=== PATIENT | female | born 1990 | race Caucasian/White ===

== ENCOUNTER 2018-07-05 10:23 | Emergency (ER) | payer SELFPAY ==
[~2018-07-05] VITALS: Ht 157.5 cm; Wt 90.7 kg
[~2018-07-05 10:23] MED LIST: SEIZURE MEDS
--- NOTE | 2018-07-05 11:13 | ED Cough/URI ---
General Chief Complaint: Cough/Cold/Flu Symptoms Stated Complaint: COUGH, STABBING PAINS IN CHEST, CONGESTED Nursing Triage Note: PT CO OF COLD COUGH AND FLU SX, PT HERE W CHILDREN X2 SAME CO Source: patient Exam Limitations: no limitations History of Present Illness Date Seen by Provider: Jul 05, 2018 Time Seen by Provider: 11:00 Initial Comments Patient is a 27-year-old female who presents to the emergency room complaints of cough and cold-like symptoms. She reports that she hasn't had nasal congestion and draining for 1 week. She reports that the nasal drainage is causing her nausea. She denies fevers, headaches, sore throat. She also checked her 2 children with similar complaints. Denies making appointment to see her primary care provider. Timing/Duration: week Severity/Quality: mild, productive cough (clear sputum) Prior Episodes/Possible Cause: no prior episodes Associated Symptoms: cough, nasal congestion, nasal drainage Allergies and Home Medications Allergies Coded Allergies: carbamazepine (Verified Allergy, Unknown, 06/17/18) divalproex sodium (Verified Allergy, Unknown, 06/17/18) ondansetron (Verified Allergy, Unknown, 06/17/18) prochlorperazine (Verified Allergy, Unknown, 06/17/18) topiramate (Verified Allergy, Unknown, 06/17/18) Home Medications No Active Prescriptions or Reported Meds Patient Home Medication List Home Medication List Reviewed: Yes Review of Systems Review of Systems Constitutional: see HPI; No chills, No fever EENTM: see HPI, nose congestion; No throat pain Respiratory: see HPI, cough Gastrointestinal: see HPI, nausea All Other Systems Reviewed Negative Unless Noted: Yes Past Jvfbeco-Puifxw-Vpixer Hx Past Med/Social Hx: Reviewed Nursing Past Med/Soc Hx Patient Social History Alcohol Use: Denies Use Recreational Drug Use: Yes (POT) Smoking Status: Current Everyday Smoker Type Used: Cigarettes 2nd Hand Smoke Exposure: Yes Recent Foreign Travel: No Contact w/Someone Who Travel: No Recent Infectious Disease Expo: No Recent Hopitalizations: No Past Medical History Surgeries: Yes Breast, 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 Respiratory: No Cardiac: No 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: Yes 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 oz. 90.215887qn; BMI Method:Stated General Appearance: WD/WN, no apparent distress HEENT: PERRL/EOMI, normal ENT inspection, TMs normal, pharynx normal Neck: non-tender, full range of motion, supple, normal inspection Respiratory: chest non-tender, lungs clear, normal breath sounds, no respiratory distress, no accessory muscle use Cardiovascular: regular rate, rhythm, no edema, no gallop, no JVD, no murmur Gastrointestinal: normal bowel sounds, non tender, soft, no organomegaly, no pulsatile mass Neurologic/Psychiatric: alert, normal mood/affect, oriented x 3 Skin: normal color, warm/dry Progress/Results/Core Measures Suspected Sepsis Recent Fever Within 48 Hours: No Infection Criteria Present: None New/Unexplained Altered Menta: No Sepsis Screen: No Definite Risk SIRS Temperature:97.4 Pulse: 100 Respiratory Rate: 20 Blood Pressure 113 /78 Mean: 90 Results/Orders My Orders Orders - JOEL BISHOP Ct Head/Cervical Spine Wo (07/05/18 11:29) Vital Signs/I&O 07/05/18 07/05/18 10:35 12:25 Temp 97.4 Pulse 100 88 Resp 20 20 B/P (MAP) 113/78 (90) 112/70 (90) Pulse Ox 100 100 Capillary Refill : Less Than 3 Seconds Blood Pressure Mean: 90 Progress Note : Time: 11:25 Progress Note The patient ambulated to the restroom at this time where she proceeded have a seizure. The nursing staff could hear her hitting the wall and trash and in the restroom. The door was locked and by the time we had unlock she was no longer seizing. We are unsure if she hit her head and neck. C-spine precautions were taken a c-collar was placed she was log rolled onto a spine board and transferred back into the bed. I will be ordering a CT head and neck to rule out injury. The patient is postictal at this time. Her reports that she is no longer on medications for her seizures but has a vagal nerve stimulator that controls her seizures but they left the magnetic activator at home. 1218: Patient is alert and oriented at this time. She has no longer postictal. I informed her of normal CT imaging. I removed her c-collar at this time. She has an extensive history of seizures and she has not on any medications to check levels of. She is instructed to follow up with her primary care provider within 1 week for recheck and carried her magnetic vagal nerve stimulator at all times to control her seizures. She agrees with complains of care, plans for discharge and return precautions were given. Diagnostic Imaging Diagonstic Imaging: CT Plain Films/CT/US/NM/MRI: head Comments NAME: BECK HEARD REC#: [id number] PT STATUS: REG ER : 1990 PHYSICIAN: JOEL BISHOP ADMIT DATE: 07/05/18/ER Signed Date of Exam:07/05/18 CT HEAD/CERVICAL SPINE WO PROCEDURE: CT head and CT cervical spine without contrast. TECHNIQUE: Multiple contiguous axial images were obtained through the brain and cervical spine without the use of intravenous contrast. Sagittal and coronal reformations through the cervical spine were then performed. INDICATION: Seizure fall COMPARISON: None. FINDINGS: CT head: Ventricles normal in size, shape and position. There is no midline shift or mass effect. There is no hemorrhage or evidence of acute ischemia. There is no cerebral edema. The bony calvarium, visualized paranasal sinuses and mastoids are normal. IMPRESSION: Negative CT head. CT cervical spine: Alignment is normal. There is no subluxation or fracture. No osseous lesion or degeneration is seen. IMPRESSION: No traumatic malalignment or fracture. Dictated by: Dictated on workstation # [id number] Dict: 07/05/18 1200 Trans: 07/05/18 1204 [facility] [id number] Interpreted by: DIEGO MORA Electronically signed by: DIEGO MORA 07/05/18 1204 Departure Impression Primary Impression: Upper respiratory infection Additional Impressions: Viral illness Seizure Disposition: 01 HOME, SELF-CARE Condition: Stable/Unchanged Departure-Patient Inst. Decision time for Depature: 12:10 Referrals: CHAUNCEY MCDOWELL MD (PCP) Primary Care Physician [facility]/JULIET (Family) Primary Care Physician Patient Instructions: Viral Upper Respiratory Infection, Adult (DC) Add. Discharge Instructions: Taking no medications as previously prescribed. Follow up with her primary care provider within 1 week for recheck. Be sure you are carrying your magnet activator at all times. You may use ibgf-rjh-qodasvw cough suppressants, decongestants, and humidifier to loosen secretions. All first thing Saturday morning to schedule an appointment with your primary care provider. Return back to the emergency room for any worsening symptoms or concerns as needed. All discharge instructions reviewed with patient and/or family. Voiced understanding. Scripts No Active Prescriptions or Reported Meds JOEL BISHOP Jul 05, 2018 11:13
--- NOTE | 2018-07-05 12:04 | Diagnostic Imaging Report ---
PROCEDURE: CT head and CT cervical spine without contrast. TECHNIQUE: Multiple contiguous axial images were obtained through the brain and cervical spine without the use of intravenous contrast. Sagittal and coronal reformations through the cervical spine were then performed. INDICATION: Seizure fall COMPARISON: None. FINDINGS: CT head: Ventricles normal in size, shape and position. There is no midline shift or mass effect. There is no hemorrhage or evidence of acute ischemia. There is no cerebral edema. The bony calvarium, visualized paranasal sinuses and mastoids are normal. IMPRESSION: Negative CT head. CT cervical spine: Alignment is normal. There is no subluxation or fracture. No osseous lesion or degeneration is seen. IMPRESSION: No traumatic malalignment or fracture. Dictated by: Dictated on workstation # [id number]
[2018-07-05 12:25] VITALS: BP 112/70
== END 2018-07-05 12:25 | disposition home or self-care (01) ==
LOC: EDUNIT# 10:23 → ER 10:24
DX: J06.9 Acute upper respiratory infection, unspecified (principal); B34.9 Viral infection, unspecified; G40.909 Epilepsy, unspecified, not intractable, without status epilepticus; F41.9 Anxiety disorder, unspecified; F12.10 Cannabis abuse, uncomplicated; F17.210 Nicotine dependence, cigarettes, uncomplicated; Z90.710 Acquired absence of both cervix and uterus; Z88.8 Allergy status to other drugs, medicaments and biological substances; Z85.3 Personal history of malignant neoplasm of breast
CPT/HCPCS: 70450; 72125

== ENCOUNTER 2018-08-28 21:49 | Emergency (ER) | payer MEDICAID, OTHER ==
[~2018-08-28] VITALS: Ht 157.5 cm; Wt 92.1 kg
--- OUTSIDE RECORDS SUMMARY | 2018-08-28 21:55 | XMS REPORT ---
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 Active 711466442 ALLERGIES No Information ENCOUNTERS Encounter Location Date Diagnosis [place] [id number] [place] [phone] Aug, [facility] [id number] [place] [phone] Jul, [place] [id number] [place] [phone] Jul, 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 malignant 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 ; 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 ; Vaginal dryness , menopausal N95.1 ; Hx of hysterectomy Z90.710 ; Acquired absence of 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 and History of breast cancer in female Z85.3 [facility] [id number] [place] [phone] Jun, Vasomotor symptoms due to menopause N95.1 [facility] [id number] [place] [phone] May, Vasomotor symptoms due to menopause N95.1 ; Acquired absence of 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 ; 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 and History of breast cancer in female Z85.3 IMMUNIZATIONS No Known Immunizations SOCIAL HISTORY Never Assessed REASON FOR VISIT Medication question PLAN OF CARE VITAL SIGNS MEDICATIONS Unknown Medications RESULTS No Results PROCEDURES No Known procedures INSTRUCTIONS MEDICATIONS ADMINISTERED No Known Medications MEDICAL (GENERAL) HISTORY Type Description Date Medical History [facility] Medical History Pre-cancerous Uterous Medical History Breast cancer -early 's Medical History epilepsy Medical History Anxiety Medical History Bi-polar disorder Medical History doble masectomy Surgical History Hysterctomy 2017 Surgical History Double -mastectomy 2011 Surgical History Child 15-17 Surgical History c-sectionsx 2 Hospitalization History [facility], Psychatric house in/out through the years Age [age] Hospitalization History Surgeries Hospitalization History [facility] -head damage stayed one week
--- OUTSIDE RECORDS SUMMARY | 2018-08-28 21:56 | XMS REPORT ---
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 782187973 Problem Acquired absence of 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 Active 784704100 Problem History of breast cancer in female Z85.3 Active 744018296 Problem Vasomotor symptoms due to menopause N95.1 Active 617364155 ALLERGIES No Information ENCOUNTERS Encounter Location Date Diagnosis [facility] [id number] [place] [phone] Jul, [facility] [id number] [place] [phone] Jun, Vasomotor symptoms due to menopause N95.1 [facility] [address] [place] [phone] May, Vasomotor symptoms due to menopause N95.1 ; Acquired absence of 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 ; 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 and History of breast cancer in female Z85.3 IMMUNIZATIONS No Known Immunizations SOCIAL HISTORY Never Assessed REASON FOR VISIT Refill request PLAN OF CARE VITAL SIGNS MEDICATIONS Medication Instructions Dosage Frequency Start Date End Date Duration Status Escitalopram Oxalate 20 mg Orally Once a day 1 tablet 24h Jun, 30 day(s) Active RESULTS No Results PROCEDURES No Known procedures INSTRUCTIONS MEDICATIONS ADMINISTERED No Known Medications MEDICAL (GENERAL) HISTORY Type Description Date Medical History [facility] Medical History Pre-cancerous Uterous Medical History Breast cancer -early 20's Medical History epilepsy Medical History Anxiety Medical History Bi-polar disorder Surgical History Hysterctomy 2017 Surgical History Double -mastectomy 2011 Surgical History Child 15-17 Hospitalization History [facility], Psychatric house in/out through the years Age 16-25 Hospitalization History Surgeries Hospitalization History [facility] -head damage stayed one week
--- OUTSIDE RECORDS SUMMARY | 2018-08-28 21:56 | XMS REPORT ---
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 520981873 Problem Acquired absence of 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 Active 053802027 Problem History of breast cancer in female Z85.3 Active 553538560 Problem Vasomotor symptoms due to menopause N95.1 Active 944329942 ALLERGIES Substance Reaction Event Type Date Status Depakote anaphylaxis Drug Allergy May, Active ENCOUNTERS Encounter Location Date Diagnosis [facility] [id number] [place] [phone] Jul, [facility] [id number] [place] [phone] Jun, [facility] [id number] [place] [phone] May, Vasomotor symptoms due to menopause N95.1 ; Acquired absence of 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 ; 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 PT notes she has been experincing a lot of itching, she states that she has experinced a lot of itching when she was with her two sons but now it is a constant. PT reports she has been experincing a lot of hot flashes and mood swings.Jordan ODELL PLAN OF CARE Activity Details Follow Up prn Reason: VITAL SIGNS Height 62 in 2018-06-25 Weight 200.4 lbs 2018-06-25 Temperature 98.4 degrees Fahrenheit 2018-06-25 Heart Rate 107 bpm 2018-06-25 Respiratory Rate 20 2018-06-25 Oximetry 98 % 2018-06-25 BMI 36.65 kg/m2 2018-06-25 Blood pressure systolic 118 mmHg 2018-06-25 Blood pressure diastolic 72 mmHg 2018-06-25 MEDICATIONS Medication Instructions Dosage Frequency Start Date End Date Duration Status Escitalopram Oxalate 10 mg Orally Once a day 1 tablet 24h May, 30 day(s) Active RESULTS No Results PROCEDURES No Known procedures INSTRUCTIONS MEDICATIONS ADMINISTERED No Known Medications MEDICAL (GENERAL) HISTORY Type Description Date Medical History [facility] Medical History Pre-cancerous Uterous Medical History Breast cancer -early 20s Medical History epilepsy Medical History Anxiety Medical History Bi-polar disorder Surgical History Hysterctomy 2018 Surgical History Double -mastectomy 2011 Surgical History Child 15-17 Hospitalization History [facility] through [facility] years Age 16-25 Hospitalization History Surgeries Hospitalization History [facility] -head damage stayed one week
[2018-08-28] MEDS: LORazepam INJ 2 MG/ML (ATIVAN) VIAL ONE (23:26)
[2018-08-28] MEDS: ONDANSETRON 4 MG/2 ML (SDV) Z0FRAN ONE (23:26)
[2018-08-28] MEDS: KETOROLAC 30 MG/ML VIAL ONE (23:41)
[2018-08-28] MEDS: PROMETHAZINE INJ 25 MG/ML (PHENERGAN) AMP ONE (23:43)
[2018-08-29] MEDS: RX-HYDROCODONE/APAP 5/325 MG #4 TAB PK PO PRN (00:10)
[2018-08-29] MEDS: RX-PHENERGAN 25 MG SUPP PPK#3 PR STA (00:10)
[2018-08-29] MEDS ORDERED: RX-ONDANSETRON 4 MG ODT (ZOFRAN) PPK #4 ONE (00:18)
[2018-08-29] MEDS ORDERED: RX-HYDROCODONE/APAP 5/325 MG #4 TAB PK PO ONE (00:18)
[2018-08-29] MEDS ORDERED: RX-PHENERGAN 25 MG SUPP PPK#3 ONE ×2 (00:28→00:34)
[2018-08-29] MEDS: TETANUS,DIPTH,PERTUSS P/F (BOOSTRIX) 0.5 ML VIAL IM ONE (00:39)
[2018-08-29 00:45] VITALS: BP 133/68
--- NOTE | 2018-08-29 03:10 | ED Integumentary General ---
General Chief Complaint: Bite-Animal/Human/Insect Stated Complaint: SPIDER BITE ON R TOE Nursing Triage Note: PT AMB TO ROOM #10 W/O DIFFICULTY. A&OX4. C/O SPIDER BITE TO 2ND TOE OF RT FOOT. PT REPORTS @ APPROX 2000 SHE WAS AT A FRIENDS HOUSE WHEN SHE FELT A SHARP STING TO HER TOE. REPORTS HER REFLEX WAS TO SMACK/BRUSH SPIDER OFF W/O LOOKING AT IT. PT REPORTS SHE DID NOT SEE SPIDER AND CAN NOT CLARIFY THAT IT WAS A SPIDER. PT REPORTS SINCE INCIDENT SHE HAS VOMITED X6 TIMES AND HAS MUSCLE TIGHTENING. REPORTS IT FEELS LIKE "PINS AND NEEDLES" IN HER TOE. DURING TRIAGE PT BEGAN TO VOMIT AND WAS GIVEN AN EMESIS BASEN. Source: patient Exam Limitations: no limitations History of Present Illness Date Seen by Provider: Aug 28, 2018 Time Seen by Provider: 23:25 Initial Comments Patient presents to ER by private conveyance with chief complaint that about 1 hour ago she was sitting on her easy chair at home and she felt a sting in her right foot second toe medial side. She looked down and saw a spider brushed it away and did not recover the body. She said started having excruciating pain started up about an hour later as well as some body aches nausea or vomiting. She cannot describe the spider. Shes never had a bike like this before. She does have a history of seizures controlled with medicines. Shes having no fevers but she is having some sweats and chills. Shes vomited a few times in the ER. Allergies and Home Medications Allergies Coded Allergies: carbamazepine (Verified Allergy, Unknown, 06/17/18) divalproex sodium (Verified Allergy, Unknown, 06/17/18) ondansetron (Verified Allergy, Unknown, 06/17/18) prochlorperazine (Verified Allergy, Unknown, 06/17/18) topiramate (Verified Allergy, Unknown, 06/17/18) Home Medications No Active Prescriptions or Reported Meds Patient Home Medication List Home Medication List Reviewed: Yes Review of Systems Review of Systems Constitutional: No chills, No diaphoresis, No fever; malaise EENTM: No blurred vision, No double vision Respiratory: No cough, No short of breath Cardiovascular: No chest pain, No edema Gastrointestinal: No abdominal pain, No constipation, No diarrhea; nausea, vomiting Genitourinary: No discharge, No dysuria Musculoskeletal: No back pain, No joint pain Skin: see HPI Past Qwelqol-Anrvhx-Oswrcq Hx Patient Social History Alcohol Use: Denies Use Recreational Drug Use: Yes Drug of Choice: THC Type Used: Cigarettes 2nd Hand Smoke Exposure: Yes Recent Foreign Travel: No Contact w/Someone Who Travel: No Recent Infectious Disease Expo: No Recent Hopitalizations: No Physical Abuse: No Sexual Abuse: No Mistreated: No Past Medical History Surgeries: Yes Breast, 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 Respiratory: No Cardiac: No 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: Yes Seizure Disorder 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 Genitourinary: No Gastrointestinal: No Musculoskeletal: Yes Chronic Back Pain Endocrine: No Cancer: Yes Breast Psychosocial: Yes Anxiety Physical Exam Vital Signs Vital Signs - First Documented 08/28/18 22:39 Temp 98.3 Pulse 89 Resp 16 B/P (MAP) 143/99 (114) Pulse Ox 99 O2 Delivery Room Air Capillary Refill : Less Than 3 Seconds General Appearance: WD/WN, no apparent distress HEENT: PERRL/EOMI, pharynx normal Neck: non-tender, normal inspection Cardiovascular: normal peripheral pulses, regular rate, rhythm, no edema Respiratory: chest non-tender, lungs clear, normal breath sounds, no respiratory distress, no accessory muscle use Gastrointestinal: normal bowel sounds, non tender, soft Neurologic/Psychiatric: alert, oriented x 3, other (very anxious) Skin: rash (mild erythematous swelling on the second toe of the right foot medial side.) Progress/Results/Core Measures Results/Orders My Orders Orders - DONNA CARTER Ondansetron Injection (Zofran Injectio (08/28/18 23:09) Lorazepam Injection (Ativan Injection) (08/28/18 23:10) Promethazine Injection (Phenergan Injec (08/28/18 23:33) Ketorolac Injection (Toradol Injection) (08/28/18 23:33) Rx-Hydrocodone/Apap 5-325 Mg (Rx-Vicodin (08/29/18 00:18) Rx-Ondansetron Po (Rx-Zofran Po) (08/29/18 00:18) Dipht,Pertuss(Acell),Tet Adult (Boostrix (08/29/18 00:18) Rx-Promethazine Hcl (Rx-Phenergan Supp) (08/29/18 00:28) Rx-Promethazine Hcl (Rx-Phenergan Supp) (08/29/18 00:34) Medications Given in ED Current Medications Medications Dose Ordered Sig/Shlomo Route Start Time Stop Time Status Last Admin Dose Admin Diphtheria/ Tetanus/Acell Pertussis 0.5 ml STK-MED ONCE IM 08/29/18 00:18 08/29/18 00:30 DC 08/29/18 00:39 0.5 ML Ketorolac Tromethamine 30 mg STK-MED ONCE .ROUTE 08/28/18 23:33 08/29/18 00:30 DC 08/28/18 23:41 30 MG Lorazepam 2 mg STK-MED ONCE .ROUTE 08/28/18 23:10 08/29/18 00:30 DC 08/28/18 23:26 2 MG Promethazine HCl 25 mg STK-MED ONCE .ROUTE 08/28/18 23:33 08/29/18 00:30 DC 08/28/18 23:43 25 MG Vital Signs/I&O 08/28/18 08/29/18 22:39 00:45 Temp 98.3 98.3 Pulse 89 84 Resp 16 16 B/P (MAP) 143/99 (114) 133/68 (89) Pulse Ox 99 100 O2 Delivery Room Air Room Air Blood Pressure Mean: 89 Progress Progress Note #1: Time: 23:35 Progress Note We have given the patient some Ativan 1 mg because she is having quite a bit of anxiety as well as Toradol and Phenergan. She has an allergy to Zofran. The toe itself is slightly inflamed having a little scant edema. Concern is that it might be a but since she started having chills and body aches and sweats nausea vomiting within 1-2 hours after the bite. Pharmacy advises us that we do not have spider antivenom. We will call toxicology at poison control. James : Recommends that antivenom is only available to the CDC and is not readily available. He says the mainstay of treatment is opiates and benzos. He would watch her until least 4 hours after the original bite as thats when the worst the pain peaks. Usually can last 6-8 hours. He recommended tetanus shot and either observe for pain control if needed or if we can get her pain better or resolved we could send her home. Progress Note #2: Time: 00:30 Progress Note Patient's much more palpable. Her nausea is gone. We will going to give her some take-home packs of nausea pain medicines and scripts. We have discussed with her the expectations from toxicology and she is in agreement with the plan and will follow up with her primary care doctor as needed. Departure Impression Primary Impression: Spider bite wound Qualified Codes: T63.301A - Toxic effect of unspecified spider venom, accidental (unintentional), initial encounter Disposition: HOME, SELF-CARE Condition: Improved Departure-Patient Inst. Decision time for Depature: 03:20 Referrals: CHAUNCEY MCDOWELL MD (PCP) Primary Care Physician [facility] (Family) Primary Care Physician Patient Instructions: Spider Bites Add. Discharge Instructions: Use the Phenergan every 6 hours as needed. Use the hydrocodone one tablet every 6 hours as needed for pain. Keep the toe elevated above the level of your heart for swelling. You can use heat as needed. You can also use ibuprofen 800 mg every 8 hours. All discharge instructions reviewed with patient and/or family. Voiced understanding. Scripts No Active Prescriptions or Reported Meds Copy Copies To 1: WENCESLAO CRUZ TITUS J Aug 29, 2018 03:10
== END 2018-08-29 00:45 | disposition home or self-care (01) ==
LOC: EDUNIT# 21:49 → ER 21:51
DX: T63.301A Toxic effect of unspecified spider venom, accidental (unintentional), initial encounter (principal); G40.909 Epilepsy, unspecified, not intractable, without status epilepticus; F41.9 Anxiety disorder, unspecified; F12.10 Cannabis abuse, uncomplicated; Z77.22 Contact with and (suspected) exposure to environmental tobacco smoke (acute) (chronic); Z85.3 Personal history of malignant neoplasm of breast; Z23 Encounter for immunization; Z90.710 Acquired absence of both cervix and uterus; Z88.8 Allergy status to other drugs, medicaments and biological substances
CPT/HCPCS: 90471; 90715; 96374; 96375; 99284

== ENCOUNTER 2018-09-28 10:13 | Emergency (ER) | payer MEDICAID ==
[~2018-09-28] VITALS: Ht 160 cm; Wt 94.8 kg
--- OUTSIDE RECORDS SUMMARY | 2018-09-28 10:41 | XMS REPORT ---
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 Active 687977341 Problem Acquired absence of 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 Active 258043317 Problem History of breast cancer in female Z85.3 Active 804607432 Problem Vasomotor symptoms due to menopause N95.1 Active 362263449 ALLERGIES Substance Reaction Event Type Date Status Depakote anaphylaxis Drug Allergy Aug, Active ENCOUNTERS Encounter Location Date Diagnosis [place] [id number] [address] Aug, Vasomotor symptoms due to menopause N95.1 [facility] [address] [place] [id number] [place] [address] Aug, [facility] [address] [place] [id number] [place] [address] Aug, Seasonal allergies J30.2 ; Spider bite wound, accidental or unintentional, initial encounter T63.301A and Vasomotor symptoms due to menopause N95.1 [facility] [address] [address] Jul, [facility] [address] [place] [id number] [place] [address] Jul, 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 malignant 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 ; 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 ; Vaginal dryness , menopausal N95.1 ; Hx of hysterectomy Z90.710 ; Acquired absence of 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 and History of breast cancer in female Z85.3 [facility] [address] [facility] [id number] [place] [address] Jun, Vasomotor symptoms due to menopause N95.1 [facility] [address] [facility] [id number] [address] May, Vasomotor symptoms due to menopause N95.1 ; Acquired absence of 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 ; 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 and History of breast cancer in female Z85.3 IMMUNIZATIONS Vaccine Route Administration Date Status DEPO MEDROL 40 MG/ML IM Intramuscular Sep 02, 2018 Administered SOCIAL HISTORY Never Assessed REASON FOR VISIT ER f/u , after bitten by black spider -- mi holguin PLAN OF CARE Activity Details Follow Up 4 Weeks with Bhupinder adams new med start Reason: VITAL SIGNS Height 62 in 2018-09-02 Weight 211.0 lbs 2018-09-02 Temperature 98.0 degrees Fahrenheit 2018-09-02 Heart Rate 88 bpm 2018-09-02 Respiratory Rate 20 2018-09-02 BMI 38.59 kg/m2 2018-09-02 Blood pressure systolic 122 mmHg 2018-09-02 Blood pressure diastolic 72 mmHg 2018-09-02 MEDICATIONS Medication Instructions Dosage Frequency Start Date End Date Duration Status Escitalopram Oxalate 20 mg Orally Once a day 1 tablet 24h Jun, 30 day(s) Active Cetirizine HCl 10 mg Orally Once a day 1 tablet 24h Aug, Aug, 30 day(s) Active Ranitidine HCl 150 MG Orally Once a day 1 tablet at bedtime 24h Aug, 30 day(s) Active RESULTS No Results PROCEDURES Procedure Date Ordered Result Body Site DEPO MEDROL 40 MG/ML Sep 02, 2018 THER/PROPH/DIAG INJ, SC/IM Sep 02, 2018 INSTRUCTIONS MEDICATIONS ADMINISTERED No Known Medications MEDICAL (GENERAL) HISTORY Type Description Date Medical History [facility] Medical History Pre-cancerous Uterous Medical History Breast cancer -early 20's Medical History epilepsy s/p Vagal N stimulator, Follows with Dr Arellano in [facility] Medical History Anxiety Medical History Bi-polar disorder Medical History doble masectomy Surgical History Hysterctomy 2018 Surgical History Double -mastectomy 2011 Surgical History Child 15-17 Surgical History c-sectionsx 2 Hospitalization History [facility], [facility] in/out through the years Age 16-25 [facility]
--- OUTSIDE RECORDS SUMMARY | 2018-09-28 10:41 | XMS REPORT ---
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 Active 246421085 Problem Acquired absence of 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 Active 960152952 Problem History of breast cancer in female Z85.3 Active 250034778 Problem Vasomotor symptoms due to menopause N95.1 Active 685472566 ALLERGIES Substance Reaction Event Type Date Status Depakote anaphylaxis Drug Allergy Jul, Active ENCOUNTERS Encounter Location Date Diagnosis [place] [id number] [address] Aug, Vasomotor symptoms due to menopause N95.1 [facility] [place] [address] [place] [id number] [place] [address] Aug, [facility] [place] [address] [place] [id number] [place] [address] Aug, Seasonal allergies J30.2 ; Spider bite wound, accidental or unintentional, initial encounter T63.301A and Vasomotor symptoms due to menopause N95.1 [facility] [place] [address] [address] Jul, [facility] [place] [address] [place] [id number] [place] [address] Jul, 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 malignant 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 ; 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 ; Vaginal dryness , menopausal N95.1 ; Hx of hysterectomy Z90.710 ; Acquired absence of 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 and History of breast cancer in female Z85.3 [facility] [place] [address] [facility] [id number] [place] [address] Jun, Vasomotor symptoms due to menopause N95.1 [facility] [place] [address] [facility] [id number], [place] [address] May, Vasomotor symptoms due to menopause N95.1 ; Acquired absence of 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 ; 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 and History of breast cancer in female Z85.3 IMMUNIZATIONS No Known Immunizations SOCIAL HISTORY Never Assessed REASON FOR VISIT Establish Care / hysterectomy march 21 not taking any hormones , states is having vaginal dryness, hot flashes and mood changes -- mi holguin PLAN OF CARE Activity Details Follow Up 3 Months with Bhupinder to review records Reason: VITAL SIGNS Height 62 in 2018-08-06 Weight 205.0 lbs 2018-08-06 Temperature 97.4 degrees Fahrenheit 2018-08-06 Heart Rate 90 bpm 2018-08-06 Respiratory Rate 22 2018-08-06 BMI 37.49 kg/m2 2018-08-06 Blood pressure systolic 124 mmHg 2018-08-06 Blood pressure diastolic 70 mmHg 2018-08-06 MEDICATIONS Medication Instructions Dosage Frequency Start Date End Date Duration Status Escitalopram Oxalate 20 mg Orally Once a day 1 tablet 24h Jun, 30 day(s) Active Escitalopram Oxalate 10 mg Orally Once a day 1 tablet 24h May, 30 day(s) Not-Taking RESULTS No Results PROCEDURES No Known procedures INSTRUCTIONS MEDICATIONS ADMINISTERED No Known Medications MEDICAL (GENERAL) HISTORY Type Description Date Medical History [facility] Medical History Pre-cancerous Uterous Medical History Breast cancer -early 20s Medical History epilepsy s/p Vagal N stimulator, Follows with Dr Arellano in [facility] Medical History Anxiety Medical History Bi-polar disorder Medical History doble masectomy Surgical History Hysterctomy 2018 Surgical History Double -mastectomy 2011 Surgical History Child 15-17 Surgical History c-sectionsx 2 [facility] Age 16-25 Hospitalization History Surgeries Hospitalization History [facility] -head damage stayed one week
--- OUTSIDE RECORDS SUMMARY | 2018-09-28 10:41 | XMS REPORT ---
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 Active 940295923 Problem Acquired absence of 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 Active 117430270 Problem History of breast cancer in female Z85.3 Active 000404867 Problem Vasomotor symptoms due to menopause N95.1 Active 274941882 ALLERGIES No Information ENCOUNTERS Encounter Location Date Diagnosis [facility] [address] [place] [id number] [place] [address] Aug, [facility] [address] [place] [id number] [place] [address] Aug, Vasomotor symptoms due to menopause N95.1 [facility] [address] [place] [id number] [place] [address] Aug, [facility] [address] [place] [id number] [place] [address] Aug, Seasonal allergies J30.2 ; Spider bite wound, accidental or unintentional, initial encounter T63.301A and Vasomotor symptoms due to menopause N95.1 [facility] [address] [address] Jul, [place] [address] [place] [id number] [place] [address] Jul, 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 malignant 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 ; 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 [id number] [address] Jun, Vasomotor symptoms due to menopause N95.1 [facility] [address] [facility] [id number] [address] May, 2018 Vasomotor symptoms due to menopause N95.1 ; Acquired absence of 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 ; 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 and History of breast cancer in female Z85.3 IMMUNIZATIONS No Known Immunizations SOCIAL HISTORY Never Assessed REASON FOR VISIT Requests return call PLAN OF CARE VITAL SIGNS MEDICATIONS Medication Instructions Dosage Frequency Start Date End Date Duration Status Escitalopram Oxalate 20 MG Orally Once a day 2 tablets 24h Jun, 30 day(s) Active RESULTS No [...] 15-17 Surgical History c-sectionsx 2 Hospitalization History [facility], [facility] in/out through the years Age 16-25 Hospitalization History Surgeries Hospitalization History [facility] -head damage stayed one week
--- OUTSIDE RECORDS SUMMARY | 2018-09-28 10:41 | XMS REPORT ---
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 Active 198642657 Problem Acquired absence of 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 Active 260297373 Problem History of breast cancer in female Z85.3 Active 414415506 Problem Vasomotor symptoms due to menopause N95.1 Active 573689826 ALLERGIES No Information ENCOUNTERS Encounter Location Date Diagnosis [facility] [address] [place] [address] Aug, [facility] [address] [place] [id number] [place] [address] Aug, [facility] [address] [place] [address] Aug, Seasonal allergies J30.2 ; Spider bite wound, accidental or unintentional, initial encounter T63.301A and Vasomotor symptoms due to menopause N95.1 [facility] [address] [place] [address] Jul, [facility] [address] [place] [id number] [place] [address] Jul, 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 malignant 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 ; 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 ; Vaginal dryness , menopausal N95.1 ; Hx of hysterectomy Z90.710 ; Acquired absence of 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 and History of breast cancer in female Z85.3 [facility] [address] [facility] [id number] [place] [address] Jun, Vasomotor symptoms due to menopause N95.1 [facility] [address] [facility] [id number] [place] [address] May, Vasomotor symptoms due to menopause N95.1 ; Acquired absence of 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 ; 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
[2018-09-28] MEDS ORDERED: IOHEXOL 350 MG/ML 100 ML (OMNIPAQUE 350) VIAL IV ONE (10:45)
[2018-09-28] MEDS ORDERED: PROMETHAZINE INJ 25 MG/ML (PHENERGAN) AMP IVP ONE (10:45)
[2018-09-28] MEDS ORDERED: NS IV 1000 ML 1,000 ML IV SCH (10:45)
[2018-09-28] MEDS ORDERED: NS 250 ML (IVPB) BAG IV ONE (10:45)
[2018-09-28] MEDS ORDERED: fentaNYL INJECTION 100 MCG/2 ML AMP IVP ONE (10:45)
[2018-09-28] MEDS ORDERED: diphenhydrAMINE 50 MG/ML INJ (BENADRYL) IVP ONE (10:45)
[2018-09-28] MEDS ORDERED: RECEIVED CONTRAST (Hold Metformin) IV SCH (10:45)
[2018-09-28 10:47] LABS: BASOPHILS % (AUTO) 1 % (0-10); EOSINOPHILS # (AUTO) 0.2 10^3/uL (0.0-0.3); EOSINOPHILS % (AUTO) 2 % (0-10); HEMATOCRIT 37 % (35-52); HEMOGLOBIN 12.4 G/DL (11.5-16.0); LYMPHOCYTES # (AUTO) 2.2 X 10^3 (1.0-4.0); LYMPHOCYTES % (AUTO) 29 % (12-44); MEAN CORPUSCULAR HEMOGLOBIN 29 PG (25-34); MEAN CORPUSCULAR HGB CONC 33 G/DL (32-36); MEAN CORPUSCULAR VOLUME 88 FL (80-99); MEAN PLATELET VOLUME 10.9 FL (7.4-10.4); MONOCYTES # (AUTO) 0.5 X 10^3 (0.0-1.0); MONOCYTES % (AUTO) 6 % (0-12); NEUTROPHILS # (AUTO) 4.9 X 10^3 (1.8-7.8); NEUTROPHILS % (AUTO) 63 % (42-75); PLATELET COUNT 247 10^3/uL (130-400); RED BLOOD COUNT 4.24 10^6/uL (4.35-5.85); RED CELL DISTRIBUTION WIDTH 13.6 % (10.0-14.5); WHITE BLOOD COUNT 7.8 10^3/uL (4.3-11.0)
--- NOTE | 2018-09-28 10:50 | ED Abdominal Pain ---
General Stated Complaint: ABD PAIN STARTED AT 4 A.M. Source of Information: Patient Exam Limitations: No Limitations History of Present Illness Date Seen by Provider: Sep 28, 2018 Time Seen by Provider: 10:46 Initial Comments This 27-year-old female presents with a complaint of abdominal pain worse in the right upper quadrant that began last night. Patient's pain is sharp in nature, severe in intensity, and associated with nausea. Patient is unclear concerning her surgical history but believes that in addition C-sections she's had a hysterectomy and a cholecystectomy. Patient denies associated fever or chill. The sharp abdominal pain is diffuse in nature greatest in right upper quadrant and without significant radiation. The patient denies fever or chills, dysuria or flank pain, or associated cough, shortness of breath, chest pain, headache, or nuchal rigidity. Allergies and Home Medications Allergies Coded Allergies: carbamazepine (Verified Allergy, Unknown, 06/17/18) divalproex sodium (Verified Allergy, Unknown, 06/17/18) ondansetron (Verified Allergy, Unknown, 06/17/18) prochlorperazine (Verified Allergy, Unknown, 06/17/18) topiramate (Verified Allergy, Unknown, 06/17/18) Home Medications No Active Prescriptions or Reported Meds Patient Home Medication List Home Medication List Reviewed: Yes Review of Systems Review of Systems Constitutional: No chills, No fever; malaise EENTM: No Blurred Vision, No Ear Pain Respiratory: Denies Cough Cardiovascular: Denies Chest Pain Gastrointestinal: See HPI, Abdominal Pain (diffuse greatest in the right upper quadrant.); Denies Diarrhea; Nausea Genitourinary: Denies Burning, Denies Frequency Musculoskeletal: No back pain Skin: No rash Psychiatric/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: No Symptoms Reported Endocrine: No Symptoms Reported Hematologic/Lymphatic: No Symptoms Reported Past Moxokte-Tpsvme-Oxhkks Hx Past Med/Social Hx: Reviewed Nursing Past Med/Soc Hx Patient Social History Drug of Choice: THC Type Used: Cigarettes 2nd Hand Smoke Exposure: Yes Recent Foreign Travel: No Contact w/Someone Who Travel: No Recent Hopitalizations: No Past Medical History Surgeries: Yes Breast, Gallbladder, 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 Respiratory: No Cardiac: No 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: Yes Seizure 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 oz. 92.387637kp; BMI Method:Stated General Appearance: WD/WN, mild distress HEENT: normal ENT inspection Neck: normal inspection Respiratory: lungs clear Cardiovascular: regular rate, rhythm Gastrointestinal: normal bowel sounds, tenderness (diffuse greatest in the right upper quadrant.) Extremities: normal range of motion, non-tender, normal inspection Back: normal inspection Neurologic/Psychiatric: no motor/sensory deficits, alert, normal mood/affect, oriented x 3 Skin: normal color, warm/dry Progress/Results/Core Measures Results/Orders Lab Results Laboratory Tests Test 09/28/18 10:40 09/28/18 11:51 Range/Units White Blood Count 7.8 4.3-11.0 10^3/uL Red Blood Count 4.24 L 4.35-5.85 10^6/uL Hemoglobin 12.4 11.5-16.0 G/DL Hematocrit 37 35-52 % Mean Corpuscular Volume 88 80-99 FL Mean Corpuscular Hemoglobin 29 25-34 PG Mean Corpuscular Hemoglobin Concent 33 32-36 G/DL Red Cell Distribution Width 13.6 10.0-14.5 % Platelet Count 247 130-400 10^3/uL Mean Platelet Volume 10.9 H 7.4-10.4 FL Neutrophils (%) (Auto) 63 42-75 % Lymphocytes (%) (Auto) 29 12-44 % Monocytes (%) (Auto) 6 0-12 % Eosinophils (%) (Auto) 2 0-10 % Basophils (%) (Auto) 1 0-10 % Neutrophils # (Auto) 4.9 1.8-7.8 X 10^3 Lymphocytes # (Auto) 2.2 1.0-4.0 X 10^3 Monocytes # (Auto) 0.5 0.0-1.0 X 10^3 Eosinophils # (Auto) 0.2 0.0-0.3 10^3/uL Basophils # (Auto) 0.0 0.0-0.1 10^3/uL Sodium Level 141 135-145 MMOL/L Potassium Level 4.2 3.6-5.0 MMOL/L Chloride Level 109 H 98-107 MMOL/L Carbon Dioxide Level 19 L 21-32 MMOL/L Anion Gap 13 5-14 MMOL/L Blood Urea Nitrogen 15 7-18 MG/DL Creatinine 0.79 0.60-1.30 MG/DL Estimat Glomerular Filtration Rate > 60 BUN/Creatinine Ratio 19 Glucose Level 107 H 70-105 MG/DL Calcium Level 9.2 8.5-10.1 MG/DL Corrected Calcium 9.1 8.5-10.1 MG/DL Total Bilirubin 0.2 0.1-1.0 MG/DL Aspartate Amino Transf (AST/SGOT) 18 5-34 U/L Alanine Aminotransferase (ALT/SGPT) 27 0-55 U/L Alkaline Phosphatase 108 40-136 U/L Total Protein 7.1 6.4-8.2 GM/DL Albumin 4.1 3.2-4.5 GM/DL Lipase 25 8-78 U/L Urine Color YELLOW Urine Clarity SLIGHTLY CLOUDY Urine pH 5 5-9 Urine Specific [place] 1.020 1.016-1.022 Urine Protein NEGATIVE NEGATIVE Urine Glucose (UA) NEGATIVE NEGATIVE Urine Ketones NEGATIVE NEGATIVE Urine Nitrite NEGATIVE NEGATIVE Urine Bilirubin NEGATIVE NEGATIVE Urine Urobilinogen NORMAL NORMAL MG/DL Urine Leukocyte Esterase NEGATIVE NEGATIVE Urine RBC (Auto) NEGATIVE NEGATIVE Urine RBC NONE /HPF Urine WBC NONE /HPF Urine Squamous Epithelial Cells 5-10 /HPF Urine Crystals NONE /LPF Urine Bacteria NEGATIVE /HPF Urine Casts NONE /LPF Urine Mucus NEGATIVE /LPF Urine Culture Indicated NO Urine Test NEGATIVE NEGATIVE My Orders Orders - GERARDO LARA MD Cbc With Automated Diff (09/28/18 10:31) Comprehensive Metabolic Panel (09/28/18 10:31) Lipase (09/28/18 10:31) Ua Culture If Indicated (09/28/18 10:31) Ct Abdomen/Pelvis W (09/28/18 10:31) Hcg,Qualitative Urine (09/28/18 10:31) Ns Iv 1000 Ml (Sodium Chloride 0.9%) (09/28/18 10:45) Fentanyl Injection (Sublimaze Injection (09/28/18 10:45) Iohexol Injection (Omnipaque 350 Mg/Ml 1 (09/28/18 10:45) Contrast Received (Contrast Received) (09/28/18 10:45) Ns (Ivpb) (Sodium Chloride 0.9%) (09/28/18 10:45) Promethazine Injection (Phenergan Injec (09/28/18 10:45) Diphenhydramine Injection (Benadryl Inje (09/28/18 10:45) Medications Given in ED Current Medications Medications Dose Ordered Sig/Shlomo Route Start Time Stop Time Status Last Admin Dose Admin Diphenhydramine HCl 25 mg ONCE ONCE IVP 09/28/18 10:45 09/28/18 10:46 DC 09/28/18 10:50 25 MG Fentanyl Citrate 50 mcg ONCE ONCE IVP 09/28/18 10:45 09/28/18 10:46 DC 09/28/18 10:50 50 MCG Iohexol 100 ml ONCE ONCE IV 09/28/18 10:45 09/28/18 10:56 DC 09/28/18 11:29 100 ML Promethazine HCl 25 mg ONCE ONCE IVP 09/28/18 10:45 09/28/18 10:46 DC 09/28/18 10:50 25 MG Sodium Chloride 250 ml ONCE ONCE IV 09/28/18 10:45 09/28/18 10:56 DC 09/28/18 11:29 80 ML Vital Signs/I&O 09/28/18 10:18 Temp 97.0 Pulse 89 Resp 20 B/P (MAP) 169/85 (113) Pulse Ox 100 O2 Delivery Room Air Progress Progress Note : Time: 12:35 Progress Note The patient's CT of the abdomen was consistent with a possible stone in the the patient's gallbladder. I informed the patient of the findings. I gave her pain and nausea medicine. I recommend that she follow-up closely with her physician tomorrow for further evaluation and care. Departure Impression Primary Impression: Acalculous cholecystitis Disposition: 01 HOME, SELF-CARE Condition: Improved Departure-Patient Inst. Decision time for Depature: 12:38 Referrals: CHAUNCEY MCDOWELL MD (PCP) Primary Care Physician [facility] (Family) Primary Care Physician Patient Instructions: Acute Abdomen (Belly Pain), Adult (DC) Add. Discharge Instructions: Close follow-up with your doctor tomorrow for possible gallbladder disease. Hydrocodone and Zofran for pain and nausea. Stay on clear liquids today. Return if any problems or questions. Scripts No Active Prescriptions or Reported Meds GERARDO LARA MD Sep 28, 2018 10:50
[2018-09-28 11:06] LABS: ALANINE AMINOTRANSFERASE 27 U/L (0-55); ALBUMIN 4.1 GM/DL (3.2-4.5); ALKALINE PHOSPHATASE 108 U/L (40-136); BILIRUBIN,TOTAL 0.2 MG/DL (0.1-1.0); BUN/CREATININE RATIO 19; CALCIUM 9.2 MG/DL (8.5-10.1); CARBON DIOXIDE 19 MMOL/L (21-32); CHLORIDE 109 MMOL/L (98-107); CREATININE SERUM 0.79 MG/DL (0.60-1.30); GFR ESTIMATED > 60; GLUCOSE 107 MG/DL (70-105); LIPASE 25 U/L (8-78); POTASSIUM 4.2 MMOL/L (3.6-5.0); SODIUM 141 MMOL/L (135-145); TOTAL PROTEIN 7.1 GM/DL (6.4-8.2)
[2018-09-28 11:56] LABS: BILIRUBIN,URINE NEGATIVE (NEGATIVE); CLARITY,URINE SLIGHTLY CLOUDY; COLOR,URINE YELLOW; GLUCOSE, URINE (UA) NEGATIVE (NEGATIVE); KETONES,URINE NEGATIVE (NEGATIVE); LEUKOCYTE ESTERASE ,URINE NEGATIVE (NEGATIVE); NITRITE,URINE NEGATIVE (NEGATIVE); PH,URINE 5 (5-9); PROTEIN,URINE NEGATIVE (NEGATIVE); UROBILINOGEN,URINE NORMAL (NORMAL)
[2018-09-28 12:03] LABS: BACTERIA,URINE NEGATIVE /HPF
--- NOTE | 2018-09-28 12:05 | Diagnostic Imaging Report ---
PROCEDURE: CT abdomen and pelvis with contrast. TECHNIQUE: Multiple contiguous axial images were obtained through the abdomen and pelvis after administration of intravenous contrast. INDICATION: Nausea and vomiting, history of breast and ovarian cancer. COMPARISON: I have no previous. FINDINGS: The uterus is absent. There is no adnexal lesion. The urinary bladder had an unremarkable appearance. There is no abdominopelvic ascites and no evidence for omental infiltration. The appendix is visualized and is normal. Liver and spleen are nonacute. There is no adrenal mass. The pancreas is normal. There is a cyst off the lower pole of the right kidney. Unobstructed urinary tracts appeared otherwise normal. There is no bowel obstruction. There is no mesenteric or retroperitoneal lymphadenopathy. Lung bases and the osseous structures are nonacute. The gallbladder is mildly distended measuring about 9.8 cm in long axis length with transverse diameter of 4.2 cm. There is either a fold in the gallbladder near the takeoff of the cystic duct or a noncalcified stone measuring a diameter of 1.7 cm. There is no intra or extrahepatic bile duct dilatation. The pancreas, its duct, and the peripancreatic fat are normal. IMPRESSION: 1. No evidence of metastatic disease. 2. Prominence of the gallbladder with questionable findings for stone near the cystic neck versus tortuous folding of the gallbladder contour. If there are clinical features compatible with gallbladder disease, consider ultrasound as further evaluation. 3. Simple benign right renal cyst, otherwise negative. Dictated by: Dictated on workstation # [id number]
[2018-09-28] MEDS ORDERED: HYDROmorphone 2 MG/ML VIAL (DILAUDID) IV ONE (13:00)
[2018-09-28 13:10] VITALS: BP 144/80
== END 2018-09-28 13:10 | disposition home or self-care (01) ==
LOC: EDUNIT# 10:13 → ER 10:14
DX: K81.0 Acute cholecystitis (principal); G40.909 Epilepsy, unspecified, not intractable, without status epilepticus; F41.9 Anxiety disorder, unspecified; Z85.3 Personal history of malignant neoplasm of breast; Z88.8 Allergy status to other drugs, medicaments and biological substances; Z98.890 Other specified postprocedural states; Z90.710 Acquired absence of both cervix and uterus; Z90.49 Acquired absence of other specified parts of digestive tract; Z77.22 Contact with and (suspected) exposure to environmental tobacco smoke (acute) (chronic)
CPT/HCPCS: 36415; 74177; 80053; 81000; 83690; 84703; 85025

== ENCOUNTER 2018-10-10 12:43 | Emergency (ER) | payer MEDICAID ==
[~2018-10-10] VITALS: Ht 160 cm; Wt 92.5 kg
--- OUTSIDE RECORDS SUMMARY | 2018-10-10 12:48 | XMS REPORT ---
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 507696241 Problem Acquired absence of 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 Active 425986087 Problem History of breast cancer in female Z85.3 Active 206190127 Problem Vasomotor symptoms due to menopause N95.1 Active 023460714 ALLERGIES No Information ENCOUNTERS Encounter Location Date Diagnosis [facility] [id number] [place] [phone] Sep, [facility] [address] [phone] Sep, [facility] [id number] [place] [phone] Aug, Vasomotor symptoms due to menopause N95.1 [facility] [id number] [place] [phone] Aug, [facility] [id number] [place] [phone] Aug, Seasonal allergies J30.2 ; Spider bite wound, accidental or unintentional, initial encounter T63.301A and Vasomotor symptoms due to menopause N95.1 [facility] [id number] [place] [phone] Jul, [facility] [address] [id number] [phone] Jul, 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 malignant 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 ; 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 ; Vaginal dryness , menopausal N95.1 ; Hx of hysterectomy Z90.710 ; Acquired absence of 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 and History of breast cancer in female Z85.3 [facility] [address] [facility] [id number] [address] Jun, Vasomotor symptoms due to menopause N95.1 [address] [facility] [id number], [place] [address] May, 2018 Vasomotor symptoms due to menopause N95.1 ; Acquired absence of 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 ; 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 and History of breast cancer in female Z85.3 IMMUNIZATIONS No Known Immunizations SOCIAL HISTORY Never Assessed REASON FOR VISIT ER f/u PLAN OF CARE VITAL SIGNS MEDICATIONS Unknown Medications RESULTS No Results PROCEDURES No Known procedures INSTRUCTIONS MEDICATIONS ADMINISTERED No Known Medications MEDICAL (GENERAL) HISTORY Type Description Date Medical History [facility] Medical History Pre-cancerous Uterous Medical History Breast cancer -early 20's Medical History epilepsy s/p Vagal N stimulator, Follows with Dr Arellano in [facility] Medical History Anxiety Medical History Bi-polar disorder Medical History doble masectomy Surgical History Hysterctomy 2018 Surgical History Double -mastectomy 2011 Surgical History Child 15-17 Surgical History c-sectionsx 2 Hospitalization History [facility], [facility] in/out through the years Age [age] Hospitalization History Surgeries Hospitalization History [facility] -head damage stayed one week
[2018-10-10] MEDS ORDERED: KETOROLAC 30 MG/ML VIAL IVP ONE (13:15)
[2018-10-10] MEDS ORDERED: PROMETHAZINE INJ 25 MG/ML (PHENERGAN) AMP IVP ONE (13:15)
[2018-10-10] MEDS ORDERED: NS IV 1000 ML 1,000 ML IV SCH (13:15)
[2018-10-10 13:18] LABS: BILIRUBIN,URINE NEGATIVE (NEGATIVE); CLARITY,URINE CLEAR; COLOR,URINE YELLOW; GLUCOSE, URINE (UA) NEGATIVE (NEGATIVE); KETONES,URINE NEGATIVE (NEGATIVE); LEUKOCYTE ESTERASE ,URINE 1+ (NEGATIVE); NITRITE,URINE NEGATIVE (NEGATIVE); PH,URINE 6 (5-9); PROTEIN,URINE 1+ (NEGATIVE); UROBILINOGEN,URINE NORMAL (NORMAL)
[2018-10-10 13:19] LABS: BASOPHILS # (AUTO) 0.1 10^3/uL (0.0-0.1); BASOPHILS % (AUTO) 1 % (0-10); EOSINOPHILS # (AUTO) 0.2 10^3/uL (0.0-0.3); EOSINOPHILS % (AUTO) 2 % (0-10); HEMATOCRIT 37 % (35-52); HEMOGLOBIN 12.5 G/DL (11.5-16.0); LYMPHOCYTES # (AUTO) 2.8 X 10^3 (1.0-4.0); LYMPHOCYTES % (AUTO) 34 % (12-44); MEAN CORPUSCULAR HEMOGLOBIN 29 PG (25-34); MEAN CORPUSCULAR HGB CONC 34 G/DL (32-36); MEAN CORPUSCULAR VOLUME 86 FL (80-99); MONOCYTES # (AUTO) 0.5 X 10^3 (0.0-1.0); MONOCYTES % (AUTO) 7 % (0-12); NEUTROPHILS # (AUTO) 4.6 X 10^3 (1.8-7.8); NEUTROPHILS % (AUTO) 57 % (42-75); PLATELET COUNT 272 10^3/uL (130-400); RED BLOOD COUNT 4.33 10^6/uL (4.35-5.85); RED CELL DISTRIBUTION WIDTH 13.6 % (10.0-14.5); WHITE BLOOD COUNT 8.2 10^3/uL (4.3-11.0)
--- NOTE | 2018-10-10 13:19 | ED Abdominal Pain ---
General Chief Complaint: Abdominal/GI Problems Stated Complaint: ABD PAIN Nursing Triage Note: Pt ambulated to triage room. Pt reports having gall bladder disease. Pt reports abdominal pain that began last night. Pt reports pain in the entire abdomen radiating into the back. Pt reports liquid diarrhea, non-stop for three days that has resulted in multiple accidents. Pt reports vomiting this morning. Sepsis Screen: No Definite Risk Source of Information: Patient Exam Limitations: No Limitations History of Present Illness Date Seen by Provider: Oct 10, 2018 Time Seen by Provider: 13:16 Initial Comments Patient is a 27-year-old female who presents to the emergency room with complaints of right upper quadrant abdominal pain and nausea that started last night. She reports that she was seen in the emergency room on 09/28/18 and had the diagnosis of gallstones. She also reports that she's had diarrhea for the past 3 days. Denies any fevers. Timing/Duration: 1-2 Days Severity/Quality: Sharp Location: RUQ Radiation: Back Associated Symptoms: Nausea/Vomiting Allergies and Home Medications Allergies Coded Allergies: carbamazepine (Verified Allergy, Unknown, 06/17/18) divalproex sodium (Verified Allergy, Unknown, 06/17/18) ondansetron (Verified Allergy, Unknown, 06/17/18) prochlorperazine (Verified Allergy, Unknown, 06/17/18) topiramate (Verified Allergy, Unknown, 06/17/18) Home Medications Hydrocodone Bit/Acetaminophen 1 Tab Tab, 1-2 EACH PO Q6H PRN for PAIN-MODERATE Prescribed by: JOEL BISHOP on 10/10/18 1515 Promethazine HCl 25 Mg Tablet, 25 MG PO Q6H PRN for NAUSEA/VOMITING Prescribed by: JOEL BISHOP on 10/10/18 1515 Patient Home Medication List Home Medication List Reviewed: Yes Review of Systems Review of Systems Constitutional: no symptoms reported, see HPI Gastrointestinal: See HPI, Abdominal Pain, Diarrhea, Nausea, Vomiting All Other Systems Reviewed Negative Unless Noted: Yes Past Ptainva-Iqjqob-Ugfbvx Hx Past Med/Social Hx: Reviewed Nursing Past Med/Soc Hx Patient Social History Drug of Choice: THC Type Used: Cigarettes 2nd Hand Smoke Exposure: Yes Recent Foreign Travel: No Contact w/Someone Who Travel: No Recent Infectious Disease Expo: No Recent Hopitalizations: No Immunizations Up To Date Tetanus Booster (TDap): Unknown PED Vaccines UTD: Yes Past Medical History Surgeries: Yes Breast, Gallbladder, 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 Respiratory: No Cardiac: No 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: Yes Seizure 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 oz. 92.565766df; BMI Method:Stated General Appearance: WD/WN, no apparent distress Respiratory: chest non-tender, lungs clear, normal breath sounds, no respiratory distress, no accessory muscle use Cardiovascular: normal peripheral pulses, regular rate, rhythm, no edema, no gallop, no JVD, no murmur Gastrointestinal: normal bowel sounds, soft, no organomegaly, no pulsatile mass , tenderness (right upper quadrant tenderness) Extremities: normal capillary refill Neurologic/Psychiatric: alert, normal mood/affect, oriented x 3 Skin: normal color, warm/dry Progress/Results/Core Measures Results/Orders Lab Results Laboratory Tests Test 10/10/18 13:10 Range/Units White Blood Count 8.2 4.3-11.0 10^3/uL Red Blood Count 4.33 L 4.35-5.85 10^6/uL Hemoglobin 12.5 11.5-16.0 G/DL Hematocrit 37 35-52 % Mean Corpuscular Volume 86 80-99 FL Mean Corpuscular Hemoglobin 29 25-34 PG Mean Corpuscular Hemoglobin Concent 34 32-36 G/DL Red Cell Distribution Width 13.6 10.0-14.5 % Platelet Count 272 130-400 10^3/uL Mean Platelet Volume 11.0 H 7.4-10.4 FL Neutrophils (%) (Auto) 57 42-75 % Lymphocytes (%) (Auto) 34 12-44 % Monocytes (%) (Auto) 7 0-12 % Eosinophils (%) (Auto) 2 0-10 % Basophils (%) (Auto) 1 0-10 % Neutrophils # (Auto) 4.6 1.8-7.8 X 10^3 Lymphocytes # (Auto) 2.8 1.0-4.0 X 10^3 Monocytes # (Auto) 0.5 0.0-1.0 X 10^3 Eosinophils # (Auto) 0.2 0.0-0.3 10^3/uL Basophils # (Auto) 0.1 0.0-0.1 10^3/uL Urine Color YELLOW Urine Clarity CLEAR Urine pH 6 5-9 Urine Specific [place] 1.025 H 1.016-1.022 Urine Protein 1+ H NEGATIVE Urine Glucose (UA) NEGATIVE NEGATIVE Urine Ketones NEGATIVE NEGATIVE Urine Nitrite NEGATIVE NEGATIVE Urine Bilirubin NEGATIVE NEGATIVE Urine Urobilinogen NORMAL NORMAL MG/DL Urine Leukocyte Esterase 1+ H NEGATIVE Urine RBC (Auto) NEGATIVE NEGATIVE Urine RBC NONE /HPF Urine WBC 2-5 /HPF Urine Squamous Epithelial Cells RARE /HPF Urine Crystals NONE /LPF Urine Bacteria NEGATIVE /HPF Urine Casts NONE /LPF Urine Mucus SMALL H /LPF Urine Culture Indicated NO Sodium Level 141 135-145 MMOL/L Potassium Level 4.3 3.6-5.0 MMOL/L Chloride Level 108 H 98-107 MMOL/L Carbon Dioxide Level 22 21-32 MMOL/L Anion Gap 11 5-14 MMOL/L Blood Urea Nitrogen 11 7-18 MG/DL Creatinine 0.77 0.60-1.30 MG/DL Estimat Glomerular Filtration Rate > 60 BUN/Creatinine Ratio 14 Glucose Level 94 70-105 MG/DL Calcium Level 9.2 8.5-10.1 MG/DL Corrected Calcium 9.0 8.5-10.1 MG/DL Total Bilirubin 0.3 0.1-1.0 MG/DL Aspartate Amino Transf (AST/SGOT) 27 5-34 U/L Alanine Aminotransferase (ALT/SGPT) 39 0-55 U/L Alkaline Phosphatase 104 40-136 U/L Total Protein 7.5 6.4-8.2 GM/DL Albumin 4.3 3.2-4.5 GM/DL Lipase 16 8-78 U/L My Orders Orders - EDNAJOEL Ketorolac Injection (Toradol Injection) (10/10/18 13:15) Promethazine Injection (Phenergan Injec (10/10/18 13:15) Ns Iv 1000 Ml (Sodium Chloride 0.9%) (10/10/18 13:15) Us Gallbladder 82810 (10/10/18 13:05) Fentanyl Injection (Sublimaze Injection (10/10/18 15:30) Medications Given in ED Vital Signs/I&O 10/10/18 10/10/18 12:46 15:40 Temp 98.3 98.6 Pulse 100 75 Resp 22 18 B/P (MAP) 152/88 (109) 130/70 (90) Pulse Ox 100 99 O2 Delivery Room Air Blood Pressure Mean: 109 Progress Progress Note : Time: 14:[address] Calvin was consult at this time. He will be over to see the patient shortly.1515: Dr. Calvin is here to evaluate the patient. He recommends giving her pain medicine throughout the weekend and having her follow-up in his office this following Saturday for consult to have her gallbladder removed later in the week. Patient agrees with plan of care, plans for discharge, return precautions given. Diagnostic Imaging Diagonstic Imaging: Xray, Ultrasound Plain Films/CT/US/NM/MRI: other (gallbladder) Comments [facility] [place] NAME: FÉLIXBECK A [facility] REC#: [id number] PT STATUS: REG ER : 1990 PHYSICIAN: JEOL BISHOP ADMIT DATE: 10/10/18/ER Draft Date of Exam:10/10/18 US GALLBLADDER [id number] INDICATION: Abdominal pain. EXAMINATION: Gallbladder sonography performed in routine fashion. FINDINGS: The liver shows mild diffuse increased echogenicity compatible with fatty change. There is no focal liver lesion. There is a large stone in the gallbladder, measuring around 2 cm in diameter. There is no significant gallbladder wall thickening. Common duct measured 3 mm. Pancreas is not well seen due to overlying gas. The right kidney measured 10.4 cm in length and shows no hydronephrosis. There is a cyst in the inferior pole measuring 1.4 x 1.2 cm. There is no ascites. The portal vein is patent. IMPRESSION: There is a large gallstone in the gallbladder, without significant gallbladder wall thickening or biliary dilatation. There is fatty infiltration of the liver without focal lesion. There is a small cyst in the right kidney. Dictated on workstation # [id number] Dict: 10/10/18 1410 Trans: 10/10/18 1419 [facility] [id number] Interpreted by: WALESKA WHITE MD Electronically signed by: Reviewed: Reviewed by Me Departure Impression Primary Impression: Cholelithiasis Disposition: 01 HOME, SELF-CARE Condition: Stable/Unchanged Departure-Patient Inst. Decision time for Depature: 15:12 Referrals: CHAUNCEY MCDOWELL MD (PCP) Primary Care Physician [facility]JUL[facility] (Family) Primary Care Physician KEVIN CALVIN DO Patient Instructions: Gallstones (DC) Add. Discharge Instructions: Take medication as directed. Follow-up with Dr. Calvin's office on Saturday for an appointment. I have discussed her case with him and he is planning on taking out your gallbladder later next week. Clear liquid diet until you follow up with Dr. Calvin on Saturday, no dairy, no fatty liquids. Return back to the emergency room for any worsening symptoms or concerns as needed. Follow-up with her PCP as needed. All discharge instructions reviewed with patient and/or family. Voiced understanding. Scripts Promethazine HCl (Promethazine Tablet) 25 Mg Tablet 25 MG PO Q6H PRN for NAUSEA/VOMITING, #14 TAB Prov: JOEL BISHOP 10/10/18 Hydrocodone Bit/Acetaminophen (Hydrocodone/Acetaminophen 5/325mg Tablet) 1 Tab Tab 1-2 EACH PO Q6H PRN for PAIN-MODERATE MDD 10, #20 TAB Prov: JOEL BISHOP 10/10/18 Copy Copies To 1: KEVIN CALVIN TRAVIS Oct 10, 2018 13:19
[2018-10-10 13:28] LABS: BACTERIA,URINE NEGATIVE /HPF; SQUAMOUS EPITHELIAL CELL,UR RARE /HPF
[2018-10-10 13:40] LABS: ALANINE AMINOTRANSFERASE 39 U/L (0-55); ALBUMIN 4.3 GM/DL (3.2-4.5); ALKALINE PHOSPHATASE 104 U/L (40-136); BILIRUBIN,TOTAL 0.3 MG/DL (0.1-1.0); BUN/CREATININE RATIO 14; CALCIUM 9.2 MG/DL (8.5-10.1); CARBON DIOXIDE 22 MMOL/L (21-32); CHLORIDE 108 MMOL/L (98-107); CREATININE SERUM 0.77 MG/DL (0.60-1.30); GFR ESTIMATED > 60; GLUCOSE 94 MG/DL (70-105); LIPASE 16 U/L (8-78); POTASSIUM 4.3 MMOL/L (3.6-5.0); SODIUM 141 MMOL/L (135-145); TOTAL PROTEIN 7.5 GM/DL (6.4-8.2)
--- NOTE | 2018-10-10 14:20 | Diagnostic Imaging Report ---
INDICATION: Abdominal pain. EXAMINATION: Gallbladder sonography performed in routine fashion. FINDINGS: The liver shows mild diffuse increased echogenicity compatible with fatty change. There is no focal liver lesion. There is a large stone in the gallbladder, measuring around 2 cm in diameter. There is no significant gallbladder wall thickening. Common duct measured 3 mm. Pancreas is not well seen due to overlying gas. The right kidney measured 10.4 cm in length and shows no hydronephrosis. There is a cyst in the inferior pole measuring 1.4 x 1.2 cm. There is no ascites. The portal vein is patent. IMPRESSION: There is a large gallstone in the gallbladder, without significant gallbladder wall thickening or biliary dilatation. There is fatty infiltration of the liver without focal lesion. There is a small cyst in the right kidney. Dictated by: Dictated on workstation # [id number]
[2018-10-10] MEDS ORDERED: PROM25TA14 PO (15:15)
[2018-10-10] MEDS ORDERED: ACHD5005 PO (15:15)
[2018-10-10] MEDS ORDERED: fentaNYL INJECTION 100 MCG/2 ML AMP IVP ONE (15:30)
[2018-10-10 15:40] VITALS: BP 130/70
--- NOTE | 2018-10-10 17:48 | Consultation ---
History of Present Illness History of Present Illness Patient Consulted On(meghan/time) 10/10/18 17:43 Date Seen by Provider: Oct 10, 2018 Time Seen by Provider: 16:00 History of Present Illness consult requested by Paul Bishop for cholelithiasis. patient seen and evaluated in ed patient is a 27 year old female who has had several weeks of worsening ruq abdominal pain. She has had overall issues for several months. patient states pain moves around to back. sometimes food makes worse. Liquid diet did improve symptoms. She has had some episodes of nausea Pain varies in intensity moderate to severe sharp pain. She had an ultrasound today demonstrating a large gallbladder stone, no gallbladder wall thickening, no pericholecystic fluid no evidence of cholecystitis. She does not have a white count and no elevation of liver enzymes. Allergies and Home Medications Allergies Coded Allergies: carbamazepine (Verified Allergy, Unknown, 06/17/18) divalproex sodium (Verified Allergy, Unknown, 06/17/18) ondansetron (Verified Allergy, Unknown, 06/17/18) prochlorperazine (Verified Allergy, Unknown, 06/17/18) topiramate (Verified Allergy, Unknown, 06/17/18) Home Medications Hydrocodone Bit/Acetaminophen 1 Tab Tab, 1-2 EACH PO Q6H PRN for PAIN-MODERATE Prescribed by: PAUL BISHOP on 10/10/18 1515 Promethazine HCl 25 Mg Tablet, 25 MG PO Q6H PRN for NAUSEA/VOMITING Prescribed by: PAUL BISHOP on 10/10/18 1515 Patient Home Medication List Home Medication List Reviewed: Yes Past Gplgaoh-Yfgepl-Isgncj Hx Patient Social History Alcohol Use: Denies Use Recreational Drug Use: No Drug of Choice: THC Type Used: Cigarettes 2nd Hand Smoke Exposure: Yes Recent Foreign Travel: No Contact w/Someone Who Travel: No Recent Infectious Disease Expo: No Recent Hopitalizations: No Immunizations Up To Date Tetanus Booster (TDap): Unknown PED Vaccines UTD: Yes Surgeries History of Surgeries: Yes Surgeries: Breast, 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 Respiratory History of Respiratory Disorde: No Cardiovascular History of Cardiac Disorders: No 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 History of 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 Disord: Yes 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 Disorders: Seizure Disorder 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 Genitourinary History of Genitourinary Disor: No Gastrointestinal History of Gastrointestinal Di: No Musculoskeletal History of Musculoskeletal Dis: Yes Musculoskeletal Disorders: Chronic Back Pain Endocrine History of Endocrine Disorders: No Cancer History of Cancer: Yes Cancer: Breast Psychosocial History of Psychiatric Problem: Yes Behavioral Health Disorders: Anxiety Family Medical History Significant Family History: No Pertinent Family Hx Review of Systems-General Constitutional: no symptoms reported EENTM: no symptoms reported Respiratory: no symptoms reported Cardiovascular: no symptoms reported Gastrointestinal: see HPI, diarrhea Genitourinary: no symptoms reported Musculoskeletal: no symptoms reported Skin: no symptoms reported Psychiatric/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: No Symptoms Reported Physical Exam-General Problems Physical Exam Vital Signs Vital Signs - First Documented 10/10/18 12:46 Temp 98.3 Pulse 100 Resp 22 B/P (MAP) 152/88 (109) Pulse Ox 100 O2 Delivery Room Air Capillary Refill : Less Than 3 Seconds General Appearance: no apparent distress HEENT: PERRL/EOMI Neck: supple Respiratory: chest non-tender, no respiratory distress, no accessory muscle use Cardiovascular: regular rate, rhythm Gastrointestinal: soft, tenderness (ruq abdominal pain) Back: normal inspection Extremities: non-tender 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, no motor/sensory deficits, alert, normal mood/affect, oriented x 3 Skin: normal color, warm/dry Lymphatic: no adenopathy Data Review Labs Laboratory Tests 10/10/18 13:10: White Blood Count 8.2, Red Blood Count 4.33L, Hemoglobin 12.5, Hematocrit 37, Mean Corpuscular Volume 86, Mean Corpuscular Hemoglobin 29, Mean Corpuscular Hemoglobin Concent 34, Red Cell Distribution Width 13.6, Platelet Count 272, Mean Platelet Volume 11.0H, Neutrophils (%) (Auto) 57, Lymphocytes (%) (Auto) 34 , Monocytes (%) (Auto) 7, Eosinophils (%) (Auto) 2, Basophils (%) (Auto) 1, Neutrophils # (Auto) 4.6, Lymphocytes # (Auto) 2.8, Monocytes # (Auto) 0.5, Eosinophils # (Auto) 0.2, Basophils # (Auto) 0.1, Urine Color YELLOW, Urine Clarity CLEAR, Urine pH 6, Urine Specific [place] 1.025H, Urine Protein 1+H, Urine Glucose (UA) NEGATIVE, Urine Ketones NEGATIVE, Urine Nitrite NEGATIVE, Urine Bilirubin NEGATIVE, Urine Urobilinogen NORMAL, Urine Leukocyte Esterase 1+ H, Urine RBC (Auto) NEGATIVE, Urine RBC NONE, Urine WBC 2-5, Urine Squamous Epithelial Cells RARE, Urine Crystals NONE, Urine Bacteria NEGATIVE, Urine Casts NONE, Urine Mucus SMALLH, Urine Culture Indicated NO, Sodium Level 141, Potassium Level 4.3, Chloride Level 108H, Carbon Dioxide Level 22, Anion Gap 11 , Blood Urea Nitrogen 11, Creatinine 0.77, Estimat Glomerular Filtration Rate > 60, BUN/Creatinine Ratio 14, Glucose Level 94, Calcium Level 9.2, Corrected Calcium 9.0, Total Bilirubin 0.3, Aspartate Amino Transf (AST/SGOT) 27, Alanine Aminotransferase (ALT/SGPT) 39, Alkaline Phosphatase 104, Total Protein 7.5, Albumin 4.3, Lipase 16 Assessment/Plan Assessment/Plan Assessment/Plan ruq abdominal pain cholelithiasis patient with large stone in gallbladder. no evidence of cholecystitis. discussed with patient to do on elective basis. to stay on liquid diet avoid dairy and fats. to see in office on Saturday to schedule Pain control KEVIN CALVIN DO Oct 10, 2018 17:48
[2018-10-14] MEDS ORDERED: ACHD5005 PO (09:04)
[2018-10-14] MEDS ORDERED: DOCU-143 PO (09:04)
== END 2018-10-10 15:40 | disposition home or self-care (01) ==
LOC: EDUNIT# 12:43 → ER 12:44
DX: K80.20 Calculus of gallbladder without cholecystitis without obstruction (principal); F41.9 Anxiety disorder, unspecified; G40.909 Epilepsy, unspecified, not intractable, without status epilepticus; Z85.3 Personal history of malignant neoplasm of breast; Z88.8 Allergy status to other drugs, medicaments and biological substances; Z77.22 Contact with and (suspected) exposure to environmental tobacco smoke (acute) (chronic); Z90.710 Acquired absence of both cervix and uterus
CPT/HCPCS: 36415; 76705; 80053; 81000; 83690; 85025

== ENCOUNTER → 2018-10-13 | Outpatient (CLI) | payer MEDICAID ==
[~2018-10-13] MED LIST changes: +ACHD5005 PO; +DOCU-143 PO; +ESCI10TA PO; +GABA600T2 PO; +PROM25TA14 PO
== END | disposition home or self-care (01) ==
LOC: PREOP 15:46
PROVIDERS: ATTEND Surgery
DX: Z01.818 Encounter for other preprocedural examination (principal)

== ENCOUNTER 2018-10-14 06:35 | Day surgery (SDC) | payer MEDICAID ==
[~2018-10-14] VITALS: Ht 160 cm; Wt 93.4 kg
[~2018-10-14 06:35] MED LIST changes: -DOCU-143 PO; -ESCI10TA PO; -GABA600T2 PO
[2018-10-14 06:45] VITALS: BP_SYST 116
[2018-10-14] MEDS ORDERED: LACTATED RINGERS 1,000 ML IV PRN (07:11)
[2018-10-14] MEDS ORDERED: DEXAMETHASONE 10 MG/ML (DECADRON) 1 ML VIAL ONE (07:14)
[2018-10-14] MEDS ORDERED: ROCURONIUM 10 MG/ML 5 ML SYRINGE IV ONE (07:14)
[2018-10-14] MEDS ORDERED: proPOfol 200 MG/20 ML (DIPRIVAN) VIAL IV ONE (07:14)
[2018-10-14] MEDS ORDERED: ONDANSETRON 4 MG/2 ML (SDV) Z0FRAN ONE ×2 (07:14→10:45)
[2018-10-14] MEDS ORDERED: SEVOFLURANE (ULTANE) 15 ML INHAL SOLN ONE ×4 (07:14→08:56)
[2018-10-14] MEDS ORDERED: LIDOCAINE PF 2% 5 ML (XYLOCAINE) VIAL ONE (07:14)
[2018-10-14] MEDS ORDERED: MIDAZOLAM 2 MG/2 ML (VERSED) VIAL IV ONE (07:15)
[2018-10-14] MEDS ORDERED: BUPIVACAINE 0.5% 30 ML (SENSORCAINE) VIAL ONE (07:15)
[2018-10-14] MEDS ORDERED: LIDOCAINE 1% INJ 20 ML 20 ML VIAL ONE (07:15)
[2018-10-14] MEDS ORDERED: fentaNYL INJECTION 100 MCG/2 ML AMP ONE (07:15)
[2018-10-14] MEDS ORDERED: MIDAZOLAM 2 MG/2 ML (VERSED) VIAL ONE (07:15)
[2018-10-14] MEDS ORDERED: ceFAZolin 2 GM IV Premixed 50 ML IV ONE (07:30)
[2018-10-14] MEDS ORDERED: CATHETER FLUSH 10 ML SYR IV PRN (07:45)
--- NOTE | 2018-10-14 07:48 | Progress Note-Pre Operative ---
Pre-Operative Progress Note H&P Reviewed The H&P was reviewed, patient examined and no changes noted. Date Seen by Provider: Oct 14, 2018 Time Seen by Provider: 07:35 Date H&P Reviewed: Oct 14, 2018 Time H&P Reviewed: 07:35 Pre-Operative Diagnosis: symptomatic cholelithiasis, ruq abdominal pain KEVIN CALVIN DO Oct 14, 2018 07:47
[2018-10-14] MEDS ORDERED: GLYCOPYRROLATE 0.2 MG/ML (ROBINUL) 2 ML VIAL ONE ×2 (08:58→09:05)
[2018-10-14] MEDS ORDERED: NEOSTIGMINE 1 MG/ML 5 ML SYRINGE ONE (08:58)
--- NOTE | 2018-10-14 09:03 | Progress Note-Post Operative ---
Post-Operative Progess Note Surgeon (s)/Merchandising Stock Associate (s) Surgeon KEVIN CALVIN DO Merchandising Stock Associate: Dr. Rivas Pre-Operative Diagnosis symptomatic cholelithiasis, ruq abdominal pain Post-Operative Diagnosis same Procedure & Operative Findings Date of Procedure 10/14/18 Procedure Performed/Findings lap cm c ioc Anesthesia Type gen Estimated Blood Loss Estimated blood loss (mL): min Specimens/Packing Specimens Removed gallbladder KEVIN CALVIN DO Oct 14, 2018 09:03
[2018-10-14] MEDS ORDERED: ACHD5005 PO (09:04)
[2018-10-14] MEDS ORDERED: DOCU-143 PO (09:04)
--- NOTE | 2018-10-14 09:05 | Discharge Inst-Simple/Standard ---
Discharge Inst-Standard Discharge Medications New, Converted or Re-Newed RX: RX on Chart Patient Instructions/Follow Up Plan of Care/Instructions/FU: 2 weeks Nahun Activity as Tolerated: No Discharge Diet: Regular Diet Other Inst to Patient Follow up Appt: Make appointment for 2 weeks. Instructions: No lifting greater than 10 pounds. No strenuous activity. May shower in 24 hours, no tub bath or soaking. Use incentive spirometer at home as directed. No Smoking Skin/Wound Care: You have special glue over incisions it will fall off on its own. Symptoms to Report: Appetite Changes, Extremity Discoloration, Numbness/Tingling, Swelling Increased , Bleeding Excessive, Eyesight Changes, Pain Increased, Urine Color Change, Constipation(Persistent), Fever over 101 degree F, Pain/Pressure in chest, Urinating Difficulty, Cough Up/Vomit Blood, Heart Beat Irreg/Pounding, Pain/ Pressure in jaw, Vaginal Bleeding Increase, Cramps in feet or legs, Lightheadedness, Pain/Pressure in shoulder, Diarrhea(Persistent), Memory Changes Suddenly, Questions/Concerns, Weight gain consecutive days, Dizziness/ Fainting, Nausea/Vomiting, Shortness of Breath, Weight gain over 2 pounds. If eyes or skin turn yellow notify physician. If questions or concerns contact your physician Or seek help at emergency department. KEVIN CALVIN DO Oct 14, 2018 09:05
[2018-10-14] MEDS ORDERED: ESCI10TA PO (09:17)
[2018-10-14] MEDS ORDERED: GABA600T2 PO (09:17)
[2018-10-14] MEDS ORDERED: morphine INJ 10 MG/ML 1ML (SYR OR VIAL) ONE (09:17)
--- NOTE | 2018-10-14 09:26 | Diagnostic Imaging Report ---
INDICATION: Cholelithiasis, undergoing cholecystectomy. FINDINGS: Multiple intraoperative cholangiogram images are submitted. There is cannulation of the extra hepatic biliary tree. Images demonstrate contrast opacification of the biliary system. Biliary tree is not significantly dilated. However, the most distal aspect common bile duct limited in visualization. There was no persistent filling defect to indicate a retained stone. Flow was present into the duodenum. Fluoroscopy time: 7 seconds IMPRESSION: Negative laparoscopic cholangiogram. Dictated by: Dictated on workstation # [id number]
[2018-10-14] MEDS ORDERED: morphine INJ 10 MG/ML 1ML (SYR OR VIAL) IVP ONE (09:30)
[2018-10-14] MEDS ORDERED: HYDROmorphone 2 MG/ML VIAL (DILAUDID) IV ONE (09:30)
[2018-10-14 10:05] VITALS: BP 130/61
[2018-10-14 10:35] VITALS: BP 145/65
[2018-10-14] MEDS ORDERED: HYDROcodone/APAP 5 MG/325 MG (LORTAB) TAB ONE (10:45)
[2018-10-14] MEDS ORDERED: PROMETHAZINE INJ 25 MG/ML (PHENERGAN) AMP ONE (10:50)
[2018-10-14] MEDS ORDERED: HYDROcodone/APAP 5 MG/325 MG (LORTAB) TAB PO ONE (11:00)
[2018-10-14] MEDS ORDERED: PROMETHAZINE INJ 25 MG/ML (PHENERGAN) AMP IVP ONE (11:00)
[2018-10-14 11:05] VITALS: BP 145/74
[2018-10-14 12:26] VITALS: BP 145/65
--- NOTE | 2018-10-14 14:31 | Anesthesia-General Post-Op ---
General Patient Condition Mental Status/LOC: Same as Preop Cardiovascular: Satisfactory Nausea/Vomiting: Absent Respiratory: Satisfactory Pain: Controlled Complications: Absent Post Op Complications Complications None Follow Up Care/Instructions Patient Instructions None needed. Anesthesia/Patient Condition Patient Condition Patient is doing well, no complaints, stable vital signs, no apparent adverse anesthesia problems. No complications reported per nursing. OTIS FELIX CRNA Oct 14, 2018 14:31
--- NOTE | 2018-10-14 21:09 | OPERATIVE REPORT ---
DATE OF SERVICE: 10/14/2018 PREOPERATIVE DIAGNOSES: Symptomatic cholelithiasis, right upper quadrant abdominal pain. POSTOPERATIVE DIAGNOSES: Symptomatic cholelithiasis, right upper quadrant abdominal pain. PROCEDURE: Laparoscopic cholecystectomy with intraoperative cholangiogram. SURGEON: Kevin Garnica DO TEACHER OF THE EMOTIONALLY DISTURBED: Dr. Rivas, assisted in retraction, dissection and closure. ANESTHESIA: General. ESTIMATED BLOOD LOSS: Minimal. COMPLICATIONS: None. INDICATIONS: The patient is a 27-year-old female with right upper quadrant abdominal pain, found to have large stone within the gallbladder. She understands risks and benefits of procedure and wished to proceed with procedure. Consent was signed and on the chart. DESCRIPTION OF PROCEDURE: The patient was taken to the operating suite. She was prepped and draped in sterile fashion. Surgical pause was performed. Local anesthetic was infiltrated above the umbilicus. An 11 blade scalpel was used to make a small 12 mm incision. Cautery was used to dissect down to the fascia, which was then scored, grasped and elevated. The abdomen was then entered. An 0 Vicryl was placed in a lgtuzm-[id number]-[id number] fashion for closure for the fascia. A balloon trocar was inserted in the abdomen and pneumoperitoneum was achieved. Under direct visualization of the laparoscope, a 5 mm trocar was placed in the subxiphoid region and two 5 mm trocars were placed in the right upper quadrant. Gallbladder was grasped, elevated and lots of adhesions to the gallbladder, which were taken down both bluntly and with cautery. The cystic duct and cystic artery were then dissected out. Clips were placed on the proximal and distal portion of the cystic artery and distal portion of the cystic duct. The duct was then partially transected. Arrow catheter was inserted and cholangiogram was performed. There were no filling defects. Contrast made its way into the duodenum without difficulty. The catheter was then removed. Clips were placed on the proximal portion of the cystic duct and this was then transected along with the artery. The hook cautery was used to dissect the gallbladder from the gallbladder fossa achieving hemostasis. Once removed, it was placed in an Endobag and removed through the 12 mm trocar site. Copious amounts of irrigation were used to irrigate and suction. Hemostasis had been achieved. The abdomen was then desufflated, the trocars were removed. A 0 Vicryl was placed in the beginning of the case was then tied, closing the 12 mm fascial defect. The skin was then closed using 4-0 Monocryl in a subcuticular fashion. The abdomen was then washed and dried and Skin Affix was placed over the incisions. The patient tolerated procedure well without any complications. She was taken to recovery room in stable condition. Job ID: [id number] DocumentID: [id number] Dictated Date: 10/14/2018 10:05:01 Milk Route Deliverer Date: 10/14/2018 13:43:04 Dictated By: KEVIN GARNICA DO
== END 2018-10-14 12:50 | disposition home or self-care (01) ==
LOC: SDC 06:35
PROVIDERS: ATTEND Surgery
DX: K80.10 Calculus of gallbladder with chronic cholecystitis without obstruction (principal); R56.9 Unspecified convulsions; F17.210 Nicotine dependence, cigarettes, uncomplicated; Z79.899 Other long term (current) drug therapy
CPT/HCPCS: 87081; 88304; 94664

== ENCOUNTER 2018-10-19 11:36 | Emergency (ER) | payer MEDICAID ==
[~2018-10-19] VITALS: Ht 160 cm; Wt 94.8 kg
[~2018-10-19 11:36] MED LIST changes: +DOCU-143 PO; +ESCI10TA PO; +GABA600T2 PO
[2018-10-19] MEDS ORDERED: NS IV 1000 ML 1,000 ML IV STA (11:44)
[2018-10-19 12:18] LABS: BASOPHILS % (AUTO) 0 % (0-10); EOSINOPHILS # (AUTO) 0.2 10^3/uL (0.0-0.3); EOSINOPHILS % (AUTO) 3 % (0-10); HEMATOCRIT 37 % (35-52); HEMOGLOBIN 12.7 G/DL (11.5-16.0); LYMPHOCYTES # (AUTO) 2.3 X 10^3 (1.0-4.0); LYMPHOCYTES % (AUTO) 28 % (12-44); MEAN CORPUSCULAR HEMOGLOBIN 29 PG (25-34); MEAN CORPUSCULAR HGB CONC 34 G/DL (32-36); MEAN CORPUSCULAR VOLUME 86 FL (80-99); MEAN PLATELET VOLUME 11.4 FL (7.4-10.4); MONOCYTES # (AUTO) 0.5 X 10^3 (0.0-1.0); MONOCYTES % (AUTO) 6 % (0-12); NEUTROPHILS % (AUTO) 62 % (42-75); PLATELET COUNT 283 10^3/uL (130-400); RED BLOOD COUNT 4.33 10^6/uL (4.35-5.85); RED CELL DISTRIBUTION WIDTH 13.8 % (10.0-14.5)
[2018-10-19] MEDS ORDERED: PROMETHAZINE INJ 25 MG/ML (PHENERGAN) AMP IVP ONE (12:30)
[2018-10-19 12:38] LABS: ALANINE AMINOTRANSFERASE 238 U/L (0-55); ALBUMIN 4.4 GM/DL (3.2-4.5); ALKALINE PHOSPHATASE 156 U/L (40-136); BILIRUBIN,TOTAL 0.3 MG/DL (0.1-1.0); BUN/CREATININE RATIO 14; CALCIUM 9.5 MG/DL (8.5-10.1); CARBON DIOXIDE 18 MMOL/L (21-32); CHLORIDE 107 MMOL/L (98-107); CREATININE SERUM 0.81 MG/DL (0.60-1.30); GFR ESTIMATED > 60; GLUCOSE 102 MG/DL (70-105); LIPASE 16 U/L (8-78); POTASSIUM 4.2 MMOL/L (3.6-5.0); SODIUM 138 MMOL/L (135-145); TOTAL PROTEIN 7.6 GM/DL (6.4-8.2)
[2018-10-19] MEDS ORDERED: PROM25TA14 PO (12:56)
--- NOTE | 2018-10-19 12:56 | ED Abdominal Pain ---
General Chief Complaint: Abdominal/GI Problems Stated Complaint: POST GALLBLADDER REMOVAL/SWELLING/VOMITING Nursing Triage Note: PT STATES SHE HAD HER GALLBLADDER REMOVED 5 DAYS AGO, PT STARTED VOMITING 2 DAYS AGO. STATES SHE FEELS HER ABDOMEN IS MORE RIDGID THAN WAS PRIOR TO AFTER SURGERY. Sepsis Screen: No Definite Risk Source of Information: Patient Exam Limitations: No Limitations History of Present Illness Date Seen by Provider: Oct 19, 2018 Time Seen by Provider: 12:05 Initial Comments Patient is a 27-year-old female who presents to the emergency room with complaints of increasing nausea and vomiting that started 2 days ago and abdominal tenderness. She is 5 days postop from a cholecystectomy. Denies any urinary symptoms or fever. Timing/Duration: 2-3 Days Severity/Quality: Cramping Radiation: No Radiation Associated Symptoms: Nausea/Vomiting Allergies and Home Medications Allergies Coded Allergies: carbamazepine (Verified Allergy, Unknown, 10/19/18) divalproex sodium (Verified Allergy, Unknown, 10/19/18) ondansetron (Verified Allergy, Unknown, 10/19/18) oxcarbazepine (Verified Allergy, Unknown, 10/19/18) prochlorperazine (Verified Allergy, Unknown, 10/19/18) topiramate (Verified Allergy, Unknown, 10/19/18) Home Medications Docusate Sodium 100 Mg Capsule, 100 MG PO DAILY Prescribed by: KEVIN CALVIN on 10/14/18 0904 Escitalopram Oxalate 10 Mg Tablet, 10 MG PO DAILY, (Reported) Gabapentin 600 Mg Tablet, 600 MG PO BID, (Reported) Hydrocodone Bit/Acetaminophen 1 Tab Tab, 1-2 TAB PO Q6H PRN for PAIN-MODERATE Prescribed by: KEVIN CALVIN on 10/14/18 0904 Promethazine HCl 25 Mg Tablet, 25 MG PO Q6H PRN for NAUSEA/VOMITING Prescribed by: JOEL BISHOP on 10/10/18 1515 Promethazine HCl 25 Mg Tablet, 25 MG PO Q6H PRN for NAUSEA/VOMITING Prescribed by: JOEL BISHOP on 10/19/18 1256 Patient Home Medication List Home Medication List Reviewed: Yes Review of Systems Review of Systems Constitutional: no symptoms reported, see HPI Gastrointestinal: See HPI, Abdominal Pain, Nausea, Vomiting All Other Systems Reviewed Negative Unless Noted: Yes Past Qgrkcdc-Nzisye-Otekuw Hx Past Med/Social Hx: Reviewed Nursing Past Med/Soc Hx Patient Social History Alcohol Use: Rarely Uses Recreational Drug Use: Yes Drug of Choice: MARIJUANA Type Used: Cigarettes 2nd Hand Smoke Exposure: Yes Recent Foreign Travel: No Contact w/Someone Who Travel: No Recent Infectious Disease Expo: No Recent Hopitalizations: Yes (February) Physical Abuse: No Sexual Abuse: No Immunizations Up To Date Tetanus Booster (TDap): Unknown PED Vaccines UTD: Yes Seasonal Allergies Seasonal Allergies: No Past Medical History Surgeries: Yes Breast, 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, Tonsillectomy Respiratory: No Cardiac: Yes Hypertension 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: Yes (EPILEPSY) Seizure Disorder [employer] History: 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 Genitourinary: No Gastrointestinal: No Musculoskeletal: Yes Chronic Back Pain Endocrine: No HEENT: No Cancer: Yes Breast Psychosocial: Yes Anxiety Integumentary: No Blood Disorders: No Family Medical History Reviewed Nursing Family Hx No Pertinent Family Hx Physical Exam Vital Signs Vital Signs - First Documented 10/19/18 12:11 Temp 97.0 Pulse 85 Resp 16 B/P (MAP) 136/83 (100) Pulse Ox 98 Capillary Refill : Less Than 3 Seconds Height/Weight/BMI Height: 5'3.00" Weight: 209lbs. 0.0oz. 94.150582sf; 36.5 BMI Method:Stated General Appearance: WD/WN, no apparent distress Respiratory: chest non-tender, lungs clear, normal breath sounds, no respiratory distress, no accessory muscle use Cardiovascular: normal peripheral pulses, regular rate, rhythm, no edema, no gallop, no JVD, no murmur Gastrointestinal: normal bowel sounds, non tender, soft, no organomegaly, no pulsatile mass, other (incisions are intact, no redness, induration, drainage noted.) Extremities: normal range of motion, non-tender, normal inspection, no pedal edema, no calf tenderness, normal capillary refill, pelvis stable Neurologic/Psychiatric: alert, normal mood/affect, oriented x 3 Skin: normal color, warm/dry Progress/Results/Core Measures Results/Orders Lab Results Laboratory Tests Test 10/19/18 12:11 Range/Units White Blood Count 8.0 4.3-11.0 10^3/uL Red Blood Count 4.33 L 4.35-5.85 10^6/uL Hemoglobin 12.7 11.5-16.0 G/DL Hematocrit 37 35-52 % Mean Corpuscular Volume 86 80-99 FL Mean Corpuscular Hemoglobin 29 25-34 PG Mean Corpuscular Hemoglobin Concent 34 32-36 G/DL Red Cell Distribution Width 13.8 10.0-14.5 % Platelet Count 283 130-400 10^3/uL Mean Platelet Volume 11.4 H 7.4-10.4 FL Neutrophils (%) (Auto) 62 42-75 % Lymphocytes (%) (Auto) 28 12-44 % Monocytes (%) (Auto) 6 0-12 % Eosinophils (%) (Auto) 3 0-10 % Basophils (%) (Auto) 0 0-10 % Neutrophils # (Auto) 5.0 1.8-7.8 X 10^3 Lymphocytes # (Auto) 2.3 1.0-4.0 X 10^3 Monocytes # (Auto) 0.5 0.0-1.0 X 10^3 Eosinophils # (Auto) 0.2 0.0-0.3 10^3/uL Basophils # (Auto) 0.0 0.0-0.1 10^3/uL Sodium Level 138 135-145 MMOL/L Potassium Level 4.2 3.6-5.0 MMOL/L Chloride Level 107 98-107 MMOL/L Carbon Dioxide Level 18 L 21-32 MMOL/L Anion Gap 13 5-14 MMOL/L Blood Urea Nitrogen 11 7-18 MG/DL Creatinine 0.81 0.60-1.30 MG/DL Estimat Glomerular Filtration Rate > 60 BUN/Creatinine Ratio 14 Glucose Level 102 70-105 MG/DL Calcium Level 9.5 8.5-10.1 MG/DL Corrected Calcium 9.2 8.5-10.1 MG/DL Total Bilirubin 0.3 0.1-1.0 MG/DL Aspartate Amino Transf (AST/SGOT) 69 H 5-34 U/L Alanine Aminotransferase (ALT/SGPT) 238 H 0-55 U/L Alkaline Phosphatase 156 H 40-136 U/L C-Reactive Protein High Sensitivity 1.68 H 0.00-0.50 MG/DL Total Protein 7.6 6.4-8.2 GM/DL Albumin 4.4 3.2-4.5 GM/DL Lipase 16 8-78 U/L My Orders Orders - BERNOTJOEL Promethazine Injection (Phenergan Injec (10/19/18 12:30) Ketorolac Injection (Toradol Injection) (10/19/18 13:00) Medications Given in ED Vital Signs/I&O 10/19/18 10/19/18 12:11 13:17 Temp 97.0 97.0 Pulse 85 77 Resp 16 12 B/P (MAP) 136/83 (100) 143/97 (112) Pulse Ox 98 98 Blood Pressure Mean: 100 Progress Progress Note : Time: 12:53 Progress Note I have seen and evaluated the patient. Her nausea is improved at this time. I' ve discussed the case with Dr. Vizcarra in regards to her elevated liver enzymes and being postop from cholecystectomy. He reports that this is a normal finding after a cholecystectomy. The patient agrees with plans of care, plans for discharge, return precautions were given. Departure Impression Primary Impression: postop cholecystectomy pain Additional Impression: Nausea and vomiting Disposition: 01 HOME, SELF-CARE Condition: Stable/Unchanged Departure-Patient Inst. Decision time for Depature: 12:55 Referrals: CHAUNCEY MCDOWELL MD (PCP) Primary Care Physician [facility]/JULIET (Family) Primary Care Physician ANGIE VIZCARRA BRETT D DO Patient Instructions: Nausea and Vomiting of (DC), PAIN POST- PROCEDURE Add. Discharge Instructions: Take medication as directed. Clear liquid diet for 24 hours and advance as tolerated. Follow-up with Dr. Vizcarra and Dr. Calvin as scheduled. Follow-up with your primary care provider as needed. Return back to the emergency room for any worsening symptoms or concerns as needed. All discharge instructions reviewed with patient and/or family. Voiced understanding. Scripts Promethazine HCl (Promethazine Tablet) 25 Mg Tablet 25 MG PO Q6H PRN for NAUSEA/VOMITING, #20 TAB Prov: JOEL BISHOP 10/19/18 JOEL BISHOP Oct 19, 2018 12:56
[2018-10-19] MEDS ORDERED: KETOROLAC 30 MG/ML VIAL IVP ONE (13:00)
[2018-10-19 13:17] VITALS: BP 143/97
== END 2018-10-19 13:17 | disposition home or self-care (01) ==
LOC: EDUNIT# 11:36 → ER 11:38
DX: I10 Essential (primary) hypertension (principal); G89.18 Other acute postprocedural pain; R10.9 Unspecified abdominal pain; R11.2 Nausea with vomiting, unspecified; G40.909 Epilepsy, unspecified, not intractable, without status epilepticus; F41.9 Anxiety disorder, unspecified; F12.10 Cannabis abuse, uncomplicated; Z77.22 Contact with and (suspected) exposure to environmental tobacco smoke (acute) (chronic); Z90.89 Acquired absence of other organs; Z85.3 Personal history of malignant neoplasm of breast; Z90.710 Acquired absence of both cervix and uterus; Z88.8 Allergy status to other drugs, medicaments and biological substances; Z90.49 Acquired absence of other specified parts of digestive tract
CPT/HCPCS: 36415; 80053; 83690; 85025; 86141

== ENCOUNTER 2018-12-20 14:06 | Emergency (ER) | payer MEDICAID ==
[~2018-12-20] VITALS: Ht 157.5 cm; Wt 99.8 kg
[~2018-12-20 14:06] MED LIST changes: -GABA600T2 PO; +GBPN600T PO
--- NOTE | 2018-12-20 15:55 | Diagnostic Imaging Report ---
INDICATION: Chest pain and cough. PA and lateral views were obtained. FINDINGS: The heart size, mediastinal configuration, and pulmonary vascularity are within normal limits. There is no pleural effusion, pneumothorax, or pneumonia. The osseous structures are unremarkable. IMPRESSION: No acute cardiopulmonary abnormality. Dictated by: Dictated on workstation # [id number]
--- NOTE | 2018-12-20 16:41 | ED Cough/URI ---
General Chief Complaint: Cough/Cold/Flu Symptoms Stated Complaint: CHEST PAIN WITH COUGHING, SOB, DIZZY Nursing Triage Note: pt presents to ed with complaints of cough/congestion, chest tightness, and soa since . Sepsis Screen: No Definite Risk Source: patient Exam Limitations: no limitations History of Present Illness Date Seen by Provider: Dec 20, 2018 Time Seen by Provider: 16:41 Allergies and Home Medications Allergies Coded Allergies: carbamazepine (Verified Allergy, Unknown, 10/19/18) divalproex sodium (Verified Allergy, Unknown, 10/19/18) ondansetron (Verified Allergy, Unknown, 10/19/18) oxcarbazepine (Verified Allergy, Unknown, 10/19/18) prochlorperazine (Verified Allergy, Unknown, 10/19/18) topiramate (Verified Allergy, Unknown, 10/19/18) Home Medications Albuterol Sulfate 6.7 Gm Hfa.aer.ad, 2 PUFF INH Q6H PRN for SHORTNESS OF BREATH Prescribed by: KILLIAN JOHNSON on 12/20/181706 Docusate Sodium 100 Mg Capsule, 100 MG PO DAILY Prescribed by: KEVIN CALVIN on 10/14/18 0904 Escitalopram Oxalate 10 Mg Tablet, 10 MG PO DAILY, (Reported) Gabapentin 600 Mg Tablet, 600 MG PO BID, (Reported) Hydrocodone Bit/Acetaminophen 1 Tab Tab, 1-2 TAB PO Q6H PRN for PAIN-MODERATE Prescribed by: KEVIN CALVIN on 10/14/18 0904 Oseltamivir Phosphate 75 Mg Capsule, 75 MG PO BID Prescribed by: KILLIAN JOHNSON on 12/20/181706 Prednisone 20 Mg Tab, 40 MG PO DAILY Prescribed by: KILLIAN JOHNSON on 12/20/18 170 Promethazine HCl 25 Mg Tablet, 25 MG PO Q6H PRN for NAUSEA/VOMITING Prescribed by: JOEL BISHOP on 10/10/18 1515 Promethazine HCl 25 Mg Tablet, 25 MG PO Q6H PRN for NAUSEA/VOMITING Prescribed by: JOEL BISHOP on 10/19/18 1256 Past Kizfzft-Ubxfcv-Kitytq Hx Patient Social History Alcohol Use: Rarely Uses Recreational Drug Use: Yes Drug of Choice: MARIJUANA Smoking Status: Former Smoker Type Used: Cigarettes, Electronic/Vapor Former Smoker, Quit: Nov 29, 2018 2nd Hand Smoke Exposure: Yes Recent Foreign Travel: No Contact w/Someone Who Travel: No Recent Infectious Disease Expo: No Recent Hopitalizations: Yes (February) Physical Abuse: No Sexual Abuse: No Mistreated: No Fear: No Immunizations Up To Date Tetanus Booster (TDap): Unknown PED Vaccines UTD: Yes Seasonal Allergies Seasonal Allergies: No Past Medical History Surgeries: Yes (vagal nerve stimulator) Breast, Section, 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, Oophorectomy, Tonsillectomy Respiratory: No Cardiac: Yes Hypertension 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 0.0oz. 99.598189mb; 36.5 BMI Method:Stated Progress/Results/Core Measures Suspected Sepsis Recent Fever Within 48 Hours: No Infection Criteria Present: None New/Unexplained Altered Menta: No Sepsis Screen: No Definite Risk SIRS Temperature:97.3 Pulse: 81 Respiratory Rate: 16 Laboratory Tests 12/20/18 17:16: White Blood Count 6.5 Blood Pressure 126 /97 Mean: 107 Laboratory Tests 12/20/18 17:16: Creatinine 0.78, Platelet Count 251, Total Bilirubin 0.3 Results/Orders Lab Results Laboratory Tests Test 12/20/18 15:40 12/20/18 17:16 Range/Units Urine Color YELLOW Urine Clarity CLEAR Urine pH 8 5-9 Urine Specific [place] 1.015 L 1.016-1.022 Urine Protein NEGATIVE NEGATIVE Urine Glucose (UA) NEGATIVE NEGATIVE Urine Ketones NEGATIVE NEGATIVE Urine Nitrite NEGATIVE NEGATIVE Urine Bilirubin NEGATIVE NEGATIVE Urine Urobilinogen NORMAL NORMAL MG/DL Urine Leukocyte Esterase NEGATIVE NEGATIVE Urine RBC (Auto) NEGATIVE NEGATIVE Urine RBC NONE /HPF Urine WBC NONE /HPF Urine Squamous Epithelial Cells 0-2 /HPF Urine Crystals NONE /LPF Urine Bacteria NEGATIVE /HPF Urine Casts NONE /LPF Urine Mucus NEGATIVE /LPF Urine Culture Indicated NO White Blood Count 6.5 4.3-11.0 10^3/uL Red Blood Count 4.43 4.35-5.85 10^6/uL Hemoglobin 13.1 11.5-16.0 G/DL Hematocrit 38 35-52 % Mean Corpuscular Volume 86 80-99 FL Mean Corpuscular Hemoglobin 30 25-34 PG Mean Corpuscular Hemoglobin Concent 34 32-36 G/DL Red Cell Distribution Width 12.6 10.0-14.5 % Platelet Count 251 130-400 10^3/uL Mean Platelet Volume 10.7 H 7.4-10.4 FL Neutrophils (%) (Auto) 62 42-75 % Lymphocytes (%) (Auto) 27 12-44 % Monocytes (%) (Auto) 9 0-12 % Eosinophils (%) (Auto) 2 0-10 % Basophils (%) (Auto) 1 0-10 % Neutrophils # (Auto) 4.0 1.8-7.8 X 10^3 Lymphocytes # (Auto) 1.8 1.0-4.0 X 10^3 Monocytes # (Auto) 0.6 0.0-1.0 X 10^3 Eosinophils # (Auto) 0.1 0.0-0.3 10^3/uL Basophils # (Auto) 0.0 0.0-0.1 10^3/uL Sodium Level 140 135-145 MMOL/L Potassium Level 3.8 3.6-5.0 MMOL/L Chloride Level 106 98-107 MMOL/L Carbon Dioxide Level 22 21-32 MMOL/L Anion Gap 12 5-14 MMOL/L Blood Urea Nitrogen 8 7-18 MG/DL Creatinine 0.78 0.60-1.30 MG/DL Estimat Glomerular Filtration Rate > 60 BUN/Creatinine Ratio 10 Glucose Level 86 70-105 MG/DL Calcium Level 10.1 8.5-10.1 MG/DL Corrected Calcium 8.5-10.1 MG/DL Total Bilirubin 0.3 0.1-1.0 MG/DL Aspartate Amino Transf (AST/SGOT) 31 5-34 U/L Alanine Aminotransferase (ALT/SGPT) 49 0-55 U/L Alkaline Phosphatase 95 40-136 U/L C-Reactive Protein High Sensitivity 0.94 H 0.00-0.50 MG/DL Total Protein 7.7 6.4-8.2 GM/DL Albumin 4.6 H 3.2-4.5 GM/DL Micro Results Microbiology 12/20/18 Influenza Types A,B Antigen (YUMI) - Final, Complete My Orders Orders - KILLIAN JOHNSON Influenza A And B Antigens (12/20/18 15:25) Chest Pa/Lat (2 View) (12/20/18 15:25) Cbc With Automated Diff (12/20/18 17:09) Comprehensive Metabolic Panel (12/20/18 17:09) Hs C Reactive Protein (12/20/18 17:09) Ua Culture If Indicated (12/20/18 17:09) Ct Abd/Pelv W (Appendicitis) (12/20/18 17:09) Ns Iv 1000 Ml (Sodium Chloride 0.9%) (12/20/18 17:09) Ketorolac Injection (Toradol Injection) (12/20/18 17:09) Iohexol Injection (Omnipaque 350 Mg/Ml 1 (12/20/18 17:45) Contrast Received (Contrast Received) (12/20/18 17:45) Ns (Ivpb) (Sodium Chloride 0.9% Ivpb Bag (12/20/18 17:45) Vital Signs/I&O 12/20/18 12/20/18 15:03 15:03 Temp 97.3 Pulse 81 Resp 16 B/P (MAP) 126/97 (107) Pulse Ox 98 O2 Delivery Room Air Capillary Refill : Less Than 3 Seconds Blood Pressure Mean: 107 Departure Communication (Admissions) 1700 patient presented to the nurses station reporting RLQ pain. Impression Primary Impression: Costochondral pain Additional Impression: Colitis Disposition: 01 HOME, SELF-CARE Condition: Improved Departure-Patient Inst. Decision time for Depature: 16:59 Referrals: CHAUNCEY MCDOWELL MD (PCP/Family) Primary Care Physician Patient Instructions: Costochondritis (DC), Flu, Adult (DC) Add. Discharge Instructions: All discharge instructions reviewed with patient and/or family. Voiced understanding. Medications as directed. Tylenol xfmx-tna-xuumwoo as directed for pain as needed. Ibuprofen 800 mg by mouth every 8 hours as needed for pain if needed. Drink plenty of fluids. Rest. Follow-up with your family practitioner for recheck as an outpatient. Return in the emergency department for worsened symptoms or any other concerns. Scripts Metronidazole (Metronidazole) 500 Mg Tablet 500 MG PO BID, #14 TAB 0 Refills Prov: KILLIAN OJHNSON 12/20/18 Ciprofloxacin (Ciprofloxacin) 500 Mg/5 Ml Trini.mc.rec 500 MG PO BID, #14 TAB 0 Refills Prov: KILLIAN JOHNSON 12/20/18 Oseltamivir Phosphate (Oseltamivir Phosphate) 75 Mg Capsule 75 MG PO BID, #10 CAP 0 Refills Prov: KILLIAN JOHNSON 12/20/18 Albuterol Sulfate (Proventil Hfa) 6.7 Gm Hfa.aer.ad 2 PUFF INH Q6H PRN for SHORTNESS OF BREATH, #1 EACH 0 Refills Prov: KILLIAN JOHNSON 12/20/18 Prednisone (Prednisone) 20 Mg Tab 40 MG PO DAILY, #10 TAB 0 Refills Prov: KILLIAN JOHNSON 12/20/18 KILLIAN JOHNSON Dec 20, 2018 16:41
[2018-12-20] MEDS ORDERED: PRD20T PO (17:07)
[2018-12-20] MEDS ORDERED: RT-ALBUINH INH (17:07)
[2018-12-20] MEDS ORDERED: OSEL75CA15 PO (17:07)
[2018-12-20] MEDS ORDERED: KETOROLAC 30 MG/ML VIAL IVP STA (17:09)
[2018-12-20] MEDS ORDERED: NS IV 1000 ML 1,000 ML IV SCH (17:09)
[2018-12-20 17:16] LABS: BILIRUBIN,URINE NEGATIVE (NEGATIVE); CLARITY,URINE CLEAR; COLOR,URINE YELLOW; GLUCOSE, URINE (UA) NEGATIVE (NEGATIVE); KETONES,URINE NEGATIVE (NEGATIVE); LEUKOCYTE ESTERASE ,URINE NEGATIVE (NEGATIVE); NITRITE,URINE NEGATIVE (NEGATIVE); PH,URINE 8 (5-9); PROTEIN,URINE NEGATIVE (NEGATIVE); UROBILINOGEN,URINE NORMAL (NORMAL)
[2018-12-20 17:22] LABS: BACTERIA,URINE NEGATIVE /HPF; SQUAMOUS EPITHELIAL CELL,UR 0-2 /HPF
[2018-12-20 17:25] LABS: BASOPHILS % (AUTO) 1 % (0-10); EOSINOPHILS # (AUTO) 0.1 10^3/uL (0.0-0.3); EOSINOPHILS % (AUTO) 2 % (0-10); HEMATOCRIT 38 % (35-52); HEMOGLOBIN 13.1 G/DL (11.5-16.0); LYMPHOCYTES # (AUTO) 1.8 X 10^3 (1.0-4.0); LYMPHOCYTES % (AUTO) 27 % (12-44); MEAN CORPUSCULAR HEMOGLOBIN 30 PG (25-34); MEAN CORPUSCULAR HGB CONC 34 G/DL (32-36); MEAN CORPUSCULAR VOLUME 86 FL (80-99); MEAN PLATELET VOLUME 10.7 FL (7.4-10.4); MONOCYTES # (AUTO) 0.6 X 10^3 (0.0-1.0); MONOCYTES % (AUTO) 9 % (0-12); NEUTROPHILS % (AUTO) 62 % (42-75); PLATELET COUNT 251 10^3/uL (130-400); RED CELL DISTRIBUTION WIDTH 12.6 % (10.0-14.5); WHITE BLOOD COUNT 6.5 10^3/uL (4.3-11.0)
[2018-12-20 17:45] LABS: ALANINE AMINOTRANSFERASE 49 U/L (0-55); ALBUMIN 4.6 GM/DL (3.2-4.5); ALKALINE PHOSPHATASE 95 U/L (40-136); BILIRUBIN,TOTAL 0.3 MG/DL (0.1-1.0); BUN/CREATININE RATIO 10; CALCIUM 10.1 MG/DL (8.5-10.1); CARBON DIOXIDE 22 MMOL/L (21-32); CHLORIDE 106 MMOL/L (98-107); CREATININE SERUM 0.78 MG/DL (0.60-1.30); GFR ESTIMATED > 60; GLUCOSE 86 MG/DL (70-105); POTASSIUM 3.8 MMOL/L (3.6-5.0); SODIUM 140 MMOL/L (135-145); TOTAL PROTEIN 7.7 GM/DL (6.4-8.2)
[2018-12-20] MEDS ORDERED: IOHEXOL 350 MG/ML 100 ML (OMNIPAQUE 350) VIAL IV ONE (17:45)
[2018-12-20] MEDS ORDERED: RECEIVED CONTRAST (Hold Metformin) IV SCH (17:45)
[2018-12-20] MEDS ORDERED: NS 100 ML (IVPB) BAG IV ONE (17:45)
--- NOTE | 2018-12-20 18:16 | Diagnostic Imaging Report ---
PROCEDURE: CT abdomen and pelvis with contrast, rule out appendicitis. TECHNIQUE: Multiple contiguous axial images were obtained through the abdomen and pelvis after the administration of intravenous contrast. INDICATION: Cough and congestion. Chest tightness. Shortness of air. COMPARISON: 09/28/2018 FINDINGS: Included portions of the lung bases are clear. CT abdomen: Normal appendix is identified. There is mild diffuse thickened appearance to the wall of the colon. Please note, colon is minimally distended. There is no significant stranding of the pericolonic fat. There is no pneumatosis, pneumoperitoneum, nor portal venous gas. Small bowel loops are nondistended. Benign right renal cyst is noted. Otherwise, the kidneys, adrenal glands, spleen, and pancreas have a normal CT appearance. Liver is slightly hypodense in appearance on this postcontrast exam suggestive of background of hepatic steatosis. There is no loculated fluid collection, free fluid, nor free air within the abdomen. A few scattered prominent, yet subcentimeter mesenteric and retroperitoneal lymph nodes are noted. Appearance is largely stable compared to 09/28/2018. Bony structures show no acute abnormalities. CT pelvis: Urinary bladder is grossly unremarkable. There is no loculated fluid collection, free fluid, nor free air within the pelvis. No abnormal lymph nodes are identified. Bony structures show no acute abnormalities. IMPRESSION: 1. Normal appendix. 2. Mild diffusely thickened appearance to the wall of the colon. Findings may be artifactual and related to incomplete distention, although some component of underlying nonspecific infectious or inflammatory colitis is also considered. 3. Probable hepatic steatosis. Dictated by: Dictated on workstation # [id number]
[2018-12-20] MEDS ORDERED: ORPHENADRINE 60 MG/2 ML (NORFLEX) AMP IV STA (18:48)
[2018-12-20] MEDS ORDERED: METR-145 PO (18:51)
[2018-12-20] MEDS ORDERED: CIPR500S3 PO (18:51)
[2018-12-20] MEDS ORDERED: CIPR500T4 PO (18:55)
[2018-12-20] MEDS ORDERED: PROMETHAZINE INJ 25 MG/ML (PHENERGAN) AMP IVP ONE (19:00)
[2018-12-20 19:05] VITALS: BP 132/82
== END 2018-12-20 19:05 | disposition home or self-care (01) ==
LOC: EDUNIT# 14:06 → ER 14:08
DX: R07.1 Chest pain on breathing (principal); K52.9 Noninfective gastroenteritis and colitis, unspecified; F12.10 Cannabis abuse, uncomplicated; I10 Essential (primary) hypertension; G40.909 Epilepsy, unspecified, not intractable, without status epilepticus; F41.9 Anxiety disorder, unspecified; Z85.3 Personal history of malignant neoplasm of breast; Z87.891 Personal history of nicotine dependence; Z88.8 Allergy status to other drugs, medicaments and biological substances; Z79.51 Long term (current) use of inhaled steroids; Z79.52 Long term (current) use of systemic steroids; Z90.710 Acquired absence of both cervix and uterus; Z98.890 Other specified postprocedural states; Z90.89 Acquired absence of other organs
CPT/HCPCS: 36415; 71046; 74177; 80053; 81000; 85025; 86141; 87804

== ENCOUNTER 2019-01-20 19:15 | Emergency (ER) | payer MEDICAID ==
[~2019-01-20] VITALS: Ht 157.5 cm; Wt 97.5 kg
[~2019-01-20 19:15] MED LIST changes: +CIPR500S3 PO; +CIPR500T4 PO; +METR-145 PO; +OSEL75CA15 PO; +PRD20T PO; +RT-ALBUINH INH
--- NOTE | 2019-01-20 19:21 | NUR ---
assessment completed upon pt arrival at 1915. unable to change time d/t registration inputting wrong time on arrival.
[2019-01-20] MEDS ORDERED: CETI10TA20 PO (19:27)
[2019-01-20] MEDS ORDERED: VORT5TAB PO (19:27)
[2019-01-20] MEDS ORDERED: LEVETIRACETAM INJECTION 500 MG in NS (IVPB) 100 ML IV ONE (19:30)
[2019-01-20] MEDS ORDERED: PROMETHAZINE INJ 25 MG/ML (PHENERGAN) AMP IVP ONE (19:30)
[2019-01-20] MEDS ORDERED: fentaNYL INJECTION 100 MCG/2 ML AMP IVP ONE ×2 (19:30→20:30)
[2019-01-20 19:34] LABS: BASOPHILS % (AUTO) 0 % (0-10); EOSINOPHILS # (AUTO) 0.2 10^3/uL (0.0-0.3); EOSINOPHILS % (AUTO) 2 % (0-10); HEMATOCRIT 37 % (35-52); HEMOGLOBIN 12.4 G/DL (11.5-16.0); LYMPHOCYTES % (AUTO) 37 % (12-44); MEAN CORPUSCULAR HEMOGLOBIN 29 PG (25-34); MEAN CORPUSCULAR HGB CONC 34 G/DL (32-36); MEAN CORPUSCULAR VOLUME 85 FL (80-99); MEAN PLATELET VOLUME 11.4 FL (7.4-10.4); MONOCYTES # (AUTO) 0.5 X 10^3 (0.0-1.0); MONOCYTES % (AUTO) 6 % (0-12); NEUTROPHILS # (AUTO) 4.5 X 10^3 (1.8-7.8); NEUTROPHILS % (AUTO) 55 % (42-75); PLATELET COUNT 228 10^3/uL (130-400); RED CELL DISTRIBUTION WIDTH 12.2 % (10.0-14.5); WHITE BLOOD COUNT 8.1 10^3/uL (4.3-11.0)
[2019-01-20 19:50] LABS: ALANINE AMINOTRANSFERASE 36 U/L (0-55); ALBUMIN 4.5 GM/DL (3.2-4.5); ALKALINE PHOSPHATASE 85 U/L (40-136); BILIRUBIN,TOTAL 0.2 MG/DL (0.1-1.0); BUN/CREATININE RATIO 17; CALCIUM 9.2 MG/DL (8.5-10.1); CARBON DIOXIDE 21 MMOL/L (21-32); CHLORIDE 104 MMOL/L (98-107); CREATININE SERUM 0.81 MG/DL (0.60-1.30); GFR ESTIMATED > 60; GLUCOSE 86 MG/DL (70-105); MAGNESIUM 2.1 MG/DL (1.8-2.4); POTASSIUM 3.4 MMOL/L (3.6-5.0); SODIUM 139 MMOL/L (135-145); TOTAL PROTEIN 7.3 GM/DL (6.4-8.2)
[2019-01-20 20:10] LABS: TSH (THYROID ANALYZER) 0.84 UIU/ML (0.35-4.94)
--- NOTE | 2019-01-20 20:15 | NUR ---
pt up ambulating to restroom Addendum: 01/20/19 at 0 by AYALA informed of need to remain in bed until c-collar cleared by erp.
--- NOTE | 2019-01-20 20:37 | Diagnostic Imaging Report ---
PROCEDURE: CT thoracic spine without contrast. TECHNIQUE: Multiple axial computerized tomography images were obtained from the base of the thoracic spine to the vertex without intravenous contrast. Auto Exposure Controls were utilized during the CT exam to meet ALARA standards for radiation dose reduction. INDICATION: Mid back pain. Sagittal reformatted images. FINDINGS: There is good alignment of the thoracic spine. There are no compression fractures. There are Schmorl's nodes along the superior endplate of T11 and T8. These are sclerotic and chronic in nature. These were present on previous CT scan of the abdomen on 12/20/2018. Facets show good alignment throughout. Mild degenerative disc disease noted with minimal hypertrophic lipping of the endplates. There is no spinal stenosis. The paraspinal soft tissues appear normal. IMPRESSION: Mild degenerative changes with no acute abnormality. Schmorl's nodes along the superior endplate of T8 and T11 appear chronic. Dictated by: Dictated on workstation # [id number]
[2019-01-20 20:38] LABS: BILIRUBIN,URINE NEGATIVE (NEGATIVE); CLARITY,URINE CLEAR; COLOR,URINE YELLOW; GLUCOSE, URINE (UA) NEGATIVE (NEGATIVE); KETONES,URINE NEGATIVE (NEGATIVE); LEUKOCYTE ESTERASE ,URINE NEGATIVE (NEGATIVE); NITRITE,URINE NEGATIVE (NEGATIVE); PH,URINE 6 (5-9); PROTEIN,URINE NEGATIVE (NEGATIVE); UROBILINOGEN,URINE NORMAL (NORMAL)
--- NOTE | 2019-01-20 20:43 | Diagnostic Imaging Report ---
PROCEDURE: CT head, face, and cervical spine without contrast. TECHNIQUE: Multiple contiguous axial images were obtained through the head, neck, and facial bones without the use of intravenous contrast. Sagittal and coronal reformations through the cervical spine and facial bones were also performed. Auto Exposure Controls were utilized during the CT exam to meet ALARA standards for radiation dose reduction. INDICATION: Seizure. Head and neck pain. CT HEAD WITHOUT: The ventricles and cortical gyral pattern are normal. There is no intracranial hemorrhage. No mass effect. No extra-axial fluid collection. Basal cisterns are clear. Mastoid air cells are clear. There is a small amount of fluid in the left maxillary sinus. There are no bony lesions. No calvarial fractures. IMPRESSION: No acute abnormalities. CT FACIAL BONES: There is mild mucosal thickening of the left maxillary sinus with a small amount of fluid. The paranasal sinuses are otherwise well-aerated and clear. No evidence of orbital fractures. The temporomandibular joints are in good alignment. The mandible is intact. No evidence of nasal bone fracture. Inferior nasal spine is intact. IMPRESSION: Small amount of fluid in the left maxillary sinus, otherwise negative facial bones. CERVICAL SPINE: Sagittal and coronal reformatted images. Good alignment. Body heights and disc spaces are well-maintained. Facets show good alignment. There are no fractures. The atlantoaxial joint appears normal. The surrounding soft tissues are normal. IMPRESSION: Negative CT cervical spine. Dictated by: Dictated on workstation # [id number]
[2019-01-20 20:58] LABS: BACTERIA,URINE TRACE /HPF; RBC,URINE RARE /HPF
--- NOTE | 2019-01-20 21:08 | ED 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 Problem ---
General Chief Complaint: 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 Problems Stated Complaint: SEIZURE Nursing Triage Note: SEIZURE Nursing Sepsis Screen: No Definite Risk Source: patient Exam Limitations: no limitations History of Present Illness Date Seen by Provider: Jan 20, 2019 Time Seen by Provider: 19:23 Initial Comments This 28-year-old young lady presents to the emergency room via EMS after having a seizure at work. She was seated in her chair when she began to seize and fell over striking her head on the floor. She complains of head and neck pain as well as pain in the upper back. C-collar was placed. Patient was postictal for EMS and now has improving mental status. She reports recently being weaned off Neurontin by her neurologist, Dr. Arellano. She has an appointment with him on where she anticipates being started on a new medication for seizures. It has been somewhere around 3-5 months since her last seizure. Patient denies being ill in any way recently. Allergies and Home Medications Allergies Coded Allergies: carbamazepine (Verified Allergy, Unknown, 10/19/18) divalproex sodium (Verified Allergy, Unknown, 10/19/18) ondansetron (Verified Allergy, Unknown, 10/19/18) oxcarbazepine (Verified Allergy, Unknown, 10/19/18) prochlorperazine (Verified Allergy, Unknown, 10/19/18) topiramate (Verified Allergy, Unknown, 10/19/18) Home Medications Albuterol Sulfate 6.7 Gm Hfa.aer.ad, 2 PUFF INH Q6H PRN for SHORTNESS OF BREATH Prescribed by: KILLIAN JOHNSON on 12/20/18 1707 Gabapentin 600 Mg Tablet, 600 MG PO BID, (Reported) Vortioxetine Hydrobromide 5 Mg Tablet, Unknown Dose PO DAILY, (Reported) Patient Home Medication List Home Medication List Reviewed: Yes Review of Systems Review of Systems Constitutional: no symptoms reported Eyes: No Symptoms Reported Ears, Nose, Mouth, Throat: no symptoms reported Respiratory: no symptoms reported Cardiovascular: no symptoms reported Gastrointestinal: no symptoms reported Genitourinary: no symptoms reported : No Musculoskeletal: see HPI Skin: no symptoms reported Psychiatric/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: See HPI Endocrine: No Symptoms Reported Hematologic/Lymphatic: No Symptoms Reported Past Hfkydru-Lgtzds-Ozsgph Hx Patient Social History Alcohol Use: Rarely Uses Recreational Drug Use: Yes Drug of Choice: CANNIBUS Type Used: Cigarettes, Electronic/Vapor Former Smoker, Quit: Nov 29, 2018 2nd Hand Smoke Exposure: Yes Recent Foreign Travel: No Contact w/Someone Who Travel: No Recent Infectious Disease Expo: No Recent Hopitalizations: No Immunizations Up To Date Tetanus Booster (TDap): Unknown PED Vaccines UTD: Yes Seasonal Allergies Seasonal Allergies: No Past Medical History Surgeries: Yes (vagal nerve stimulator) Breast (Double mastectomy), Section, 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, Oophorectomy, Tonsillectomy Respiratory: No Cardiac: Yes Hypertension 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: Yes Seizure Disorder : No 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 0.0oz. 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, no motor/sensory deficits, alert, normal mood/affect, oriented x 3, other (Postictal with sluggish mentation but alert and oriented) Crainal Nerves: normal hearing, normal speech, PERRL Motor/Sensory: no motor deficit, no sensory deficit Skin: normal color, warm/dry Progress/Results/Core Measures Results/Orders Lab Results Laboratory Tests Test 01/20/19 19:20 01/20/19 20:30 Range/Units White Blood Count 8.1 4.3-11.0 10^3/uL Red Blood Count 4.30 L 4.35-5.85 10^6/uL Hemoglobin 12.4 11.5-16.0 G/DL Hematocrit 37 35-52 % Mean Corpuscular Volume 85 80-99 FL Mean Corpuscular Hemoglobin 29 25-34 PG Mean Corpuscular Hemoglobin Concent 34 32-36 G/DL Red Cell Distribution Width 12.2 10.0-14.5 % Platelet Count 228 130-400 10^3/uL Mean Platelet Volume 11.4 H 7.4-10.4 FL Neutrophils (%) (Auto) 55 42-75 % Lymphocytes (%) (Auto) 37 12-44 % Monocytes (%) (Auto) 6 0-12 % Eosinophils (%) (Auto) 2 0-10 % Basophils (%) (Auto) 0 0-10 % Neutrophils # (Auto) 4.5 1.8-7.8 X 10^3 Lymphocytes # (Auto) 3.0 1.0-4.0 X 10^3 Monocytes # (Auto) 0.5 0.0-1.0 X 10^3 Eosinophils # (Auto) 0.2 0.0-0.3 10^3/uL Basophils # (Auto) 0.0 0.0-0.1 10^3/uL Sodium Level 139 135-145 MMOL/L Potassium Level 3.4 L 3.6-5.0 MMOL/L Chloride Level 104 98-107 MMOL/L Carbon Dioxide Level 21 21-32 MMOL/L Anion Gap 14 5-14 MMOL/L Blood Urea Nitrogen 14 7-18 MG/DL Creatinine 0.81 0.60-1.30 MG/DL Estimat Glomerular Filtration Rate > 60 BUN/Creatinine Ratio 17 Glucose Level 86 70-105 MG/DL Calcium Level 9.2 8.5-10.1 MG/DL Corrected Calcium 8.8 8.5-10.1 MG/DL Magnesium Level 2.1 1.8-2.4 MG/DL Total Bilirubin 0.2 0.1-1.0 MG/DL Aspartate Amino Transf (AST/SGOT) 25 5-34 U/L Alanine Aminotransferase (ALT/SGPT) 36 0-55 U/L Alkaline Phosphatase 85 40-136 U/L Total Protein 7.3 6.4-8.2 GM/DL Albumin 4.5 3.2-4.5 GM/DL TSH [place] Testing 0.84 0.35-4.94 UIU/ML Urine Color YELLOW Urine Clarity CLEAR Urine pH 6 5-9 Urine Specific Bryant 1.005 L 1.016-1.022 Urine Protein NEGATIVE NEGATIVE Urine Glucose (UA) NEGATIVE NEGATIVE Urine Ketones NEGATIVE NEGATIVE Urine Nitrite NEGATIVE NEGATIVE Urine Bilirubin NEGATIVE NEGATIVE Urine Urobilinogen NORMAL NORMAL MG/DL Urine Leukocyte Esterase NEGATIVE NEGATIVE Urine RBC (Auto) NEGATIVE NEGATIVE Urine RBC RARE /HPF Urine WBC 2-5 /HPF Urine Crystals NONE /LPF Urine Bacteria TRACE /HPF Urine Casts NONE /LPF Urine Mucus SMALL H /LPF Urine Culture Indicated NO My Orders Orders - ARNOL GORDON MD Cbc With Automated Diff (01/20/19 19:26) Comprehensive Metabolic Panel (01/20/19 19:) Magnesium (01/20/19:) Thyroid Analyzer (01/20/19:) Ua Culture If Indicated (01/20/19:) Ct Head/Face/Cervical Wo (01/20/19 19:26) Ct Thoracic Spine Wo (01/20/19 19:26) Promethazine Injection (Phenergan Injec (01/20/19 19:30) Fentanyl Injection (Sublimaze Injection (01/20/19 19:30) Levetiracetam Injection (Keppra Injectio (01/20/19 19:30) Fentanyl Injection (Sublimaze Injection (01/20/19 20:30) Ketorolac Injection (Toradol Injection) (01/20/19 21:15) Medications Given in ED Current Medications Medications Dose Ordered Sig/Shlomo Route Start Time Stop Time Status Last Admin Dose Admin Ketorolac Tromethamine 15 mg ONCE ONCE IVP 01/20/19 21:15 01/20/19 21:16 DC 01/20/19 21:22 15 MG Vital Signs/I&O 01/20/19 01/20/19 19:21 21:25 Temp 97.1 97.3 Pulse 68 62 Resp 14 14 B/P (MAP) 122/93 (103) 136/86 (103) Pulse Ox 100 100 O2 Delivery Room Air Room Air 01/21/19 00:00 Intake Total 105 ml Balance 105 ml Blood Pressure Mean: 103 Progress Progress Note : Progress Note Patient was seen and examined. Fentanyl was given for pain. C-collar was in place. CT imaging was obtained and showed no acute injuries. Labs were unremarkable. Keppra was given to prevent further seizure as patient needed to be in a c-collar and complete imaging to rule out trauma. I offered a prescription for further epileptic therapy while patient awaits her appointment with Dr. Arellano. Patient declined stating she was supposed to be off medications at her appointment. Toradol was given for treatment of her pain. Diagnostic Imaging Diagonstic Imaging: CT Plain Films/CT/US/NM/MRI: other Comments CT thoracic spine viewed by me and report reviewed. See report below: NAME: BECK HEARD I MED REC#: [id number] PT STATUS: REG ER : 1990 PHYSICIAN: ARNOL GORDON MD ADMIT DATE: 01/20/19/ER Draft Date of Exam:01/20/19 CT THORACIC SPINE WO PROCEDURE: CT thoracic spine without contrast. TECHNIQUE: Multiple axial computerized tomography images were obtained from the base of the thoracic spine to the vertex without intravenous contrast. Auto Exposure Controls were utilized during the CT exam to meet ALARA standards for radiation dose reduction. INDICATION: Mid back pain. Sagittal reformatted images. FINDINGS: There is good alignment of the thoracic spine. There are no compression fractures. There are Schmorl's nodes along the superior endplate of T11 and T8. These are sclerotic and chronic in nature. These were present on previous CT scan of the abdomen on 12/20/2018. Facets show good alignment throughout. Mild degenerative disc disease noted with minimal hypertrophic lipping of the endplates. There is no spinal stenosis. The paraspinal soft tissues appear normal. IMPRESSION: Mild degenerative changes with no acute abnormality. Schmorl's nodes along the superior endplate of T8 and T11 appear chronic. Dictated on workstation # [id number] Dict: 01/20/192029 Trans: 01/20/192035 [facility] [phone] Interpreted by: ANGIE ALAS MD Diagonstic Imaging: CT Plain Films/CT/US/NM/MRI: facial bones, c-spine, head Comments CT head, facial bones, and cervical spine viewed by me and report reviewed. See report below: NAME: BECK HEARD I MED REC#: [id number] PT STATUS: REG ER : 1990 PHYSICIAN: ARNOL GORDON MD ADMIT DATE: 01/20/19/ER Draft Date of Exam:01/20/19 CT HEAD/FACE/CERVICAL WO PROCEDURE: CT head, face, and cervical spine without contrast. TECHNIQUE: Multiple contiguous axial images were obtained through the head, neck, and facial bones without the use of intravenous contrast. Sagittal and coronal reformations through the cervical spine and facial bones were also performed. Auto Exposure Controls were utilized during the CT exam to meet ALARA standards for radiation dose reduction. INDICATION: Seizure. Head and neck pain. CT HEAD WITHOUT: The ventricles and cortical gyral pattern are normal. There is no intracranial hemorrhage. No mass effect. No extra-axial fluid collection. Basal cisterns are clear. Mastoid air cells are clear. There is a small amount of fluid in the left maxillary sinus. There are no bony lesions. No calvarial fractures. IMPRESSION: No acute abnormalities. CT FACIAL BONES: There is mild mucosal thickening of the left maxillary sinus with a small amount of fluid. The paranasal sinuses are otherwise well-aerated and clear. No evidence of orbital fractures. The temporomandibular joints are in good alignment. The mandible is intact. No evidence of nasal bone fracture. Inferior nasal spine is intact. IMPRESSION: Small amount of fluid in the left maxillary sinus, otherwise negative facial bones. CERVICAL SPINE: Sagittal and coronal reformatted images. Good alignment. Body heights and disc spaces are well-maintained. Facets show good alignment. There are no fractures. The atlantoaxial joint appears normal. The surrounding soft tissues are normal. IMPRESSION: Negative CT cervical spine. Dictated on workstation # [id number] Dict: 01/20/192032 Trans: 01/20/192041 [facility] [id number] Interpreted by: ANGIE ALAS MD Departure Impression Primary Impression: Seizure Additional Impressions: Headache Qualified Codes: R51 - Headache Acute neck pain Upper back pain Disposition: 01 HOME, SELF-CARE Condition: Improved Admissions Decision to Admit Reason: Admit from ER (General) Departure-Patient Inst. Decision time for Depature: 21:17 Referrals: CHAUNCEY MCDOWELL MD (PCP/Family) Primary Care Physician Patient Instructions: Seizures, Adult (DC) Add. Discharge Instructions: Follow-up with your neurologist as soon as possible. Call his office tomorrow to give them an update on your most recent seizure. Drink plenty of clear liquids. You may take ibuprofen up to 600 mg every 6 hours as needed and/or Tylenol ( acetaminophen) up to 1000 mg every 6 hours as needed for pain. You may apply ice or gentle heat in 20 minute intervals to affected areas. This may help reduce muscle strain and pain. Return to care if you have worsening symptoms. Please be advised in the [facility] you are not permitted to drive within 6 months of a seizure. All discharge instructions reviewed with patient and/or family. Voiced understanding. Copy Copies To 1: CHAUNCEY MCDOWELL MD, JOSHUA T MD Jan 20, 2019 21:08
--- NOTE | 2019-01-20 21:09 | NUR ---
c-collar removed by dr vincent at 2108.
[2019-01-20] MEDS ORDERED: KETOROLAC 30 MG/ML VIAL IVP ONE (21:15)
[2019-01-20 21:25] VITALS: BP 136/86
== END 2019-01-20 21:25 | disposition home or self-care (01) ==
LOC: EDUNIT# 19:21 → ER 19:23
DX: G40.909 Epilepsy, unspecified, not intractable, without status epilepticus (principal); R51 Headache; M54.2 Cervicalgia; M54.6 Pain in thoracic spine; I10 Essential (primary) hypertension; F41.9 Anxiety disorder, unspecified; F12.10 Cannabis abuse, uncomplicated; F17.210 Nicotine dependence, cigarettes, uncomplicated; F17.290 Nicotine dependence, other tobacco product, uncomplicated; Z88.8 Allergy status to other drugs, medicaments and biological substances; Z85.3 Personal history of malignant neoplasm of breast; Z90.89 Acquired absence of other organs; Z90.710 Acquired absence of both cervix and uterus; W22.8XXA Striking against or struck by other objects, initial encounter
CPT/HCPCS: 36415; 70450; 70486; 72125; 72128; 80053; 81000; 83735; 84443; 85025; 96365; 96375; 96376

== ENCOUNTER 2019-02-06 22:12 | Emergency (ER) | payer MEDICAID ==
[~2019-02-06] VITALS: Ht 157.5 cm; Wt 99.8 kg
[~2019-02-06 22:12] MED LIST changes: +CETI10TA20 PO; +VORT5TAB PO
--- NOTE | 2019-02-06 22:43 | ED EENT ---
History of Present Illness General Chief Complaint: Dental Problems/Pain Stated Complaint: TOOTH BROKE TODAY/FACIAL PAIN Source: patient Exam Limitations: no limitations History of Present Illness Date Seen by Provider: Feb 06, 2019 Time Seen by Provider: 22:40 Initial Comments 20-year-old female who presents to the emergency room with complaints of pain after breaking off a tooth while eating dinner this evening. She denies taking any nbsh-pcr-vpvurid medications for pain. Timing/Duration: this evening Location: dental Prearrival Treatment: no prearrival treatment Associated Symptoms: tooth pain Allergies and Home Medications Allergies Coded Allergies: carbamazepine (Verified Allergy, Unknown, 10/19/18) divalproex sodium (Verified Allergy, Unknown, 10/19/18) ondansetron (Verified Allergy, Unknown, 10/19/18) oxcarbazepine (Verified Allergy, Unknown, 10/19/18) prochlorperazine (Verified Allergy, Unknown, 10/19/18) topiramate (Verified Allergy, Unknown, 10/19/18) Home Medications Albuterol Sulfate 6.7 Gm Hfa.aer.ad, 2 PUFF INH Q6H PRN for SHORTNESS OF BREATH Prescribed by: KILLIAN JOHNSON on 12/20/18 1707 Gabapentin 600 Mg Tablet, 600 MG PO BID, (Reported) Vortioxetine Hydrobromide 5 Mg Tablet, Unknown Dose PO DAILY, (Reported) Patient Home Medication List Home Medication List Reviewed: Yes Review of Systems Review of Systems Constitutional: see HPI; No chills, No fever Mouth: see HPI, other (broken tooth) All Other Systems Reviewed Negative Unless Noted: Yes Past Yytpzsw-Jawgla-Tupjbk Hx Past Med/Social Hx: Reviewed Nursing Past Med/Soc Hx Patient Social History Alcohol Use: Occasionally Uses Drug of Choice: CANNIBUS Smoking Status: Current Everyday Smoker Type Used: Cigarettes, Electronic/Vapor Former Smoker, Quit: Nov 29, 2018 2nd Hand Smoke Exposure: Yes Recent Foreign Travel: No Contact w/Someone Who Travel: No Recent Hopitalizations: No Immunizations Up To Date Tetanus Booster (TDap): Unknown PED Vaccines UTD: Yes Seasonal Allergies Seasonal Allergies: No Past Medical History Surgeries: Yes (vagal nerve stimulator) Breast, Section, 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, Oophorectomy, Tonsillectomy Respiratory: No Cardiac: Yes Hypertension 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: Yes Seizure Disorder 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 0.0oz. 97.594919qk; 36.5 BMI Method:Stated General Appearance: WD/WN, no apparent distress, mild distress, moderate distress, severe distress, cachetic Mouth/Throat: other (fractured tooth see images.) Cardiovascular: normal peripheral pulses, regular rate, rhythm, no edema, no gallop, no JVD, no murmur Respiratory: chest non-tender, lungs clear, normal breath sounds, no respiratory distress, no accessory muscle use Neurologic/Psychiatric: alert, normal mood/affect, oriented x 3 Skin: normal color, warm/dry Departure Impression Primary Impression: Fractured tooth Disposition: 01 HOME, SELF-CARE Condition: Stable/Unchanged Departure-Patient Inst. Decision time for Depature: 22:41 Referrals: CHAUNCEY MCDOWELL MD (PCP/Family) Primary Care Physician Patient Instructions: Fractured Tooth (DC) Add. Discharge Instructions: Call [facility] to schedule an appointment for your dental visit first thing tomorrow morning. Use dental wax to the sharp areas of the tooth. You may use ibuprofen and Tylenol as directed by the bottle for pain relief. Return back to the emergency room for worsening symptoms or concerns as needed. All discharge instructions reviewed with patient and/or family. Voiced understanding. Images Mouth/Nose 1 - Fracture Tooth JOEL BISHOP Feb 06, 2019 22:43
[2019-02-06 22:47] VITALS: BP 140/90
== END 2019-02-06 22:48 | disposition home or self-care (01) ==
LOC: EDUNIT# 22:12 → ER 22:13
DX: S02.5XXA Fracture of tooth (traumatic), initial encounter for closed fracture (principal); I10 Essential (primary) hypertension; G40.909 Epilepsy, unspecified, not intractable, without status epilepticus; F41.9 Anxiety disorder, unspecified; F12.10 Cannabis abuse, uncomplicated; Z87.891 Personal history of nicotine dependence; Z85.3 Personal history of malignant neoplasm of breast; Z88.8 Allergy status to other drugs, medicaments and biological substances; Z90.710 Acquired absence of both cervix and uterus; Z98.890 Other specified postprocedural states; Z90.89 Acquired absence of other organs; X58.XXXA Exposure to other specified factors, initial encounter
CPT/HCPCS: 99282

== ENCOUNTER 2019-02-14 21:01 | Emergency (ER) | payer MEDICAID ==
[~2019-02-14] VITALS: Ht 162.6 cm; Wt 81.6 kg
--- OUTSIDE RECORDS SUMMARY | 2019-02-14 21:06 | XMS REPORT | Continuity of Care Document ---
Author Organization Unknown Address Unknown Allergies There is no data. Medications There is no data. Problems There is no data. Procedures There is no data. Results There is no data. Encounters ACCT No. Visit Date/Time Discharge Status Pt. Type Provider Facility Loc./Unit Complaint [id number] 02/09/2019 15:30:00 02/09/2019 23:59:59 CLS Outpatient CHAUNCEY MCDOWELL [facility]
[2019-02-14] MEDS ORDERED: NS IV 1000 ML 1,000 ML IV SCH (21:17)
[2019-02-14] MEDS ORDERED: PROMETHAZINE INJ 25 MG/ML (PHENERGAN) AMP IVP STA (21:24)
--- NOTE | 2019-02-14 21:24 | ED 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 Problem ---
General Chief Complaint: 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 Problems Stated Complaint: SEIZURE Source: patient Exam Limitations: no limitations History of Present Illness Date Seen by Provider: Feb 14, 2019 Time Seen by Provider: 21:03 Initial Comments Here by EMS did report of 3 euwq-ch-jjwa seizures that lasted about 30 seconds to a minute a piece. Apparently she was at work at [employer] and had this seizure witnessed by coworkers. Apparently fell to the floor. May have hit her head on the computer but does not have any significant injury noted. She denies the EMS and is anxious. She states she just wants to go home. Denies nausea or vomiting. She is holding her abdomen in the right lower area. States that it wasn't hurting before hurts a little now but she is not worried about it and repeats that she would just like to go home. Apparently restarted carbamazepine a week ago although as prescribed on 22 January. She states that she is taking it as directed. She does have it listed as an allergy but that was from childhood and states that she is not sure it was an allergy and they wanted to retry her on it. Timing/Duration: 1/2 hour, episodic Severity: moderate Associated Symptoms: No fever/chills, No nausea/vomiting; seizures; No slurred speech; other (dizziness) Allergies and Home Medications Allergies Coded Allergies: carbamazepine (Verified Allergy, Unknown, 10/19/18) divalproex sodium (Verified Allergy, Unknown, 10/19/18) ondansetron (Verified Allergy, Unknown, 10/19/18) oxcarbazepine (Verified Allergy, Unknown, 10/19/18) prochlorperazine (Verified Allergy, Unknown, 10/19/18) topiramate (Verified Allergy, Unknown, 10/19/18) Home Medications Albuterol Sulfate 6.7 Gm Hfa.aer.ad, 2 PUFF INH Q6H PRN for SHORTNESS OF BREATH Prescribed by: KILLIAN JOHNSON on 12/20/18 1707 Gabapentin 600 Mg Tablet, 600 MG PO BID, (Reported) Vortioxetine Hydrobromide 5 Mg Tablet, Unknown Dose PO DAILY, (Reported) Patient Home Medication List Home Medication List Reviewed: Yes Review of Systems Review of Systems Constitutional: see HPI; No chills, No fever Eyes: No Symptoms Reported Ears, Nose, Mouth, Throat: no symptoms reported Respiratory: No cough, No short of breath Cardiovascular: No chest pain, No palpitations Gastrointestinal: abdominal pain (RLQ); No diarrhea, No nausea, No vomiting Genitourinary: no symptoms reported Musculoskeletal: no symptoms reported Skin: no symptoms reported All Other Systems Reviewed Negative Unless Noted: Yes Past Yfjilos-Mkgoii-Uavmxr Hx Past Med/Social Hx: Reviewed Nursing Past Med/Soc Hx Patient Social History Alcohol Use: Denies Use Recreational Drug Use: No Drug of Choice: CANNIBUS Smoking Status: Current Everyday Smoker Type Used: Cigarettes, Electronic/Vapor Former Smoker, Quit: Nov 29, 2018 2nd Hand Smoke Exposure: Yes Recent Foreign Travel: No Contact w/Someone Who Travel: No Recent Hopitalizations: No Immunizations Up To Date Tetanus Booster (TDap): Unknown PED Vaccines UTD: Yes Seasonal Allergies Seasonal Allergies: No Past Medical History Surgeries: Yes (vagal nerve stimulator) Breast, Section, 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, Oophorectomy, Tonsillectomy Respiratory: No Cardiac: Yes Hypertension 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: Yes Seizure Disorder 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 0oz. 99.510485kf; 36.5 BMI Method:Stated General Appearance: WD/WN, mild distress (anxious) HEENT: PERRL/EOMI, TMs normal, pharynx normal Neck: non-tender, full range of motion, supple, normal inspection Respiratory: lungs clear, normal breath sounds Cardiovascular: no murmur, tachycardia Gastrointestinal: non tender, soft Back: normal inspection, no CVA tenderness, no vertebral tenderness Extremities: non-tender, normal inspection Neurologic/Psychiatric: alert, oriented x 3 Crainal Nerves: normal hearing, normal speech, PERRL Motor/Sensory: no motor deficit, no sensory deficit Skin: normal color, warm/dry Progress/Results/Core Measures Results/Orders Lab Results Laboratory Tests Test 02/14/19 21:25 02/14/19 21:28 Range/Units White Blood Count 9.6 4.3-11.0 10^3/uL Red Blood Count 4.36 4.35-5.85 10^6/uL Hemoglobin 12.4 11.5-16.0 G/DL Hematocrit 37 35-52 % Mean Corpuscular Volume 86 80-99 FL Mean Corpuscular Hemoglobin 28 25-34 PG Mean Corpuscular Hemoglobin Concent 33 32-36 G/DL Red Cell Distribution Width 12.7 10.0-14.5 % Platelet Count 267 130-400 10^3/uL Mean Platelet Volume 11.1 H 7.4-10.4 FL Neutrophils (%) (Auto) 64 42-75 % Lymphocytes (%) (Auto) 27 12-44 % Monocytes (%) (Auto) 7 0-12 % Eosinophils (%) (Auto) 2 0-10 % Basophils (%) (Auto) 1 0-10 % Neutrophils # (Auto) 6.2 1.8-7.8 X 10^3 Lymphocytes # (Auto) 2.6 1.0-4.0 X 10^3 Monocytes # (Auto) 0.6 0.0-1.0 X 10^3 Eosinophils # (Auto) 0.2 0.0-0.3 10^3/uL Basophils # (Auto) 0.1 0.0-0.1 10^3/uL Sodium Level 138 135-145 MMOL/L Potassium Level 3.8 3.6-5.0 MMOL/L Chloride Level 106 98-107 MMOL/L Carbon Dioxide Level 18 L 21-32 MMOL/L Anion Gap 14 5-14 MMOL/L Blood Urea Nitrogen 10 7-18 MG/DL Creatinine 0.76 0.60-1.30 MG/DL Estimat Glomerular Filtration Rate > 60 BUN/Creatinine Ratio 13 Glucose Level 97 70-105 MG/DL Calcium Level 9.8 8.5-10.1 MG/DL Corrected Calcium 9.4 8.5-10.1 MG/DL Magnesium Level 2.3 1.8-2.4 MG/DL Total Bilirubin 0.3 0.1-1.0 MG/DL Aspartate Amino Transf (AST/SGOT) 69 H 5-34 U/L Alanine Aminotransferase (ALT/SGPT) 63 H 0-55 U/L Alkaline Phosphatase 94 40-136 U/L Total Protein 7.6 6.4-8.2 GM/DL Albumin 4.5 3.2-4.5 GM/DL Urine Color YELLOW Urine Clarity CLEAR Urine pH 7 5-9 Urine Specific Comfrey 1.005 L 1.016-1.022 Urine Protein NEGATIVE NEGATIVE Urine Glucose (UA) NEGATIVE NEGATIVE Urine Ketones NEGATIVE NEGATIVE Urine Nitrite NEGATIVE NEGATIVE Urine Bilirubin NEGATIVE NEGATIVE Urine Urobilinogen NORMAL NORMAL MG/DL Urine Leukocyte Esterase NEGATIVE NEGATIVE Urine RBC (Auto) NEGATIVE NEGATIVE Urine RBC NONE /HPF Urine WBC NONE /HPF Urine Squamous Epithelial Cells 5-10 /HPF Urine Crystals NONE /LPF Urine Bacteria TRACE /HPF Urine Casts NONE /LPF Urine Mucus NEGATIVE /LPF Urine Culture Indicated NO Urine Opiates Screen NEGATIVE NEGATIVE Urine Oxycodone Screen NEGATIVE NEGATIVE Urine Methadone Screen NEGATIVE NEGATIVE Urine Propoxyphene Screen NEGATIVE NEGATIVE Urine Barbiturates Screen NEGATIVE NEGATIVE Ur Tricyclic Antidepressants Screen NEGATIVE NEGATIVE Urine Phencyclidine Screen NEGATIVE NEGATIVE Urine Amphetamines Screen NEGATIVE NEGATIVE Urine Methamphetamines Screen NEGATIVE NEGATIVE Urine Benzodiazepines Screen NEGATIVE NEGATIVE Urine Cocaine Screen NEGATIVE NEGATIVE Urine Cannabinoids Screen NEGATIVE NEGATIVE My Orders Orders - SOMMER ORONA MD Cbc With Automated Diff (02/14/19 21:17) Comprehensive Metabolic Panel (02/14/19 21:17) Magnesium (02/14/19 21:17) Ed Iv/Invasive Line Start (02/14/19 21:17) Ns Iv 1000 Ml (Sodium Chloride 0.9%) (02/14/19 21:17) Lorazepam Injection (Ativan Injection) (02/14/19 21:30) Drug Screen Stat (Urine) (02/14/19 21:24) Ua Culture If Indicated (02/14/19 21:24) Promethazine Injection (Phenergan Injec (02/14/19 21:24) Medications Given in ED Current Medications Medications Dose Ordered Sig/Shlomo Route Start Time Stop Time Status Last Admin Dose Admin Lorazepam 0.5 mg ONCE ONCE IVP 02/14/19 21:30 02/14/19 21:31 DC 02/14/19 21:40 0.5 MG Vital Signs/I&O 02/14/19 21:50 Temp 98.8 Pulse 84 Resp 14 B/P (MAP) 139/86 (103) Pulse Ox 100 O2 Delivery Room Air Progress Progress Note : Progress Note Seen and evaluated. Patient initially just wanted to go home after arrival by EMS but now states that she will be okay with exam. IV, labs, normal saline 1 L bolus and Ativan 0.5 mg IV ordered. Also ordered Phenergan IV. She states that she has had that in the past and she tolerates it okay. She is asking for that do to nausea. 2207: Patient is feeling better overall. at bedside with kids. She would like to go home and states that she just wants to go to bed. She has a mild headache but states she typically gets those. We did discuss potentially CT scan and she would like to forego that at this point for which I agreed given that she has no other abnormalities including no tobias, bumps, bruises or lacerations on the head indicate serious injury. Discharged home with return precautions. Patient and family verbalize understanding instructions and agreement with plan. Departure Impression Primary Impression: Seizure Disposition: 01 HOME, SELF-CARE Condition: Improved Departure-Patient Inst. Decision time for Depature: 22:08 Referrals: CHAUNCEY MCDOWELL MD (PCP/Family) Primary Care Physician Patient Instructions: Seizures, Adult (DC) Add. Discharge Instructions: All discharge instructions reviewed with patient and/or family. Voiced understanding. Continue home medications as previously prescribed. You may take ibuprofen 800 mg every 8 hours as needed for pain. You may also take Tylenol/acetaminophen 1000 mg every 8 hours as needed for pain. Drink plenty of fluids. Return for worse pain, fever, vomiting, weakness, breathing problems, persistent seizures or other concerns as needed. Follow-up with your Dr. in a few days for recheck and to discuss your medication dosing. Copy Copies To 1: CHAUNCEY MCDOWELL MD, TIMOTHY D MD Feb 14, 2019 21:24
[2019-02-14 21:30] LABS: BASOPHILS # (AUTO) 0.1 10^3/uL (0.0-0.1); BASOPHILS % (AUTO) 1 % (0-10); EOSINOPHILS # (AUTO) 0.2 10^3/uL (0.0-0.3); EOSINOPHILS % (AUTO) 2 % (0-10); HEMATOCRIT 37 % (35-52); HEMOGLOBIN 12.4 G/DL (11.5-16.0); LYMPHOCYTES # (AUTO) 2.6 X 10^3 (1.0-4.0); LYMPHOCYTES % (AUTO) 27 % (12-44); MEAN CORPUSCULAR HEMOGLOBIN 28 PG (25-34); MEAN CORPUSCULAR HGB CONC 33 G/DL (32-36); MEAN CORPUSCULAR VOLUME 86 FL (80-99); MEAN PLATELET VOLUME 11.1 FL (7.4-10.4); MONOCYTES # (AUTO) 0.6 X 10^3 (0.0-1.0); MONOCYTES % (AUTO) 7 % (0-12); NEUTROPHILS # (AUTO) 6.2 X 10^3 (1.8-7.8); NEUTROPHILS % (AUTO) 64 % (42-75); PLATELET COUNT 267 10^3/uL (130-400); RED CELL DISTRIBUTION WIDTH 12.7 % (10.0-14.5); WHITE BLOOD COUNT 9.6 10^3/uL (4.3-11.0)
[2019-02-14] MEDS ORDERED: LORazepam INJ 2 MG/ML (ATIVAN) VIAL IVP ONE (21:30)
[2019-02-14 21:33] LABS: BILIRUBIN,URINE NEGATIVE (NEGATIVE); COLOR,URINE YELLOW; GLUCOSE, URINE (UA) NEGATIVE (NEGATIVE); KETONES,URINE NEGATIVE (NEGATIVE); LEUKOCYTE ESTERASE ,URINE NEGATIVE (NEGATIVE); NITRITE,URINE NEGATIVE (NEGATIVE); PH,URINE 7 (5-9); PROTEIN,URINE NEGATIVE (NEGATIVE); UROBILINOGEN,URINE NORMAL (NORMAL)
[2019-02-14 21:40] LABS: CLARITY,URINE CLEAR
[2019-02-14 21:41] LABS: BACTERIA,URINE TRACE /HPF
[2019-02-14 21:44] LABS: AMPHETAMINE SCREEN, URINE NEGATIVE (NEGATIVE); BARBITURATE SCREEN URINE NEGATIVE (NEGATIVE); BENZODIAZEPINES SCREEN URINE NEGATIVE (NEGATIVE); CANNABINOID SCREEN, URINE NEGATIVE (NEGATIVE); COCAINE SCREEN URINE NEGATIVE (NEGATIVE); METHADONE STAT NEGATIVE (NEGATIVE); METHAMPHETAMINE SCREEN URINE S NEGATIVE (NEGATIVE); OPIATE SCREEN URINE NEGATIVE (NEGATIVE); OXYCODONE STAT NEGATIVE (NEGATIVE); PROPOXYPHENE STAT NEGATIVE (NEGATIVE); TRICYCLIC ANTIDEPRESSANTS SCRE NEGATIVE (NEGATIVE)
[2019-02-14 21:49] LABS: ALANINE AMINOTRANSFERASE 63 U/L (0-55); ALBUMIN 4.5 GM/DL (3.2-4.5); ALKALINE PHOSPHATASE 94 U/L (40-136); BILIRUBIN,TOTAL 0.3 MG/DL (0.1-1.0); BUN/CREATININE RATIO 13; CALCIUM 9.8 MG/DL (8.5-10.1); CARBON DIOXIDE 18 MMOL/L (21-32); CHLORIDE 106 MMOL/L (98-107); CREATININE SERUM 0.76 MG/DL (0.60-1.30); GFR ESTIMATED > 60; GLUCOSE 97 MG/DL (70-105); MAGNESIUM 2.3 MG/DL (1.8-2.4); POTASSIUM 3.8 MMOL/L (3.6-5.0); SODIUM 138 MMOL/L (135-145); TOTAL PROTEIN 7.6 GM/DL (6.4-8.2)
--- NOTE | 2019-02-14 21:50 | NUR ---
Upon initial assessment the patient is reluctant to recieve medical care and states she just wishes to go home and sleep. Patient advises she can have her come pick her up. She continues to complain of right lower abdominal pain and is experiencing difficulty in remembering hx of events. With further discussion the patient is aggreable to medical evaluation. She then becomes tearful and acknowledges increased stressors in her life. She states she has been struggling with balancing her hormones since her hysterectomy last february and is not recieving hormone therapy secondary to previous dx of cervical and ovarian cancer. She continues to explain that her husbands grandmother that she has been caring for the past 2 years last week. She states I took care of her for two years and then she just . She expresses concerns about loosing her job as she just recently returned to work. She acknowledges that she feels safe to go home with her .
--- NOTE | 2019-02-14 22:00 | NUR ---
Patients anxiety has continued to improve throughout visit.
[2019-02-14 22:18] VITALS: BP 140/62
== END 2019-02-14 22:19 | disposition home or self-care (01) ==
LOC: EDUNIT# 21:01 → ER 21:02
DX: G40.909 Epilepsy, unspecified, not intractable, without status epilepticus (principal); I10 Essential (primary) hypertension; F12.10 Cannabis abuse, uncomplicated; Z87.891 Personal history of nicotine dependence; Z88.8 Allergy status to other drugs, medicaments and biological substances; Z85.3 Personal history of malignant neoplasm of breast; Z98.890 Other specified postprocedural states; Z90.710 Acquired absence of both cervix and uterus; Z96.9 Presence of functional implant, unspecified
CPT/HCPCS: 36415; 80053; 80306; 81000; 83735; 85025; 96374; 96375

== ENCOUNTER 2019-02-25 08:00 | Emergency (ER) | payer MEDICAID ==
[~2019-02-25] VITALS: Ht 157.5 cm; Wt 99.8 kg
--- NOTE | 2019-02-25 09:07 | ED Fall/Injury ---
General Chief Complaint: Lower Extremity Stated Complaint: L FOOT INJ Nursing Triage Note: TO ANY C/O L FOOT PAIN INJURED WALKING DOWN DECK STAIRS. Source: patient Exam Limitations: no limitations History of Present Illness Date Seen by Provider: February 25, 2019 Time Seen by Provider: 08:53 Initial Comments Patient presents to the ER by private conveyance with chief complaint she had a fall yesterday down this set of stairs. She did not lose consciousness is not having any nausea or headache or neck pain. She did hyperextend and hyperflexed her left great toe and now there is a lot of swelling. She is kept it wrapped with an Noe bandage and put ice on it and did drink some wine last night for the pain. Today however the pain is very strong and she has not taken anything further for it. She has a history of hysterectomy. No previous fracture or surgery or injury to her foot. She has some pain and needles in her great toe. Allergies and Home Medications Allergies Coded Allergies: carbamazepine (Verified Allergy, Unknown, 10/19/18) divalproex sodium (Verified Allergy, Unknown, 10/19/18) ondansetron (Verified Allergy, Unknown, 10/19/18) oxcarbazepine (Verified Allergy, Unknown, 10/19/18) prochlorperazine (Verified Allergy, Unknown, 10/19/18) topiramate (Verified Allergy, Unknown, 10/19/18) Home Medications Albuterol Sulfate 6.7 Gm Hfa.aer.ad, 2 PUFF INH Q6H PRN for SHORTNESS OF BREATH Prescribed by: KILLIAN JOHNSON on 12/20/18 1707 Gabapentin 600 Mg Tablet, 600 MG PO BID, (Reported) Vortioxetine Hydrobromide 5 Mg Tablet, Unknown Dose PO DAILY, (Reported) Patient Home Medication List Home Medication List Reviewed: Yes Review of Systems Review of Systems Constitutional: No chills, No fever Eyes: Denies Blindness, Denies Blurred Vision Ears, Nose, Mouth, Throat: denies ear pain, denies nose pain Respiratory: No cough, No short of breath Cardiovascular: No palpitations, No syncope Gastrointestinal: No abdominal pain, No nausea Past Ptbkvxx-Uhcpey-Tybvdv Hx Patient Social History Alcohol Use: Occasionally Uses Recreational Drug Use: Yes Drug of Choice: CANNIBUS Type Used: Cigarettes, Electronic/Vapor Former Smoker, Quit: Nov 29, 2018 2nd Hand Smoke Exposure: Yes Recent Foreign Travel: No Contact w/Someone Who Travel: No Recent Infectious Disease Expo: No Recent Hopitalizations: No Immunizations Up To Date Tetanus Booster (TDap): Unknown PED Vaccines UTD: Yes Seasonal Allergies Seasonal Allergies: No Past Medical History Surgeries: Yes (vagal nerve stimulator) Breast, Section, 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, Oophorectomy, Tonsillectomy Respiratory: No Cardiac: Yes Hypertension 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: Yes Seizure Disorder [employer]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 0oz. 99.022469pc; 36.5 BMI Method:Stated General Appearance: WD/WN, mild distress HEENT: PERRL/EOMI, pharynx normal Neck: non-tender, full range of motion, normal inspection Cardiovascular: normal peripheral pulses, regular rate, rhythm Respiratory: no respiratory distress, no accessory muscle use Peripheral Pulses: 2+ Dorsalis Pedis (R), 2+ Left Dors-Pedis (L) Extremities: normal capillary refill, other (no tendon injury is all the toes are able to move albeit limited on the left foot. There is swelling in the midshaft first and second metatarsals with tenderness to palpation.) Neurologic/Psychiatric: no motor/sensory deficits, alert, oriented x 3 Skin: ecchymosis Nas Coma Score Best Eye Response: (4) Open Spontaneously Best Verbal Response: (5) Oriented Best Motor Response: (6) Obeys Commands Nas Total: 15 Progress/Results/Core Measures Results/Orders My Orders Orders - DONNA CARTER Ketorolac Injection (Toradol Injection) (02/25/19 09:15) Foot, Left, 3 Views (02/25/19 09:04) Medications Given in ED Current Medications Medications Dose Ordered Sig/Shlomo Route Start Time Stop Time Status Last Admin Dose Admin Ketorolac Tromethamine 60 mg ONCE ONCE IM 02/25/19 09:15 02/25/19 09:16 DC 02/25/19 09:20 60 MG Vital Signs/I&O 02/25/19 08:15 Temp 98.5 Pulse 113 Resp 18 B/P (MAP) 120/60 (80) Pulse Ox 97 O2 Delivery Room Air Blood Pressure Mean: 80 Progress Progress Note : Time: 09:07 Progress Note Toradol, ice pack and x-ray of the foot. Diagnostic Imaging Diagonstic Imaging: Xray Plain Films/CT/US/NM/MRI: other (left foot) Comments NAME: BECK HEARD I MED REC#: [id number] PHYSICIAN: DONNA CARTER MD CC: KUMAR KENNEY MD; DONNA CARTER Page 1 of 1 RADIOLOGY REPORT [facility], [place], [place] CC: KUMAR KENNEY MD; DONNA CARTER Page 1 of 1 RADIOLOGY REPORT NAME: BECK HEARD I [facility] REC#: [id number] PT STATUS: REG ER : 1990 PHYSICIAN: DONNA CARTER MD ADMIT DATE: 02/25/19/ER Signed Date of Exam: 02/25/19 FOOT, LEFT, 3 VIEWS INDICATION: Fall with foot pain along distal metatarsals Three views were obtained. FINDINGS: The alignment is normal. There is no fracture or dislocation. Soft tissues are unremarkable. IMPRESSION: No acute fracture or dislocation Dictated by: Dictated on workstation # [id number] Dict: 02/25/1922 Trans: 02/25/19 1033 Interpreted by: KUMAR KENNEY MD Electronically signed by: KUMAR KENNEY MD 02/25/19 1033 Reviewed: Reviewed by Me Departure Impression Primary Impression: Contusion of foot Qualified Codes: S90.32XA - Contusion of left foot, initial encounter Disposition: HOME, SELF-CARE Condition: Stable Departure-Patient Inst. Decision time for Depature: 11:29 Referrals: CHAUNCEY MCDOWELL MD (PCP/Family) Primary Care Physician Patient Instructions: Contusion (DC) Add. Discharge Instructions: Keep the foot wrapped with an Noe bandage and elevated above the level of your heart when possible. Wear good supporting shoes. For the first 2-3 days apply ice every 4 hours for 20 minutes. He continues Tylenol 1000 mg and ibuprofen 800 mg every 8 hours as necessary. All discharge instructions reviewed with patient and/or family. Voiced understanding. Work/School Note: Work Release Form Date Seen in the Emergency Department: February 25, 2019 Return to Work: February 26, 2019 Restrictions: No Restrictions DONNA CARTER February 25, 2019 09:07
[2019-02-25] MEDS ORDERED: KETOROLAC 60 MG/2 ML VIAL IM ONE (09:15)
--- NOTE | 2019-02-25 09:27 | Diagnostic Imaging Report ---
INDICATION: Fall with foot pain along distal metatarsals Three views were obtained. FINDINGS: The alignment is normal. There is no fracture or dislocation. Soft tissues are unremarkable. IMPRESSION: No acute fracture or dislocation Dictated by: Dictated on workstation # [id number]
--- OUTSIDE RECORDS SUMMARY | 2019-02-25 10:04 | XMS REPORT | Continuity of Care Document ---
Author Organization Unknown Address Unknown Allergies There is no data. Medications There is no data. Problems There is no data. Procedures There is no data. Results There is no data. Encounters ACCT No. Visit Date/Time Discharge Status Pt. Type Provider Facility Loc./Unit Complaint [id number] 02/18/2019 08:20:00 02/18/2019 23:59:59 CLS Outpatient CHAUNCEY MCDOWELL [facility], [place]
[2019-02-25 11:45] VITALS: BP 129/63
== END 2019-02-25 11:45 | disposition home or self-care (01) ==
LOC: EDUNIT# 08:00 → ER 08:01
DX: S90.32XA Contusion of left foot, initial encounter (principal); I10 Essential (primary) hypertension; F41.9 Anxiety disorder, unspecified; G40.909 Epilepsy, unspecified, not intractable, without status epilepticus; R40.2142 Coma scale, eyes open, spontaneous, at arrival to emergency department; R40.2252 Coma scale, best verbal response, oriented, at arrival to emergency department; R40.2362 Coma scale, best motor response, obeys commands, at arrival to emergency department; Z85.3 Personal history of malignant neoplasm of breast; Z90.89 Acquired absence of other organs; Z98.890 Other specified postprocedural states; Z88.8 Allergy status to other drugs, medicaments and biological substances; Z90.710 Acquired absence of both cervix and uterus; Z87.891 Personal history of nicotine dependence; W10.8XXA Fall (on) (from) other stairs and steps, initial encounter
CPT/HCPCS: 73630

== ENCOUNTER 2019-04-11 11:24 | Emergency (ER) | payer MEDICAID ==
[~2019-04-11] VITALS: Ht 157.5 cm; Wt 99.8 kg
--- OUTSIDE RECORDS SUMMARY | 2019-04-11 11:29 | XMS REPORT | Continuity of Care Document ---
Author Organization Unknown Address Unknown Allergies Active Description Code Type Severity Reaction Onset Reported/Identified Relationship to Patient Clinical Status Yes COMPAZINE SEVERE OTHER Yes DEPAKOTE SEVERE RESPIRATORY DISTRESS Yes KEPPRA SEVERE OTHER Yes PHENOBARBITAL UNKNOWN OTHER Yes TEGRETOL SEVERE ANAPHYLACTIC SHOCK Yes ZOFRAN SEVERE OTHER Yes carbamazepine [id number] Drug Allergy Unknown N/A 10/19/2018 Yes divalproex sodium [id number] Drug Allergy Unknown N/A 10/19/2018 Yes ondansetron [id number] Drug Allergy Unknown N/A 10/19/2018 Yes oxcarbazepine [id number] Drug Allergy Unknown N/A 10/19/2018 Yes prochlorperazine [id number] Drug Allergy Unknown N/A 10/19/2018 Yes topiramate [id number] Drug Allergy Unknown N/A 10/19/2018 Medications Medication Packaging Start Date Stop Date Route Dosage Sig PROMETHAZINE VIAL IM ONLY!! INJ 50 MG/CC (PHENERGAN VIAL (CAUTION!!) MG 01/16/2019 01/16/2019 ONCE&1515 IBUPROFEN TAB 600 MG (MOTRIN) MG 01/16/2019 01/16/2019 ONCE&1552 Problems Date Dx Coded Attending Type Code Diagnosis Diagnosed By 06/17/2018 JOEL BISHOP Ot F12.10 CANNABIS ABUSE, UNCOMPLICATED 06/17/2018 JOEL BISHOP Ot F17.210 NICOTINE DEPENDENCE, CIGARETTES, UNCOMPL 06/17/2018 JOEL BISHOP Ot S63.502A UNSPECIFIED SPRAIN OF LEFT WRIST, INITIA 06/17/2018 JOEL BISHOP Ot S69.92XA UNSP INJURY OF LEFT WRIST, HAND AND FING 06/17/2018 JOEL BISHOP Ot X50.0XXA OVEREXERTION FROM STRENUOUS MOVEMENT OR 06/17/2018 JOEL BISHOP Ot Y93.72 ACTIVITY, WRESTLING 06/17/2018 EDNA JOEL Ot Z88.8 ALLERGY STATUS TO OTH DRUG/MEDS/BIOL SUB 07/05/2018 GENET BISHOPIS Ot B34.9 VIRAL INFECTION, UNSPECIFIED 07/05/2018 EDNA, JOEL Ot F12.10 CANNABIS ABUSE, UNCOMPLICATED 07/05/2018 EDNA JOEL Ot F17.210 NICOTINE DEPENDENCE, CIGARETTES, UNCOMPL 07/05/2018 GENET BISHOPIS Ot F41.9 ANXIETY DISORDER, UNSPECIFIED 07/05/2018 EDNA JOEL Ot G40.909 EPILEPSY, UNSP, NOT INTRACTABLE, WITHOUT 07/05/2018 GENET BISHOPIS Ot J06.9 ACUTE UPPER RESPIRATORY INFECTION, UNSPE 07/05/2018 EDNA JOEL Ot R05 COUGH 07/05/2018 BERNBRINA JOEL Ot Z85.3 PERSONAL HISTORY OF MALIGNANT NEOPLASM O 07/05/2018 EDNA JOEL Ot Z88.8 ALLERGY STATUS TO OTH DRUG/MEDS/BIOL SUB 07/05/2018 EDNA JOEL Ot Z90.710 ACQUIRED ABSENCE OF BOTH CERVIX AND UTER 07/08/2018 GENET BISHOPIS Ot B34.9 VIRAL INFECTION, UNSPECIFIED 07/08/2018 GENET BISHOPIS Ot F12.10 CANNABIS ABUSE, UNCOMPLICATED 07/08/2018 GENET BISHOPIS Ot F17.210 NICOTINE DEPENDENCE, CIGARETTES, UNCOMPL 07/08/2018 GENET BISHOPIS Ot F41.9 ANXIETY DISORDER, UNSPECIFIED 07/08/2018 EDNA JOEL Ot G40.909 EPILEPSY, UNSP, NOT INTRACTABLE, WITHOUT 07/08/2018 GENET BISHOPIS Ot J06.9 ACUTE UPPER RESPIRATORY INFECTION, UNSPE 07/08/2018 EDNA JOEL Ot R05 COUGH 07/08/2018 BERNBRINA, JOEL Ot Z85.3 PERSONAL HISTORY OF MALIGNANT NEOPLASM O 07/08/2018 EDNA JOEL Ot Z88.8 ALLERGY STATUS TO OTH DRUG/MEDS/BIOL SUB 07/08/2018 EDNA JOEL Ot Z90.710 ACQUIRED ABSENCE OF BOTH CERVIX AND UTER 08/02/2018 Chung Girard 564.1 IRRITABLE BOWEL SYNDROME 08/02/2018 Chung Girard 911.0 ABRASION OR FRICTION BURN OF TRUNK, WITHOUT MENTION OF INFECTION 08/02/2018 Chung Girard K58.9 IRRITABLE BOWEL SYNDROME WITHOUT DIARRHEA 08/02/2018 Chung Girard S30.814A ABRASION OF VAGINA AND VULVA, INITIAL ENCOUNTER 08/29/2018 DONNA CARTER MD Ot F12.10 CANNABIS ABUSE, UNCOMPLICATED 08/29/2018 DONNA CARTER MD Ot F41.9 ANXIETY DISORDER, UNSPECIFIED 08/29/2018 DONNA CARTER MD Ot G40.909 EPILEPSY, UNSP, NOT INTRACTABLE, WITHOUT 08/29/2018 DONNA CARTER MD Ot T63.301A TOXIC EFFECT OF UNSP SPIDER VENOM, ACCID 08/29/2018 DONNA CARTER MD Ot Z23 ENCOUNTER FOR IMMUNIZATION 08/29/2018 DONNA CARTER MD Ot Z77.22 CNTCT W AND EXPSR TO ENVIRON TOBACCO SMO 08/29/2018 DONNA CARTER MD Ot Z85.3 PERSONAL HISTORY OF MALIGNANT NEOPLASM O 08/29/2018 DONNA CARTER MD Ot Z88.8 ALLERGY STATUS TO OTH DRUG/MEDS/BIOL SUB 08/29/2018 ODNNA CARTER MD Ot Z90.710 ACQUIRED ABSENCE OF BOTH CERVIX AND UTER 09/01/2018 DONNA CARTER MD Ot F12.10 CANNABIS ABUSE, UNCOMPLICATED 09/01/2018 DONNA CARTER MD Ot F41.9 ANXIETY DISORDER, UNSPECIFIED 09/01/2018 DONNA CARTER MD Ot G40.909 EPILEPSY, UNSP, NOT INTRACTABLE, WITHOUT 09/01/2018 DONNA CARTER MD Ot T63.301A TOXIC EFFECT OF UNSP SPIDER VENOM, ACCID 09/01/2018 DONNA CARTER MD Ot Z23 ENCOUNTER FOR IMMUNIZATION 09/01/2018 DONNA CARTER MD Ot Z77.22 CNTCT W AND EXPSR TO ENVIRON TOBACCO SMO 09/01/2018 DONNA CARTER MD Ot Z85.3 PERSONAL HISTORY OF MALIGNANT NEOPLASM O 09/01/2018 DONNA CARTER MD Ot Z88.8 ALLERGY STATUS TO OTH DRUG/MEDS/BIOL SUB 09/01/2018 DONNA CARTER MD Ot Z90.710 ACQUIRED ABSENCE OF BOTH CERVIX AND UTER 09/04/2018 DONNA CARTER MD Ot F12.10 CANNABIS ABUSE, UNCOMPLICATED 09/04/2018 DONNA CARTER MD Ot F41.9 ANXIETY DISORDER, UNSPECIFIED 09/04/2018 DONNA CARTER MD Ot G40.909 EPILEPSY, UNSP, NOT INTRACTABLE, WITHOUT 09/04/2018 DONNA CARTER MD Ot T63.301A TOXIC EFFECT OF UNSP SPIDER VENOM, ACCID 09/04/2018 DONNA CARTER MD Ot Z23 ENCOUNTER FOR IMMUNIZATION 09/04/2018 DONNA CARTER MD Ot Z77.22 CNTCT W AND EXPSR TO ENVIRON TOBACCO SMO 09/04/2018 DONNA CARTER MD Ot Z85.3 PERSONAL HISTORY OF MALIGNANT NEOPLASM O 09/04/2018 DONNA CARTER MD Ot Z88.8 ALLERGY STATUS TO OTH DRUG/MEDS/BIOL SUB 09/04/2018 DONNA CARTER MD Ot Z90.710 ACQUIRED ABSENCE OF BOTH CERVIX AND UTER 09/28/2018 GERARDO LARA MD Ot F41.9 ANXIETY DISORDER, UNSPECIFIED 09/28/2018 GERARDO LARA MD Ot G40.909 EPILEPSY, UNSP, NOT INTRACTABLE, WITHOUT 09/28/2018 GERARDO ALRA MD Ot K81.0 ACUTE CHOLECYSTITIS 09/28/2018 GERARDO LARA MD Ot R10.11 RIGHT UPPER QUADRANT PAIN 09/28/2018 GERARDO LARA MD Ot Z77.22 CNTCT W AND EXPSR TO ENVIRON TOBACCO SMO 09/28/2018 GERARDO LARA MD Ot Z85.3 PERSONAL HISTORY OF MALIGNANT NEOPLASM O 09/28/2018 GERARDO LARA MD Ot Z88.8 ALLERGY STATUS TO OTH DRUG/MEDS/BIOL SUB 09/28/2018 GERARDO LARA MD Ot Z90.49 ACQUIRED ABSENCE OF OTHER SPECIFIED PART 09/28/2018 GERARDO LARA MD Ot Z90.710 ACQUIRED ABSENCE OF BOTH CERVIX AND UTER 09/28/2018 GERARDO LARA MD Ot Z98.890 OTHER SPECIFIED POSTPROCEDURAL STATES 09/30/2018 GERARDO LARA MD Ot F41.9 ANXIETY DISORDER, UNSPECIFIED 09/30/2018 GERARDO LARA MD Ot G40.909 EPILEPSY, UNSP, NOT INTRACTABLE, WITHOUT 09/30/2018 GERARDO LARA MD Ot K81.0 ACUTE CHOLECYSTITIS 09/30/2018 MARCO COYNE, GERARDO German Ot R10.11 RIGHT UPPER QUADRANT PAIN 09/30/2018 MARCO COYNE, GERARDO Porter Ot Z77.22 CNTCT W AND EXPSR TO ENVIRON TOBACCO SMO 09/30/2018 MARCO COYNE, GERARDO Porter Ot Z85.3 PERSONAL HISTORY OF MALIGNANT NEOPLASM O 09/30/2018 MARCO COYNE, GERARDO German Ot Z88.8 ALLERGY STATUS TO OTH DRUG/MEDS/BIOL SUB 09/30/2018 MARCO COYNE, GERARDO German Ot Z90.49 ACQUIRED ABSENCE OF OTHER SPECIFIED PART 09/30/2018 GERARDO LARA MD Ot Z90.710 ACQUIRED ABSENCE OF BOTH CERVIX AND UTER 09/30/2018 GERARDO LARA MD Ot Z98.890 OTHER SPECIFIED POSTPROCEDURAL STATES 10/08/2018 GERARDO LARA MD Ot F41.9 ANXIETY DISORDER, UNSPECIFIED 10/08/2018 GERARDO LARA MD Ot G40.909 EPILEPSY, UNSP, NOT INTRACTABLE, WITHOUT 10/08/2018 GERARDO LARA MD Ot K81.0 ACUTE CHOLECYSTITIS 10/08/2018 GERARDO LARA MD Ot R10.11 RIGHT UPPER QUADRANT PAIN 10/08/2018 GERARDO LARA MD Ot Z77.22 CNTCT W AND EXPSR TO ENVIRON TOBACCO SMO 10/08/2018 MARCO COYNE, GERARDO Porter Ot Z85.3 PERSONAL HISTORY OF MALIGNANT NEOPLASM O 10/08/2018 MARCO COYNE, GERARDO German Ot Z88.8 ALLERGY STATUS TO OTH DRUG/MEDS/BIOL SUB 10/08/2018 GERARDO LARA MD Ot Z90.49 ACQUIRED ABSENCE OF OTHER SPECIFIED PART 10/08/2018 GERARDO LARA MD Ot Z90.710 ACQUIRED ABSENCE OF BOTH CERVIX AND UTER 10/08/2018 GERARDO LARA MD Ot Z98.890 OTHER SPECIFIED POSTPROCEDURAL STATES 10/10/2018 JOEL BISHOP Ot F41.9 ANXIETY DISORDER, UNSPECIFIED 10/10/2018 JOEL BISHOP Ot G40.909 EPILEPSY, UNSP, NOT INTRACTABLE, WITHOUT 10/10/2018 JOEL BISHOP Ot K80.20 CALCULUS OF GALLBLADDER W/O CHOLECYSTITI 10/10/2018 JOEL BISHOP Ot R10.11 RIGHT UPPER QUADRANT PAIN 10/10/2018 JOEL BISHOP Ot Z77.22 CNTCT W AND EXPSR TO ENVIRON TOBACCO SMO 10/10/2018 JOLE BISHOP Ot Z85.3 PERSONAL HISTORY OF MALIGNANT NEOPLASM O 10/10/2018 JOEL BISHOP Ot Z88.8 ALLERGY STATUS TO OTH DRUG/MEDS/BIOL SUB 10/10/2018 GENET BISHOPIS Ot Z90.710 ACQUIRED ABSENCE OF BOTH CERVIX AND UTER 10/14/2018 KEVIN CALVIN DO Ot F17.210 NICOTINE DEPENDENCE, CIGARETTES, UNCOMPL 10/14/2018 KEVIN CALVIN DO Ot K80.10 CALCULUS OF GALLBLADDER W CHRONIC CHOLEC 10/14/2018 KEVIN CALVIN DO Ot R56.9 UNSPECIFIED CONVULSIONS 10/14/2018 KEVIN CALVIN DO Ot Z79.899 OTHER INTERMEDIATE (CURRENT) DRUG THERAPY 10/16/2018 KEVIN CALVIN DO Ot Z01.818 ENCOUNTER FOR OTHER PREPROCEDURAL EXAMIN 10/19/2018 JOEL BISHOP Ot F12.10 CANNABIS ABUSE, UNCOMPLICATED 10/19/2018 JOEL BISHOP Ot F41.9 ANXIETY DISORDER, UNSPECIFIED 10/19/2018 JOEL BISHOP Ot G40.909 EPILEPSY, UNSP, NOT INTRACTABLE, WITHOUT 10/19/2018 JOEL BISHOP Ot G89.18 OTHER ACUTE POSTPROCEDURAL PAIN 10/19/2018 JOEL BISHOP Ot I10 ESSENTIAL (PRIMARY) HYPERTENSION 10/19/2018 JOEL BISHOP Ot R10.9 UNSPECIFIED ABDOMINAL PAIN 10/19/2018 JOEL BISHOP Ot R11.2 NAUSEA WITH VOMITING, UNSPECIFIED 10/19/2018 GENET BISHOPIS Ot Z77.22 CNTCT W AND EXPSR TO ENVIRON TOBACCO SMO 10/19/2018 GENET BISHOPIS Ot Z85.3 PERSONAL HISTORY OF MALIGNANT NEOPLASM O 10/19/2018 JOEL BISHOP Ot Z88.8 ALLERGY STATUS TO OTH DRUG/MEDS/BIOL SUB 10/19/2018 GENET BISHOPIS Ot Z90.49 ACQUIRED ABSENCE OF OTHER SPECIFIED PART 10/19/2018 JOEL BISHOP Ot Z90.710 ACQUIRED ABSENCE OF BOTH CERVIX AND UTER 10/19/2018 GENET BISHOPIS Ot Z90.89 ACQUIRED ABSENCE OF OTHER ORGANS 10/22/2018 KEVIN CALVIN DO Ot F17.210 NICOTINE DEPENDENCE, CIGARETTES, UNCOMPL 10/22/2018 KEVIN CALVIN DO Ot K80.10 CALCULUS OF GALLBLADDER W CHRONIC CHOLEC 10/22/2018 KEVIN CALVIN DO Ot R56.9 UNSPECIFIED CONVULSIONS 10/22/2018 KEVIN CALVIN DO Ot Z79.899 OTHER CANOPY INSPECTOR (CURRENT) DRUG THERAPY 10/23/2018 JOEL BISHOP Ot F12.10 CANNABIS ABUSE, UNCOMPLICATED 10/23/2018 GENET BISHOPIS Ot F41.9 ANXIETY DISORDER, UNSPECIFIED 10/23/2018 BERNGENET GONSALVESIS Ot G40.909 EPILEPSY, UNSP, NOT INTRACTABLE, WITHOUT 10/23/2018 GENET BISHOPIS Ot G89.18 OTHER ACUTE POSTPROCEDURAL PAIN 10/23/2018 GENET BISHOPIS Ot I10 ESSENTIAL (PRIMARY) HYPERTENSION 10/23/2018 GENET BISHOPIS Ot R10.9 UNSPECIFIED ABDOMINAL PAIN 10/23/2018 GENET BISHOPIS Ot R11.2 NAUSEA WITH VOMITING, UNSPECIFIED 10/23/2018 GENET BISHOPIS Ot Z77.22 CNTCT W AND EXPSR TO ENVIRON TOBACCO SMO 10/23/2018 GENET BISHOPIS Ot Z85.3 PERSONAL HISTORY OF MALIGNANT NEOPLASM O 10/23/2018 JOEL BISHOP Ot Z88.8 ALLERGY STATUS TO OTH DRUG/MEDS/BIOL SUB 10/23/2018 JOEL BISHOP Ot Z90.49 ACQUIRED ABSENCE OF OTHER SPECIFIED PART 10/23/2018 JOEL BISHOP Ot Z90.710 ACQUIRED ABSENCE OF BOTH CERVIX AND UTER 10/23/2018 GENET BISHOPIS Ot Z90.89 ACQUIRED ABSENCE OF OTHER ORGANS 10/26/2018 JOEL BISHOP Ot F12.10 CANNABIS ABUSE, UNCOMPLICATED 10/26/2018 GENET BISHOPIS Ot F41.9 ANXIETY DISORDER, UNSPECIFIED 10/26/2018 BERNGENET GONSALVESIS Ot G40.909 EPILEPSY, UNSP, NOT INTRACTABLE, WITHOUT 10/26/2018 GENET BISHOPIS Ot G89.18 OTHER ACUTE POSTPROCEDURAL PAIN 10/26/2018 BERNBRINA JOEL Ot I10 ESSENTIAL (PRIMARY) HYPERTENSION 10/26/2018 EDNA JOEL Ot R10.9 UNSPECIFIED ABDOMINAL PAIN 10/26/2018 JOEL BISHOP Ot R11.2 NAUSEA WITH VOMITING, UNSPECIFIED 10/26/2018 GENET BISHOPIS Ot Z77.22 CNTCT W AND EXPSR TO ENVIRON TOBACCO SMO 10/26/2018 JOEL BISHOP Ot Z85.3 PERSONAL HISTORY OF MALIGNANT NEOPLASM O 10/26/2018 JOEL BISHOP Ot Z88.8 ALLERGY STATUS TO OTH DRUG/MEDS/BIOL SUB 10/26/2018 JOEL BISHOP Ot Z90.49 ACQUIRED ABSENCE OF OTHER SPECIFIED PART 10/26/2018 BERNGENET GONSALVESIS Ot Z90.710 ACQUIRED ABSENCE OF BOTH CERVIX AND UTER 10/26/2018 BERNGENET GONSALVESIS Ot Z90.89 ACQUIRED ABSENCE OF OTHER ORGANS 11/12/2018 KEVIN CALVIN DO Ot Z01.818 ENCOUNTER FOR OTHER PREPROCEDURAL EXAMIN 12/20/2018 KILLIAN MAGALLON Ot F12.10 CANNABIS ABUSE, UNCOMPLICATED 12/20/2018 KILLIAN MAGALLON Ot F41.9 ANXIETY DISORDER, UNSPECIFIED 12/20/2018 KILLIAN MAGALLON Ot G40.909 EPILEPSY, UNSP, NOT INTRACTABLE, WITHOUT 12/20/2018 KILLIAN MAGALLON Ot I10 ESSENTIAL (PRIMARY) HYPERTENSION 12/20/2018 KILLIAN MAGALLON Ot K52.9 NONINFECTIVE GASTROENTERITIS AND COLITIS 12/20/2018 KILLIAN MAGALLON Ot R07.1 CHEST PAIN ON BREATHING 12/20/2018 KILLIAN MAGALLON Ot R07.89 OTHER CHEST PAIN 12/20/2018 KILLIAN MAGALLON Ot Z79.51 INTERMEDIATE (CURRENT) USE OF INHALED STERO 12/20/2018 KILLIAN MAGALLON Ot Z79.52 CANOPY INSPECTOR (CURRENT) USE OF SYSTEMIC STER 12/20/2018 KILLIAN MAGALLON Ot Z85.3 PERSONAL HISTORY OF MALIGNANT NEOPLASM O 12/20/2018 KILLIAN MAGALLON Ot Z87.891 PERSONAL HISTORY OF NICOTINE DEPENDENCE 12/20/2018 KILLIAN MAGALLON Ot Z88.8 ALLERGY STATUS TO OTH DRUG/MEDS/BIOL SUB 12/20/2018 KILLIAN MAGALLON Ot Z90.710 ACQUIRED ABSENCE OF BOTH CERVIX AND UTER 12/20/2018 KILLIAN MAGALLON Ot Z90.89 ACQUIRED ABSENCE OF OTHER ORGANS 12/20/2018 KILLIAN MAGALLON Ot Z98.890 OTHER SPECIFIED POSTPROCEDURAL STATES 12/23/2018 KILLIAN MAGALLON Ot F12.10 CANNABIS ABUSE, UNCOMPLICATED 12/23/2018 KILLIAN MAGALLON Ot F41.9 ANXIETY DISORDER, UNSPECIFIED 12/23/2018 KILLIAN MAGALLON Ot G40.909 EPILEPSY, UNSP, NOT INTRACTABLE, WITHOUT 12/23/2018 KILLIAN MAGALLON Ot I10 ESSENTIAL (PRIMARY) HYPERTENSION 12/23/2018 KILLIAN MAGALLON Ot K52.9 NONINFECTIVE GASTROENTERITIS AND COLITIS 12/23/2018 KILLIAN MAGALLON Ot R07.1 CHEST PAIN ON BREATHING 12/23/2018 KILLIAN MAGALLON Ot R07.89 OTHER CHEST PAIN 12/23/2018 KILLIAN MAGALLON Ot Z79.51 CANOPY INSPECTOR (CURRENT) USE OF INHALED STERO 12/23/2018 KILLIAN MAGALLON Ot Z79.52 CANOPY INSPECTOR (CURRENT) USE OF SYSTEMIC STER 12/23/2018 KILLIAN MAGALLON Ot Z85.3 PERSONAL HISTORY OF MALIGNANT NEOPLASM O 12/23/2018 KILLIAN MAGALLON Ot Z87.891 PERSONAL HISTORY OF NICOTINE DEPENDENCE 12/23/2018 KILLIAN MAGALLON Ot Z88.8 ALLERGY STATUS TO OT DRUG/MEDS/BIOL SUB 12/23/2018 KILLIAN MAGALLON Ot Z90.710 ACQUIRED ABSENCE OF BOTH CERVIX AND UTER 12/23/2018 KILLIAN MAGALLON Ot Z90.89 ACQUIRED ABSENCE OF OTHER ORGANS 12/23/2018 KILLIAN MAGALLON Ot Z98.890 OTHER SPECIFIED POSTPROCEDURAL STATES 01/16/2019 Kerry Alicea 780.4 DIZZINESS AND GIDDINESS 01/16/2019 Kerry Alciea R42 DIZZINESS AND GIDDINESS 01/20/2019 HEIDI COYNE, ARNOL Linn Ot F12.10 CANNABIS ABUSE, UNCOMPLICATED 01/20/2019 HEIDI COYNE, ARNOL Linn Ot F17.210 NICOTINE DEPENDENCE, CIGARETTES, UNCOMPL 01/20/2019 HEIDI COYNE, ARNOL Linn Ot F17.290 NICOTINE DEPENDENCE, OTHER TOBACCO PRODU 01/20/2019 ARNOL GORDON MD Ot F41.9 ANXIETY DISORDER, UNSPECIFIED 01/20/2019 ARNOL GORDON MD Ot G40.909 EPILEPSY, UNSP, NOT INTRACTABLE, WITHOUT 01/20/2019 ARNOL GORDON MD Ot I10 ESSENTIAL (PRIMARY) HYPERTENSION 01/20/2019 ARNOL GORDON MD Ot M54.2 CERVICALGIA 01/20/2019 ARNOL GORDON MD Ot M54.6 PAIN IN THORACIC SPINE 01/20/2019 ARNOL GORDON MD Ot R51 HEADACHE 01/20/2019 ARNOL GORDON MD Ot R56.9 UNSPECIFIED CONVULSIONS 01/20/2019 ARNOL GORDON MD Ot W22.8XXA STRIKING AGAINST OR STRUCK BY OTHER OBJE 01/20/2019 ARNOL GORDON MD Ot Z85.3 PERSONAL HISTORY OF MALIGNANT NEOPLASM O 01/20/2019 ARNOL GORDON MD Ot Z88.8 ALLERGY STATUS TO OT DRUG/MEDS/BIOL SUB 01/20/2019 ARNOL GORDON MD Ot Z90.710 ACQUIRED ABSENCE OF BOTH CERVIX AND UTER 01/20/2019 ARNOL GORDON MD Ot Z90.89 ACQUIRED ABSENCE OF OTHER ORGANS 01/23/2019 ARNOL GORDON MD Ot F12.10 CANNABIS ABUSE, UNCOMPLICATED 01/23/2019 ARNOL GORDON MD Ot F17.210 NICOTINE DEPENDENCE, CIGARETTES, UNCOMPL 01/23/2019 ARNOL GORDON MD Ot F17.290 NICOTINE DEPENDENCE, OTHER TOBACCO PRODU 01/23/2019 ARNOL GORDON MD Ot F41.9 ANXIETY DISORDER, UNSPECIFIED 01/23/2019 ARNOL GORDON MD Ot G40.909 EPILEPSY, UNSP, NOT INTRACTABLE, WITHOUT 01/23/2019 ARNOL GORDON MD Ot I10 ESSENTIAL (PRIMARY) HYPERTENSION 01/23/2019 ARNOL GORDON MD Ot M54.2 CERVICALGIA 01/23/2019 ARNOL GORDON MD Ot M54.6 PAIN IN THORACIC SPINE 01/23/2019 ARNOL GORDON MD Ot R51 HEADACHE 01/23/2019 ARNOL GORDON MD Ot R56.9 UNSPECIFIED CONVULSIONS 01/23/2019 ARNOL GORDON MD Ot W22.8XXA STRIKING AGAINST OR STRUCK BY OTHER OBJE 01/23/2019 ARNOL GORDON MD Ot Z85.3 PERSONAL HISTORY OF MALIGNANT NEOPLASM O 01/23/2019 ARNOL GORDON MD, Ot Z88.8 ALLERGY STATUS TO OT DRUG/MEDS/BIOL SUB 01/23/2019 ARNOL GORDON MD Ot Z90.710 ACQUIRED ABSENCE OF BOTH CERVIX AND UTER 01/23/2019 ARNOL GORDON MD Ot Z90.89 ACQUIRED ABSENCE OF OTHER ORGANS 01/26/2019 ARNOL GORDON MD Ot F12.10 CANNABIS ABUSE, UNCOMPLICATED 01/26/2019 ARNOL GORDON MD Ot F17.210 NICOTINE DEPENDENCE, CIGARETTES, UNCOMPL 01/26/2019 ARNOL GORDON MD Ot F17.290 NICOTINE DEPENDENCE, OTHER TOBACCO PRODU 01/26/2019 ARNOL GORDON MD Ot F41.9 ANXIETY DISORDER, UNSPECIFIED 01/26/2019 ARNOL GORDON MD Ot G40.909 EPILEPSY, UNSP, NOT INTRACTABLE, WITHOUT 01/26/2019 ARNOL GORDON MD Ot I10 ESSENTIAL (PRIMARY) HYPERTENSION 01/26/2019 ARNOL GORDON MD Ot M54.2 CERVICALGIA 01/26/2019 ARNOL GORDON MD Ot M54.6 PAIN IN THORACIC SPINE 01/26/2019 ARNOL GORDON MD Ot R51 HEADACHE 01/26/2019 ARNOL GORDON MD Ot R56.9 UNSPECIFIED CONVULSIONS 01/26/2019 ARNOL GORDON MD Ot W22.8XXA STRIKING AGAINST OR STRUCK BY OTHER OBJE 01/26/2019 ARNOL GORDON MD Ot Z85.3 PERSONAL HISTORY OF MALIGNANT NEOPLASM O 01/26/2019 HEIDI COYNE, ARNOL Linn Ot Z88.8 ALLERGY STATUS TO OTH DRUG/MEDS/BIOL SUB 01/26/2019 HEIDI COYNE, ARNOL Linn Ot Z90.710 ACQUIRED ABSENCE OF BOTH CERVIX AND UTER 01/26/2019 HEIDI COYNE, ARNOL Linn Ot Z90.89 ACQUIRED ABSENCE OF OTHER ORGANS 02/06/2019 GENET BISHOPIS Ot F12.10 CANNABIS ABUSE, UNCOMPLICATED 02/06/2019 GENET BISHOPIS Ot F41.9 ANXIETY DISORDER, UNSPECIFIED 02/06/2019 WOOOT JOEL Ot G40.909 EPILEPSY, UNSP, NOT INTRACTABLE, WITHOUT 02/06/2019 BERNOT, JOEL Ot I10 ESSENTIAL (PRIMARY) HYPERTENSION 02/06/2019 BERNOT JOEL Ot S02.5XXA FRACTURE OF TOOTH (TRAUMATIC), INIT FOR 02/06/2019 BERNOT JOEL Ot X58.XXXA EXPOSURE TO OTHER SPECIFIED FACTORS, INI 02/06/2019 GENET BISHOPIS Ot Z85.3 PERSONAL HISTORY OF MALIGNANT NEOPLASM O 02/06/2019 GENET BISHOPIS Ot Z87.891 PERSONAL HISTORY OF NICOTINE DEPENDENCE 02/06/2019 GENET BISHOPIS Ot Z88.8 ALLERGY STATUS TO OTH DRUG/MEDS/BIOL SUB 02/06/2019 GENET BISHOPIS Ot Z90.710 ACQUIRED ABSENCE OF BOTH CERVIX AND UTER 02/06/2019 EDNA JOEL Ot Z90.89 ACQUIRED ABSENCE OF OTHER ORGANS 02/06/2019 GENET BISHOPIS Ot Z98.890 OTHER SPECIFIED POSTPROCEDURAL STATES 02/10/2019 JOEL BISHOP Ot F12.10 CANNABIS ABUSE, UNCOMPLICATED 02/10/2019 GENET BISHOPIS Ot F41.9 ANXIETY DISORDER, UNSPECIFIED 02/10/2019 WOOOT JOEL Ot G40.909 EPILEPSY, UNSP, NOT INTRACTABLE, WITHOUT 02/10/2019 WOOOT JOEL Ot I10 ESSENTIAL (PRIMARY) HYPERTENSION 02/10/2019 WOOOT JOEL Ot S02.5XXA FRACTURE OF TOOTH (TRAUMATIC), INIT FOR 02/10/2019 EDNA JOEL Ot X58.XXXA EXPOSURE TO OTHER SPECIFIED FACTORS, INI 02/10/2019 EDNA JOEL Ot Z85.3 PERSONAL HISTORY OF MALIGNANT NEOPLASM O 02/10/2019 GENET BISHOPIS Ot Z87.891 PERSONAL HISTORY OF NICOTINE DEPENDENCE 02/10/2019 BERNGENET GONSALVESIS Ot Z88.8 ALLERGY STATUS TO OTH DRUG/MEDS/BIOL SUB 02/10/2019 JOEL BISHOP Ot Z90.710 ACQUIRED ABSENCE OF BOTH CERVIX AND UTER 02/10/2019 BERNGENET GONSALVESIS Ot Z90.89 ACQUIRED ABSENCE OF OTHER ORGANS 02/10/2019 GENET BISHOPIS Ot Z98.890 OTHER SPECIFIED POSTPROCEDURAL STATES 02/14/2019 SOMMER ORONA MD Ot F12.10 CANNABIS ABUSE, UNCOMPLICATED 02/14/2019 SOMMER ORONA MD Ot G40.909 EPILEPSY, UNSP, NOT INTRACTABLE, WITHOUT 02/14/2019 SOMMER ORONA MD Ot I10 ESSENTIAL (PRIMARY) HYPERTENSION 02/14/2019 SOMMER ORONA MD Ot R56.9 UNSPECIFIED CONVULSIONS 02/14/2019 SOMMER ORONA MD Ot Z85.3 PERSONAL HISTORY OF MALIGNANT NEOPLASM O 02/14/2019 SOMMER ORONA MD Ot Z87.891 PERSONAL HISTORY OF NICOTINE DEPENDENCE 02/14/2019 SOMMER ORONA MD Ot Z88.8 ALLERGY STATUS TO OTH DRUG/MEDS/BIOL SUB 02/14/2019 SOMMER ORONA MD Ot Z90.710 ACQUIRED ABSENCE OF BOTH CERVIX AND UTER 02/14/2019 SOMMER ORONA MD Ot Z96.9 PRESENCE OF FUNCTIONAL IMPLANT, UNSPECIF 02/14/2019 SOMMER ORONA MD Ot Z98.890 OTHER SPECIFIED POSTPROCEDURAL STATES 02/27/2019 DONNA CARTER MD Ot F41.9 ANXIETY DISORDER, UNSPECIFIED 02/27/2019 DONNA CARTER MD Ot G40.909 EPILEPSY, UNSP, NOT INTRACTABLE, WITHOUT 02/27/2019 DONNA CARTER MD Ot I10 ESSENTIAL (PRIMARY) HYPERTENSION 02/27/2019 DONNA CARTER MD Ot M79.672 PAIN IN LEFT FOOT 02/27/2019 DONNA CARTER MD Ot R40.2142 COMA SCALE, EYES OPEN, SPONTANEOUS, EMR 02/27/2019 DONNA CARTER MD Ot R40.2252 COMA SCALE, BEST VERBAL RESPONSE, ORIENT 02/27/2019 DONNA CARTER MD Ot R40.2362 COMA SCALE, BEST MOTOR RESPONSE, OBEYS C 02/27/2019 DONNA CARTER MD, Ot S90.32XA CONTUSION OF LEFT FOOT, INITIAL ENCOUNTE 02/27/2019 DONNA CARTER MD Ot W10.8XXA FALL (ON) (FROM) OTHER STAIRS AND STEPS, 02/27/2019 DONNA CARTER MD, Ot Z85.3 PERSONAL HISTORY OF MALIGNANT NEOPLASM O 02/27/2019 DONNA CARTER MD, Ot Z87.891 PERSONAL HISTORY OF NICOTINE DEPENDENCE 02/27/2019 DONNA CARTER MD, Ot Z88.8 ALLERGY STATUS TO [facility] DRUG/MEDS/BIOL SUB 02/27/2019 DONNA CARTER MD, Ot Z90.710 ACQUIRED ABSENCE OF BOTH CERVIX AND UTER 02/27/2019 DONNA CARTER MD, Ot Z90.89 ACQUIRED ABSENCE OF OTHER ORGANS 02/27/2019 DONNA CARTER MD, Ot Z98.890 OTHER SPECIFIED POSTPROCEDURAL STATES Procedures There is no data. Results Test Result Range Urinalysis - 08/02/18 15:20 Icotest N/A Negative Urine Volume Urine Volume Sufficient (10mL) Urine-Appearance Clear Clear Urine-Bilirubin Negative Negative Urine-Blood Negative Negative Urine-Color Yellow Colorless-Lt. Yellow Urine-Glucose Negative Negative Urine-Ketones Negative Negative Urine-Leukocytes Negative Negative Urine-Nitrite Negative Negative Urine-pH 7.0 5-8.5 Urine-Protein Negative Negative Urine-Specific [place] 1.015 1.000-1.030 Urine-WBC Nothing Seen on Microscopic Urobilinogen 0.2 E.U./dL 0.2-1.0 Comprehensive Metabolic Panel - 08/02/18 15:52 Albumin 4.8 g/dL 3.6-5.1 ALP 101 U/L 35-130 ALT 36 U/L 6-45 Anion Gap 16 6-14 AST 26 U/L 2-40 BUN 7 mg/dL 5-25 Calcium 10.0 mg/dL 8.3-10.4 Chloride 104 mmol/L 95-114 CO2 23 mEq/L 22-33 Creat 0.86 mg/dL 0.50-1.50 eGFR 79 mL/min/1.73m2 >59 Globulin 3.5 g/dL 2.3-3.5 Glucose 112 mg/dL 70-110 Osmo 286 280-295 Potassium 4.0 mmol/L 3.5-5.3 Sodium 139 mmol/L 134-148 TBil 0.4 mg/dL 0.2-1.2 TP 8.3 g/dL 6.0-8.3 Complete blood count (CBC) with automated white blood cell (WBC) differential - 09/28/18 10:40 Blood leukocytes automated count (number/volume) 7.8 10*3/uL 4.3-11.0 Blood erythrocytes automated count (number/volume) 4.24 10*6/uL 4.35-5.85 Venous blood hemoglobin measurement (mass/volume) 12.4 g/dL 11.5-16.0 Blood hematocrit (volume fraction) 37 % 35-52 Automated erythrocyte mean corpuscular volume 88 [foz_us] 80-99 Automated erythrocyte mean corpuscular hemoglobin (mass per erythrocyte) 29 pg 25-34 Automated erythrocyte mean corpuscular hemoglobin concentration measurement (mass/volume) 33 g/dL 32-36 Automated erythrocyte distribution width ratio 13.6 % 10.0- 14.5 Automated blood platelet count (count/volume) 247 10*3/uL 130-400 Automated blood platelet mean volume measurement 10.9 [foz_us] 7.4-10.4 Automated blood neutrophils/100 leukocytes 63 % 42-75 Automated blood lymphocytes/100 leukocytes 29 % 12-44 Blood monocytes/100 leukocytes 6 % 0-12 Automated blood eosinophils/100 leukocytes 2 % 0-10 Automated blood basophils/100 leukocytes 1 % 0-10 Blood neutrophils automated count (number/volume) 4.9 10*3 1.8-7.8 Blood lymphocytes automated count (number/volume) 2.2 10*3 1.0-4.0 Blood monocytes automated count (number/volume) 0.5 10*3 0.0- 1.0 Automated eosinophil count 0.2 10*3/uL 0.0-0.3 Automated blood basophil count (count/volume) 0.0 10*3/uL 0.0-0.1 Comprehensive metabolic panel - 09/28/18 10:40 Serum or plasma sodium measurement (moles/volume) 141 mmol/L 135-145 Serum or plasma potassium measurement (moles/volume) 4.2 mmol/L 3.6-5.0 Serum or plasma chloride measurement (moles/volume) 109 mmol/L 98-107 Carbon dioxide 19 mmol/L 21-32 Serum or plasma anion gap determination (moles/volume) 13 mmol/L 5-14 Serum or plasma urea nitrogen measurement (mass/volume) 15 mg/dL 7-18 Serum or plasma creatinine measurement (mass/volume) 0.79 mg/dL 0.60-1.30 Serum or plasma urea nitrogen/creatinine mass ratio 19 NRG Serum or plasma creatinine measurement with calculation of estimated glomerular filtration rate > NRG Serum or plasma glucose measurement (mass/volume) 107 mg/dL 70-105 Serum or plasma calcium measurement (mass/volume) 9.2 mg/dL 8.5-10.1 Serum or plasma total bilirubin measurement (mass/volume) 0.2 mg/dL 0.1-1.0 Serum or plasma alkaline phosphatase measurement (enzymatic activity/volume) 108 U/L 40-136 Serum or plasma aspartate aminotransferase measurement (enzymatic activity/volume) 18 U/L 5-34 Serum or plasma alanine aminotransferase measurement (enzymatic activity/volume) 27 U/L 0-55 Serum or plasma protein measurement (mass/volume) 7.1 g/dL 6.4-8.2 Serum or plasma albumin measurement (mass/volume) 4.1 g/dL 3.2-4.5 CALCIUM CORRECTED 9.1 mg/dL 8.5-10.1 Lipase - 09/28/18 10:40 Lipase 25 U/L 8-78 Urine beta human chorionic gonadotropin (hCG) measurement - 09/28/18 11:51 Urine beta human chorionic gonadotropin (hCG) measurement NEGATIVE NEGATIVE Complete urinalysis with reflex to culture - 09/28/18 11:51 Urine color determination YELLOW NRG Urine clarity determination SLIGHTLY CLOUDY NRG Urine pH measurement by test strip 5 5-9 Specific gravity of urine by test strip 1.020 1.016-1.022 Urine protein assay by test strip, semi-quantitative NEGATIVE NEGATIVE Urine glucose detection by automated test strip NEGATIVE NEGATIVE Erythrocytes detection in urine sediment by light microscopy NEGATIVE NEGATIVE Urine ketones detection by automated test strip NEGATIVE NEGATIVE Urine nitrite detection by test strip NEGATIVE NEGATIVE Urine total bilirubin detection by test strip NEGATIVE NEGATIVE Urine urobilinogen measurement by automated test strip (mass/volume) NORMAL NORMAL Urine leukocyte esterase detection by dipstick NEGATIVE NEGATIVE Automated urine sediment erythrocyte count by microscopy (number/high power field) NONE NRG Automated urine sediment leukocyte count by microscopy (number/high power field) NONE NRG Bacteria detection in urine sediment by light microscopy NEGATIVE NRG Squamous epithelial cells detection in urine sediment by light microscopy 5-10 NRG Crystals detection in urine sediment by light microscopy NONE NRG Casts detection in urine sediment by light microscopy NONE NRG Mucus detection in urine sediment by light microscopy NEGATIVE NRG Complete urinalysis with reflex to culture NO NRG Complete blood count (CBC) with automated white blood cell (WBC) differential - 10/10/18 13:10 Blood leukocytes automated count (number/volume) 8.2 10*3/uL 4.3-11.0 Blood erythrocytes automated count (number/volume) 4.33 10*6/uL 4.35-5.85 Venous blood hemoglobin measurement (mass/volume) 12.5 g/dL 11.5-16.0 Blood hematocrit (volume fraction) 37 % 35-52 Automated erythrocyte mean corpuscular volume 86 [foz_us] 80-99 Automated erythrocyte mean corpuscular hemoglobin (mass per erythrocyte) 29 pg 25-34 Automated erythrocyte mean corpuscular hemoglobin concentration measurement (mass/volume) 34 g/dL 32-36 Automated erythrocyte distribution width ratio 13.6 % 10.0- 14.5 Automated blood platelet count (count/volume) 272 10*3/uL 130-400 Automated blood platelet mean volume measurement 11.0 [foz_us] 7.4-10.4 Automated blood neutrophils/100 leukocytes 57 % 42-75 Automated blood lymphocytes/100 leukocytes 34 % 12-44 Blood monocytes/100 leukocytes 7 % 0-12 Automated blood eosinophils/100 leukocytes 2 % 0-10 Automated blood basophils/100 leukocytes 1 % 0-10 Blood neutrophils automated count (number/volume) 4.6 10*3 1.8-7.8 Blood lymphocytes automated count (number/volume) 2.8 10*3 1.0-4.0 Blood monocytes automated count (number/volume) 0.5 10*3 0.0- 1.0 Automated eosinophil count 0.2 10*3/uL 0.0-0.3 Automated blood basophil count (count/volume) 0.1 10*3/uL 0.0-0.1 Complete urinalysis with reflex to culture - 10/10/18 13:10 Urine color determination YELLOW NRG Urine clarity determination CLEAR NRG Urine pH measurement by test strip 6 5-9 Specific gravity of urine by test strip 1.025 1.016-1.022 Urine protein assay by test strip, semi-quantitative 1+ NEGATIVE Urine glucose detection by automated test strip NEGATIVE NEGATIVE Erythrocytes detection in urine sediment by light microscopy NEGATIVE NEGATIVE Urine ketones detection by automated test strip NEGATIVE NEGATIVE Urine nitrite detection by test strip NEGATIVE NEGATIVE Urine total bilirubin detection by test strip NEGATIVE NEGATIVE Urine urobilinogen measurement by automated test strip (mass/volume) NORMAL NORMAL Urine leukocyte esterase detection by dipstick 1+ NEGATIVE Automated urine sediment erythrocyte count by microscopy (number/high power field) NONE NRG Automated urine sediment leukocyte count by microscopy (number/high power field) [HPF] NRG Bacteria detection in urine sediment by light microscopy NEGATIVE NRG Squamous epithelial cells detection in urine sediment by light microscopy RARE NRG Crystals detection in urine sediment by light microscopy NONE NRG Casts detection in urine sediment by light microscopy NONE NRG Mucus detection in urine sediment by light microscopy SMALL NRG Complete urinalysis with reflex to culture NO NRG Comprehensive metabolic panel - 10/10/18 13:10 Serum or plasma sodium measurement (moles/volume) 141 mmol/L 135-145 Serum or plasma potassium measurement (moles/volume) 4.3 mmol/L 3.6-5.0 Serum or plasma chloride measurement (moles/volume) 108 mmol/L 98-107 Carbon dioxide 22 mmol/L 21-32 Serum or plasma anion gap determination (moles/volume) 11 mmol/L 5-14 Serum or plasma urea nitrogen measurement (mass/volume) 11 mg/dL 7-18 Serum or plasma creatinine measurement (mass/volume) 0.77 mg/dL 0.60-1.30 Serum or plasma urea nitrogen/creatinine mass ratio 14 NRG Serum or plasma creatinine measurement with calculation of estimated glomerular filtration rate > NRG Serum or plasma glucose measurement (mass/volume) 94 mg/dL 70-105 Serum or plasma calcium measurement (mass/volume) 9.2 mg/dL 8.5-10.1 Serum or plasma total bilirubin measurement (mass/volume) 0.3 mg/dL 0.1-1.0 Serum or plasma alkaline phosphatase measurement (enzymatic activity/volume) 104 U/L 40-136 Serum or plasma aspartate aminotransferase measurement (enzymatic activity/volume) 27 U/L 5-34 Serum or plasma alanine aminotransferase measurement (enzymatic activity/volume) 39 U/L 0-55 Serum or plasma protein measurement (mass/volume) 7.5 g/dL 6.4-8.2 Serum or plasma albumin measurement (mass/volume) 4.3 g/dL 3.2-4.5 CALCIUM CORRECTED 9.0 mg/dL 8.5-10.1 Lipase - 10/10/18 13:10 Lipase 16 U/L 8-78 Methicillin resistant Staphylococcus aureus (MRSA) screening culture - 10/14/18 06:50 Methicillin resistant Staphylococcus aureus (MRSA) screening culture NEG NRG Complete blood count (CBC) with automated white blood cell (WBC) differential - 10/19/18 12:11 Blood leukocytes automated count (number/volume) 8.0 10*3/uL 4.3-11.0 Blood erythrocytes automated count (number/volume) 4.33 10*6/uL 4.35-5.85 Venous blood hemoglobin measurement (mass/volume) 12.7 g/dL 11.5-16.0 Blood hematocrit (volume fraction) 37 % 35-52 Automated erythrocyte mean corpuscular volume 86 [foz_us] 80-99 Automated erythrocyte mean corpuscular hemoglobin (mass per erythrocyte) 29 pg 25-34 Automated erythrocyte mean corpuscular hemoglobin concentration measurement (mass/volume) 34 g/dL 32-36 Automated erythrocyte distribution width ratio 13.8 % 10.0- 14.5 Automated blood platelet count (count/volume) 283 10*3/uL 130-400 Automated blood platelet mean volume measurement 11.4 [foz_us] 7.4-10.4 Automated blood neutrophils/100 leukocytes 62 % 42-75 Automated blood lymphocytes/100 leukocytes 28 % 12-44 Blood monocytes/100 leukocytes 6 % 0-12 Automated blood eosinophils/100 leukocytes 3 % 0-10 Automated blood basophils/100 leukocytes 0 % 0-10 Blood neutrophils automated count (number/volume) 5.0 10*3 1.8-7.8 Blood lymphocytes automated count (number/volume) 2.3 10*3 1.0-4.0 Blood monocytes automated count (number/volume) 0.5 10*3 0.0- 1.0 Automated eosinophil count 0.2 10*3/uL 0.0-0.3 Automated blood basophil count (count/volume) 0.0 10*3/uL 0.0-0.1 Comprehensive metabolic panel - 10/19/18 12:11 Serum or plasma sodium measurement (moles/volume) 138 mmol/L 135-145 Serum or plasma potassium measurement (moles/volume) 4.2 mmol/L 3.6-5.0 Serum or plasma chloride measurement (moles/volume) 107 mmol/L 98-107 Carbon dioxide 18 mmol/L 21-32 Serum or plasma anion gap determination (moles/volume) 13 mmol/L 5-14 Serum or plasma urea nitrogen measurement (mass/volume) 11 mg/dL 7-18 Serum or plasma creatinine measurement (mass/volume) 0.81 mg/dL 0.60-1.30 Serum or plasma urea nitrogen/creatinine mass ratio 14 NRG Serum or plasma creatinine measurement with calculation of estimated glomerular filtration rate > NRG Serum or plasma glucose measurement (mass/volume) 102 mg/dL 70-105 Serum or plasma calcium measurement (mass/volume) 9.5 mg/dL 8.5-10.1 Serum or plasma total bilirubin measurement (mass/volume) 0.3 mg/dL 0.1-1.0 Serum or plasma alkaline phosphatase measurement (enzymatic activity/volume) 156 U/L 40-136 Serum or plasma aspartate aminotransferase measurement (enzymatic activity/volume) 69 U/L 5-34 Serum or plasma alanine aminotransferase measurement (enzymatic activity/volume) 238 U/L 0-55 Serum or plasma protein measurement (mass/volume) 7.6 g/dL 6.4-8.2 Serum or plasma albumin measurement (mass/volume) 4.4 g/dL 3.2-4.5 CALCIUM CORRECTED 9.2 mg/dL 8.5-10.1 Lipase - 10/19/18 12:11 Lipase 16 U/L 8-78 Serum or plasma C reactive protein measurement (mass/volume) - 10/19/18 12:11 Serum or plasma C reactive protein measurement (mass/volume) 1.68 mg/dL 0.00-0.50 Complete urinalysis with reflex to culture - 12/20/18 15:40 Urine color determination YELLOW NRG Urine clarity determination CLEAR NRG Urine pH measurement by test strip 8 5-9 Specific gravity of urine by test strip 1.015 1.016-1.022 Urine protein assay by test strip, semi-quantitative NEGATIVE NEGATIVE Urine glucose detection by automated test strip NEGATIVE NEGATIVE Erythrocytes detection in urine sediment by light microscopy NEGATIVE NEGATIVE Urine ketones detection by automated test strip NEGATIVE NEGATIVE Urine nitrite detection by test strip NEGATIVE NEGATIVE Urine total bilirubin detection by test strip NEGATIVE NEGATIVE Urine urobilinogen measurement by automated test strip (mass/volume) NORMAL NORMAL Urine leukocyte esterase detection by dipstick NEGATIVE NEGATIVE Automated urine sediment erythrocyte count by microscopy (number/high power field) NONE NRG Automated urine sediment leukocyte count by microscopy (number/high power field) NONE NRG Bacteria detection in urine sediment by light microscopy NEGATIVE NRG Squamous epithelial cells detection in urine sediment by light microscopy 0-2 NRG Crystals detection in urine sediment by light microscopy NONE NRG Casts detection in urine sediment by light microscopy NONE NRG Mucus detection in urine sediment by light microscopy NEGATIVE NRG Complete urinalysis with reflex to culture NO NRG Influenza virus A and B antigen detection - 12/20/18 15:41 FLU RESULT NEGATIVE FOR INFLUENZA A AND B ANTIGENS BY IA NRG Complete blood count (CBC) with automated white blood cell (WBC) differential - 12/20/18 17:16 Blood leukocytes automated count (number/volume) 6.5 10*3/uL 4.3-11.0 Blood erythrocytes automated count (number/volume) 4.43 10*6/uL 4.35-5.85 Venous blood hemoglobin measurement (mass/volume) 13.1 g/dL 11.5-16.0 Blood hematocrit (volume fraction) 38 % 35-52 Automated erythrocyte mean corpuscular volume 86 [foz_us] 80-99 Automated erythrocyte mean corpuscular hemoglobin (mass per erythrocyte) 30 pg 25-34 Automated erythrocyte mean corpuscular hemoglobin concentration measurement (mass/volume) 34 g/dL 32-36 Automated erythrocyte distribution width ratio 12.6 % 10.0- 14.5 Automated blood platelet count (count/volume) 251 10*3/uL 130-400 Automated blood platelet mean volume measurement 10.7 [foz_us] 7.4-10.4 Automated blood neutrophils/100 leukocytes 62 % 42-75 Automated blood lymphocytes/100 leukocytes 27 % 12-44 Blood monocytes/100 leukocytes 9 % 0-12 Automated blood eosinophils/100 leukocytes 2 % 0-10 Automated blood basophils/100 leukocytes 1 % 0-10 Blood neutrophils automated count (number/volume) 4.0 10*3 1.8-7.8 Blood lymphocytes automated count (number/volume) 1.8 10*3 1.0-4.0 Blood monocytes automated count (number/volume) 0.6 10*3 0.0- 1.0 Automated eosinophil count 0.1 10*3/uL 0.0-0.3 Automated blood basophil count (count/volume) 0.0 10*3/uL 0.0-0.1 Comprehensive metabolic panel - 12/20/18 17:16 Serum or plasma sodium measurement (moles/volume) 140 mmol/L 135-145 Serum or plasma potassium measurement (moles/volume) 3.8 mmol/L 3.6-5.0 Serum or plasma chloride measurement (moles/volume) 106 mmol/L 98-107 Carbon dioxide 22 mmol/L 21-32 Serum or plasma anion gap determination (moles/volume) 12 mmol/L 5-14 Serum or plasma urea nitrogen measurement (mass/volume) 8 mg/dL 7-18 Serum or plasma creatinine measurement (mass/volume) 0.78 mg/dL 0.60-1.30 Serum or plasma urea nitrogen/creatinine mass ratio 10 NRG Serum or plasma creatinine measurement with calculation of estimated glomerular filtration rate > NRG Serum or plasma glucose measurement (mass/volume) 86 mg/dL 70-105 Serum or plasma calcium measurement (mass/volume) 10.1 mg/dL 8.5-10.1 Serum or plasma total bilirubin measurement (mass/volume) 0.3 mg/dL 0.1-1.0 Serum or plasma alkaline phosphatase measurement (enzymatic activity/volume) 95 U/L 40-136 Serum or plasma aspartate aminotransferase measurement (enzymatic activity/volume) 31 U/L 5-34 Serum or plasma alanine aminotransferase measurement (enzymatic activity/volume) 49 U/L 0-55 Serum or plasma protein measurement (mass/volume) 7.7 g/dL 6.4-8.2 Serum or plasma albumin measurement (mass/volume) 4.6 g/dL 3.2-4.5 Serum or plasma C reactive protein measurement (mass/volume) - 12/20/18 17:16 Serum or plasma C reactive protein measurement (mass/volume) 0.94 mg/dL 0.00-0.50 Complete blood count (CBC) with automated white blood cell (WBC) differential - 01/20/19 19:20 Blood leukocytes automated count (number/volume) 8.1 10*3/uL 4.3-11.0 Blood erythrocytes automated count (number/volume) 4.30 10*6/uL 4.35-5.85 Venous blood hemoglobin measurement (mass/volume) 12.4 g/dL 11.5-16.0 Blood hematocrit (volume fraction) 37 % 35-52 Automated erythrocyte mean corpuscular volume 85 [foz_us] 80-99 Automated erythrocyte mean corpuscular hemoglobin (mass per erythrocyte) 29 pg 25-34 Automated erythrocyte mean corpuscular hemoglobin concentration measurement (mass/volume) 34 g/dL 32-36 Automated erythrocyte distribution width ratio 12.2 % 10.0- 14.5 Automated blood platelet count (count/volume) 228 10*3/uL 130-400 Automated blood platelet mean volume measurement 11.4 [foz_us] 7.4-10.4 Automated blood neutrophils/100 leukocytes 55 % 42-75 Automated blood lymphocytes/100 leukocytes 37 % 12-44 Blood monocytes/100 leukocytes 6 % 0-12 Automated blood eosinophils/100 leukocytes 2 % 0-10 Automated blood basophils/100 leukocytes 0 % 0-10 Blood neutrophils automated count (number/volume) 4.5 10*3 1.8-7.8 Blood lymphocytes automated count (number/volume) 3.0 10*3 1.0-4.0 Blood monocytes automated count (number/volume) 0.5 10*3 0.0- 1.0 Automated eosinophil count 0.2 10*3/uL 0.0-0.3 Automated blood basophil count (count/volume) 0.0 10*3/uL 0.0-0.1 Comprehensive metabolic panel - 01/20/19 19:20 Serum or plasma sodium measurement (moles/volume) 139 mmol/L 135-145 Serum or plasma potassium measurement (moles/volume) 3.4 mmol/L 3.6-5.0 Serum or plasma chloride measurement (moles/volume) 104 mmol/L 98-107 Carbon dioxide 21 mmol/L 21-32 Serum or plasma anion gap determination (moles/volume) 14 mmol/L 5-14 Serum or plasma urea nitrogen measurement (mass/volume) 14 mg/dL 7-18 Serum or plasma creatinine measurement (mass/volume) 0.81 mg/dL 0.60-1.30 Serum or plasma urea nitrogen/creatinine mass ratio 17 NRG Serum or plasma creatinine measurement with calculation of estimated glomerular filtration rate > NRG Serum or plasma glucose measurement (mass/volume) 86 mg/dL 70-105 Serum or plasma calcium measurement (mass/volume) 9.2 mg/dL 8.5-10.1 Serum or plasma total bilirubin measurement (mass/volume) 0.2 mg/dL 0.1-1.0 Serum or plasma alkaline phosphatase measurement (enzymatic activity/volume) 85 U/L 40-136 Serum or plasma aspartate aminotransferase measurement (enzymatic activity/volume) 25 U/L 5-34 Serum or plasma alanine aminotransferase measurement (enzymatic activity/volume) 36 U/L 0-55 Serum or plasma protein measurement (mass/volume) 7.3 g/dL 6.4-8.2 Serum or plasma albumin measurement (mass/volume) 4.5 g/dL 3.2-4.5 CALCIUM CORRECTED 8.8 mg/dL 8.5-10.1 Magnesium - 01/20/19 19:20 Magnesium 2.1 mg/dL 1.8-2.4 Serum or plasma thyrotropin measurement by detection limit <=0.05 miu/l (units/volume) - 01/20/19 19:20 Serum or plasma thyrotropin measurement by detection limit <=0.05 miu/l (units/volume) 0.84 u[iU]/mL 0.35-4.94 Complete urinalysis with reflex to culture - 01/20/19 20:30 Urine color determination YELLOW NRG Urine clarity determination CLEAR NRG Urine pH measurement by test strip 6 5-9 Specific gravity of urine by test strip 1.005 1.016-1.022 Urine protein assay by test strip, semi-quantitative NEGATIVE NEGATIVE Urine glucose detection by automated test strip NEGATIVE NEGATIVE Erythrocytes detection in urine sediment by light microscopy NEGATIVE NEGATIVE Urine ketones detection by automated test strip NEGATIVE NEGATIVE Urine nitrite detection by test strip NEGATIVE NEGATIVE Urine total bilirubin detection by test strip NEGATIVE NEGATIVE Urine urobilinogen measurement by automated test strip (mass/volume) NORMAL NORMAL Urine leukocyte esterase detection by dipstick NEGATIVE NEGATIVE Automated urine sediment erythrocyte count by microscopy (number/high power field) RARE NRG Automated urine sediment leukocyte count by microscopy (number/high power field) [HPF] NRG Bacteria detection in urine sediment by light microscopy TRACE NRG Crystals detection in urine sediment by light microscopy NONE NRG Casts detection in urine sediment by light microscopy NONE NRG Mucus detection in urine sediment by light microscopy SMALL NRG Complete urinalysis with reflex to culture NO NRG Complete blood count (CBC) with automated white blood cell (WBC) differential - 02/14/19 21:25 Blood leukocytes automated count (number/volume) 9.6 10*3/uL 4.3-11.0 Blood erythrocytes automated count (number/volume) 4.36 10*6/uL 4.35-5.85 Venous blood hemoglobin measurement (mass/volume) 12.4 g/dL 11.5-16.0 Blood hematocrit (volume fraction) 37 % 35-52 Automated erythrocyte mean corpuscular volume 86 [foz_us] 80-99 Automated erythrocyte mean corpuscular hemoglobin (mass per erythrocyte) 28 pg 25-34 Automated erythrocyte mean corpuscular hemoglobin concentration measurement (mass/volume) 33 g/dL 32-36 Automated erythrocyte distribution width ratio 12.7 % 10.0- 14.5 Automated blood platelet count (count/volume) 267 10*3/uL 130-400 Automated blood platelet mean volume measurement 11.1 [foz_us] 7.4-10.4 Automated blood neutrophils/100 leukocytes 64 % 42-75 Automated blood lymphocytes/100 leukocytes 27 % 12-44 Blood monocytes/100 leukocytes 7 % 0-12 Automated blood eosinophils/100 leukocytes 2 % 0-10 Automated blood basophils/100 leukocytes 1 % 0-10 Blood neutrophils automated count (number/volume) 6.2 10*3 1.8-7.8 Blood lymphocytes automated count (number/volume) 2.6 10*3 1.0-4.0 Blood monocytes automated count (number/volume) 0.6 10*3 0.0- 1.0 Automated eosinophil count 0.2 10*3/uL 0.0-0.3 Automated blood basophil count (count/volume) 0.1 10*3/uL 0.0-0.1 Comprehensive metabolic panel - 02/14/19 21:25 Serum or plasma sodium measurement (moles/volume) 138 mmol/L 135-145 Serum or plasma potassium measurement (moles/volume) 3.8 mmol/L 3.6-5.0 Serum or plasma chloride measurement (moles/volume) 106 mmol/L 98-107 Carbon dioxide 18 mmol/L 21-32 Serum or plasma anion gap determination (moles/volume) 14 mmol/L 5-14 Serum or plasma urea nitrogen measurement (mass/volume) 10 mg/dL 7-18 Serum or plasma creatinine measurement (mass/volume) 0.76 mg/dL 0.60-1.30 Serum or plasma urea nitrogen/creatinine mass ratio 13 NRG Serum or plasma creatinine measurement with calculation of estimated glomerular filtration rate > NRG Serum or plasma glucose measurement (mass/volume) 97 mg/dL 70-105 Serum or plasma calcium measurement (mass/volume) 9.8 mg/dL 8.5-10.1 Serum or plasma total bilirubin measurement (mass/volume) 0.3 mg/dL 0.1-1.0 Serum or plasma alkaline phosphatase measurement (enzymatic activity/volume) 94 U/L 40-136 Serum or plasma aspartate aminotransferase measurement (enzymatic activity/volume) 69 U/L 5-34 Serum or plasma alanine aminotransferase measurement (enzymatic activity/volume) 63 U/L 0-55 Serum or plasma protein measurement (mass/volume) 7.6 g/dL 6.4-8.2 Serum or plasma albumin measurement (mass/volume) 4.5 g/dL 3.2-4.5 CALCIUM CORRECTED 9.4 mg/dL 8.5-10.1 Magnesium - 02/14/19 21:25 Magnesium 2.3 mg/dL 1.8-2.4 Complete urinalysis with reflex to culture - 02/14/19 21:28 Urine color determination YELLOW NRG Urine clarity determination CLEAR NRG Urine pH measurement by test strip 7 5-9 Specific gravity of urine by test strip 1.005 1.016-1.022 Urine protein assay by test strip, semi-quantitative NEGATIVE NEGATIVE Urine glucose detection by automated test strip NEGATIVE NEGATIVE Erythrocytes detection in urine sediment by light microscopy NEGATIVE NEGATIVE Urine ketones detection by automated test strip NEGATIVE NEGATIVE Urine nitrite detection by test strip NEGATIVE NEGATIVE Urine total bilirubin detection by test strip NEGATIVE NEGATIVE Urine urobilinogen measurement by automated test strip (mass/volume) NORMAL NORMAL Urine leukocyte esterase detection by dipstick NEGATIVE NEGATIVE Automated urine sediment erythrocyte count by microscopy (number/high power field) NONE NRG Automated urine sediment leukocyte count by microscopy (number/high power field) NONE NRG Bacteria detection in urine sediment by light microscopy TRACE NRG Squamous epithelial cells detection in urine sediment by light microscopy 5-10 NRG Crystals detection in urine sediment by light microscopy NONE NRG Casts detection in urine sediment by light microscopy NONE NRG Mucus detection in urine sediment by light microscopy NEGATIVE NRG Complete urinalysis with reflex to culture NO NRG Urine drug screening test - 02/14/19 21:28 Urine phencyclidine detection by screening method NEGATIVE NEGATIVE Urine benzodiazepines detection by screening method NEGATIVE NEGATIVE Urine cocaine detection NEGATIVE NEGATIVE Urine amphetamines detection by screening method NEGATIVE NEGATIVE Urine methamphetamine detection by screening method NEGATIVE NEGATIVE Urine cannabinoids detection by screening method NEGATIVE NEGATIVE Urine opiates detection by screening method NEGATIVE NEGATIVE Urine barbiturates detection NEGATIVE NEGATIVE Screening urine tricyclic antidepressants detection NEGATIVE NEGATIVE Urine methadone detection by screening method NEGATIVE NEGATIVE Urine oxycodone detection NEGATIVE NEGATIVE Urine propoxyphene detection NEGATIVE NEGATIVE Encounters ACCT No. Visit Date/Time Discharge Status Pt. Type Provider Facility Loc./Unit Complaint [id number] 01/16/2019 14:10:00 01/16/2019 16:02:00 [id number] 15:01:00 08/02/2018 17:30:00 DIS Outpatient [facility] ER [id number] 01/16/2019 15:56:11 Document Registration [id number] 03/24/2019 16:00:00 03/24/2019 23:59:59 CLS Outpatient [facility] [id number] 02/25/2019 08:01:00 02/25/2019 11:45:00 DIS Outpatient DONNA CARTER [facility] ER L FOOT INJ [id number] 02/14/2019 21:02:00 02/14/2019 22:19:00 DIS Emergency SOMMER ORONA MD [facility] ER SEIZURE [id number] 02/06/2019 22:13:00 02/06/2019 22:48:00 DIS Emergency JOEL BISHOP [facility] ER TOOTH BROKE TODAY/FACIAL PAIN [id number] 01/20/2019 19:23:00 01/20/2019 21:25:00 DIS Emergency ARNOL GORDON MD [facility] ER SEIZURE [id number] 12/20/2018 14:08:00 12/20/2018 19:05:00 DIS Emergency KILLIAN MAGALLON [facility] ER CHEST PAIN WITH COUGHING, SOB, DIZZY [id number] 10/19/2018 11:38:00 10/19/2018 13:17:00 DIS Emergency JOEL BISHOP [facility] ER POST GALLBLADDER REMOVAL/SWELLING/VOMITING [id number] 10/14/2018 06:35:00 10/14/2018 12:50:00 DIS Outpatient CALVIN KEVIN RUIAS [facility] SDC GALLSTONES [id number] 10/13/2018 15:48:00 10/13/2018 23:59:59 CLS Outpatient CALVIN KEVIN URIAS [facility] PREOP G[place]ONES [id number] 10/10/2018 12:44:00 10/10/2018 15:40:00 DIS Emergency JOEL BISHOP [facility] ER ABD PAIN [id number] 09/28/2018 10:14:00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
[2019-04-11] MEDS ORDERED: LIDOCAINE/EPI 2% 1:100,00 (XYLOCAINE) 20 ML VIAL INJ ONE (11:30)
[2019-04-11] MEDS ORDERED: GABA-488 (11:36)
[2019-04-11] MEDS ORDERED: NALT1TAB (11:36)
[2019-04-11] MEDS ORDERED: CETI10TA17 (11:36)
[2019-04-11] MEDS ORDERED: VORT10TA (11:36)
--- NOTE | 2019-04-11 11:37 | ED EENT ---
History of Present Illness General Chief Complaint: Laceration Stated Complaint: SEIZURE,LIP LAC Source: patient Exam Limitations: no limitations History of Present Illness Date Seen by Provider: Apr 11, 2019 Time Seen by Provider: 11:32 Initial Comments To ER by private vehicle with reports of an upper lip laceration on the right side. This occurred 15 minutes ago after she had a seizure and bit her lip. She has a known seizure disorder takes medication for this. Timing/Duration: abrupt Severity: mild Location: mouth Associated Symptoms: denies symptoms Allergies and Home Medications Allergies Coded Allergies: carbamazepine (Verified Allergy, Unknown, 10/19/18) divalproex sodium (Verified Allergy, Unknown, 10/19/18) ondansetron (Verified Allergy, Unknown, 10/19/18) oxcarbazepine (Verified Allergy, Unknown, 10/19/18) prochlorperazine (Verified Allergy, Unknown, 10/19/18) topiramate (Verified Allergy, Unknown, 10/19/18) Home Medications Amoxicillin 500 Mg Capsule, 500 MG PO TID Prescribed by: LORI RODRIGUEZ on 04/11/19 1138 Patient Home Medication List Home Medication List Reviewed: Yes Review of Systems Review of Systems Constitutional: see HPI Eyes: No Symptoms Reported Ears: No Symptoms Reported Nose: no symptoms reported Mouth: see HPI Throat: no symptoms reported Respiratory: no symptoms reported Cardiovascular: no symptoms reported Gastrointestinal: no symptoms reported Past Xdlkzhq-Kysqav-Mfllne Hx Patient Social History Drug of Choice: CANNIBUS Type Used: Cigarettes, Electronic/Vapor Former Smoker, Quit: Nov 29, 2018 2nd Hand Smoke Exposure: Yes Recent Foreign Travel: No Contact w/Someone Who Travel: No Recent Hopitalizations: No Immunizations Up To Date Tetanus Booster (TDap): Unknown PED Vaccines UTD: Yes Seasonal Allergies Seasonal Allergies: No Past Medical History Surgeries: Yes (vagal nerve stimulator) Breast, Section, 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, Oophorectomy, Tonsillectomy Respiratory: No Cardiac: Yes Hypertension 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 0oz. 99.190649vf; 36.5 BMI Method:Stated General Appearance: WD/WN, no apparent distress Eyes: bilateral eye normal inspection, bilateral eye PERRL Ears: bilateral ear auricle normal, bilateral ear canal normal Nose: other (dried blood in the left nostril, no septal hematoma. No active bleeding.) Mouth/Throat: pharynx normal; No dental tenderness; other (there is a 1.5 cm gaping laceration that extends from the vermilion border but does not cross the vermilion border to the buccal surface of the top lip on the right side. Tooth #8 has some blood around the gingiva and is tender to palpation with a very small fracture which would be Limon class I to the very tip of the tooth.) Neck: non-tender, full range of motion Respiratory: no respiratory distress, no accessory muscle use Neurologic/Psychiatric: alert, normal mood/affect, oriented x 3 Skin: normal color, warm/dry Procedures/Interventions Wound Location: Face Wound Length (cm): 1 Wound's Depth, Shape: irregular Wound Explored: clean Irrigated w/ Saline (ccs): 30 Anesthesia: Lidocaine w/ Epi Volume Anesthetic (ccs): 3 Suture: Vicryl Number of Sutures: 6 Layer Closure?: 2 Number Deep Layer Sutures: 2 Progress Area was anesthetized with combination of an infraorbital nerve block using 2% lidocaine with epinephrine totaling 3 mL and then 1 mL of local anesthesia. Wound was then scrubbed and irrigated with chlorhexidine/saline solution. 2 buried sutures were placed size 5-0 Vicryl. Other the outer edges of the skin were brought together with 4 simple interrupted sutures size 5-0 Vicryl as well. She complained of some nausea at the end of this, Phenergan was ordered, CT of the head was ordered. Progress/Results/Core Measures Results/Orders My Orders Orders - LORI RODRIGUEZ APRN Lidocaine/Epi 2% 1:100,000 (Xylocaine/Ep (04/11/19 11:30) Promethazine Injection (Phenergan Injec (04/11/19 12:00) Ct Head Wo (04/11/19 11:52) Medications Given in ED Current Medications Medications Dose Ordered Sig/Shlomo Route Start Time Stop Time Status Last Admin Dose Admin Lidocaine/ Epinephrine 2 ml ONCE ONCE INJ 04/11/19 11:30 04/11/19 11:31 DC 04/11/19 11:48 2 ML Promethazine HCl 25 mg ONCE ONCE IM 04/11/19 12:00 04/11/19 12:01 DC 04/11/19 11:58 25 MG Vital Signs/I&O 04/11/19 11:32 Temp 98.2 Pulse 101 Resp 18 B/P (MAP) 106/73 (84) Pulse Ox 98 O2 Delivery Room Air Departure Impression Primary Impression: Lip laceration Qualified Codes: S01.511A - Laceration without foreign body of lip, initial encounter Additional Impressions: Seizure disorder Subluxation of tooth Disposition: HOME, SELF-CARE Condition: Stable Departure-Patient Inst. Decision time for Depature: 11:37 Referrals: CHAUNCEY MCDOWELL MD (PCP/Family) Primary Care Physician Patient Instructions: Laceration Repair With Stitches (DC) Add. Discharge Instructions: 1. The stitches will dissolve on their own. Take antibiotics as directed return to ER for any concerns. Tylenol and Motrin for pain. Follow-up with your dentist. Call Saturday to make an appointment to be seen. Soft foods such as pudding or soup and Jell-O mashed potatoes for one week. All discharge instructions reviewed with patient and/or family. Voiced understanding. Scripts Amoxicillin (Amoxicillin) 500 Mg Capsule 500 MG PO TID, #15 CAP 0 Refills Prov: LORI RODRIGUEZ APRN 04/11/19 LORI RODRIGUEZ APRN Apr 11, 2019 11:37
[2019-04-11] MEDS ORDERED: AMOX500C2 PO (11:38)
[2019-04-11] MEDS ORDERED: PROMETHAZINE INJ 25 MG/ML (PHENERGAN) AMP IM ONE (12:00)
--- NOTE | 2019-04-11 12:29 | Diagnostic Imaging Report ---
PROCEDURE: CT head without contrast. TECHNIQUE: Multiple contiguous axial images were obtained through the brain without the use of intravenous contrast. Auto Exposure Controls were utilized during the CT exam to meet ALARA standards for radiation dose reduction. INDICATION: Seizure. Head pain The ventricles are normal in size, shape and position. There is no acute parenchymal hemorrhage, edema or mass. There is no extra-axial mass or hemorrhage. IMPRESSION: Normal CT of the head. Dictated by: Dictated on workstation # [id number]
[2019-04-11] MEDS ORDERED: ACETAMINOPHEN 500 MG TAB (TYLENOL) PO ONE (12:45)
[2019-04-11] MEDS ORDERED: IBUPROFEN 800 MG (MOTRIN) TAB PO ONE (12:45)
[2019-04-11 12:46] VITALS: BP 114/91
== END 2019-04-11 12:46 | disposition home or self-care (01) ==
LOC: ER 11:24 → EDUNIT# 11:24 → ER 12:46
DX: S01.511A Laceration without foreign body of lip, initial encounter (principal); S03.2XXA Dislocation of tooth, initial encounter; G40.909 Epilepsy, unspecified, not intractable, without status epilepticus; I10 Essential (primary) hypertension; F41.9 Anxiety disorder, unspecified; Z85.3 Personal history of malignant neoplasm of breast; Z77.22 Contact with and (suspected) exposure to environmental tobacco smoke (acute) (chronic); Z88.8 Allergy status to other drugs, medicaments and biological substances; Z90.710 Acquired absence of both cervix and uterus; Z90.89 Acquired absence of other organs; V89.2XXA Person injured in unspecified motor-vehicle accident, traffic, initial encounter
CPT/HCPCS: 12011; 70450; 96372

== ENCOUNTER 2019-05-25 20:36 | Emergency (ER) | payer MEDICAID ==
[~2019-05-25] VITALS: Ht 157.5 cm; Wt 99.8 kg
[~2019-05-25 20:36] MED LIST changes: +AMOX500C2 PO; +CETI10TA17; +GABA-488; +NALT1TAB; +VORT10TA
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
[2019-05-25] MEDS ORDERED: NS IV 1000 ML 1,000 ML IV SCH (20:51)
[2019-05-25] MEDS ORDERED: PROMETHAZINE INJ 25 MG/ML (PHENERGAN) AMP IVP ONE (21:00)
[2019-05-25 21:04] LABS: BASOPHILS # (AUTO) 0.1 10^3/uL (0.0-0.1); BASOPHILS % (AUTO) 1 % (0-10); EOSINOPHILS # (AUTO) 0.1 10^3/uL (0.0-0.3); EOSINOPHILS % (AUTO) 1 % (0-10); HEMATOCRIT 41 % (35-52); HEMOGLOBIN 13.4 G/DL (11.5-16.0); LYMPHOCYTES # (AUTO) 2.8 X 10^3 (1.0-4.0); LYMPHOCYTES % (AUTO) 32 % (12-44); MEAN CORPUSCULAR HEMOGLOBIN 29 PG (25-34); MEAN CORPUSCULAR HGB CONC 33 G/DL (32-36); MEAN CORPUSCULAR VOLUME 87 FL (80-99); MEAN PLATELET VOLUME 11.2 FL (7.4-10.4); MONOCYTES # (AUTO) 0.6 X 10^3 (0.0-1.0); MONOCYTES % (AUTO) 7 % (0-12); NEUTROPHILS # (AUTO) 5.3 X 10^3 (1.8-7.8); NEUTROPHILS % (AUTO) 59 % (42-75); PLATELET COUNT 249 10^3/uL (130-400); RED CELL DISTRIBUTION WIDTH 13.4 % (10.0-14.5); WHITE BLOOD COUNT 8.8 10^3/uL (4.3-11.0)
[2019-05-25 21:21] LABS: ALANINE AMINOTRANSFERASE 50 U/L (0-55); ALBUMIN 4.5 GM/DL (3.2-4.5); ALKALINE PHOSPHATASE 93 U/L (40-136); BILIRUBIN,TOTAL 0.3 MG/DL (0.1-1.0); BUN/CREATININE RATIO 12; CALCIUM 9.6 MG/DL (8.5-10.1); CARBON DIOXIDE 19 MMOL/L (21-32); CHLORIDE 107 MMOL/L (98-107); CREATININE SERUM 0.86 MG/DL (0.60-1.30); GFR ESTIMATED > 60; GLUCOSE 84 MG/DL (70-105); POTASSIUM 3.7 MMOL/L (3.6-5.0); SODIUM 141 MMOL/L (135-145); TOTAL PROTEIN 7.6 GM/DL (6.4-8.2)
--- NOTE | 2019-05-25 21:28 | Diagnostic Imaging Report ---
PROCEDURE: CT head and CT cervical spine without contrast. TECHNIQUE: Multiple contiguous axial images were obtained through the brain and cervical spine without the use of intravenous contrast. Sagittal and coronal reformations through the cervical spine were then performed. Auto Exposure Controls were utilized during the CT exam to meet ALARA standards for radiation dose reduction. INDICATION: Frontal head pain, neck pain, seizure. COMPARISON: 04/11/2019 CT HEAD: There is no intracranial hemorrhage, hydrocephalus, edema, mass, mass effect or evidence for elevated pressures. Orbits, sinuses and calvarium appeared nonacute. No abnormal extra-axial collection. CT CERVICAL SPINE: Reconstruction views revealed normal body heights aligned anatomically. No paravertebral hematoma. No cervical fracture. No substantial canal stenosis. IMPRESSION: CT HEAD: Negative. CT CERVICAL SPINE: Negative. Dictated by: Dictated on workstation # [id number]
--- NOTE | 2019-05-25 21:39 | ED 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 Problem ---
General Chief Complaint: 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 Problems Stated Complaint: SEIZURE Nursing Triage Note: PT HAD A 4 MINUTE SEIZURE PRIOR TO ARRIVAL. PT WAS POSTICTAL WHEN EMS ARRIVED. PT HAS HAD 4 SEIZURES IN 2 WEEKS. PT HAD A WITNESSED LOC AND HIT HEAD. PT IS CURRENTLY IN C COLLAR. PT HAS VNS. PT APPEARS TEARFUL AND REPORTS LOTS OF RECENT STRESS. Nursing Sepsis Screen: No Definite Risk History of Present Illness Date Seen by Provider: May 25, 2019 Time Seen by Provider: 20:44 Initial Comments 28-year-old female presents after seizure at work. She has a history of seizures and over the last 2 weeks has had approximately 4. The seizure was witnessed by her coworkers, she did not have any urinary or bowel incontinence. She is currently on gabapentin for seizures. Her coworkers report approximately 4 minutes of LOC. She is complaining of headache and neck pain. She was brought via EMS and has a c-collar in place. At the time of the seizure she fell forward hitting her head. No obvious bruises or contusions noted. Timing/Duration: 1/2 hour Associated Symptoms: No confusion; fatigue, loss of consciousness, muscle spasms, nausea/vomiting; No paresthesia, No ringing in ears; seizures; No slurred speech, No vision changes Allergies and Home Medications Allergies Coded Allergies: carbamazepine (Verified Allergy, Unknown, 10/19/18) divalproex sodium (Verified Allergy, Unknown, 10/19/18) ondansetron (Verified Allergy, Unknown, 10/19/18) oxcarbazepine (Verified Allergy, Unknown, 10/19/18) prochlorperazine (Verified Allergy, Unknown, 10/19/18) topiramate (Verified Allergy, Unknown, 10/19/18) Home Medications Amoxicillin 500 Mg Capsule, 500 MG PO TID Prescribed by: LORI RODRIGUEZ on 04/11/19 1138 Cyclobenzaprine HCl 10 Mg Tablet, 10 MG PO Q8H PRN for SPASMS Prescribed by: SIRI MORROW on 05/25/192204 Sulfamethoxazole/Trimethoprim 1 Each Tablet, 1 EACH PO BID Prescribed by: SIRI MORROW on 05/25/192203 Patient Home Medication List Home Medication List Reviewed: Yes Review of Systems Review of Systems Constitutional: no symptoms reported, see HPI Eyes: No Symptoms Reported, See HPI Ears, Nose, Mouth, Throat: no symptoms reported, see HPI Respiratory: no symptoms reported, see HPI Cardiovascular: no symptoms reported, see HPI Gastrointestinal: see HPI, nausea; No vomiting : No Psychiatric/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: See HPI, Tonic Clonic Seizures All Other Systems Reviewed Negative Unless Noted: Yes Past Ycortjp-Bxjhji-Roasly Hx Past Med/Social Hx: Reviewed Nursing Past Med/Soc Hx Patient Social History Alcohol Use: Denies Use Recreational Drug Use: Yes Drug of Choice: CANNIBUS Type Used: Cigarettes, Electronic/Vapor Former Smoker, Quit: Nov 29, 2018 2nd Hand Smoke Exposure: Yes Recent Foreign Travel: No Contact w/Someone Who Travel: No Recent Infectious Disease Expo: No Recent Hopitalizations: No Physical Abuse: No Sexual Abuse: No Mistreated: No Fear: No Immunizations Up To Date Tetanus Booster (TDap): Unknown PED Vaccines UTD: Yes Seasonal Allergies Seasonal Allergies: No Past Medical History Surgeries: Yes (vagal nerve stimulator) Breast, Section, 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, Oophorectomy, Tonsillectomy Respiratory: No Cardiac: Yes Hypertension 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: Yes Seizure Disorder 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 0oz. 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, no motor/sensory deficits, alert, normal mood/affect, oriented x 3 Crainal Nerves: normal hearing, normal speech, PERRL Coordination/Gait: normal finger to nose Motor/Sensory: no motor deficit, no sensory deficit, no pronator drift Skin: normal color, warm/dry Progress/Results/Core Measures Results/Orders Lab Results Laboratory Tests Test 05/25/19 20:55 05/25/19 21:42 Range/Units White Blood Count 8.8 4.3-11.0 10^3/uL Red Blood Count 4.71 4.35-5.85 10^6/uL Hemoglobin 13.4 11.5-16.0 G/DL Hematocrit 41 35-52 % Mean Corpuscular Volume 87 80-99 FL Mean Corpuscular Hemoglobin 29 25-34 PG Mean Corpuscular Hemoglobin Concent 33 32-36 G/DL Red Cell Distribution Width 13.4 10.0-14.5 % Platelet Count 249 130-400 10^3/uL Mean Platelet Volume 11.2 H 7.4-10.4 FL Neutrophils (%) (Auto) 59 42-75 % Lymphocytes (%) (Auto) 32 12-44 % Monocytes (%) (Auto) 7 0-12 % Eosinophils (%) (Auto) 1 0-10 % Basophils (%) (Auto) 1 0-10 % Neutrophils # (Auto) 5.3 1.8-7.8 X 10^3 Lymphocytes # (Auto) 2.8 1.0-4.0 X 10^3 Monocytes # (Auto) 0.6 0.0-1.0 X 10^3 Eosinophils # (Auto) 0.1 0.0-0.3 10^3/uL Basophils # (Auto) 0.1 0.0-0.1 10^3/uL Sodium Level 141 135-145 MMOL/L Potassium Level 3.7 3.6-5.0 MMOL/L Chloride Level 107 98-107 MMOL/L Carbon Dioxide Level 19 L 21-32 MMOL/L Anion Gap 15 H 5-14 MMOL/L Blood Urea Nitrogen 10 7-18 MG/DL Creatinine 0.86 0.60-1.30 MG/DL Estimat Glomerular Filtration Rate > 60 BUN/Creatinine Ratio 12 Glucose Level 84 70-105 MG/DL Calcium Level 9.6 8.5-10.1 MG/DL Corrected Calcium 9.2 8.5-10.1 MG/DL Total Bilirubin 0.3 0.1-1.0 MG/DL Aspartate Amino Transf (AST/SGOT) 31 5-34 U/L Alanine Aminotransferase (ALT/SGPT) 50 0-55 U/L Alkaline Phosphatase 93 40-136 U/L Total Protein 7.6 6.4-8.2 GM/DL Albumin 4.5 3.2-4.5 GM/DL Thyroid Stimulating Hormone (TSH) 1.25 0.35-4.94 UIU/ML Urine Color YELLOW Urine Clarity SL CLOUDY Urine pH 6.5 5-9 Urine Specific [place] 1.010 L 1.016-1.022 Urine Protein NEGATIVE NEGATIVE Urine Glucose (UA) NEGATIVE NEGATIVE Urine Ketones NEGATIVE NEGATIVE Urine Nitrite NEGATIVE NEGATIVE Urine Bilirubin NEGATIVE NEGATIVE Urine Urobilinogen NORMAL NORMAL MG/DL Urine Leukocyte Esterase 3+ H NEGATIVE Urine RBC (Auto) 2+ H NEGATIVE Urine RBC RARE /HPF Urine WBC 50-100 H /HPF Urine Squamous Epithelial Cells 2-5 /HPF Urine Crystals NONE /LPF Urine Bacteria MODERATE H /HPF Urine Casts NONE /LPF Urine Mucus NEGATIVE /LPF Urine Culture Indicated YES My Orders Orders - SIRI MORROW Ct Head/Cervical Spine Wo (05/25/19 20:50) Cbc With Automated Diff (05/25/19 20:50) Comprehensive Metabolic Panel (05/25/19 20:50) Thyroid Stimulating Hormone (05/25/19 20:50) Ua Culture If Indicated (05/25/19 20:50) Promethazine Injection (Phenergan Injec (05/25/19 21:00) Ed Iv/Invasive Line Start (05/25/19 20:51) Ns Iv 1000 Ml (Sodium Chloride 0.9%) (05/25/19 20:51) Urine Culture (05/25/19 21:42) Cyclobenzaprine Tablet (Flexeril Tablet) (05/25/19 21:56) Sulfamethoxazole/Trimet Ds Tab (Bactrim (05/25/19 21:58) Medications Given in ED Current Medications Medications Dose Ordered Sig/Shlomo Route Start Time Stop Time Status Last Admin Dose Admin Promethazine HCl 25 mg ONCE ONCE IVP 05/25/19 21:00 05/25/19 21:01 DC 05/25/19 21:26 25 MG Vital Signs/I&O 05/25/19 05/25/19 20:44 22:15 Temp 96.9 96.9 Pulse 93 93 Resp 18 18 B/P (MAP) 130/82 (98) 137/81 (99) Pulse Ox 99 O2 Delivery Room Air Blood Pressure Mean: 98 Progress Progress Note : Time: 20:44 Progress Note Patient seen and evaluated, will obtain labs, CT head and neck, Phenergan 25 mg IV for nausea, and continue to monitor. She is requesting to return to work after this visit, discouraged that as her body needs rest. 2130 C-collar removed. Patient had full range of motion cervical spine with no paresthesias or radicular symptoms. Patient having mild neck pain, will give cyclobenzaprine 10 mg by mouth. 2200 patient denies any further complaints, no seizure activity or changes in mental status throughout the stay. Discharge instructions and return precautions reviewed with her. Encouraged follow-up with Dr. Mcdowell. Discussed that she also has UTI and we need to treat that. Diagnostic Imaging Diagonstic Imaging: CT Plain Films/CT/US/NM/MRI: c-spine, head Comments NAME: [facility]K [facility]ARD I [facility] REC#: [id number] PT STATUS: REG ER : 1990 PHYSICIAN: SIRI MORROW ADMIT DATE: 05/25/19/ER Draft Date of Exam:05/25/19 CT HEAD/CERVICAL SPINE WO PROCEDURE: CT head and CT cervical spine without contrast. TECHNIQUE: Multiple contiguous axial images were obtained through the brain and cervical spine without the use of intravenous contrast. Sagittal and coronal reformations through the cervical spine were then performed. Auto Exposure Controls were utilized during the CT exam to meet ALARA standards for radiation dose reduction. INDICATION: Frontal head pain, neck pain, seizure. COMPARISON: 04/11/2019 CT HEAD: There is no intracranial hemorrhage, hydrocephalus, edema, mass, mass effect or evidence for elevated pressures. Orbits, sinuses and calvarium appeared nonacute. No abnormal extra-axial collection. CT CERVICAL SPINE: Reconstruction views revealed normal body heights aligned anatomically. No paravertebral hematoma. No cervical fracture. No substantial canal stenosis. IMPRESSION: CT HEAD: Negative. CT CERVICAL SPINE: Negative. Dictated on workstation # [id number] Dict: 05/25/192121 Trans: 05/25/192127 [facility] [id number] Interpreted by: CONSTANTINO MOELLER Electronically signed by: Reviewed: Reviewed by Me Departure Impression Primary Impression: Seizure Additional Impressions: Fall Qualified Codes: W19.XXXA - Unspecified fall, initial encounter Minor closed head injury UTI (urinary tract infection) Qualified Codes: N30.00 - Acute cystitis without hematuria Disposition: HOME, SELF-CARE Condition: Improved Departure-Patient Inst. Decision time for Depature: 22:00 Referrals: CHAUNCEY MCDOWELL MD (PCP/Family) Primary Care Physician Patient Instructions: Closed Head Injury (DC), Seizures, Adult (DC), Urinary Tract Infection, Adult (DC) Add. Discharge Instructions: Increase water intake, 16 oz every 2 hours while awake. Empty bladder every 2 hours while awake. Follow up with your primary care provider. Limit screen time, take a break for 15 min every 2 hours. Continue your home medications. Take antibiotic as prescribed. Alternate between Tylenol 650 mg and ibuprofen 600 mg for headache, fever or pain Return to emergency department for temperature greater than 101, or mental status, seizure activity, or new injuries. All discharge instructions reviewed with patient and/or family. Voiced understanding. Scripts Cyclobenzaprine HCl (Cyclobenzaprine HCl) 10 Mg Tablet 10 MG PO Q8H PRN for SPASMS, #15 TAB 0 Refills Prov: SIRI MORROW 05/25/19 Sulfamethoxazole/Trimethoprim (Sulfamethoxazole-Tmp Ds Tablet) 1 Each Tablet 1 EACH PO BID, #14 TAB 0 Refills Prov: SIRI MORROW 05/25/19 Work/School Note: Work Release Form Date Seen in the Emergency Department: May 25, 2019 Return to Work: May 26, 2019 Other Restrictions Listed Below: Break for 15 min every 2 hours. Copy Copies To 1: CHAUNCEY MCDOWELL MD, AMY ARNP May 25, 2019 21:39
--- NOTE | 2019-05-25 21:39 | NUR ---
CSPINE CLEARED AT 2130
[2019-05-25 21:48] LABS: BILIRUBIN,URINE NEGATIVE (NEGATIVE); COLOR,URINE YELLOW; GLUCOSE, URINE (UA) NEGATIVE (NEGATIVE); KETONES,URINE NEGATIVE (NEGATIVE); LEUKOCYTE ESTERASE ,URINE 3+ (NEGATIVE); NITRITE,URINE NEGATIVE (NEGATIVE); PH,URINE 6.5 (5-9); PROTEIN,URINE NEGATIVE (NEGATIVE); UROBILINOGEN,URINE NORMAL (NORMAL)
[2019-05-25 21:53] LABS: CLARITY,URINE SL CLOUDY
[2019-05-25 21:54] LABS: BACTERIA,URINE MODERATE /HPF; RBC,URINE RARE /HPF; WBC,URINE 50-100 /HPF
[2019-05-25] MEDS ORDERED: CYCLOBENZAPRINE 10 MG (FLEXERIL) TAB PO STA (21:56)
[2019-05-25] MEDS ORDERED: TRIM/SULFAMETH 160/800 (SEPTRA DS) TAB PO STA (21:58)
[2019-05-25] MEDS ORDERED: SULF-222 PO (22:04)
[2019-05-25] MEDS ORDERED: CYCL10TA9 PO (22:05)
[2019-05-25 22:15] VITALS: BP 137/81
== END 2019-05-25 22:16 | disposition home or self-care (01) ==
LOC: EDUNIT# 20:36 → ER 20:37
DX: S09.90XA Unspecified injury of head, initial encounter (principal); N39.0 Urinary tract infection, site not specified; G40.909 Epilepsy, unspecified, not intractable, without status epilepticus; I10 Essential (primary) hypertension; F12.10 Cannabis abuse, uncomplicated; F41.9 Anxiety disorder, unspecified; Z85.3 Personal history of malignant neoplasm of breast; Z87.891 Personal history of nicotine dependence; Z90.89 Acquired absence of other organs; Z90.710 Acquired absence of both cervix and uterus; Z88.8 Allergy status to other drugs, medicaments and biological substances; W19.XXXA Unspecified fall, initial encounter; W22.8XXA Striking against or struck by other objects, initial encounter; Y92.59 Other trade areas as the place of occurrence of the external cause
CPT/HCPCS: 36415; 70450; 72125; 80053; 81000; 84443; 85025; 87077; 87088; 87186; 96361; 96374

== ENCOUNTER 2019-06-15 17:30 | Emergency (ER) | payer MEDICAID ==
[~2019-06-15] VITALS: Ht 157.5 cm; Wt 99.8 kg
[~2019-06-15 17:30] MED LIST changes: +CYCL10TA9 PO; +SULF-222 PO
--- NOTE | 2019-06-15 18:32 | NUR ---
AMB TO ROOM NO CHANGE FROM TRAIGE. STEP LITE BOOT ON R LEG.
--- NOTE | 2019-06-15 19:00 | NUR ---
Report recieved from ANKIT Jamil to assume care of pt @ this time.
[2019-06-15] MEDS ORDERED: LACTATED RINGERS 1,000 ML IV ONE (19:31)
[2019-06-15] MEDS ORDERED: FAMOTIDINE 20MG/2ML IV (PEPCID) IV STA (19:31)
--- NOTE | 2019-06-15 19:34 | ED Abdominal Pain ---
General Chief Complaint: Dizziness/Syncope Stated Complaint: DIZZY Nursing Triage Note: PT AMB TO TRIAGE WITH COMPLAINT OF DIZZINESS, HTN, VOMITING, BLURRED VISION, AND DIARRHEA. PT STATES SHE HAS BEEN TOLD HTN IS FROM ANXIETY. PT VERBALIZED THAT SHE HAS BEEN UNDER A LOT OF STRESS FROM WORK AND FAMILY ISSUES THAT HAS INCREASED HER ANXIETY. Sepsis Screen: No Definite Risk Source of Information: Patient Exam Limitations: No Limitations (DONNA CARTER) History of Present Illness Date Seen by Provider: Jun 15, 2019 Time Seen by Provider: 19:18 Initial Comments Patient presents to ER by private conveyance with chief complaint of general malaise since Saturday, 4 days ago, nausea vomiting and loose stools. She has IBS with constipation and diarrhea. No blood in the stool or vomitus. She's not felt well felt foggy and had a hard time focusing at work today. She denies any fevers or chills. No recent trauma. She's had her gallbladder out no other abdominal surgeries. She has a history of epilepsy on gabapentin she takes 600 mg twice a day she's been taking routinely. No increased history of seizures. (DONNA CARTER) Allergies and Home Medications Allergies Coded Allergies: carbamazepine (Verified Allergy, Unknown, 10/19/18) divalproex sodium (Verified Allergy, Unknown, 10/19/18) ondansetron (Verified Allergy, Unknown, 10/19/18) oxcarbazepine (Verified Allergy, Unknown, 10/19/18) prochlorperazine (Verified Allergy, Unknown, 10/19/18) topiramate (Verified Allergy, Unknown, 10/19/18) Home Medications Amoxicillin 500 Mg Capsule, 500 MG PO TID Prescribed by: LORI RODRIGUEZ on 04/11/19 1138 Cyclobenzaprine HCl 10 Mg Tablet, 10 MG PO Q8H PRN for SPASMS Prescribed by: SIRI MORROW on 05/25/192204 Sulfamethoxazole/Trimethoprim 1 Each Tablet, 1 EACH PO BID Prescribed by: SIRI MORROW on 05/25/192203 Patient Home Medication List Home Medication List Reviewed: Yes (LORI RODRIGUEZ [employer] NETWORK 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) Review of Systems Review of Systems Constitutional: No chills, No diaphoresis, No fever; malaise EENTM: No Blurred Vision, No Double Vision Respiratory: Denies Cough, Denies Shortness of Air Cardiovascular: Denies Chest Pain, Denies Lightheadedness Gastrointestinal: Abdominal Pain (epigastric); Denies Constipated; Diarrhea, Nausea; Denies Poor Fluid Intake; Vomiting Genitourinary: Denies Burning, Denies Discharge Musculoskeletal: No back pain, No gout, No joint pain (DONNA CARTER) Past Bmcmtzc-Lfibes-Sypaqv Hx Patient Social History Alcohol Use: Occasionally Uses Recreational Drug Use: No Drug of Choice: CANNIBUS Smoking Status: Current Everyday Smoker Type Used: Cigarettes, Electronic/Vapor Former Smoker, Quit: Nov 29, 2018 2nd Hand Smoke Exposure: Yes Recent Foreign Travel: No Contact w/Someone Who Travel: No Recent Infectious Disease Expo: No Recent Hopitalizations: No (DONNA CATRER) Immunizations Up To Date Tetanus Booster (TDap): Unknown PED Vaccines UTD: Yes (DONNA CARTER) Seasonal Allergies Seasonal Allergies: No (DONNA CARTER) Past Medical History Surgeries: Yes (vagal nerve stimulator) Breast, Section, 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, Oophorectomy, Tonsillectomy Respiratory: No Cardiac: Yes Hypertension 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: Yes Seizure Disorder 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 0oz. 99.901249dt; 36.5 BMI Method:Stated General Appearance: WD/WN, no apparent distress HEENT: PERRL/EOMI, normal ENT inspection Neck: full range of motion, supple Respiratory: lungs clear, normal breath sounds, no respiratory distress, no accessory muscle use Cardiovascular: normal peripheral pulses, regular rate, rhythm, no edema Peripheral Pulses: 2+ Radial Pulses (R), 2+ Radial Pulses (L) Gastrointestinal: normal bowel sounds, non tender, soft, no organomegaly (DONNA CARTER) Progress/Results/Core Measures Results/Orders Lab Results Laboratory Tests Test 06/15/19 19:29 06/15/19 20:25 Range/Units Urine Color DARK YELLOW Urine Clarity SL CLOUDY Urine pH 6 5-9 Urine Specific [place] 1.025 H 1.016-1.022 Urine Protein 1+ H NEGATIVE Urine Glucose (UA) NEGATIVE NEGATIVE Urine Ketones 1+ H NEGATIVE Urine Nitrite NEGATIVE NEGATIVE Urine Bilirubin NEGATIVE NEGATIVE Urine Urobilinogen NORMAL NORMAL MG/DL Urine Leukocyte Esterase NEGATIVE NEGATIVE Urine RBC (Auto) NEGATIVE NEGATIVE Urine RBC NONE /HPF Urine WBC RARE /HPF Urine Squamous Epithelial Cells 10-25 H /HPF Urine Crystals PRESENT H /LPF Urine Calcium Oxalate Crystals FEW H /LPF Urine Bacteria FEW H /HPF Urine Casts NONE /LPF Urine Mucus MODERATE H /LPF Urine Culture Indicated NO Urine Opiates Screen NEGATIVE NEGATIVE Urine Oxycodone Screen NEGATIVE NEGATIVE Urine Methadone Screen NEGATIVE NEGATIVE Urine Propoxyphene Screen NEGATIVE NEGATIVE Urine Barbiturates Screen NEGATIVE NEGATIVE Ur Tricyclic Antidepressants Screen NEGATIVE NEGATIVE Urine Phencyclidine Screen NEGATIVE NEGATIVE Urine Amphetamines Screen NEGATIVE NEGATIVE Urine Methamphetamines Screen NEGATIVE NEGATIVE Urine Benzodiazepines Screen NEGATIVE NEGATIVE Urine Cocaine Screen NEGATIVE NEGATIVE Urine Cannabinoids Screen NEGATIVE NEGATIVE White Blood Count 7.1 4.3-11.0 10^3/uL Red Blood Count 4.39 4.35-5.85 10^6/uL Hemoglobin 12.7 11.5-16.0 G/DL Hematocrit 38 35-52 % Mean Corpuscular Volume 86 80-99 FL Mean Corpuscular Hemoglobin 29 25-34 PG Mean Corpuscular Hemoglobin Concent 34 32-36 G/DL Red Cell Distribution Width 12.9 10.0-14.5 % Platelet Count 232 130-400 10^3/uL Mean Platelet Volume 11.8 H 7.4-10.4 FL Neutrophils (%) (Auto) 56 42-75 % Lymphocytes (%) (Auto) 37 12-44 % Monocytes (%) (Auto) 6 0-12 % Eosinophils (%) (Auto) 0 0-10 % Basophils (%) (Auto) 0 0-10 % Neutrophils # (Auto) 4.0 1.8-7.8 X 10^3 Lymphocytes # (Auto) 2.7 1.0-4.0 X 10^3 Monocytes # (Auto) 0.4 0.0-1.0 X 10^3 Eosinophils # (Auto) 0.0 0.0-0.3 10^3/uL Basophils # (Auto) 0.0 0.0-0.1 10^3/uL Sodium Level 141 135-145 MMOL/L Potassium Level 3.9 3.6-5.0 MMOL/L Chloride Level 108 H 98-107 MMOL/L Carbon Dioxide Level 18 L 21-32 MMOL/L Anion Gap 15 H 5-14 MMOL/L Blood Urea Nitrogen 11 7-18 MG/DL Creatinine 0.83 0.60-1.30 MG/DL Estimat Glomerular Filtration Rate > 60 BUN/Creatinine Ratio 13 Glucose Level 84 70-105 MG/DL Calcium Level 9.5 8.5-10.1 MG/DL Corrected Calcium 9.2 8.5-10.1 MG/DL Total Bilirubin 0.4 0.1-1.0 MG/DL Aspartate Amino Transf (AST/SGOT) 35 H 5-34 U/L Alanine Aminotransferase (ALT/SGPT) 59 H 0-55 U/L Alkaline Phosphatase 98 40-136 U/L C-Reactive Protein High Sensitivity 0.33 0.00-0.50 MG/DL Total Protein 7.6 6.4-8.2 GM/DL Albumin 4.4 3.2-4.5 GM/DL Lipase 16 8-78 U/L (LORI RODRIGUEZ APRN) My Orders Orders - LORI RODRIGUEZ APRN Lorazepam Injection (Ativan Injection) (06/15/19 22:15) (LORI RODRIGUEZ APRN) Medications Given in ED Current Medications Medications Dose Ordered Sig/Shlomo Route Start Time Stop Time Status Last Admin Dose Admin Al Hydrox/Mg Hydrox/Simethicone 30 ml ONCE ONCE PO 06/15/19 19:45 06/15/19 19:46 DC 06/15/19 20:43 30 ML Ketorolac Tromethamine 30 mg ONCE ONCE IVP 06/15/19 19:45 06/15/19 19:46 DC 06/15/19 20:38 30 MG Lactated Ringer's 1,000 ml @ 0 mls/hr Q0M ONCE IV 06/15/19 19:31 06/15/19 19:33 DC 06/15/19 20:40 0 MLS/HR Lidocaine HCl 15 ml ONCE ONCE PO 06/15/19 19:45 06/15/19 19:46 DC 06/15/19 20:43 15 ML Lorazepam 1 mg ONCE PRN IVP 06/15/19 22:15 06/15/19 22:23 DC 06/15/19 22:12 1 MG Promethazine HCl 25 mg ONCE ONCE IVP 06/15/19 19:45 06/15/19 19:46 DC 06/15/19 20:39 25 MG (LORI RODRIGUEZ APRN) Vital Signs/I&O 06/15/19 06/15/19 17:35 22:20 Temp 99.2 98.9 Pulse 91 79 Resp 16 16 B/P (MAP) 169/129 (142) 145/81 (102) Pulse Ox 99 98 O2 Delivery Room Air Room Air (LORI RODRIGUEZ APRN) Blood Pressure Mean: 142 Progress Progress Note : Time: 00:44 Progress Note General malaise epigastric pain Nausea vomiting and diarrhea most likely gastritis and it is most likely viral. We'll do some labs and urinalysis. Fluids, Zofran. GI cocktail. (DONNA CARTER) Departure Communication (Admissions) Discussed the possible etiology of vertigo and nausea with the patient could be a viral syndrome, she's upset with this diagnosis, she states she is still nauseous after the Phenergan. I'll order milligram of Ativan. She's been singing out loud to music playing on her phone heard by most of the emergency room during the majority of her stay which does not suggest any distress. (LORI RODRIGUEZ APRN) Impression Primary Impression: Dizziness Additional Impression: Epigastric pain Disposition: 01 HOME, SELF-CARE Condition: Stable Departure-Patient Inst. Decision time for Depature: 21:58 (LORI RODRIGUEZ APRN) Referrals: CHAUNCEY MCDOWELL MD (PCP/Family) Primary Care Physician Patient Instructions: Vertigo (a Type of Dizziness) (DC) Add. Discharge Instructions: 1. Follow-up with your doctor later next week 2. All discharge instructions reviewed with patient and/or family. Voiced understanding. Copy Copies To 1: CHAUNCEY MCDOWELL MD, TITUS J Jun 15, 2019 19:34 LORI RODRIGUEZ APRN Jun 15, 2019 21:59
[2019-06-15 19:44] LABS: BILIRUBIN,URINE NEGATIVE (NEGATIVE); GLUCOSE, URINE (UA) NEGATIVE (NEGATIVE); KETONES,URINE 1+ (NEGATIVE); LEUKOCYTE ESTERASE ,URINE NEGATIVE (NEGATIVE); NITRITE,URINE NEGATIVE (NEGATIVE); PH,URINE 6 (5-9); PROTEIN,URINE 1+ (NEGATIVE); UROBILINOGEN,URINE NORMAL (NORMAL)
[2019-06-15] MEDS ORDERED: LIDOCAINE 2% VISCOUS 15 ML UDC PO ONE (19:45)
[2019-06-15] MEDS ORDERED: PROMETHAZINE INJ 25 MG/ML (PHENERGAN) AMP IVP ONE (19:45)
[2019-06-15] MEDS ORDERED: ANTACID SUSP 30 ML UDC (MYLANTA) PO ONE (19:45)
[2019-06-15] MEDS ORDERED: KETOROLAC 30 MG/ML VIAL IVP ONE (19:45)
[2019-06-15 19:56] LABS: BACTERIA,URINE FEW /HPF; CALCIUM OXALATE CRYSTALS,UR FEW /LPF; CLARITY,URINE SL CLOUDY; COLOR,URINE DARK YELLOW; WBC,URINE RARE /HPF
[2019-06-15 19:57] LABS: AMPHETAMINE SCREEN, URINE NEGATIVE (NEGATIVE); BARBITURATE SCREEN URINE NEGATIVE (NEGATIVE); BENZODIAZEPINES SCREEN URINE NEGATIVE (NEGATIVE); CANNABINOID SCREEN, URINE NEGATIVE (NEGATIVE); COCAINE SCREEN URINE NEGATIVE (NEGATIVE); METHADONE STAT NEGATIVE (NEGATIVE); METHAMPHETAMINE SCREEN URINE S NEGATIVE (NEGATIVE); OPIATE SCREEN URINE NEGATIVE (NEGATIVE); OXYCODONE STAT NEGATIVE (NEGATIVE); PROPOXYPHENE STAT NEGATIVE (NEGATIVE); TRICYCLIC ANTIDEPRESSANTS SCRE NEGATIVE (NEGATIVE)
[2019-06-15 20:33] LABS: BASOPHILS % (AUTO) 0 % (0-10); EOSINOPHILS % (AUTO) 0 % (0-10); HEMATOCRIT 38 % (35-52); HEMOGLOBIN 12.7 G/DL (11.5-16.0); LYMPHOCYTES # (AUTO) 2.7 X 10^3 (1.0-4.0); LYMPHOCYTES % (AUTO) 37 % (12-44); MEAN CORPUSCULAR HEMOGLOBIN 29 PG (25-34); MEAN CORPUSCULAR HGB CONC 34 G/DL (32-36); MEAN CORPUSCULAR VOLUME 86 FL (80-99); MEAN PLATELET VOLUME 11.8 FL (7.4-10.4); MONOCYTES # (AUTO) 0.4 X 10^3 (0.0-1.0); MONOCYTES % (AUTO) 6 % (0-12); NEUTROPHILS % (AUTO) 56 % (42-75); PLATELET COUNT 232 10^3/uL (130-400); RED CELL DISTRIBUTION WIDTH 12.9 % (10.0-14.5); WHITE BLOOD COUNT 7.1 10^3/uL (4.3-11.0)
--- NOTE | 2019-06-15 20:43 | NUR ---
Pt note to have experienced emesis after attempting to swallow GI coctail (mylanta & vicious lidocaine).
[2019-06-15 20:58] LABS: ALANINE AMINOTRANSFERASE 59 U/L (0-55); ALBUMIN 4.4 GM/DL (3.2-4.5); ALKALINE PHOSPHATASE 98 U/L (40-136); BILIRUBIN,TOTAL 0.4 MG/DL (0.1-1.0); BUN/CREATININE RATIO 13; CALCIUM 9.5 MG/DL (8.5-10.1); CARBON DIOXIDE 18 MMOL/L (21-32); CHLORIDE 108 MMOL/L (98-107); CREATININE SERUM 0.83 MG/DL (0.60-1.30); GFR ESTIMATED > 60; GLUCOSE 84 MG/DL (70-105); LIPASE 16 U/L (8-78); POTASSIUM 3.9 MMOL/L (3.6-5.0); SODIUM 141 MMOL/L (135-145); TOTAL PROTEIN 7.6 GM/DL (6.4-8.2)
[2019-06-15] MEDS ORDERED: LORazepam INJ 2 MG/ML (ATIVAN) VIAL IVP PRN (22:15)
[2019-06-15 22:20] VITALS: BP 145/81
== END 2019-06-15 22:20 | disposition home or self-care (01) ==
LOC: EDUNIT# 17:30 → ER 17:31
DX: R42 Dizziness and giddiness (principal); R10.13 Epigastric pain; K58.9 Irritable bowel syndrome, unspecified; G40.909 Epilepsy, unspecified, not intractable, without status epilepticus; I10 Essential (primary) hypertension; F41.9 Anxiety disorder, unspecified; F17.210 Nicotine dependence, cigarettes, uncomplicated; Z85.3 Personal history of malignant neoplasm of breast; Z90.710 Acquired absence of both cervix and uterus; Z90.89 Acquired absence of other organs; Z88.8 Allergy status to other drugs, medicaments and biological substances; Z88.5 Allergy status to narcotic agent
CPT/HCPCS: 36415; 80053; 80306; 81000; 83690; 84703; 85025; 86141

== ENCOUNTER 2019-07-23 14:04 | Emergency (ER) | payer MEDICAID ==
[~2019-07-23] VITALS: Ht 160 cm; Wt 94.5 kg
--- NOTE | 2019-07-23 14:17 | ED 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 Problem ---
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 She has a known seizure disorder and has been a couple of times a month. She complains of some she takes Tegretol for it. She feels back to normal now with the exception of some neck and back pain. Timing/Duration: 1 hour Severity: moderate Allergies and Home Medications Allergies Coded Allergies: carbamazepine (Verified Allergy, Unknown, 10/19/18) divalproex sodium (Verified Allergy, Unknown, 10/19/18) ondansetron (Verified Allergy, Unknown, 10/19/18) oxcarbazepine (Verified Allergy, Unknown, 10/19/18) prochlorperazine (Verified Allergy, Unknown, 10/19/18) topiramate (Verified Allergy, Unknown, 10/19/18) Home Medications Amoxicillin 500 Mg Capsule, 500 MG PO TID Prescribed by: LORI RODRIGUEZ on 04/11/19 1138 Cyclobenzaprine HCl 10 Mg Tablet, 10 MG PO Q8H PRN for SPASMS Prescribed by: SIRI MORROW on 05/25/192204 Sulfamethoxazole/Trimethoprim 1 Each Tablet, 1 EACH PO BID Prescribed by: SIRI MORROW on 05/25/192203 Patient Home Medication List Home Medication List Reviewed: Yes Review of Systems Review of Systems Constitutional: see HPI Eyes: No Symptoms Reported Ears, Nose, Mouth, Throat: no symptoms reported Respiratory: no symptoms reported Cardiovascular: no symptoms reported Genitourinary: no symptoms reported Musculoskeletal: see HPI, back pain Skin: no symptoms reported Past Dytlcgg-Yliuja-Wtfmvn Hx Patient Social History Drug of Choice: CANNIBUS Type Used: Cigarettes, Electronic/Vapor Former Smoker, Quit: Nov 29, 2018 2nd Hand Smoke Exposure: Yes Recent Hopitalizations: No Immunizations Up To Date Tetanus Booster (TDap): Unknown PED Vaccines UTD: Yes Seasonal Allergies Seasonal Allergies: No Past Medical History Surgeries: Yes (vagal nerve stimulator) Breast, Section, 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, Oophorectomy, Tonsillectomy Respiratory: No Cardiac: Yes Hypertension 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: Yes 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 0oz. 99.453195wm; 36.5 BMI Method:Stated General Appearance: WD/WN, no apparent distress HEENT: PERRL/EOMI, normal ENT inspection, TMs normal Neck: non-tender, full range of motion Respiratory: normal breath sounds, no respiratory distress, no accessory muscle use Cardiovascular: regular rate, rhythm, no murmur Gastrointestinal: normal bowel sounds, non tender, soft Back: normal inspection, vertebral tenderness Extremities: normal range of motion, non-tender Neurologic/Psychiatric: alert, normal mood/affect, oriented x 3 Crainal Nerves: normal hearing, normal speech, PERRL Skin: normal color, warm/dry Alert and oriented GCS 15 talkative Progress/Results/Core Measures Results/Orders Lab Results Laboratory Tests Test 07/23/19 14:17 Range/Units White Blood Count 7.9 4.3-11.0 10^3/uL Red Blood Count 4.31 L 4.35-5.85 10^6/uL Hemoglobin 12.3 11.5-16.0 G/DL Hematocrit 38 35-52 % Mean Corpuscular Volume 87 80-99 FL Mean Corpuscular Hemoglobin 29 25-34 PG Mean Corpuscular Hemoglobin Concent 33 32-36 G/DL Red Cell Distribution Width 13.0 10.0-14.5 % Platelet Count 231 130-400 10^3/uL Mean Platelet Volume 10.6 H 7.4-10.4 FL Neutrophils (%) (Auto) 63 42-75 % Lymphocytes (%) (Auto) 29 12-44 % Monocytes (%) (Auto) 6 0-12 % Eosinophils (%) (Auto) 1 0-10 % Basophils (%) (Auto) 0 0-10 % Neutrophils # (Auto) 5.0 1.8-7.8 X 10^3 Lymphocytes # (Auto) 2.3 1.0-4.0 X 10^3 Monocytes # (Auto) 0.5 0.0-1.0 X 10^3 Eosinophils # (Auto) 0.1 0.0-0.3 10^3/uL Basophils # (Auto) 0.0 0.0-0.1 10^3/uL Sodium Level 145 135-145 MMOL/L Potassium Level 4.4 3.6-5.0 MMOL/L Chloride Level 111 H 98-107 MMOL/L Carbon Dioxide Level 27 21-32 MMOL/L Anion Gap 7 5-14 MMOL/L Blood Urea Nitrogen 10 7-18 MG/DL Creatinine 0.84 0.60-1.30 MG/DL Estimat Glomerular Filtration Rate > 60 BUN/Creatinine Ratio 12 Glucose Level 83 70-105 MG/DL Calcium Level 9.5 8.5-10.1 MG/DL My Orders Orders - LORI RODRIGUEZ APRN Cbc With Automated Diff (07/23/19 14:10) Basic Metabolic Panel (07/23/19 14:10) Ct Head/Cervical Spine Wo (07/23/19 14:10) Ct Thoracic Spine Wo (07/23/19 14:10) Vital Signs/I&O 07/23/19 14:06 Temp 36.2 Pulse 72 Resp 16 B/P (MAP) 114/85 (95) Pulse Ox 99 O2 Delivery Room Air Departure Impression Primary Impression: Seizure disorder Additional Impression: Strain of thoracic back region Disposition: 01 HOME, SELF-CARE Condition: Stable Departure-Patient Inst. Decision time for Depature: 14:52 Referrals: CHAUNCEY MCDOWELL MD (PCP/Family) Primary Care Physician Patient Instructions: Upper Back Pain (DC) Add. Discharge Instructions: 1. Follow-up with your doctor next week LORI RODRIGUEZ APRN Jul 23, 2019 14:17
[2019-07-23 14:27] LABS: BASOPHILS % (AUTO) 0 % (0-10); EOSINOPHILS # (AUTO) 0.1 10^3/uL (0.0-0.3); EOSINOPHILS % (AUTO) 1 % (0-10); HEMATOCRIT 38 % (35-52); HEMOGLOBIN 12.3 G/DL (11.5-16.0); LYMPHOCYTES # (AUTO) 2.3 X 10^3 (1.0-4.0); LYMPHOCYTES % (AUTO) 29 % (12-44); MEAN CORPUSCULAR HEMOGLOBIN 29 PG (25-34); MEAN CORPUSCULAR HGB CONC 33 G/DL (32-36); MEAN CORPUSCULAR VOLUME 87 FL (80-99); MEAN PLATELET VOLUME 10.6 FL (7.4-10.4); MONOCYTES # (AUTO) 0.5 X 10^3 (0.0-1.0); MONOCYTES % (AUTO) 6 % (0-12); NEUTROPHILS % (AUTO) 63 % (42-75); PLATELET COUNT 231 10^3/uL (130-400); WHITE BLOOD COUNT 7.9 10^3/uL (4.3-11.0)
[2019-07-23 14:48] LABS: BUN/CREATININE RATIO 12; CALCIUM 9.5 MG/DL (8.5-10.1); CARBON DIOXIDE 27 MMOL/L (21-32); CHLORIDE 111 MMOL/L (98-107); CREATININE SERUM 0.84 MG/DL (0.60-1.30); GFR ESTIMATED > 60; GLUCOSE 83 MG/DL (70-105); POTASSIUM 4.4 MMOL/L (3.6-5.0); SODIUM 145 MMOL/L (135-145)
--- NOTE | 2019-07-23 14:49 | Diagnostic Imaging Report ---
PROCEDURE: CT head and CT cervical spine without contrast. TECHNIQUE: Multiple contiguous axial images were obtained through the brain and cervical spine without the use of intravenous contrast. Sagittal and coronal reformations through the cervical spine were then performed. Auto Exposure Controls were utilized during the CT exam to meet ALARA standards for radiation dose reduction. INDICATION: Seizure and posterior head and neck pain. COMPARISON: Correlation is made with prior CT from 05/25/2019. FINDINGS: CT head: The ventricles and sulci are within normal limits. No sulcal effacement or midline shift is identified. No acute intra-axial or extra-axial hemorrhage is detected. Cisterns are patent. Visualized paranasal sinuses are clear. IMPRESSION: No acute intracranial process is detected. CT cervical spine: Alignment of the cervical spine is normal. The prevertebral tissues are normal. No fracture or subluxation is seen. The odontoid is intact. IMPRESSION: No acute bony abnormality is detected. Dictated by: Dictated on workstation # [id number]
--- NOTE | 2019-07-23 14:49 | Diagnostic Imaging Report ---
PROCEDURE: CT thoracic spine without contrast. TECHNIQUE: Multiple axial computerized tomography images were obtained from the base of the thoracic spine to the vertex without intravenous contrast. Auto Exposure Controls were utilized during the CT exam to meet ALARA standards for radiation dose reduction. INDICATION: Seizure and upper back pain. FINDINGS: There is very slight right convexity thoracic scoliotic curvature. There appears to be normal kyphotic curvature. Vertebral body heights are maintained. No acute compression fracture is seen. Posterior elements appear unremarkable. Paraspinous tissues are unremarkable. There is some lower thoracic degenerative disc disease with slightly prominent Schmorl's nodes involving superior endplates at T8 and T11. IMPRESSION: No acute bony abnormality is detected. Dictated by: Dictated on workstation # [id number]
[2019-07-23 15:07] VITALS: BP 114/85
== END 2019-07-23 15:07 | disposition home or self-care (01) ==
LOC: EDUNIT# 14:04 → ER 14:05
DX: S29.012A Strain of muscle and tendon of back wall of thorax, initial encounter (principal); G40.909 Epilepsy, unspecified, not intractable, without status epilepticus; I10 Essential (primary) hypertension; F41.9 Anxiety disorder, unspecified; Z85.3 Personal history of malignant neoplasm of breast; Z87.891 Personal history of nicotine dependence; Z77.22 Contact with and (suspected) exposure to environmental tobacco smoke (acute) (chronic); Z90.710 Acquired absence of both cervix and uterus; Z90.89 Acquired absence of other organs; Z88.8 Allergy status to other drugs, medicaments and biological substances; Z87.39 Personal history of other diseases of the musculoskeletal system and connective tissue
CPT/HCPCS: 36415; 70450; 72125; 72128; 80048; 85025

== ENCOUNTER 2019-07-27 19:10 | Emergency (ER) | payer MEDICAID ==
[2019-07-28] MEDS ORDERED: CARB200T6 (14:32)
[2019-07-28] MEDS ORDERED: PROM25TA14 (14:32)
[2019-07-28] MEDS ORDERED: BUDE10.2 (14:32)
== END 2019-07-27 19:15 | disposition left against medical advice (07) ==
LOC: EDUNIT# 19:10 → ER 19:11
DX: R29.818 Other symptoms and signs involving the nervous system (principal)

== ENCOUNTER 2019-07-28 14:08 | Emergency (ER) | payer MEDICAID ==
[~2019-07-28] VITALS: Ht 94.2 cm; Wt 160.0 kg
[2019-07-28] MEDS ORDERED: PROM25TA14 (14:32)
[2019-07-28] MEDS ORDERED: CARB200T6 (14:32)
[2019-07-28] MEDS ORDERED: BUDE10.2 (14:32)
[2019-07-28] MEDS ORDERED: IBUPROFEN 800 MG (MOTRIN) TAB PO STA (14:39)
--- NOTE | 2019-07-28 14:58 | ED Upper Extremity ---
General Chief Complaint: Upper Extremity Stated Complaint: L SHOULDER PAIN Nursing Triage Note: pt presents to ed with complaints of l shoulder pain after having her left shoulder pulled on. Nursing Sepsis Screen: No Definite Risk Source: patient Exam Limitations: no limitations History of Present Illness Date Seen by Provider: Jul 28, 2019 Time Seen by Provider: 14:28 Initial Comments Here with left shoulder pain after seizure yesterday. Apparently the EMS personnel were trying to put a blood pressure cuff on her and she was unable to verbalize that she can't have blood pressures on her arms due to double mastectomy due to the seizures and she pulled away and they attended apparently pulled back. She states that she felt a pop at the time and has had pain to that area since. Denies other injury or concerns. Pain/Injury Location: left shoulder Method of Injury: other (got pulled) Modifying Factors: Improves With Immobilization; Worse With Jarring, Worse With Movement Allergies and Home Medications Allergies Coded Allergies: carbamazepine (Verified Allergy, Unknown, 10/19/18) divalproex sodium (Verified Allergy, Unknown, 10/19/18) ondansetron (Verified Allergy, Unknown, 10/19/18) oxcarbazepine (Verified Allergy, Unknown, 10/19/18) prochlorperazine (Verified Allergy, Unknown, 10/19/18) topiramate (Verified Allergy, Unknown, 10/19/18) Home Medications Amoxicillin 500 Mg Capsule, 500 MG PO TID Prescribed by: LORI RODRIGUEZ on 04/11/19 1138 Cyclobenzaprine HCl 10 Mg Tablet, 10 MG PO Q8H PRN for SPASMS Prescribed by: SIRI MORROW on 05/25/19 220 Sulfamethoxazole/Trimethoprim 1 Each Tablet, 1 EACH PO BID Prescribed by: SIRI MORROW on 05/25/19 220 Patient Home Medication List Home Medication List Reviewed: Yes Review of Systems Constitutional: see HPI; No chills, No fever Respiratory: no symptoms reported Cardiovascular: no symptoms reported Musculoskeletal: see HPI, joint pain, muscle pain Past Bwzbtge-Tivewj-Asxath Hx Past Med/Social Hx: Reviewed Nursing Past Med/Soc Hx Patient Social History Alcohol Use: Denies Use Recreational Drug Use: Yes Drug of Choice: CANNIBUS Type Used: Cigarettes, Electronic/Vapor Former Smoker, Quit: Nov 29, 2018 2nd Hand Smoke Exposure: Yes Recent Foreign Travel: No Contact w/Someone Who Travel: No Recent Infectious Disease Expo: No Recent Hopitalizations: No Physical Abuse: No Sexual Abuse: No Mistreated: No Fear: No Immunizations Up To Date Tetanus Booster (TDap): Unknown PED Vaccines UTD: Yes Seasonal Allergies Seasonal Allergies: No Past Medical History Surgeries: Yes (vagal nerve stimulator, mastectomy) Breast, Section, 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, Oophorectomy, Tonsillectomy Respiratory: No Cardiac: Yes Hypertension 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 0oz. 99.573634eo; 180.00 BMI Method:Stated General Appearance: WD/WN, no apparent distress Cardiovascular: regular rate, rhythm, no murmur Respiratory: lungs clear, normal breath sounds Shoulder: limited ROM, soft tissue tenderness (pain to the superior and anterior aspect of the shoulder. Shoulder appears to be within the joint. Decreased range of motion secondary to pain.) Progress/Results/Core Measures Results/Orders My Orders Orders - SOMMER ORONA MD Shoulder, Left, 3 Views (07/28/19 14:39) Ibuprofen Tablet (Motrin Tablet) (07/28/19 14:39) Vital Signs/I&O 07/28/19 14:19 Temp 37.0 Pulse 90 Resp 16 B/P (MAP) 154/92 (112) Pulse Ox 98 Blood Pressure Mean: 112 Progress Progress Note : Progress Note Seen and evaluated. Ibuprofen 800 mg by mouth. X-ray left shoulder. Monitor patient. 1527: No acute fracture. Sling placed. Discharged home with return precautions. Patient verbalize understanding instructions and agreement with plan. Diagnostic Imaging Diagonstic Imaging: Xray Plain Films/CT/US/NM/MRI: other Comments [facility], [place] NAME: BECK HEARD REC#: [id number] PT STATUS: REG ER : 1990 PHYSICIAN: SOMMER ORONA MD ADMIT DATE: 07/28/19/ER Draft Date of Exam:07/28/19 SHOULDER, LEFT, 3 VIEWS PATIENT HISTORY: Left shoulder pain after injury. TECHNIQUE: Three views of the left shoulder. COMPARISON: None. FINDINGS: No acute fracture or dislocation is seen in the left shoulder. Alignment appears normal. Joint spaces are preserved. There is a left-sided neurostimulator. IMPRESSION: No acute osseous abnormality seen in the left shoulder. Dictated on workstation # [id number] Dict: 07/28/19 1529 Trans: 07/28/19 1534 [id number] Interpreted by: JOVANA PETTY MD Electronically signed by: Departure Impression Primary Impression: Left shoulder strain Qualified Codes: S46.912A - Strain of unspecified muscle, fascia and tendon at shoulder and upper arm level, left arm, initial encounter Disposition: 01 HOME, SELF-CARE Condition: Stable Departure-Patient Inst. Decision time for Depature: 15:47 Referrals: CHAUNCEY MCDOWELL MD (PCP/Family) Primary Care Physician Patient Instructions: How to Use a Shoulder Sling, Shoulder Sprain (DC) Add. Discharge Instructions: All discharge instructions reviewed with patient and/or family. Voiced understanding. You may take ibuprofen 600 mg every 8 hours as needed for pain. You may take Tylenol/acetaminophen 1000 mg every 8 hours as needed for pain. Use sling over the next several days as needed for comfort. Follow-up with your DrАнна in a few days for recheck and further evaluation. Return for worse pain, weakness, numbness of the hand or arm or other concerns as needed. You may use ice packs to the area of concern 20 minutes per hour as needed to reduce swelling and pain. You may use [id number] Icy Hot with lidocaine patches, Aspercreme with lidocaine patches, Salonpas with lidocaine patches or similar items to area of concern per package directions. Copy Copies To 1: WENCESLAO CRUZ TIMOTHY D MD Jul 28, 2019 14:58
--- NOTE | 2019-07-28 15:37 | Diagnostic Imaging Report ---
PATIENT HISTORY: Left shoulder pain after injury. TECHNIQUE: Three views of the left shoulder. COMPARISON: None. FINDINGS: No acute fracture or dislocation is seen in the left shoulder. Alignment appears normal. Joint spaces are preserved. There is a left-sided neurostimulator. IMPRESSION: No acute osseous abnormality seen in the left shoulder. Dictated by: Dictated on workstation # [id number]
[2019-07-28 15:50] VITALS: BP 132/69
== END 2019-07-28 15:50 | disposition home or self-care (01) ==
LOC: ER 14:08 → EDUNIT# 14:08 → ER 15:50
DX: S46.912A Strain of unspecified muscle, fascia and tendon at shoulder and upper arm level, left arm, initial encounter (principal); I10 Essential (primary) hypertension; G40.909 Epilepsy, unspecified, not intractable, without status epilepticus; F41.9 Anxiety disorder, unspecified; Z85.3 Personal history of malignant neoplasm of breast; Z90.710 Acquired absence of both cervix and uterus; Z90.89 Acquired absence of other organs; Z88.8 Allergy status to other drugs, medicaments and biological substances; Z87.891 Personal history of nicotine dependence; Z77.22 Contact with and (suspected) exposure to environmental tobacco smoke (acute) (chronic); X50.0XXA Overexertion from strenuous movement or load, initial encounter
CPT/HCPCS: 73030

== ENCOUNTER 2019-10-29 16:00 | Emergency (ER) | payer MEDICAID ==
[~2019-10-29] VITALS: Ht 157.4 cm; Wt 90.0 kg
[~2019-10-29 16:00] MED LIST changes: +BUDE10.2; +CARB200T6; +PROM25TA14
[2019-10-29] MEDS ORDERED: diphenhydrAMINE 50 MG/ML INJ (BENADRYL) IVP ONE (17:00)
[2019-10-29] MEDS ORDERED: PROMETHAZINE INJ 25 MG/ML (PHENERGAN) AMP IVP ONE (17:00)
--- NOTE | 2019-10-29 17:02 | ED 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 Problem ---
General Chief Complaint: 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 Problems Stated Complaint: SEIZURE Nursing Triage Note: Pt to ED via EMS. EMS reports pt had a seizure in the bathroom at work. Pt was found by co-workers. At the time co-workers found pt, seizure lasted approximately 30-45 seconds. Pt reports falling and believes to hit head. Pt denied c-collar. Pt reports REYNOSO, feeling tired, and sick with sinus symptoms. Nursing Sepsis Screen: No Definite Risk Source: patient, EMS Exam Limitations: other (postictal) History of Present Illness Date Seen by Provider: Oct 29, 2019 Time Seen by Provider: 16:59 Initial Comments This 28-year-old white female presents after a seizure that occurred at work in the bathroom. Patient struck her head when she had her seizure which lasted 40 seconds. The patient denies associated fever, chills, lateralizing or localizing neurologic complaints, nausea, vomiting, diarrhea, dysuria, flank pain, or c hange in her seizure medicines. Allergies and Home Medications Allergies Coded Allergies: carbamazepine (Verified Allergy, Unknown, 10/19/18) divalproex sodium (Verified Allergy, Unknown, 10/19/18) ondansetron (Verified Allergy, Unknown, 10/19/18) oxcarbazepine (Verified Allergy, Unknown, 10/19/18) prochlorperazine (Verified Allergy, Unknown, 10/19/18) topiramate (Verified Allergy, Unknown, 10/19/18) Home Medications Amoxicillin 500 Mg Capsule, 500 MG PO TID Prescribed by: LORI RODRIGUEZ on 04/11/19 1138 Cyclobenzaprine HCl 10 Mg Tablet, 10 MG PO Q8H PRN for SPASMS Prescribed by: SIRI MORROW on 05/25/192204 Sulfamethoxazole/Trimethoprim 1 Each Tablet, 1 EACH PO BID Prescribed by: SIRI MORROW on 05/25/19 220 Patient Home Medication List Home Medication List Reviewed: Yes Review of Systems Review of Systems Constitutional: No chills, No fever Eyes: No Symptoms Reported Ears, Nose, Mouth, Throat: no symptoms reported Respiratory: no symptoms reported Cardiovascular: no symptoms reported Gastrointestinal: no symptoms reported; No abdominal pain, No diarrhea, No nausea, No vomiting Genitourinary: no symptoms reported Musculoskeletal: no symptoms reported Psychiatric/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: Headache, Tonic Clonic Seizures Endocrine: No Symptoms Reported Hematologic/Lymphatic: No Symptoms Reported Past Klsvyri-Lptrii-Crfehd Hx Past Med/Social Hx: Reviewed Nursing Past Med/Soc Hx Patient Social History Alcohol Use: Denies Use Recreational Drug Use: Yes Drug of Choice: CANNIBUS Smoking Status: Current Everyday Smoker Type Used: Cigarettes, Electronic/Vapor Former Smoker, Quit: Nov 29, 2018 2nd Hand Smoke Exposure: Yes Recent Foreign Travel: No Contact w/Someone Who Travel: No Recent Infectious Disease Expo: No Recent Hopitalizations: No Immunizations Up To Date Tetanus Booster (TDap): Unknown PED Vaccines UTD: Yes Seasonal Allergies Seasonal Allergies: No Past Medical History Surgeries: Yes (vagal nerve stimulator, double mastectomy) Breast, Section, 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, Oophorectomy, Tonsillectomy Respiratory: No Cardiac: Yes Hypertension 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 0oz. 99.968246rb; 36.00 BMI Method:Stated General Appearance: WD/WN, mild distress HEENT: normal ENT inspection Neck: other Respiratory: chest non-tender, lungs clear (C collar in place), normal breath sounds Cardiovascular: regular rate, rhythm Gastrointestinal: normal bowel sounds, non tender, soft Back: normal inspection, other Extremities: normal range of motion Neurologic/Psychiatric: no motor/sensory deficits, alert, normal mood/affect Motor/Sensory: no motor deficit, no sensory deficit Skin: normal color, warm/dry Progress/Results/Core Measures Results/Orders Lab Results Laboratory Tests Test 10/29/19 16:15 Range/Units Glucometer 90 70-110 MG/DL My Orders Orders - GERARDO LARA MD Ct Thoracic Spine Wo (10/29/19 16:54) Promethazine Injection (Phenergan Injec (10/29/19 17:00) Diphenhydramine Injection (Benadryl Inje (10/29/19 17:00) Lorazepam Injection (Ativan Injection) (10/29/19 17:15) Ct Head/Cervical Spine Wo (10/29/19 16:54) Medications Given in ED Current Medications Medications Dose Ordered Sig/Shlomo Route Start Time Stop Time Status Last Admin Dose Admin Diphenhydramine HCl 25 mg ONCE ONCE IVP 10/29/19 17:00 10/29/19 17:01 DC 10/29/19 17:07 25 MG Lorazepam 1 mg ONCE ONCE IVP 10/29/19 17:15 10/29/19 17:16 DC 10/29/19 17:39 1 MG Promethazine HCl 25 mg ONCE ONCE IVP 10/29/19 17:00 10/29/19 17:01 DC 10/29/19 17:09 25 MG Vital Signs/I&O 10/29/19 16:00 Temp 36.6 Pulse 77 Resp 23 B/P (MAP) 118/75 (89) Pulse Ox 95 O2 Delivery Room Air Blood Pressure Mean: 89 FSBG Bedside Testing Finger Stick Blood Glucose: 90 Progress Progress Note : Time: 18:[address] of the head cervical and thoracic spine were unremarkable. Patient was symptomatically improved with Phenergan and Benadryl for her nausea. Patient was given a milligram of Ativan as neuro protection following her seizure. Arrangements were made for the patient to be followed home with her donna. I asked that she follow-up with her physician Dr. high Mcdowell tomorrow. I invited her to return to emergency department. Further problems. I recommended that she resume her seizure medications as prescribed. Departure Impression Primary Impression: Seizure Additional Impression: Closed head injury Qualified Codes: S09.90XA - Unspecified injury of head, initial encounter Disposition: 01 HOME, SELF-CARE Condition: Improved Departure-Patient Inst. Decision time for Depature: 18:17 Referrals: CHAUNCEY MCDOWELL MD (PCP/Family) Primary Care Physician Patient Instructions: Seizures, Adult (DC) Add. Discharge Instructions: Phenergan and Benadryl for nausea tonight. Close follow-up with Dr. Mcdowell tomorrow. Resume your seizure medications as prescribed. Come back if any problems or questions. Valium for residual dizziness. Phenergan and Benadryl for nausea. All discharge instructions reviewed with patient and/or family. Voiced understanding. Scripts Diphenhydramine HCl (Benadryl) 25 Mg Capsule 25 MG PO q6 PRN for DIZZINESS, #14 CAP Prov: GERARDO LARA MD 10/29/19 Promethazine HCl (Promethazine Tablet) 25 Mg Tablet 25 MG PO Q6H for n, #14 TAB Prov: GERARDO LARA MD 10/29/19 Diazepam (Valium) 5 Mg Tablet 5 MG PO Q6H PRN for DIZZINESS, #14 TAB Prov: GERARDO LARA MD 10/29/19 GERARDO LARA MD Oct 29, 2019 17:02
[2019-10-29] MEDS ORDERED: LORazepam INJ 2 MG/ML (ATIVAN) VIAL IVP ONE (17:15)
--- NOTE | 2019-10-29 18:03 | Diagnostic Imaging Report ---
PROCEDURE: CT thoracic spine without contrast. TECHNIQUE: Multiple axial computerized tomography images were obtained from the base of the thoracic spine to the vertex without intravenous contrast. Auto Exposure Controls were utilized during the CT exam to meet ALARA standards for radiation dose reduction. INDICATION: Seizure, mid back pain. COMPARISON: 07/23/2019 FINDINGS: Alignment is normal. There is no subluxation or fracture. Stable Schmorl's nodes are seen at T8 and T11. There is no osseous lesion. Posterior elements are intact. There is no paraspinous mass. Central canal is normal. IMPRESSION: No traumatic malalignment or fracture. Dictated by: Dictated on workstation # [id number]
--- NOTE | 2019-10-29 18:04 | Diagnostic Imaging Report ---
PROCEDURE: CT head and CT cervical spine without contrast. TECHNIQUE: Multiple contiguous axial images were obtained through the brain and cervical spine without the use of intravenous contrast. Sagittal and coronal reformations through the cervical spine were then performed. Auto Exposure Controls were utilized during the CT exam to meet ALARA standards for radiation dose reduction. INDICATION: Seizure, head and neck injury. COMPARISON: 07/23/2019. CT HEAD: Ventricles are normal in size, shape, and position. There is no midline shift or mass effect. There is no hemorrhage or evidence of acute ischemia. No extra-axial fluid collection is identified. There is no mass. Bony calvarium and paranasal sinuses are unremarkable. Mastoids are clear. IMPRESSION: No acute intracranial abnormalities. CT CERVICAL SPINE: Alignment is normal. There is no subluxation, fracture, or significant degeneration. There is no paraspinous mass. The central canal is normal. IMPRESSION: No traumatic malalignment or fracture. Dictated by: Dictated on workstation # [id number]
--- NOTE | 2019-10-29 18:15 | NUR ---
c collar removed per Dr. Carnes at this time
[2019-10-29] MEDS ORDERED: DIPH25CA79 PO (18:39)
[2019-10-29] MEDS ORDERED: PROM25TA14 PO (18:39)
[2019-10-29] MEDS ORDERED: DIAZ5TAB PO (18:39)
[2019-10-29 19:05] VITALS: BP 118/75
== END 2019-10-29 19:05 | disposition home or self-care (01) ==
LOC: EDUNIT# 16:00 → ER 16:01
DX: S09.90XA Unspecified injury of head, initial encounter (principal); G40.909 Epilepsy, unspecified, not intractable, without status epilepticus; I10 Essential (primary) hypertension; F41.9 Anxiety disorder, unspecified; F17.210 Nicotine dependence, cigarettes, uncomplicated; F17.290 Nicotine dependence, other tobacco product, uncomplicated; Z85.3 Personal history of malignant neoplasm of breast; Z88.8 Allergy status to other drugs, medicaments and biological substances; Z90.710 Acquired absence of both cervix and uterus; Z90.89 Acquired absence of other organs; W18.39XA Other fall on same level, initial encounter; Y92.002 Bathroom of unspecified non-institutional (private) residence as the place of occurrence of the external cause
CPT/HCPCS: 70450; 72125; 72128; 82962; 96374; 96375

== ENCOUNTER 2019-11-05 13:16 | Emergency (ER) | payer MEDICAID ==
[~2019-11-05] VITALS: Ht 157.2 cm; Wt 91.8 kg
[~2019-11-05 13:16] MED LIST changes: +DIAZ5TAB PO; +DIPH25CA79 PO
[2019-11-05] MEDS ORDERED: PRAZ1CAP2 (13:40)
[2019-11-05] MEDS ORDERED: NS IV 1000 ML 1,000 ML IV SCH (13:45)
[2019-11-05] MEDS ORDERED: diphenhydrAMINE 50 MG/ML INJ (BENADRYL) IVP ONE (13:45)
[2019-11-05 13:55] LABS: BASOPHILS % (AUTO) 1 % (0-10); EOSINOPHILS # (AUTO) 0.1 10^3/uL (0.0-0.3); EOSINOPHILS % (AUTO) 2 % (0-10); HEMATOCRIT 39 % (35-52); HEMOGLOBIN 13.1 G/DL (11.5-16.0); LYMPHOCYTES # (AUTO) 2.6 X 10^3 (1.0-4.0); LYMPHOCYTES % (AUTO) 29 % (12-44); MEAN CORPUSCULAR HEMOGLOBIN 30 PG (25-34); MEAN CORPUSCULAR HGB CONC 34 G/DL (32-36); MEAN CORPUSCULAR VOLUME 87 FL (80-99); MEAN PLATELET VOLUME 11.5 FL (7.4-10.4); MONOCYTES # (AUTO) 0.6 X 10^3 (0.0-1.0); MONOCYTES % (AUTO) 7 % (0-12); NEUTROPHILS # (AUTO) 5.5 X 10^3 (1.8-7.8); NEUTROPHILS % (AUTO) 62 % (42-75); PLATELET COUNT 238 10^3/uL (130-400); RED CELL DISTRIBUTION WIDTH 12.7 % (10.0-14.5); WHITE BLOOD COUNT 8.8 10^3/uL (4.3-11.0)
[2019-11-05 14:18] LABS: ALANINE AMINOTRANSFERASE 34 U/L (0-55); ALBUMIN 4.5 GM/DL (3.2-4.5); ALKALINE PHOSPHATASE 94 U/L (40-136); AMYLASE 40 U/L (25-125); BILIRUBIN,TOTAL 0.3 MG/DL (0.1-1.0); BUN/CREATININE RATIO 18; CALCIUM 9.6 MG/DL (8.5-10.1); CARBON DIOXIDE 20 MMOL/L (21-32); CHLORIDE 105 MMOL/L (98-107); CREATININE SERUM 0.79 MG/DL (0.60-1.30); GFR ESTIMATED > 60; GLUCOSE 91 MG/DL (70-105); LIPASE 11 U/L (8-78); POTASSIUM 3.7 MMOL/L (3.6-5.0); SODIUM 139 MMOL/L (135-145); TOTAL PROTEIN 7.5 GM/DL (6.4-8.2)
--- NOTE | 2019-11-05 14:18 | NUR ---
PT STATES SHE IS HAVING MUSCLE SPASMS AND PAIN AT THIS TIME, PROVIDER NOTIFIED OF THIS
--- NOTE | 2019-11-05 14:26 | ED 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 Problem ---
General Chief Complaint: 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 Problems Stated Complaint: DIZZY Nursing Triage Note: AMB TO TRIAGE TOOK NEW MEDS LAST NIGHT FOR PSYCH. AFTER AROUND MIDNIGHT STARTING NOT FEELING RIGHT WAS FEELING SHAKEY FEELING NUMB IN R ARM. ONSET 1 HOUR AGO. NOT FEELING RIGHT. Nursing Sepsis Screen: No Definite Risk Source: patient Exam Limitations: no limitations History of Present Illness Date Seen by Provider: Nov 05, 2019 Time Seen by Provider: 13:33 Initial Comments 28-year-old female who presents to the emergency room with complaints of feeling shaky and does not starting herself that started last night around midnight after taking her first doses of Minipress and radial are that she was prescribed yesterday. She is alert and oriented on arrival to the emergency room and reports muscle aching and cramping. Associated Symptoms: muscle spasms Allergies and Home Medications Allergies Coded Allergies: carbamazepine (Verified Allergy, Unknown, 10/19/18) divalproex sodium (Verified Allergy, Unknown, 10/19/18) ondansetron (Verified Allergy, Unknown, 10/19/18) oxcarbazepine (Verified Allergy, Unknown, 10/19/18) prochlorperazine (Verified Allergy, Unknown, 10/19/18) topiramate (Verified Allergy, Unknown, 10/19/18) Home Medications Amoxicillin 500 Mg Capsule, 500 MG PO TID Prescribed by: LORI RODRIGUEZ on 04/11/19 1138 Cyclobenzaprine HCl 10 Mg Tablet, 10 MG PO Q8H PRN for SPASMS Prescribed by: SIRI MORROW on 05/25/192204 Diazepam 5 Mg Tablet, 5 MG PO Q6H PRN for DIZZINESS Prescribed by: GERARDO LARA MD on 10/29/191838 Diphenhydramine HCl 25 Mg Capsule, 25 MG PO q6 PRN for DIZZINESS Prescribed by: GERARDO LARA MD on 10/29/191838 Promethazine HCl 25 Mg Tablet, 25 MG PO Q6H Prescribed by: GERARDO LARA MD on 10/29/191838 Sulfamethoxazole/Trimethoprim 1 Each Tablet, 1 EACH PO BID Prescribed by: SIRI MORROW on 05/25/192203 Patient Home Medication List Home Medication List Reviewed: Yes Review of Systems Review of Systems Constitutional: see HPI; No chills, No fever Musculoskeletal: see HPI, muscle cramps, muscle twitching All Other Systems Reviewed Negative Unless Noted: Yes Past Ybxmrah-Vokoxb-Ywcfwk Hx Past Med/Social Hx: Reviewed Nursing Past Med/Soc Hx Patient Social History Alcohol Use: Denies Use Recreational Drug Use: No Drug of Choice: CANNIBUS Smoking Status: Current Everyday Smoker Type Used: Cigarettes, Electronic/Vapor Former Smoker, Quit: Nov 29, 2018 2nd Hand Smoke Exposure: Yes Recent Foreign Travel: No Contact w/Someone Who Travel: No Recent Infectious Disease Expo: No Recent Hopitalizations: No Immunizations Up To Date Tetanus Booster (TDap): Unknown PED Vaccines UTD: Yes Seasonal Allergies Seasonal Allergies: No Past Medical History Surgeries: Yes (vagal nerve stimulator, double mastectomy) Breast, Section, 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, Oophorectomy, Tonsillectomy Respiratory: No Cardiac: Yes Hypertension 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: Yes Seizure Disorder [employer] History: 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 Genitourinary: No Gastrointestinal: No Musculoskeletal: Yes Chronic Back Pain Endocrine: No HEENT: No Cancer: Yes Breast What Type of Treatment Did You: Surgical Intervention Psychosocial: Yes Anxiety Integumentary: No Blood Disorders: No Family Medical History Reviewed Nursing Family Hx No Pertinent Family Hx Physical Exam Vital Signs Vital Signs - First Documented 11/05/19 11/05/19 13:25 15:44 Temp 36.6 Pulse 98 Resp 20 B/P (MAP) 159/122 (134) Pulse Ox 99 Capillary Refill : Less Than 3 Seconds Height, Weight, BMI Height: 5'2.00" Weight: 220lbs. 0oz. 99.812136cn; 37.00 BMI Method:Stated General Appearance: WD/WN, no apparent distress Respiratory: chest non-tender, lungs clear, normal breath sounds, no respiratory distress, no accessory muscle use, respiratory distress Cardiovascular: normal peripheral pulses, regular rate, rhythm, no edema, no gallop, no JVD, no murmur Extremities: normal range of motion, non-tender, normal inspection, no pedal edema, no calf tenderness, normal capillary refill, pelvis stable Neurologic/Psychiatric: alert, normal mood/affect, oriented x 3 Crainal Nerves: normal hearing, normal speech, PERRL Coordination/Gait: normal finger to nose, normal gait Motor/Sensory: no motor deficit, no sensory deficit Skin: normal color, warm/dry Progress/Results/Core Measures Results/Orders Lab Results Laboratory Tests Test 11/05/19 13:43 11/05/19 14:18 Range/Units White Blood Count 8.8 4.3-11.0 10^3/uL Red Blood Count 4.43 4.35-5.85 10^6/uL Hemoglobin 13.1 11.5-16.0 G/DL Hematocrit 39 35-52 % Mean Corpuscular Volume 87 80-99 FL Mean Corpuscular Hemoglobin 30 25-34 PG Mean Corpuscular Hemoglobin Concent 34 32-36 G/DL Red Cell Distribution Width 12.7 10.0-14.5 % Platelet Count 238 130-400 10^3/uL Mean Platelet Volume 11.5 H 7.4-10.4 FL Neutrophils (%) (Auto) 62 42-75 % Lymphocytes (%) (Auto) 29 12-44 % Monocytes (%) (Auto) 7 0-12 % Eosinophils (%) (Auto) 2 0-10 % Basophils (%) (Auto) 1 0-10 % Neutrophils # (Auto) 5.5 1.8-7.8 X 10^3 Lymphocytes # (Auto) 2.6 1.0-4.0 X 10^3 Monocytes # (Auto) 0.6 0.0-1.0 X 10^3 Eosinophils # (Auto) 0.1 0.0-0.3 10^3/uL Basophils # (Auto) 0.0 0.0-0.1 10^3/uL Sodium Level 139 135-145 MMOL/L Potassium Level 3.7 3.6-5.0 MMOL/L Chloride Level 105 98-107 MMOL/L Carbon Dioxide Level 20 L 21-32 MMOL/L Anion Gap 14 5-14 MMOL/L Blood Urea Nitrogen 14 7-18 MG/DL Creatinine 0.79 0.60-1.30 MG/DL Estimat Glomerular Filtration Rate > 60 BUN/Creatinine Ratio 18 Glucose Level 91 70-105 MG/DL Calcium Level 9.6 8.5-10.1 MG/DL Corrected Calcium 9.2 8.5-10.1 MG/DL Total Bilirubin 0.3 0.1-1.0 MG/DL Aspartate Amino Transf (AST/SGOT) 23 5-34 U/L Alanine Aminotransferase (ALT/SGPT) 34 0-55 U/L Alkaline Phosphatase 94 40-136 U/L Total Protein 7.5 6.4-8.2 GM/DL Albumin 4.5 3.2-4.5 GM/DL Amylase Level 40 25-125 U/L Lipase 11 8-78 U/L Urine Color YELLOW Urine Clarity CLEAR Urine pH 6.5 5-9 Urine Specific [place] 1.015 L 1.016-1.022 Urine Protein NEGATIVE NEGATIVE Urine Glucose (UA) NEGATIVE NEGATIVE Urine Ketones NEGATIVE NEGATIVE Urine Nitrite NEGATIVE NEGATIVE Urine Bilirubin NEGATIVE NEGATIVE Urine Urobilinogen 0.2 < = 1.0 MG/DL Urine Leukocyte Esterase NEGATIVE NEGATIVE Urine RBC (Auto) NEGATIVE NEGATIVE Urine RBC NONE /HPF Urine WBC NONE /HPF Urine Squamous Epithelial Cells 2-5 /HPF Urine Crystals PRESENT H /LPF Urine Amorphous Sediment FEW GRISEL URATES H /LPF Urine Bacteria NEGATIVE /HPF Urine Casts NONE /LPF Urine Mucus NEGATIVE /LPF Urine Culture Indicated NO Urine Test NEGATIVE NEGATIVE Urine Opiates Screen NEGATIVE NEGATIVE Urine Oxycodone Screen NEGATIVE NEGATIVE Urine Methadone Screen NEGATIVE NEGATIVE Urine Propoxyphene Screen NEGATIVE NEGATIVE Urine Barbiturates Screen NEGATIVE NEGATIVE Ur Tricyclic Antidepressants Screen NEGATIVE NEGATIVE Urine Phencyclidine Screen NEGATIVE NEGATIVE Urine Amphetamines Screen NEGATIVE NEGATIVE Urine Methamphetamines Screen NEGATIVE NEGATIVE Urine Benzodiazepines Screen POSITIVE H NEGATIVE Urine Cocaine Screen NEGATIVE NEGATIVE Urine Cannabinoids Screen NEGATIVE NEGATIVE My Orders Orders - JOEL BISHOP Comprehensive Metabolic Panel (11/05/19 13:32) Lipase (11/05/19 13:32) Amylase (11/05/19 13:32) Ua Culture If Indicated (11/05/19 13:32) Ed Iv/Invasive Line Start (11/05/19 13:32) Cbc With Automated Diff (11/05/19 13:32) Hcg,Qualitative Urine (11/05/19 13:32) Drug Screen Stat (Urine) (11/05/19 13:32) Ns Iv 1000 Ml (Sodium Chloride 0.9%) (11/05/19 13:45) Diphenhydramine Injection (Benadryl Inje (11/05/19 13:45) Lorazepam Injection (Ativan Injection) (11/05/19 15:00) Ketorolac Injection (Toradol Injection) (11/05/19 15:00) Medications Given in ED Current Medications Medications Dose Ordered Sig/Shlomo Route Start Time Stop Time Status Last Admin Dose Admin Diphenhydramine HCl 25 mg ONCE ONCE IVP 11/05/19 13:45 11/05/19 13:46 DC 11/05/19 13:48 25 MG Ketorolac Tromethamine 30 mg ONCE ONCE IVP 11/05/19 15:00 11/05/19 15:01 DC 11/05/19 15:00 30 MG Lorazepam 1 mg ONCE ONCE IVP 11/05/19 15:00 11/05/19 15:01 DC 11/05/19 15:00 1 MG Vital Signs/I&O 11/05/19 11/05/19 13:25 15:44 Temp 36.6 Pulse 98 85 Resp 20 20 B/P (MAP) 159/122 (134) 140/70 (134) Pulse Ox 99 Blood Pressure Mean: 134 Progress Progress Note : Time: 15:13 Progress Note I have seen and evaluated the patient. I've informed her of her laboratory studies. She has stopped having the muscle shaking with Benadryl and Ativan. She reports just muscle soreness at this time. She agrees with plan of care, plans for discharge, return precautions were given. Departure Impression Primary Impression: Medication reaction Disposition: HOME, SELF-CARE Condition: Stable/Unchanged Departure-Patient Inst. Decision time for Depature: 15:06 Referrals: NO,LOCAL PHYSICIAN (PCP) Primary Care Physician HOWARD MATHEW (Family) Primary Care Physician Patient Instructions: Adverse Drug Reactions, Adult (DC) Add. Discharge Instructions: Stop the Vraylar and Minipress. Continue all other medications as previously prescribed. Call today to schedule an appointment with community health provider for reevaluation of medication use. Return back to the emergency room for worsening symptoms or concerns as needed. All discharge instructions reviewed with patient and/or family. Voiced understanding. Work/School Note: Work Release Form Date Seen in the Emergency Department: Nov 05, 2019 Return to Work: Nov 06, 2019 Restrictions: No Restrictions Copy Copies To 1: WENCESLAO CRUZ TRAVIS Nov 05, 2019 14:26
[2019-11-05 14:37] LABS: BILIRUBIN,URINE NEGATIVE (NEGATIVE); CLARITY,URINE CLEAR; COLOR,URINE YELLOW; GLUCOSE, URINE (UA) NEGATIVE (NEGATIVE); KETONES,URINE NEGATIVE (NEGATIVE); LEUKOCYTE ESTERASE ,URINE NEGATIVE (NEGATIVE); NITRITE,URINE NEGATIVE (NEGATIVE); PH,URINE 6.5 (5-9); PROTEIN,URINE NEGATIVE (NEGATIVE)
[2019-11-05 14:43] LABS: HCG,QUALITATIVE URINE NEGATIVE (NEGATIVE)
[2019-11-05 14:44] LABS: BACTERIA,URINE NEGATIVE /HPF
[2019-11-05 14:45] LABS: AMORPHOUS SEDIMENT,UR FEW AMOR URATES /LPF
[2019-11-05 14:50] LABS: AMPHETAMINE SCREEN, URINE NEGATIVE (NEGATIVE); BARBITURATE SCREEN URINE NEGATIVE (NEGATIVE); BENZODIAZEPINES SCREEN URINE POSITIVE (NEGATIVE); CANNABINOID SCREEN, URINE NEGATIVE (NEGATIVE); COCAINE SCREEN URINE NEGATIVE (NEGATIVE); METHADONE STAT NEGATIVE (NEGATIVE); METHAMPHETAMINE SCREEN URINE S NEGATIVE (NEGATIVE); OPIATE SCREEN URINE NEGATIVE (NEGATIVE); OXYCODONE STAT NEGATIVE (NEGATIVE); PROPOXYPHENE STAT NEGATIVE (NEGATIVE); TRICYCLIC ANTIDEPRESSANTS SCRE NEGATIVE (NEGATIVE)
[2019-11-05] MEDS ORDERED: KETOROLAC 30 MG/ML VIAL IVP ONE (15:00)
[2019-11-05] MEDS ORDERED: LORazepam INJ 2 MG/ML (ATIVAN) VIAL IVP ONE (15:00)
[2019-11-05 15:44] VITALS: BP 140/70
== END 2019-11-05 15:53 | disposition home or self-care (01) ==
LOC: EDUNIT# 13:16 → ER 13:17
DX: R42 Dizziness and giddiness (principal); T50.995A Adverse effect of other drugs, medicaments and biological substances, initial encounter; I10 Essential (primary) hypertension; G40.909 Epilepsy, unspecified, not intractable, without status epilepticus; F41.9 Anxiety disorder, unspecified; F17.210 Nicotine dependence, cigarettes, uncomplicated; F17.290 Nicotine dependence, other tobacco product, uncomplicated; Z85.3 Personal history of malignant neoplasm of breast; Z88.8 Allergy status to other drugs, medicaments and biological substances; Z90.89 Acquired absence of other organs; Z90.710 Acquired absence of both cervix and uterus
CPT/HCPCS: 36415; 80053; 80306; 81000; 82150; 83690; 84703; 85025

== ENCOUNTER 2019-11-10 20:44 | Emergency (ER) | payer MEDICAID ==
[~2019-11-10] VITALS: Ht 157.4 cm; Wt 90.7 kg
[~2019-11-10 20:44] MED LIST changes: +PRAZ1CAP2
[2019-11-10] MEDS ORDERED: PROMETHAZINE INJ 25 MG/ML (PHENERGAN) AMP ONE (20:49)
[2019-11-10 20:50] VITALS: BP 123/92
[2019-11-10] MEDS ORDERED: fentaNYL INJECTION 100 MCG/2 ML AMP IVP ONE ×2 (21:00→21:30)
[2019-11-10 21:07] LABS: BASOPHILS % (AUTO) 0 % (0-10); EOSINOPHILS # (AUTO) 0.2 10^3/uL (0.0-0.3); EOSINOPHILS % (AUTO) 2 % (0-10); HEMATOCRIT 36 % (35-52); HEMOGLOBIN 12.2 G/DL (11.5-16.0); LYMPHOCYTES # (AUTO) 2.9 X 10^3 (1.0-4.0); LYMPHOCYTES % (AUTO) 34 % (12-44); MEAN CORPUSCULAR HEMOGLOBIN 30 PG (25-34); MEAN CORPUSCULAR HGB CONC 34 G/DL (32-36); MEAN CORPUSCULAR VOLUME 88 FL (80-99); MEAN PLATELET VOLUME 11.6 FL (7.4-10.4); MONOCYTES # (AUTO) 0.5 X 10^3 (0.0-1.0); MONOCYTES % (AUTO) 5 % (0-12); NEUTROPHILS % (AUTO) 59 % (42-75); PLATELET COUNT 216 10^3/uL (130-400); RED CELL DISTRIBUTION WIDTH 12.7 % (10.0-14.5); WHITE BLOOD COUNT 8.6 10^3/uL (4.3-11.0)
[2019-11-10 21:22] LABS: ALANINE AMINOTRANSFERASE 25 U/L (0-55); ALBUMIN 4.3 GM/DL (3.2-4.5); ALKALINE PHOSPHATASE 88 U/L (40-136); BILIRUBIN,TOTAL 0.1 MG/DL (0.1-1.0); BUN/CREATININE RATIO 23; CALCIUM 9.1 MG/DL (8.5-10.1); CARBON DIOXIDE 19 MMOL/L (21-32); CHLORIDE 107 MMOL/L (98-107); CREATININE SERUM 0.83 MG/DL (0.60-1.30); GFR ESTIMATED > 60; GLUCOSE 96 MG/DL (70-105); MAGNESIUM 1.9 MG/DL (1.6-2.4); POTASSIUM 4.1 MMOL/L (3.6-5.0); SODIUM 140 MMOL/L (135-145); TOTAL PROTEIN 7.3 GM/DL (6.4-8.2)
[2019-11-10] MEDS ORDERED: TETANUS,DIPTH,PERTUSS P/F (BOOSTRIX) 0.5 ML VIAL IM ONE (21:30)
--- NOTE | 2019-11-10 21:35 | Diagnostic Imaging Report ---
PROCEDURE: CT thoracic spine without contrast. TECHNIQUE: Multiple axial computerized tomography images were obtained from the base of the thoracic spine to the vertex without intravenous contrast. Auto Exposure Controls were utilized during the CT exam to meet ALARA standards for radiation dose reduction. INDICATION: Seizure. Fall. COMPARISON: 10/29/2019 FINDINGS: Static alignment of the thoracic spine is maintained. There is no significant anteroretrolisthesis. There is no evidence of jumped facets. Vertebral body heights are maintained. There is no evidence of acute fracture. Multiple superior endplate Schmorl's nodes are noted. No significant degenerative changes are identified. Included portions of the lungs are clear. Note is made of punctate nonobstructive right renal calculus. IMPRESSION: 1. No CT evidence of acute fracture or dislocation of the thoracic spine. 2. Punctate nonobstructive right renal calculus. Dictated by: Dictated on workstation # [id number]
--- NOTE | 2019-11-10 21:36 | Diagnostic Imaging Report ---
INDICATION: Seizure. Fall. COMPARISON: 12/20/2018 FINDINGS: Single frontal view of the chest demonstrates normal heart size and pulmonary vascularity. The lungs are well aerated and clear. No large pleural effusion or pneumothorax is seen. The visualized osseous structures show no acute abnormalities. Left-sided neurostimulator device is noted. IMPRESSION: 1. No acute cardiopulmonary process. Dictated by: Dictated on workstation # [id number]
--- NOTE | 2019-11-10 22:02 | ED 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 Problem ---
General Chief Complaint: 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 Problems Stated Complaint: SEIZURE Nursing Triage Note: REPORTED SEIZURE AND RESULT PATIENT FELL AND HIT HEAD ON BOLT OF TOILET. NOTED 1/2 CM LAC TO RIGHT DRUZE AREA, A&OX4. WITNESS STATES SEIZURE LASTED 3 MINUTES. PATIENT ARRIVES TO ROOM 3 NOTED C COLLAR IN PLACE PER EMS, 22 GUAGE IV IN LEFT HAND. SEIZURE PRECAUTIONS INITIATED. PATIENT VERBALIZES SEIZURE HISTORY Nursing Sepsis Screen: No Definite Risk Source: patient, family, EMS Exam Limitations: no limitations History of Present Illness Date Seen by Provider: Nov 10, 2019 Time Seen by Provider: 20:45 Initial Comments This 28-year-old woman with epilepsy presents to the emergency room via EMS after having a seizure at home causing her to fall in the bathroom and strike her head on the at the base of the toilet. She has a 5 mm laceration on the right forehead. Seizure lasted approximately 3 minutes. Has been used her va gal nerve stimulator to help resolve the seizure. EMS reports there was about 30 ML of blood on the floor. Wound is no longer bleeding. Patient was postictal for EMS but mentation improved in route. Patient reports she needs a medication review by her neurologist which is to happen in a couple weeks. Vital signs are stable. Patient complains of nausea and headache. She arrives in c-collar. She has pain at the base of her neck and in the thoracic spine between the shoulder blades. Allergies and Home Medications Allergies Coded Allergies: carbamazepine (Verified Allergy, Unknown, 10/19/18) divalproex sodium (Verified Allergy, Unknown, 10/19/18) ondansetron (Verified Allergy, Unknown, 10/19/18) oxcarbazepine (Verified Allergy, Unknown, 10/19/18) prochlorperazine (Verified Allergy, Unknown, 10/19/18) topiramate (Verified Allergy, Unknown, 10/19/18) Home Medications Amoxicillin 500 Mg Capsule, 500 MG PO TID Prescribed by: LORI RODRIGUEZ on 04/11/19 1138 Cyclobenzaprine HCl 10 Mg Tablet, 10 MG PO Q8H PRN for SPASMS Prescribed by: SIRI MORROW on 05/25/19 2205 Diazepam 5 Mg Tablet, 5 MG PO Q6H PRN for DIZZINESS Prescribed by: GERARDO LARA MD on 10/29/19 1839 Diphenhydramine HCl 25 Mg Capsule, 25 MG PO q6 PRN for DIZZINESS Prescribed by: GERARDO LARA MD on 10/29/191838 Promethazine HCl 25 Mg Tablet, 25 MG PO Q6H Prescribed by: GERARDO LARA MD on 10/29/191838 Sulfamethoxazole/Trimethoprim 1 Each Tablet, 1 EACH PO BID Prescribed by: SIRI MORROW on 05/25/192203 Patient Home Medication List Home Medication List Reviewed: Yes Review of Systems Review of Systems Constitutional: no symptoms reported Eyes: No Symptoms Reported Ears, Nose, Mouth, Throat: no symptoms reported Respiratory: no symptoms reported Cardiovascular: no symptoms reported Gastrointestinal: see HPI, nausea Genitourinary: no symptoms reported Musculoskeletal: see HPI Skin: see HPI Psychiatric/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: See HPI Endocrine: No Symptoms Reported Hematologic/Lymphatic: No Symptoms Reported Past [id number] Hx Patient Social History Alcohol Use: Denies Use Recreational Drug Use: Yes Drug of Choice: CANNIBUS Type Used: Cigarettes, Electronic/Vapor Former Smoker, Quit: Nov 29, 2018 2nd Hand Smoke Exposure: Yes Recent Foreign Travel: No Contact w/Someone Who Travel: No Recent Infectious Disease Expo: No Recent Hopitalizations: No Physical Abuse: No Sexual Abuse: No Mistreated: No Fear: No Immunizations Up To Date Tetanus Booster (TDap): Unknown PED Vaccines UTD: Yes Date of Influenza Vaccine: Jul 28, 2019 Seasonal Allergies Seasonal Allergies: No Past Medical History Surgeries: Yes (vagal nerve stimulator, double mastectomy) Breast, Section, 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, Oophorectomy, Tonsillectomy Respiratory: No Cardiac: Yes Hypertension 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 0oz. 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 It was approximated with skin glue. Progress/Results/Core Measures Results/Orders Lab Results Laboratory Tests Test 11/10/19 20:50 11/10/19 23:44 Range/Units White Blood Count 8.6 4.3-11.0 10^3/uL Red Blood Count 4.12 L 4.35-5.85 10^6/uL Hemoglobin 12.2 11.5-16.0 G/DL Hematocrit 36 35-52 % Mean Corpuscular Volume 88 80-99 FL Mean Corpuscular Hemoglobin 30 25-34 PG Mean Corpuscular Hemoglobin Concent 34 32-36 G/DL Red Cell Distribution Width 12.7 10.0-14.5 % Platelet Count 216 130-400 10^3/uL Mean Platelet Volume 11.6 H 7.4-10.4 FL Neutrophils (%) (Auto) 59 42-75 % Lymphocytes (%) (Auto) 34 12-44 % Monocytes (%) (Auto) 5 0-12 % Eosinophils (%) (Auto) 2 0-10 % Basophils (%) (Auto) 0 0-10 % Neutrophils # (Auto) 5.0 1.8-7.8 X 10^3 Lymphocytes # (Auto) 2.9 1.0-4.0 X 10^3 Monocytes # (Auto) 0.5 0.0-1.0 X 10^3 Eosinophils # (Auto) 0.2 0.0-0.3 10^3/uL Basophils # (Auto) 0.0 0.0-0.1 10^3/uL Sodium Level 140 135-145 MMOL/L Potassium Level 4.1 3.6-5.0 MMOL/L Chloride Level 107 98-107 MMOL/L Carbon Dioxide Level 19 L 21-32 MMOL/L Anion Gap 14 5-14 MMOL/L Blood Urea Nitrogen 19 H 7-18 MG/DL Creatinine 0.83 0.60-1.30 MG/DL Estimat Glomerular Filtration Rate > 60 BUN/Creatinine Ratio 23 Glucose Level 96 70-105 MG/DL Calcium Level 9.1 8.5-10.1 MG/DL Corrected Calcium 8.9 8.5-10.1 MG/DL Magnesium Level 1.9 1.6-2.4 MG/DL Total Bilirubin 0.1 0.1-1.0 MG/DL Aspartate Amino Transf (AST/SGOT) 17 5-34 U/L Alanine Aminotransferase (ALT/SGPT) 25 0-55 U/L Alkaline Phosphatase 88 40-136 U/L Total Protein 7.3 6.4-8.2 GM/DL Albumin 4.3 3.2-4.5 GM/DL Urine Color YELLOW Urine Clarity CLEAR Urine pH 5.5 5-9 Urine Specific [place] 1.025 H 1.016-1.022 Urine Protein NEGATIVE NEGATIVE Urine Glucose (UA) NEGATIVE NEGATIVE Urine Ketones NEGATIVE NEGATIVE Urine Nitrite NEGATIVE NEGATIVE Urine Bilirubin NEGATIVE NEGATIVE Urine Urobilinogen 0.2 < = 1.0 MG/DL Urine Leukocyte Esterase NEGATIVE NEGATIVE Urine RBC (Auto) NEGATIVE NEGATIVE Urine RBC NONE /HPF Urine WBC 2-5 /HPF Urine Squamous Epithelial Cells 2-5 /HPF Urine Crystals NONE /LPF Urine Bacteria MODERATE H /HPF Urine Casts NONE /LPF Urine Mucus NEGATIVE /LPF Urine Culture Indicated YES My Orders Orders - ARNOL GORDON MD Promethazine Injection (Phenergan Injec (11/10/19 20:49) Cbc With Automated Diff (11/10/19 20:57) Comprehensive Metabolic Panel (11/10/19 20:57) Magnesium (11/10/19 20:57) Ua Culture If Indicated (11/10/19 20:57) Ed Iv/Invasive Line Start (11/10/19 20:57) Ct Head/Cervical Spine Wo (11/10/19 20:57) Ct Thoracic Spine Wo (11/10/19 20:57) Chest 1 View, Ap/Pa Only (11/10/19 20:57) Fentanyl Injection (Sublimaze Injection (11/10/19 21:00) Fentanyl Injection (Sublimaze Injection (11/10/19 21:30) Dipht,Pertuss(Acell),Tet Adult (Boostrix (11/10/19 21:30) Ketorolac Injection (Toradol Injection) (11/10/19 22:45) Let Solution (Let Solution) (11/10/19 23:00) Let Solution (Let Solution) (11/10/19 22:47) Promethazine Injection (Phenergan Injec (11/10/19 23:30) Urine Culture (11/10/19 23:44) Medications Given in ED Current Medications Medications Dose Ordered Sig/Shlomo Route Start Time Stop Time Status Last Admin Dose Admin Diphtheria/ Tetanus/Acell Pertussis 0.5 ml ONCE ONCE IM 11/10/19 21:30 11/10/19 21:32 DC 11/10/19 21:42 0.5 ML Fentanyl Citrate 50 mcg ONCE ONCE IVP 11/10/19 21:00 11/10/19 21:02 DC 11/10/19 21:02 50 MCG Fentanyl Citrate 50 mcg ONCE ONCE IVP 11/10/19 21:30 11/10/19 21:32 DC 11/10/19 21:40 50 MCG Ketorolac Tromethamine 30 mg ONCE ONCE IVP 11/10/19 22:45 11/10/19 22:46 DC 11/10/19 22:54 30 MG Promethazine HCl 12.5 mg ONCE ONCE IVP 11/10/19 23:30 11/10/19 23:31 DC 11/10/19 23:36 12.5 MG Promethazine HCl 25 mg STK-MED ONCE .ROUTE 11/10/19 20:49 11/10/19 20:54 DC 11/10/19 20:55 12.5 MG Tetracaine/ Epinephrine/ Lidocaine 1 ea ONCE ONCE TOP 11/10/19 23:00 11/10/19 23:01 DC 11/10/19 22:54 1 EA Vital Signs/I&O 11/10/19 11/10/19 11/11/19 20:50 20:50 00:56 Temp 36.8 36.8 36.8 Pulse 99 99 89 Resp 18 18 20 B/P (MAP) 123/92 (102) 123/92 (102) 122/85 (102) Pulse Ox 97 97 96 O2 Delivery Room Air Room Air Room Air Blood Pressure Mean: 102 Progress Progress Note : Progress Note Patient was evaluated with CT imaging of the head, cervical spine, thoracic spine as well as chest x-ray. No intracranial or bony injuries were identified. The wound on the forehead was cleaned by nursing staff. It was gaping and was therefore glued. Patient's nausea was treated with Phenergan. Pain was treated with Toradol. She had no further seizure-like activity and was ultimately discharged home with instructions to call her neurologist first thing in the morning. Boostrix tetanus immunization was administered. Diagnostic Imaging Diagonstic Imaging: Xray Plain Films/CT/US/NM/MRI: chest Comments Chest x-ray viewed by me and report reviewed. See report below: NAME: BECK HEARD I [facility] REC#: [id number] PT STATUS: REG ER : 1990 PHYSICIAN: ARNOL GORDON MD ADMIT DATE: 11/10/19/ER Draft Date of Exam:11/10/19 CHEST 1 VIEW, AP/PA ONLY INDICATION: Seizure. Fall. COMPARISON: 12/20/2018 FINDINGS: Single frontal view of the chest demonstrates normal heart size and pulmonary vascularity. The lungs are well aerated and clear. No large pleural effusion or pneumothorax is seen. The visualized osseous structures show no acute abnormalities. Left-sided neurostimulator device is noted. IMPRESSION: 1. No acute cardiopulmonary process. Dictated on workstation # [id number] Dict: 11/10/192133 Trans: 11/10/192135 [facility] [id number] Interpreted by: PELON JOHNSON MD Diagonstic Imaging: CT Plain Films/CT/US/NM/MRI: other (thoracic spine) Comments CT thoracic spine viewed by me and report reviewed. See report below: NAME: BECK HEARD I MED REC#: [id number] PT STATUS: REG ER : 1990 PHYSICIAN: ARNOL GORDON MD ADMIT DATE: 11/10/19/ER Draft Date of Exam:11/10/19 CT THORACIC SPINE WO PROCEDURE: CT thoracic spine without contrast. TECHNIQUE: Multiple axial computerized tomography images were obtained from the base of the thoracic spine to the vertex without intravenous contrast. Auto Exposure Controls were utilized during the CT exam to meet ALARA standards for radiation dose reduction. INDICATION: Seizure. Fall. COMPARISON: 10/29/2019 FINDINGS: Static alignment of the thoracic spine is maintained. There is no significant anteroretrolisthesis. There is no evidence of jumped facets. Vertebral body heights are maintained. There is no evidence of acute fracture. Multiple superior endplate Schmorl's nodes are noted. No significant degenerative changes are identified. Included portions of the lungs are clear. Note is made of punctate nonobstructive right renal calculus. IMPRESSION: 1. No CT evidence of acute fracture or dislocation of the thoracic spine. 2. Punctate nonobstructive right renal calculus. Dictated on workstation # [id number] Dict: 11/10/192130 Trans: 11/10/19 213 [facility] [id number] Interpreted by: PELON JOHNSON MD Diagonstic Imaging: CT Plain Films/CT/US/NM/MRI: c-spine, head Departure Impression Primary Impression: Seizure Additional Impressions: Fall on same level Qualified Codes: W18.30XA - Fall on same level, unspecified, initial encounter Laceration of forehead Qualified Codes: S01.81XA - Laceration without foreign body of other part of head, initial encounter Nausea Disposition: 01 HOME, SELF-CARE Condition: Improved Departure-Patient Inst. Decision time for Depature: 00:48 Referrals: NO,LOCAL PHYSICIAN (PCP) Primary Care Physician HOWARD MATHEW (Family) Primary Care Physician Patient Instructions: Epilepsy in Adults, Laceration Repair With Glue (DC) Add. Discharge Instructions: Please contact your neurologist first thing in the morning to discuss your seizure episodes and to inquire about any changes in medication dosing. Drink plenty of clear liquids to stay well-hydrated. You may continue using your home medications as previously prescribed. You may treat pain with Tylenol (acetaminophen) up to 1000 mg every 6 hours and ibuprofen up to 600 mg every 6 hours. Return to care if you have worsening symptoms. Do not swim, drive or operate machinery/vehicles or employee any heights such as ladders until cleared by a neurologist. All discharge instructions reviewed with patient and/or family. Voiced understanding. Copy Copies To 1: WENCESLAO CRUZ JOSHUA T MD Nov 10, 2019 22:01
[2019-11-10] MEDS ORDERED: KETOROLAC 30 MG/ML VIAL IVP ONE (22:45)
[2019-11-10] MEDS ORDERED: L.E.T. SYRINGE 5 ML ONE (22:47)
[2019-11-10] MEDS ORDERED: L.E.T. SYRINGE 5 ML TOP ONE (23:00)
[2019-11-10] MEDS ORDERED: PROMETHAZINE INJ 25 MG/ML (PHENERGAN) AMP IVP ONE (23:30)
--- NOTE | 2019-11-10 23:45 | NUR ---
CERVICAL COLLAR REMOVED AT THIS TIME BY DR HATCH
[2019-11-10 23:55] LABS: BILIRUBIN,URINE NEGATIVE (NEGATIVE); CLARITY,URINE CLEAR; COLOR,URINE YELLOW; GLUCOSE, URINE (UA) NEGATIVE (NEGATIVE); KETONES,URINE NEGATIVE (NEGATIVE); LEUKOCYTE ESTERASE ,URINE NEGATIVE (NEGATIVE); NITRITE,URINE NEGATIVE (NEGATIVE); PH,URINE 5.5 (5-9); PROTEIN,URINE NEGATIVE (NEGATIVE)
[2019-11-11 00:21] LABS: BACTERIA,URINE MODERATE /HPF
[2019-11-11 00:56] VITALS: BP 122/85
--- NOTE | 2019-11-11 07:58 | Diagnostic Imaging Report ---
PROCEDURE: CT head and CT cervical spine without contrast. TECHNIQUE: Multiple contiguous axial images were obtained through the brain and cervical spine without the use of intravenous contrast. Sagittal and coronal reformations through the cervical spine were then performed. Auto Exposure Controls were utilized during the CT exam to meet ALARA standards for radiation dose reduction. INDICATION: Seizure with fall. COMPARISON: None available. FINDINGS: Head: No hyperdense hemorrhage or space-occupying mass. No hydrocephalus or midline shift. No evidence of territorial infarct. Basilar cisterns are patent. Focal skin laceration in the right temporal region. No skull fracture. The paranasal sinuses and mastoid air cells are clear. Cervical spine: No acute fracture or traumatic malalignment. Intervertebral disc spaces are normal. Airway is patent. No cervical lymphadenopathy. Visualized thyroid is normal. IMPRESSION: 1. No acute intracranial process or skull fracture. 2. No acute fracture or traumatic malalignment of the cervical spine. 3. Findings are in agreement with the preliminary report. Dictated by: Dictated on workstation # [id number]
== END 2019-11-11 00:59 | disposition home or self-care (01) ==
LOC: EDUNIT# 20:44 → ER 20:45
DX: S01.81XA Laceration without foreign body of other part of head, initial encounter (principal); G40.909 Epilepsy, unspecified, not intractable, without status epilepticus; R11.0 Nausea; I10 Essential (primary) hypertension; F41.9 Anxiety disorder, unspecified; Z85.3 Personal history of malignant neoplasm of breast; Z90.89 Acquired absence of other organs; Z90.710 Acquired absence of both cervix and uterus; Z77.22 Contact with and (suspected) exposure to environmental tobacco smoke (acute) (chronic); Z88.8 Allergy status to other drugs, medicaments and biological substances; Z87.891 Personal history of nicotine dependence; W01.198A Fall on same level from slipping, tripping and stumbling with subsequent striking against other object, initial encounter; Y92.002 Bathroom of unspecified non-institutional (private) residence as the place of occurrence of the external cause
CPT/HCPCS: 36415; 70450; 71045; 72125; 72128; 80053; 81000; 83735; 85025; 87077; 87088; 87186; 90471; 90715; 96374; 96375; 96376

== ENCOUNTER 2020-03-04 23:28 | Emergency (ER) | payer MEDICAID ==
[~2020-03-04] VITALS: Ht 157 cm; Wt 98.1 kg
[~2020-03-04 23:28] MED LIST changes: -CETI10TA20 PO; +CETI10TA21 PO
--- OUTSIDE RECORDS SUMMARY | 2020-03-04 23:37 | XMS REPORT | Continuity of Care Document ---
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 UNSP, NOT INTRACTABLE, WITHOUT 11/10/2019 BERNOT, JOEL Ot I10 ESSENTIAL (PRIMARY) HYPERTENSION 11/10/2019 BERNOT JOEL Ot R42 DIZZINESS AND GIDDINESS 11/10/2019 BERNOT JOEL Ot T50.995A ADVERSE EFFECT OF DRUG/MEDS/BIOL SUBST, 11/10/2019 BERNBRINA JOEL Ot Z85.3 PERSONAL HISTORY OF MALIGNANT NEOPLASM O 11/10/2019 BERNBRINA JOEL Ot Z88.8 ALLERGY STATUS TO OTH DRUG/MEDS/BIOL SUB 11/10/2019 OWOBRINA JOEL Ot Z90.710 ACQUIRED ABSENCE OF BOTH CERVIX AND UTER 11/10/2019 EDNA JOEL Ot Z90.89 ACQUIRED ABSENCE OF OTHER ORGANS 11/11/2019 HEIDI COYNE, ARNOL Linn Ot F41.9 ANXIETY DISORDER, UNSPECIFIED 11/11/2019 ARNOL GORDON MD Ot G40.909 EPILEPSY, UNSP, NOT INTRACTABLE, WITHOUT 11/11/2019 ARNOL GORDON MD, Ot I10 ESSENTIAL (PRIMARY) HYPERTENSION 11/11/2019 ARNOL GORDON MD Ot R11.0 NAUSEA 11/11/2019 ARNOL GORDON MD, Ot S01.81XA LACERATION W/O FOREIGN BODY OF OTH PART 11/11/2019 ARNOL GORDON MD Ot W01.198A FALL SAME LEV FROM SLIP/TRIP W STRIKE AG 11/11/2019 ARNOL GORDON MD Ot Y92.002 BATHRM OF [facility] NON-INSTITUT RESDNCE SNGL 11/11/2019 ARNOL GORDON MD, Ot Z77.22 CNTCT W AND EXPSR TO ENVIRON TOBACCO SMO 11/11/2019 ARNOL GORDON MD, Ot Z85.3 PERSONAL HISTORY OF MALIGNANT NEOPLASM O 11/11/2019 ARNOL GORDON MD Ot Z87.891 PERSONAL HISTORY OF NICOTINE DEPENDENCE 11/11/2019 ARNOL GORDON MD, Ot Z88.8 ALLERGY STATUS TO OTH DRUG/MEDS/BIOL SUB 11/11/2019 ARNOL GORDON MD, Ot Z90.710 ACQUIRED ABSENCE OF BOTH CERVIX AND UTER 11/11/2019 ARNOL GORDON MD, Ot Z90.89 ACQUIRED ABSENCE OF OTHER ORGANS 11/14/2019 ARNOL GORDON MD, Ot F41.9 ANXIETY DISORDER, UNSPECIFIED 11/14/2019 ARNOL GORDON MD, Ot G40.909 EPILEPSY, UNSP, NOT INTRACTABLE, WITHOUT 11/14/2019 ARNOL GORDON MD, Ot I10 ESSENTIAL (PRIMARY) HYPERTENSION 11/14/2019 ARNOL GORDON MD, Ot R11.0 NAUSEA 11/14/2019 ARNOL GORDON MD, Ot S01.81XA LACERATION W/O FOREIGN BODY OF OTH PART 11/14/2019 ARNOL GORDON MD, Ot W01.198A FALL SAME LEV FROM SLIP/TRIP W STRIKE AG 11/14/2019 ARNOL GORDON MD, Ot Y92.002 BATHRM OF [facility] NON-INSTITUT RESDNCE SNGL 11/14/2019 ARNOL GORDON MD, Ot Z77.22 CNTCT W AND EXPSR TO ENVIRON TOBACCO SMO 11/14/2019 ARNOL GORDON MD, Ot Z85.3 PERSONAL HISTORY OF MALIGNANT NEOPLASM O 11/14/2019 ARNOL GORDON MD, Ot Z87.891 PERSONAL HISTORY OF NICOTINE DEPENDENCE 11/14/2019 ARNOL GORDON MD, Ot Z88.8 ALLERGY STATUS TO OTH DRUG/MEDS/BIOL SUB 11/14/2019 ARNOL GORDON MD, Ot Z90.710 ACQUIRED ABSENCE OF BOTH CERVIX AND UTER 11/14/2019 ARNOL GORDON MD, Ot Z90.89 ACQUIRED ABSENCE OF OTHER ORGANS Procedures There is no data. Results Test Result Range Urinalysis - 08/02/18 15:20 Icotest N/A Negative Urine Volume Urine Volume Sufficient (10mL) Urine-Appearance Clear Clear Urine-Bilirubin Negative Negative Urine-Blood Negative Negative Urine-Color Yellow Colorless-[place] ow Urine-Glucose Negative Negative Urine-Ketones Negative Negative Urine-Leukocytes Negative Negative Urine-Nitrite Negative Negative Urine-pH 7.0 5-8.5 Urine-Protein Negative Negative Urine-Specific [place] 1.015 1.000-1 .030 Urine-WBC Nothing Seen on Microscopic Urobilinogen 0.2 [...] g/dL 6.0-8.3 Complete blood count (CBC) with automate d white blood cell (WBC) differential - 09/28/18 10:40 Blood leukocytes automated count (number/volume) 7.8 10*3/uL 4.3-11.0 Blood erythrocytes automated count (number/volume) 4.24 10*6/uL 4.35-5.85 Venous blood hemoglobin measurement (mass/volume) 12.4 g/dL 11.5-16.0 Blood hematocrit (volume fraction) 37 % 35-52 Automated erythrocyte mean corpuscular volume 88 [ foz_us] 80-99 Automated erythrocyte mean corpuscular h emoglobin (mass per erythrocyte) 29 pg 25-34 Automated erythrocyte mean corpuscular h emoglobin concentration measurement (mass/volume) 33 g/dL 32-36 Automated erythrocyte distribution width ratio 13. 6 % 10.0- 14.5 Automated blood platelet count [...] 10*3 1.0-4.0 Blood monocytes automated count (number/volume) 0. 5 10*3 0.0-1.0 Automated eosinophil count 0.2 10*3/uL 0 .0-0.3 Automated blood basophil count (count/volume) 0.0 10*3/uL 0.0-0.1 Comprehensive metabolic panel - 09/28/18 10:40 Serum or plasma sodium measurement (moles/volume) 141 mmol/L 135-145 Serum or plasma potassium measurement (moles/volume) 4.2 mmol/L 3.6-5.0 Serum or plasma chloride measurement (moles/volume) 109 mmol/L 98-107 Carbon dioxide 19 mmol/L 21-32 Serum or plasma anion gap determination (moles/volume) 13 mmol/L 5-14 Serum or plasma urea nitrogen measurement (mass/volume ) 15 mg/dL 7-18 Serum or plasma creatinine measurement (mass/volume) 0.79 mg/dL 0.60-1.30 Serum or plasma urea nitrogen/creatinine mass ratio 19 NRG Serum or plasma creatinine measurement w ith calculation of estimated glomerular filtration rate > NRG Serum or plasma glucose measurement (mass/volume) 107 mg/dL 70-105 Serum or plasma calcium measurement (mass/volume) 9.2 mg/dL 8.5-10.1 Serum or plasma total bilirubin measurement (mass/volu me) 0.2 mg/dL 0.1-1.0 Serum or plasma alkaline phosphatase mile surement (enzymatic activity/volume) 108 U/L 40-136 Serum or plasma aspartate aminotransfera se measurement (enzymatic activity/volume) 18 U/L 5-34 Serum [...] 11:51 Urine beta human chorionic gonadotropin (hCG) measurem ent NEGATIVE NEGATIVE Complete urinalysis with reflex to cultu re - 09/28/18 11:51 Urine color determination YELLOW NRG Urine clarity determination SLIGHTLY CLOUDY NRG Urine pH measurement by test strip 5 5-9 Specific gravity of urine by test strip 1.020 1.016-1.022 Urine protein assay by test strip, semi-quantitative NEGATIVE NEGATIVE Urine glucose detection by automated test strip NE GATIVE NEGATIVE Erythrocytes detection in urine sediment by light micr oscopy NEGATIVE NEGATIVE Urine ketones detection by automated test strip NE GATIVE NEGATIVE Urine nitrite detection by test strip NEGATIVE NEGATIVE Urine total bilirubin detection by test strip NEGA TIVE NEGATIVE Urine urobilinogen measurement by automated test strip (mass/volume) NORMAL NORMAL Urine leukocyte esterase detection by dipstick NEG ATIVE NEGATIVE Automated urine sediment erythrocyte cou nt by microscopy (number/high power field) NONE NRG Automated urine sediment leukocyte count by microscopy (number/high power field) NONE NRG Bacteria detection in urine sediment by light microsco py NEGATIVE NRG Squamous epithelial cells detection in u rine sediment by light microscopy 5-10 NRG Crystals detection in urine sediment by light microsco py NONE NRG Casts detection in urine sediment by light microscopy NONE NRG Mucus detection in urine sediment by light microscopy NEGATIVE NRG Complete urinalysis with reflex to culture NO NRG Complete blood count (CBC) with automate d white blood cell (WBC) differential - 10/10/18 13:10 Blood leukocytes automated count (number/volume) 8.2 10*3/uL 4.3-11.0 Blood erythrocytes automated count (number/volume) 4.33 10*6/uL 4.35-5.85 Venous blood hemoglobin measurement (mass/volume) 12.5 g/dL 11.5-16.0 Blood hematocrit (volume fraction) 37 % 35-52 Automated erythrocyte mean corpuscular volume 86 [ foz_us] 80-99 Automated erythrocyte mean corpuscular h emoglobin (mass per erythrocyte) 29 pg 25-34 Automated erythrocyte mean corpuscular h emoglobin concentration measurement (mass/volume) 34 g/dL 32-36 Automated erythrocyte distribution width ratio 13. 6 % 10.0- 14.5 Automated blood platelet count [...] 10*3 1.0-4.0 Blood monocytes automated count (number/volume) 0. 5 10*3 0.0-1.0 Automated eosinophil count 0.2 10*3/uL 0 .0-0.3 Automated blood basophil count (count/volume) 0.1 10*3/uL 0.0-0.1 Complete urinalysis with reflex to cultu re - 10/10/18 13:10 Urine color determination YELLOW NRG Urine clarity determination CLEAR NR G Urine pH measurement by test strip 6 5-9 Specific gravity of urine by test strip 1.025 1.016-1.022 Urine protein assay by test strip, semi-quantitative 1+ NEGATIVE Urine glucose detection by automated test strip NE GATIVE NEGATIVE Erythrocytes detection in urine sediment by light micr oscopy NEGATIVE NEGATIVE Urine ketones detection by automated test strip NE GATIVE NEGATIVE Urine nitrite detection by test strip NEGATIVE NEGATIVE Urine total bilirubin detection by test strip NEGA TIVE NEGATIVE Urine urobilinogen measurement by automated test strip (mass/volume) NORMAL NORMAL Urine leukocyte esterase detection by dipstick 1+ NEGATIVE Automated urine sediment erythrocyte cou nt by microscopy (number/high power field) NONE NRG Automated urine sediment leukocyte count by microscopy (number/high power field) [HPF] NRG Bacteria detection in urine sediment by light microsco py NEGATIVE NRG Squamous epithelial cells detection in u rine sediment by light microscopy RARE NRG Crystals detection in urine sediment by light microsco py NONE NRG Casts detection in urine sediment [...] 5-14 Serum or plasma urea nitrogen measurement (mass/volume ) 11 mg/dL 7-18 Serum or plasma creatinine measurement (mass/volume) 0.77 mg/dL 0.60-1.30 Serum or plasma urea nitrogen/creatinine mass ratio 14 NRG Serum or plasma creatinine measurement w ith calculation of estimated glomerular filtration rate > NRG Serum or plasma glucose measurement (mass/volume) 94 mg/dL 70-105 Serum or plasma calcium measurement (mass/volume) 9.2 mg/dL 8.5-10.1 Serum or plasma total bilirubin measurement (mass/volu me) 0.3 mg/dL 0.1-1.0 Serum or plasma alkaline phosphatase mile surement (enzymatic activity/volume) 104 U/L 40-136 Serum or plasma aspartate aminotransfera se measurement (enzymatic activity/volume) 27 U/L 5-34 Serum or plasma alanine aminotransferase measurement (enzymatic activity/volume) 39 U/L 0-55 Serum or plasma protein measurement (mass/volume) 7.5 g/dL 6.4-8.2 Serum or plasma albumin measurement (mass/volume) 4.3 g/dL 3.2-4.5 CALCIUM CORRECTED 9.0 mg/dL 8.5-10.1 Lipase - 10/10/18 13:10 Lipase 16 U/L 8-78 Methicillin resistant Staphylococcus aur eus (MRSA) screening culture - 10/14/18 06:50 Methicillin resistant Staphylococcus aureus (MRSA) scr eening culture NEG [facility] Complete blood count (CBC) with automate d white blood cell (WBC) differential - 10/19/18 12:11 Blood leukocytes automated count (number/volume) 8.0 10*3/uL 4.3-11.0 Blood erythrocytes automated count (number/volume) 4.33 10*6/uL 4.35-5.85 Venous blood hemoglobin measurement (mass/volume) 12.7 g/dL 11.5-16.0 Blood hematocrit (volume fraction) 37 % 35-52 Automated erythrocyte mean corpuscular volume 86 [ foz_us] 80-99 Automated erythrocyte mean corpuscular h emoglobin (mass per erythrocyte) 29 pg 25-34 Automated erythrocyte mean corpuscular h emoglobin concentration measurement (mass/volume) 34 g/dL 32-36 Automated erythrocyte distribution width ratio 13. 8 % 10.0- 14.5 Automated blood platelet count [...] 10*3 1.0-4.0 Blood monocytes automated count (number/volume) 0. 5 10*3 0.0-1.0 Automated eosinophil count 0.2 10*3/uL 0 .0-0.3 Automated blood basophil count (count/volume) 0.0 10*3/uL 0.0-0.1 Comprehensive metabolic panel - 10/19/18 12:11 Serum or plasma sodium measurement (moles/volume) 138 mmol/L 135-145 Serum or plasma potassium measurement (moles/volume) 4.2 mmol/L 3.6-5.0 Serum or plasma chloride measurement (moles/volume) 107 mmol/L 98-107 Carbon dioxide 18 mmol/L 21-32 Serum or plasma anion gap determination (moles/volume) 13 mmol/L 5-14 Serum or plasma urea nitrogen measurement (mass/volume ) 11 mg/dL 7-18 Serum or plasma creatinine measurement (mass/volume) 0.81 mg/dL 0.60-1.30 Serum or plasma urea nitrogen/creatinine mass ratio 14 NRG Serum or plasma creatinine measurement w ith calculation of estimated glomerular filtration rate > NRG Serum or plasma glucose measurement (mass/volume) 102 mg/dL 70-105 Serum or plasma calcium measurement (mass/volume) 9.5 mg/dL 8.5-10.1 Serum or plasma total bilirubin measurement (mass/volu me) 0.3 mg/dL 0.1-1.0 Serum or plasma alkaline phosphatase mile surement (enzymatic activity/volume) 156 U/L 40-136 Serum or plasma aspartate aminotransfera se measurement (enzymatic activity/volume) 69 U/L 5-34 Serum or plasma alanine aminotransferase measurement (enzymatic activity/volume) 238 U/L 0-55 Serum or plasma protein measurement (mass/volume) 7.6 g/dL 6.4-8.2 Serum or plasma albumin measurement (mass/volume) 4.4 g/dL 3.2-4.5 CALCIUM CORRECTED 9.2 mg/dL 8.5-10.1 Lipase - 10/19/18 12:11 Lipase 16 U/L 8-78 Serum or plasma C reactive protein measu rement (mass/volume) - 10/19/18 12:11 Serum or plasma C reactive protein measurement (mass/v olume) 1.68 mg/dL 0.00-0.50 Complete urinalysis with reflex to cultu re - 12/20/18 15:40 Urine color determination YELLOW NRG Urine clarity determination CLEAR NR G Urine pH measurement by test strip 8 5-9 Specific gravity of urine by test strip 1.015 1.016-1.022 Urine protein assay by test strip, semi-quantitative NEGATIVE NEGATIVE Urine glucose detection by automated test strip NE GATIVE NEGATIVE Erythrocytes detection in urine sediment by light micr oscopy NEGATIVE NEGATIVE Urine ketones detection by automated test strip NE GATIVE NEGATIVE Urine nitrite detection by test strip NEGATIVE NEGATIVE Urine total bilirubin detection by test strip NEGA TIVE NEGATIVE Urine urobilinogen measurement by automated test strip (mass/volume) NORMAL NORMAL Urine leukocyte esterase detection by dipstick NEG ATIVE NEGATIVE Automated urine sediment erythrocyte cou nt by microscopy (number/high power field) NONE NRG Automated urine sediment leukocyte count by microscopy (number/high power field) NONE NRG Bacteria detection in urine sediment by light microsco py NEGATIVE NRG Squamous epithelial cells detection in u rine sediment by light microscopy 0-2 NRG Crystals detection in urine sediment by light microsco py NONE NRG Casts detection in urine sediment by light microscopy NONE NRG Mucus detection in urine sediment by light microscopy NEGATIVE NRG Complete urinalysis with reflex to culture NO NRG Influenza virus A and B antigen detectio n - 12/20/18 15:41 FLU RESULT NEGATIVE FOR INFLUENZA A AND B ANTIGENS BY IA [facility] Complete blood count (CBC) with automate d white blood cell (WBC) differential - 12/20/18 17:16 Blood leukocytes automated count (number/volume) 6.5 10*3/uL 4.3-11.0 Blood erythrocytes automated count (number/volume) 4.43 10*6/uL 4.35-5.85 Venous blood hemoglobin measurement (mass/volume) 13.1 g/dL 11.5-16.0 Blood hematocrit (volume fraction) 38 % 35-52 Automated erythrocyte mean corpuscular volume 86 [ foz_us] 80-99 Automated erythrocyte mean corpuscular h emoglobin (mass per erythrocyte) 30 pg 25-34 Automated erythrocyte mean corpuscular h emoglobin concentration measurement (mass/volume) 34 g/dL 32-36 Automated erythrocyte distribution width ratio 12. 6 % 10.0- 14.5 Automated blood platelet count [...] 10*3 1.0-4.0 Blood monocytes automated count (number/volume) 0. 6 10*3 0.0-1.0 Automated eosinophil count 0.1 10*3/uL 0 .0-0.3 Automated blood basophil count (count/volume) 0.0 10*3/uL 0.0-0.1 Comprehensive metabolic panel - 12/20/18 17:16 Serum or plasma sodium measurement (moles/volume) 140 mmol/L 135-145 Serum or plasma potassium measurement (moles/volume) 3.8 mmol/L 3.6-5.0 Serum or plasma chloride measurement (moles/volume) 106 mmol/L 98-107 Carbon dioxide 22 mmol/L 21-32 Serum or plasma anion gap determination (moles/volume) 12 mmol/L 5-14 Serum or plasma urea nitrogen measurement (mass/volume ) 8 mg/dL 7-18 Serum or plasma creatinine measurement (mass/volume) 0.78 mg/dL 0.60-1.30 Serum or plasma urea nitrogen/creatinine mass ratio 10 NRG Serum or plasma creatinine measurement w ith calculation of estimated glomerular filtration rate > NRG Serum or plasma glucose measurement (mass/volume) 86 mg/dL 70-105 Serum or plasma calcium measurement (mass/volume) 10.1 mg/dL 8.5-10.1 Serum or plasma total bilirubin measurement (mass/volu me) 0.3 mg/dL 0.1-1.0 Serum or plasma alkaline phosphatase mile surement (enzymatic activity/volume) 95 U/L 40-136 Serum or plasma aspartate aminotransfera se measurement (enzymatic activity/volume) 31 U/L 5-34 Serum or plasma alanine aminotransferase measurement (enzymatic activity/volume) 49 U/L 0-55 Serum or plasma protein measurement (mass/volume) 7.7 g/dL 6.4-8.2 Serum or plasma albumin measurement (mass/volume) 4.6 g/dL 3.2-4.5 Serum or plasma C reactive protein measu rement (mass/volume) - 12/20/18 17:16 Serum or plasma C reactive protein measurement (mass/v olume) 0.94 mg/dL 0.00-0.50 Complete blood count (CBC) with automate d white blood cell (WBC) differential - 01/20/19 19:20 Blood leukocytes automated count (number/volume) 8.1 10*3/uL 4.3-11.0 Blood erythrocytes automated count (number/volume) 4.30 10*6/uL 4.35-5.85 Venous blood hemoglobin measurement (mass/volume) 12.4 g/dL 11.5-16.0 Blood hematocrit (volume fraction) 37 % 35-52 Automated erythrocyte mean corpuscular volume 85 [ foz_us] 80-99 Automated erythrocyte mean corpuscular h emoglobin (mass per erythrocyte) 29 pg 25-34 Automated erythrocyte mean corpuscular h emoglobin concentration measurement (mass/volume) 34 g/dL 32-36 Automated erythrocyte distribution width ratio 12. 2 % 10.0- 14.5 Automated blood platelet count [...] 10*3 1.0-4.0 Blood monocytes automated count (number/volume) 0. 5 10*3 0.0-1.0 Automated eosinophil count 0.2 10*3/uL 0 .0-0.3 Automated blood basophil count (count/volume) 0.0 10*3/uL 0.0-0.1 Comprehensive metabolic panel - 01/20/19 19:20 Serum or plasma sodium measurement (moles/volume) 139 mmol/L 135-145 Serum or plasma potassium measurement (moles/volume) 3.4 mmol/L 3.6-5.0 Serum or plasma chloride measurement (moles/volume) 104 mmol/L 98-107 Carbon dioxide 21 mmol/L 21-32 Serum or plasma anion gap determination (moles/volume) 14 mmol/L 5-14 Serum or plasma urea nitrogen measurement (mass/volume ) 14 mg/dL 7-18 Serum or plasma creatinine measurement (mass/volume) 0.81 mg/dL 0.60-1.30 Serum or plasma urea nitrogen/creatinine mass ratio 17 NRG Serum or plasma creatinine measurement w ith calculation of estimated glomerular filtration rate > NRG Serum or plasma glucose measurement (mass/volume) 86 mg/dL 70-105 Serum or plasma calcium measurement (mass/volume) 9.2 mg/dL 8.5-10.1 Serum or plasma total bilirubin measurement (mass/volu me) 0.2 mg/dL 0.1-1.0 Serum or plasma alkaline phosphatase mile surement (enzymatic activity/volume) 85 U/L 40-136 Serum or plasma aspartate aminotransfera se measurement (enzymatic activity/volume) 25 U/L 5-34 Serum [...] u[iU]/mL 0.35-4.94 Complete urinalysis with reflex to cultu re - 01/20/19 20:30 Urine color determination YELLOW NRG Urine clarity determination CLEAR NR G Urine pH measurement by test strip 6 5-9 Specific gravity of urine by test strip 1.005 1.016-1.022 Urine protein assay by test strip, semi-quantitative NEGATIVE NEGATIVE Urine glucose detection by automated test strip NE GATIVE NEGATIVE Erythrocytes detection in urine sediment by light micr oscopy NEGATIVE NEGATIVE Urine ketones detection by automated test strip NE GATIVE NEGATIVE Urine nitrite detection by test strip NEGATIVE NEGATIVE Urine total bilirubin detection by test strip NEGA TIVE NEGATIVE Urine urobilinogen measurement by automated test strip (mass/volume) NORMAL NORMAL Urine leukocyte esterase detection by dipstick NEG ATIVE NEGATIVE Automated urine sediment erythrocyte cou nt by microscopy (number/high power field) RARE NRG Automated urine sediment leukocyte count by microscopy (number/high power field) [HPF] NRG Bacteria detection in urine sediment by light microsco py TRACE NRG Crystals detection in urine sediment by light microsco py NONE NRG Casts detection in urine sediment by light microscopy NONE NRG Mucus detection in urine sediment by light microscopy SMALL NRG Complete urinalysis with reflex to culture NO NRG Complete blood count (CBC) with automate d white blood cell (WBC) differential - 02/14/19 21:25 Blood leukocytes automated count (number/volume) 9.6 10*3/uL 4.3-11.0 Blood erythrocytes automated count (number/volume) 4.36 10*6/uL 4.35-5.85 Venous blood hemoglobin measurement (mass/volume) 12.4 g/dL 11.5-16.0 Blood hematocrit (volume fraction) 37 % 35-52 Automated erythrocyte mean corpuscular volume 86 [ foz_us] 80-99 Automated erythrocyte mean corpuscular h emoglobin (mass per erythrocyte) 28 pg 25-34 Automated erythrocyte mean corpuscular h emoglobin concentration measurement (mass/volume) 33 g/dL 32-36 Automated erythrocyte distribution width ratio 12. 7 % 10.0- 14.5 Automated blood platelet count [...] 10*3 1.0-4.0 Blood monocytes automated count (number/volume) 0. 6 10*3 0.0-1.0 Automated eosinophil count 0.2 10*3/uL 0 .0-0.3 Automated blood basophil count (count/volume) 0.1 10*3/uL 0.0-0.1 Comprehensive metabolic panel - 02/14/19 21:25 Serum or plasma sodium measurement (moles/volume) 138 mmol/L 135-145 Serum or plasma potassium measurement (moles/volume) 3.8 mmol/L 3.6-5.0 Serum or plasma chloride measurement (moles/volume) 106 mmol/L 98-107 Carbon dioxide 18 mmol/L 21-32 Serum or plasma anion gap determination (moles/volume) 14 mmol/L 5-14 Serum or plasma urea nitrogen measurement (mass/volume ) 10 mg/dL 7-18 Serum or plasma creatinine measurement (mass/volume) 0.76 mg/dL 0.60-1.30 Serum or plasma urea nitrogen/creatinine mass ratio 13 NRG Serum or plasma creatinine measurement w ith calculation of estimated glomerular filtration rate > NRG Serum or plasma glucose measurement (mass/volume) 97 mg/dL 70-105 Serum or plasma calcium measurement (mass/volume) 9.8 mg/dL 8.5-10.1 Serum or plasma total bilirubin measurement (mass/volu me) 0.3 mg/dL 0.1-1.0 Serum or plasma alkaline phosphatase mile surement (enzymatic activity/volume) 94 U/L 40-136 Serum or plasma aspartate aminotransfera se measurement (enzymatic activity/volume) 69 U/L 5-34 Serum or plasma alanine aminotransferase measurement (enzymatic activity/volume) 63 U/L 0-55 Serum or plasma protein measurement (mass/volume) 7.6 g/dL 6.4-8.2 Serum or plasma albumin measurement (mass/volume) 4.5 g/dL 3.2-4.5 CALCIUM CORRECTED 9.4 mg/dL 8.5-10.1 Magnesium - 02/14/19 21:25 Magnesium 2.3 mg/dL 1.8-2.4 Complete urinalysis with reflex to cultu re - 02/14/19 21:28 Urine color determination YELLOW NRG Urine clarity determination CLEAR NR G Urine pH measurement by test strip 7 5-9 Specific gravity of urine by test strip 1.005 1.016-1.022 Urine protein assay by test strip, semi-quantitative NEGATIVE NEGATIVE Urine glucose detection by automated test strip NE GATIVE NEGATIVE Erythrocytes detection in urine sediment by light micr oscopy NEGATIVE NEGATIVE Urine ketones detection by automated test strip NE GATIVE NEGATIVE Urine nitrite detection by test strip NEGATIVE NEGATIVE Urine total bilirubin detection by test strip NEGA TIVE NEGATIVE Urine urobilinogen measurement by automated test strip (mass/volume) NORMAL NORMAL Urine leukocyte esterase detection by dipstick NEG ATIVE NEGATIVE Automated urine sediment erythrocyte cou nt by microscopy (number/high power field) NONE NRG Automated urine sediment leukocyte count by microscopy (number/high power field) NONE NRG Bacteria detection in urine sediment by light microsco py TRACE NRG Squamous epithelial cells detection in u rine sediment by light microscopy 5-10 NRG Crystals detection in urine sediment by light microsco py NONE NRG Casts detection in urine sediment by light microscopy NONE NRG Mucus detection in urine sediment by light microscopy NEGATIVE NRG Complete urinalysis with reflex to culture NO NRG Urine drug screening test - 02/14/19 21: 28 Urine phencyclidine detection by screening method NEGATIVE NEGATIVE Urine benzodiazepines detection by screening method NEGATIVE NEGATIVE Urine cocaine detection NEGATIVE NEGATI VE Urine amphetamines detection by screening method N EGATIVE NEGATIVE Urine methamphetamine detection by screening method NEGATIVE NEGATIVE Urine cannabinoids detection by screening method N EGATIVE NEGATIVE Urine opiates detection by screening method NEGATI VE NEGATIVE Urine barbiturates detection NEGATIVE N EGATIVE Screening urine tricyclic antidepressants detection NEGATIVE NEGATIVE Urine methadone detection by screening method NEGA TIVE NEGATIVE Urine oxycodone detection NEGATIVE NEGA TIVE Urine propoxyphene detection NEGATIVE N EGATIVE Complete blood count (CBC) with automate d white blood cell (WBC) differential - 05/25/19 20:55 Blood leukocytes automated count (number/volume) 8.8 10*3/uL 4.3-11.0 Blood erythrocytes automated count (number/volume) 4.71 10*6/uL 4.35-5.85 Venous blood hemoglobin measurement (mass/volume) 13.4 g/dL 11.5-16.0 Blood hematocrit (volume fraction) 41 % 35-52 Automated erythrocyte mean corpuscular volume 87 [ foz_us] 80-99 Automated erythrocyte mean corpuscular h emoglobin (mass per erythrocyte) 29 pg 25-34 Automated erythrocyte mean corpuscular h emoglobin concentration measurement (mass/volume) 33 g/dL 32-36 Automated erythrocyte distribution width ratio 13. 4 % 10.0- 14.5 Automated blood platelet count (count/volume) 249 10*3/uL 130-400 Automated blood platelet mean volume measurement 11.2 [foz_us] 7.4-10.4 Automated blood neutrophils/100 leukocytes 59 % 42-75 Automated blood lymphocytes/100 leukocytes 32 % 12-44 Blood monocytes/100 leukocytes 7 % 0-12 Automated blood eosinophils/100 leukocytes 1 % 0-10 Automated blood basophils/100 leukocytes 1 % 0-10 Blood neutrophils automated count (number/volume) 5.3 10*3 1.8-7.8 Blood lymphocytes automated count (number/volume) 2.8 10*3 1.0-4.0 Blood monocytes automated count (number/volume) 0. 6 10*3 0.0-1.0 Automated eosinophil count 0.1 10*3/uL 0 .0-0.3 Automated blood basophil count (count/volume) 0.1 10*3/uL 0.0-0.1 Comprehensive metabolic panel - 05/25/19 20:55 Serum or plasma sodium measurement (moles/volume) 141 mmol/L 135-145 Serum or plasma potassium measurement (moles/volume) 3.7 mmol/L 3.6-5.0 Serum or plasma chloride measurement (moles/volume) 107 mmol/L 98-107 Carbon dioxide 19 mmol/L 21-32 Serum or plasma anion gap determination (moles/volume) 15 mmol/L 5-14 Serum or plasma urea nitrogen measurement (mass/volume ) 10 mg/dL 7-18 Serum or plasma creatinine measurement (mass/volume) 0.86 mg/dL 0.60-1.30 Serum or plasma urea nitrogen/creatinine mass ratio 12 NRG Serum or plasma creatinine measurement w ith calculation of estimated glomerular filtration rate > NRG Serum or plasma glucose measurement (mass/volume) 84 mg/dL 70-105 Serum or plasma calcium measurement (mass/volume) 9.6 mg/dL 8.5-10.1 Serum or plasma total bilirubin measurement (mass/volu me) 0.3 mg/dL 0.1-1.0 Serum or plasma alkaline phosphatase mile surement (enzymatic activity/volume) 93 U/L 40-136 Serum or plasma aspartate aminotransfera se measurement (enzymatic activity/volume) 31 U/L 5-34 Serum or plasma alanine aminotransferase measurement (enzymatic activity/volume) 50 U/L 0-55 Serum or plasma protein measurement (mass/volume) 7.6 g/dL 6.4-8.2 Serum or plasma albumin measurement (mass/volume) 4.5 g/dL 3.2-4.5 CALCIUM CORRECTED 9.2 mg/dL 8.5-10.1 THYROID STIMULATING HORMONE - 05/25/19 2 0:55 THYROID STIMULATING HORMONE 1.25 u[iU]/mL 0.35-4.94 Complete urinalysis with reflex to cultu re - 05/25/19 21:42 Urine color determination YELLOW NRG Urine clarity determination SL CLOUDY N RG Urine pH measurement by test strip 6.5 5-9 Specific gravity of urine by test strip 1.010 1.016-1.022 Urine protein assay by test strip, semi-quantitative NEGATIVE NEGATIVE Urine glucose detection by automated test strip NE GATIVE NEGATIVE Erythrocytes detection in urine sediment by light micr oscopy 2+ NEGATIVE Urine ketones detection by automated test strip NE GATIVE NEGATIVE Urine nitrite detection by test strip NEGATIVE NEGATIVE Urine total bilirubin detection by test strip NEGA TIVE NEGATIVE Urine urobilinogen measurement by automated test strip (mass/volume) NORMAL NORMAL Urine leukocyte esterase detection by dipstick 3+ NEGATIVE Automated urine sediment erythrocyte cou nt by microscopy (number/high power field) RARE NRG Automated urine sediment leukocyte count by microscopy (number/high power field) [HPF] NRG Bacteria detection in urine sediment by light microsco py MODERATE NRG Squamous epithelial cells detection in u rine sediment by light microscopy 2-5 NRG Crystals detection in urine sediment by light microsco py NONE NRG Casts detection in urine sediment by light microscopy NONE NRG Mucus detection in urine sediment by light microscopy NEGATIVE NRG Complete urinalysis with reflex to culture YES NRG Bacterial urine culture - 05/25/19 21:42 Bacterial urine culture [id number] NRG COLONY COUNT >100,000/ML NRG FTX;REPORTABLE SUSCEPTIBILITY REPORTED 05/27 10:30 NRG Dirithromycin susceptibility test by dis k diffusion - 05/25/19 21:42 Gentamicin susceptibility test by minimum inhibitory c oncentration <= NRG Trimethoprim/sulfamethoxazole susceptibi lity test by minimum inhibitoryconcentration <= NRG Levofloxacin susceptibility test by minimum inhibitory concentration <= NRG Ampicillin susceptibility test by minimum inhibitory c oncentration > NRG Cefazolin susceptibility test by minimum inhibitory co ncentration 2 NRG Ceftriaxone susceptibility test by minimum inhibitory concentration <= NRG Ciprofloxacin susceptibility test by minimum inhibitor y concentration <= NRG Meropenem susceptibility test by minimum inhibitory co ncentration <= NRG Nitrofurantoin susceptibility test by mi nimum inhibitory concentration <= NRG Amoxicillin and clavulanate potassium susc YUMI = NRG Complete urinalysis with reflex to cultu re - 06/15/19 19:29 Urine color determination DARK YELLOW N RG Urine clarity determination SL CLOUDY N RG Urine pH measurement by test strip 6 5-9 Specific gravity of urine by test strip 1.025 1.016-1.022 Urine protein assay by test strip, semi-quantitative 1+ NEGATIVE Urine glucose detection by automated test strip NE GATIVE NEGATIVE Erythrocytes detection in urine sediment by light micr oscopy NEGATIVE NEGATIVE Urine ketones detection by automated test strip 1+ NEGATIVE Urine nitrite detection by test strip NEGATIVE NEGATIVE Urine total bilirubin detection by test strip NEGA TIVE NEGATIVE Urine urobilinogen measurement by automated test strip (mass/volume) NORMAL NORMAL Urine leukocyte esterase detection by dipstick NEG ATIVE NEGATIVE Automated urine sediment erythrocyte cou nt by microscopy (number/high power field) NONE NRG Automated urine sediment leukocyte count by microscopy (number/high power field) RARE NRG Bacteria detection in urine sediment by light microsco py FEW NRG Squamous epithelial cells detection in u rine sediment by light microscopy 10-25 NRG Crystals detection in urine sediment by light microsco py PRESENT NRG Casts detection in urine sediment by light microscopy NONE NRG Mucus detection in urine sediment by light microscopy MODERATE NRG Complete urinalysis with reflex to culture NO NRG Calcium oxalate crystals detection in ur ine sediment by light microscopy FEW NRG Urine drug screening test - 06/15/19 19: 29 Urine phencyclidine detection by screening method NEGATIVE NEGATIVE Urine benzodiazepines detection by screening method NEGATIVE NEGATIVE Urine cocaine detection NEGATIVE NEGATI VE Urine amphetamines detection by screening method N EGATIVE NEGATIVE Urine methamphetamine detection by screening method NEGATIVE NEGATIVE Urine cannabinoids detection by screening method N EGATIVE NEGATIVE Urine opiates detection by screening method NEGATI VE NEGATIVE Urine barbiturates detection NEGATIVE N EGATIVE Screening urine tricyclic antidepressants detection NEGATIVE NEGATIVE Urine methadone detection by screening method NEGA TIVE NEGATIVE Urine oxycodone detection NEGATIVE NEGA TIVE Urine propoxyphene detection NEGATIVE N EGATIVE Complete blood count (CBC) with automate d white blood cell (WBC) differential - 06/15/19 20:25 Blood leukocytes automated count (number/volume) 7.1 10*3/uL 4.3-11.0 Blood erythrocytes automated count (number/volume) 4.39 10*6/uL 4.35-5.85 Venous blood hemoglobin measurement (mass/volume) 12.7 g/dL 11.5-16.0 Blood hematocrit (volume fraction) 38 % 35-52 Automated erythrocyte mean corpuscular volume 86 [ foz_us] 80-99 Automated erythrocyte mean corpuscular h emoglobin (mass per erythrocyte) 29 pg 25-34 Automated erythrocyte mean corpuscular h emoglobin concentration measurement (mass/volume) 34 g/dL 32-36 Automated erythrocyte distribution width ratio 12. 9 % 10.0- 14.5 Automated blood platelet count (count/volume) 232 10*3/uL 130-400 Automated blood platelet mean volume measurement 11.8 [foz_us] 7.4-10.4 Automated blood neutrophils/100 leukocytes 56 % 42-75 Automated blood lymphocytes/100 leukocytes 37 % 12-44 Blood monocytes/100 leukocytes 6 % 0-12 Automated blood eosinophils/100 leukocytes 0 % 0-10 Automated blood basophils/100 leukocytes 0 % 0-10 Blood neutrophils automated count (number/volume) 4.0 10*3 1.8-7.8 Blood lymphocytes automated count (number/volume) 2.7 10*3 1.0-4.0 Blood monocytes automated count (number/volume) 0. 4 10*3 0.0-1.0 Automated eosinophil count 0.0 10*3/uL 0 .0-0.3 Automated blood basophil count (count/volume) 0.0 10*3/uL 0.0-0.1 Comprehensive metabolic panel - 06/15/19 20:25 Serum or plasma sodium measurement (moles/volume) 141 mmol/L 135-145 Serum or plasma potassium measurement (moles/volume) 3.9 mmol/L 3.6-5.0 Serum or plasma chloride measurement (moles/volume) 108 mmol/L 98-107 Carbon dioxide 18 mmol/L 21-32 Serum or plasma anion gap determination (moles/volume) 15 mmol/L 5-14 Serum or plasma urea nitrogen measurement (mass/volume ) 11 mg/dL 7-18 Serum or plasma creatinine measurement (mass/volume) 0.83 mg/dL 0.60-1.30 Serum or plasma urea nitrogen/creatinine mass ratio 13 NRG Serum or plasma creatinine measurement w ith calculation of estimated glomerular filtration rate > NRG Serum or plasma glucose measurement (mass/volume) 84 mg/dL 70-105 Serum or plasma calcium measurement (mass/volume) 9.5 mg/dL 8.5-10.1 Serum or plasma total bilirubin measurement (mass/volu me) 0.4 mg/dL 0.1-1.0 Serum or plasma alkaline phosphatase mile surement (enzymatic activity/volume) 98 U/L 40-136 Serum or plasma aspartate aminotransfera se measurement (enzymatic activity/volume) 35 U/L 5-34 Serum or plasma alanine aminotransferase measurement (enzymatic activity/volume) 59 U/L 0-55 Serum or plasma protein measurement (mass/volume) 7.6 g/dL 6.4-8.2 Serum or plasma albumin measurement (mass/volume) 4.4 g/dL 3.2-4.5 CALCIUM CORRECTED 9.2 mg/dL 8.5-10.1 Lipase - 06/15/19 20:25 Lipase 16 U/L 8-78 Serum or plasma C reactive protein measu rement (mass/volume) - 06/15/19 20:25 Serum or plasma C reactive protein measurement (mass/v olume) 0.33 mg/dL 0.00-0.50 Complete blood count (CBC) with automate d white blood cell (WBC) differential - 07/23/19 14:17 Blood leukocytes automated count (number/volume) 7.9 10*3/uL 4.3-11.0 Blood erythrocytes automated count (number/volume) 4.31 10*6/uL 4.35-5.85 Venous blood hemoglobin measurement (mass/volume) 12.3 g/dL 11.5-16.0 Blood hematocrit (volume fraction) 38 % 35-52 Automated erythrocyte mean corpuscular volume 87 [ foz_us] 80-99 Automated erythrocyte mean corpuscular h emoglobin (mass per erythrocyte) 29 pg 25-34 Automated erythrocyte mean corpuscular h emoglobin concentration measurement (mass/volume) 33 g/dL 32-36 Automated erythrocyte distribution width ratio 13. 0 % 10.0- 14.5 Automated blood platelet count (count/volume) 231 10*3/uL 130-400 Automated blood platelet mean volume measurement 10.6 [foz_us] 7.4-10.4 Automated blood neutrophils/100 leukocytes 63 % 42-75 Automated blood lymphocytes/100 leukocytes 29 % 12-44 Blood monocytes/100 leukocytes 6 % 0-12 Automated blood eosinophils/100 leukocytes 1 % 0-10 Automated blood basophils/100 leukocytes 0 % 0-10 Blood neutrophils automated count (number/volume) 5.0 10*3 1.8-7.8 Blood lymphocytes automated count (number/volume) 2.3 10*3 1.0-4.0 Blood monocytes automated count (number/volume) 0. 5 10*3 0.0-1.0 Automated eosinophil count 0.1 10*3/uL 0 .0-0.3 Automated blood basophil count (count/volume) 0.0 10*3/uL 0.0-0.1 Whole blood basic metabolic panel - 06/29 04/15 14:17 Serum or plasma sodium measurement (moles/volume) 145 mmol/L 135-145 Serum or plasma potassium measurement (moles/volume) 4.4 mmol/L 3.6-5.0 Serum or plasma chloride measurement (moles/volume) 111 mmol/L 98-107 Carbon dioxide 27 mmol/L 21-32 Serum or plasma anion gap determination (moles/volume) 7 mmol/L 5-14 Serum or plasma urea nitrogen measurement (mass/volume ) 10 mg/dL 7-18 Serum or plasma creatinine measurement (mass/volume) 0.84 mg/dL 0.60-1.30 Serum or plasma urea nitrogen/creatinine mass ratio 12 NRG Serum or plasma creatinine measurement w ith calculation of estimated glomerular filtration rate > NRG Serum or plasma glucose measurement (mass/volume) 83 mg/dL 70-105 Serum or plasma calcium measurement (mass/volume) 9.5 mg/dL 8.5-10.1 CMP - 10/01/19 13:57 GLUCOSE 86 mg/dL 65-99 UREA NITROGEN (BUN) 13 mg/dL 7-25 CREATININE 0.80 mg/dL 0.50-1.10 eGFR NON-AFR. SOMALI 100 mL/min/1.73m2 > OR = 60 eGFR 116 mL/min/1.73m2 > OR = 60 BUN/CREATININE RATIO NOT APPLICABLE (calc) 6-22 SODIUM 142 mmol/L 135-146 POTASSIUM 3.8 mmol/L 3.5-5.3 CHLORIDE 106 mmol/L 98-110 CARBON DIOXIDE 29 mmol/L 20-32 CALCIUM 10.0 mg/dL 8.6-10.2 PROTEIN, TOTAL 7.0 g/dL 6.1-8.1 ALBUMIN 4.6 g/dL 3.6-5.1 GLOBULIN 2.4 g/dL (calc) 1.9-3.7 ALBUMIN/GLOBULIN RATIO 1.9 (calc) 1.0-2. 5 BILIRUBIN, TOTAL 0.4 mg/dL 0.2-1.2 ALKALINE PHOSPHATASE 90 U/L 33-115 AST 21 U/L 10-30 ALT 41 U/L 6-29 Capillary blood glucose measurement by g lucometer (mass/volume) - 10/29/19 16:15 Capillary blood glucose measurement by glucometer (mas s/volume) 90 mg/dL 70-110 Complete blood count (CBC) with automate d white blood cell (WBC) differential - 11/05/19 13:43 Blood leukocytes automated count (number/volume) 8.8 10*3/uL 4.3-11.0 Blood erythrocytes automated count (number/volume) 4.43 10*6/uL 4.35-5.85 Venous blood hemoglobin measurement (mass/volume) 13.1 g/dL 11.5-16.0 Blood hematocrit (volume fraction) 39 % 35-52 Automated erythrocyte mean corpuscular volume 87 [ foz_us] 80-99 Automated erythrocyte mean corpuscular h emoglobin (mass per erythrocyte) 30 pg 25-34 Automated erythrocyte mean corpuscular h emoglobin concentration measurement (mass/volume) 34 g/dL 32-36 Automated erythrocyte distribution width ratio 12. 7 % 10.0- 14.5 Automated blood platelet count (count/volume) 238 10*3/uL 130-400 Automated blood platelet mean volume measurement 11.5 [foz_us] 7.4-10.4 Automated blood neutrophils/100 leukocytes 62 % 42-75 Automated blood lymphocytes/100 leukocytes 29 % 12-44 Blood monocytes/100 leukocytes 7 % 0-12 Automated blood eosinophils/100 leukocytes 2 % 0-10 Automated blood basophils/100 leukocytes 1 % 0-10 Blood neutrophils automated count (number/volume) 5.5 10*3 1.8-7.8 Blood lymphocytes automated count (number/volume) 2.6 10*3 1.0-4.0 Blood monocytes automated count (number/volume) 0. 6 10*3 0.0-1.0 Automated eosinophil count 0.1 10*3/uL 0 .0-0.3 Automated blood basophil count (count/volume) 0.0 10*3/uL 0.0-0.1 Comprehensive metabolic panel - 11/05/19 13:43 Serum or plasma sodium measurement (moles/volume) 139 mmol/L 135-145 Serum or plasma potassium measurement (moles/volume) 3.7 mmol/L 3.6-5.0 Serum or plasma chloride measurement (moles/volume) 105 mmol/L 98-107 Carbon dioxide 20 mmol/L 21-32 Serum or plasma anion gap determination (moles/volume) 14 mmol/L 5-14 Serum or plasma urea nitrogen measurement (mass/volume ) 14 mg/dL 7-18 Serum or plasma creatinine measurement (mass/volume) 0.79 mg/dL 0.60-1.30 Serum or plasma urea nitrogen/creatinine mass ratio 18 NRG Serum or plasma creatinine measurement w ith calculation of estimated glomerular filtration rate > NRG Serum or plasma glucose measurement (mass/volume) 91 mg/dL 70-105 Serum or plasma calcium measurement (mass/volume) 9.6 mg/dL 8.5-10.1 Serum or plasma total bilirubin measurement (mass/volu me) 0.3 mg/dL 0.1-1.0 Serum or plasma alkaline phosphatase mile surement (enzymatic activity/volume) 94 U/L 40-136 Serum or plasma aspartate aminotransfera se measurement (enzymatic activity/volume) 23 U/L 5-34 Serum or plasma alanine aminotransferase measurement (enzymatic activity/volume) 34 U/L 0-55 Serum or plasma protein measurement (mass/volume) 7.5 g/dL 6.4-8.2 Serum or plasma albumin measurement (mass/volume) 4.5 g/dL 3.2-4.5 CALCIUM CORRECTED 9.2 mg/dL 8.5-10.1 Serum or plasma amylase measurement (enz ymatic activity/volume) - 11/05/19 13:43 Serum or plasma amylase measurement (enzymatic activit y/volume) 40 U/L 25-125 Lipase - 11/05/19 13:43 Lipase 11 U/L 8-78 Urine beta human chorionic gonadotropin (hCG) measurement - 11/05/19 14:18 Urine beta human chorionic gonadotropin (hCG) measurem ent NEGATIVE NEGATIVE Complete urinalysis with reflex to cultu re - 11/05/19 14:18 Urine color determination YELLOW NRG Urine clarity determination CLEAR NR G Urine pH measurement by test strip 6.5 5-9 Specific gravity of urine by test strip 1.015 1.016-1.022 Urine protein assay by test strip, semi-quantitative NEGATIVE NEGATIVE Urine glucose detection by automated test strip NE GATIVE NEGATIVE Erythrocytes detection in urine sediment by light micr oscopy NEGATIVE NEGATIVE Urine ketones detection by automated test strip NE GATIVE NEGATIVE Urine nitrite detection by test strip NEGATIVE NEGATIVE Urine total bilirubin detection by test strip NEGA TIVE NEGATIVE Urine urobilinogen measurement by automated test strip (mass/volume) 0.2 mg/dL < = 1.0 Urine leukocyte esterase detection by dipstick NEG ATIVE NEGATIVE Automated urine sediment erythrocyte cou nt by microscopy (number/high power field) NONE NRG Automated urine sediment leukocyte count by microscopy (number/high power field) NONE NRG Bacteria detection in urine sediment by light microsco py NEGATIVE NRG Squamous epithelial cells detection in u rine sediment by light microscopy 2-5 NRG Crystals detection in urine sediment by light microsco py PRESENT NRG Casts detection in urine sediment by light microscopy NONE NRG Mucus detection in urine sediment by light microscopy NEGATIVE NRG Complete urinalysis with reflex to culture NO NRG Amorphous sediment detection in urine sediment by ligh t microscopy FEW GRISEL URATES NRG Urine drug screening test - 11/05/19 14: 18 Urine phencyclidine detection by screening method NEGATIVE NEGATIVE Urine benzodiazepines detection by screening method POSITIVE NEGATIVE Urine cocaine detection NEGATIVE NEGATI VE Urine amphetamines detection by screening method N EGATIVE NEGATIVE Urine methamphetamine detection by screening method NEGATIVE NEGATIVE Urine cannabinoids detection by screening method N EGATIVE NEGATIVE Urine opiates detection by screening method NEGATI VE NEGATIVE Urine barbiturates detection NEGATIVE N EGATIVE Screening urine tricyclic antidepressants detection NEGATIVE NEGATIVE Urine methadone detection by screening method NEGA TIVE NEGATIVE Urine oxycodone detection NEGATIVE NEGA TIVE Urine propoxyphene detection NEGATIVE N EGATIVE Complete blood count (CBC) with automate d white blood cell (WBC) differential - 11/10/19 20:50 Blood leukocytes automated count (number/volume) 8.6 10*3/uL 4.3-11.0 Blood erythrocytes automated count (number/volume) 4.12 10*6/uL 4.35-5.85 Venous blood hemoglobin measurement (mass/volume) 12.2 g/dL 11.5-16.0 Blood hematocrit (volume fraction) 36 % 35-52 Automated erythrocyte mean corpuscular volume 88 [ foz_us] 80-99 Automated erythrocyte mean corpuscular h emoglobin (mass per erythrocyte) 30 pg 25-34 Automated erythrocyte mean corpuscular h emoglobin concentration measurement (mass/volume) 34 g/dL 32-36 Automated erythrocyte distribution width ratio 12. 7 % 10.0- 14.5 Automated blood platelet count (count/volume) 216 10*3/uL 130-400 Automated blood platelet mean volume measurement 11.6 [foz_us] 7.4-10.4 Automated blood neutrophils/100 leukocytes 59 % 42-75 Automated blood lymphocytes/100 leukocytes 34 % 12-44 Blood monocytes/100 leukocytes 5 % 0-12 Automated blood eosinophils/100 leukocytes 2 % 0-10 Automated blood basophils/100 leukocytes 0 % 0-10 Blood neutrophils automated count (number/volume) 5.0 10*3 1.8-7.8 Blood lymphocytes automated count (number/volume) 2.9 10*3 1.0-4.0 Blood monocytes automated count (number/volume) 0. 5 10*3 0.0-1.0 Automated eosinophil count 0.2 10*3/uL 0 .0-0.3 Automated blood basophil count (count/volume) 0.0 10*3/uL 0.0-0.1 Comprehensive metabolic panel - 11/10/19 20:50 Serum or plasma sodium measurement (moles/volume) 140 mmol/L 135-145 Serum or plasma potassium measurement (moles/volume) 4.1 mmol/L 3.6-5.0 Serum or plasma chloride measurement (moles/volume) 107 mmol/L 98-107 Carbon dioxide 19 mmol/L 21-32 Serum or plasma anion gap determination (moles/volume) 14 mmol/L 5-14 Serum or plasma urea nitrogen measurement (mass/volume ) 19 mg/dL 7-18 Serum or plasma creatinine measurement (mass/volume) 0.83 mg/dL 0.60-1.30 Serum or plasma urea nitrogen/creatinine mass ratio 23 NRG Serum or plasma creatinine measurement w ith calculation of estimated glomerular filtration rate > NRG Serum or plasma glucose measurement (mass/volume) 96 mg/dL 70-105 Serum or plasma calcium measurement (mass/volume) 9.1 mg/dL 8.5-10.1 Serum or plasma total bilirubin measurement (mass/volu me) 0.1 mg/dL 0.1-1.0 Serum or plasma alkaline phosphatase mile surement (enzymatic activity/volume) 88 U/L 40-136 Serum or plasma aspartate aminotransfera se measurement (enzymatic activity/volume) 17 U/L 5-34 Serum or plasma alanine aminotransferase measurement (enzymatic activity/volume) 25 U/L 0-55 Serum or plasma protein measurement (mass/volume) 7.3 g/dL 6.4-8.2 Serum or plasma albumin measurement (mass/volume) 4.3 g/dL 3.2-4.5 CALCIUM CORRECTED 8.9 mg/dL 8.5-10.1 Magnesium - 11/10/19 20:50 Magnesium 1.9 mg/dL 1.6-2.4 Complete urinalysis with reflex to cultu re - 11/10/19 23:44 Urine color determination YELLOW NRG Urine clarity determination CLEAR NR G Urine pH measurement by test strip 5.5 5-9 Specific gravity of urine by test strip 1.025 1.016-1.022 Urine protein assay by test strip, semi-quantitative NEGATIVE NEGATIVE Urine glucose detection by automated test strip NE GATIVE NEGATIVE Erythrocytes detection in urine sediment by light micr oscopy NEGATIVE NEGATIVE Urine ketones detection by automated test strip NE GATIVE NEGATIVE Urine nitrite detection by test strip NEGATIVE NEGATIVE Urine total bilirubin detection by test strip NEGA TIVE NEGATIVE Urine urobilinogen measurement by automated test strip (mass/volume) 0.2 mg/dL < = 1.0 Urine leukocyte esterase detection by dipstick NEG ATIVE NEGATIVE Automated urine sediment erythrocyte cou nt by microscopy (number/high power field) NONE NRG Automated urine sediment leukocyte count by microscopy (number/high power field) [HPF] NRG Bacteria detection in urine sediment by light microsco py MODERATE NRG Squamous epithelial cells detection in u rine sediment by light microscopy 2-5 NRG Crystals detection in urine sediment by light microsco py NONE NRG Casts detection in urine sediment by light microscopy NONE NRG Mucus detection in urine sediment by light microscopy NEGATIVE NRG Complete urinalysis with reflex to culture YES NRG Bacterial urine culture - 11/10/19 23:44 Bacterial urine culture [id number] NRG COLONY COUNT >100,000/ML NRG FTX;REPORTABLE (KLEBSIELLA AEROGENES) N RG FREE TEXT ENTRY 2 ID/SUSCEPTIBLITY REPORTED 11/12 1 2:05 NRG Dirithromycin susceptibility test by dis k diffusion - 11/10/19 23:44 Gentamicin susceptibility test by minimum inhibitory c oncentration <= NRG Trimethoprim/sulfamethoxazole susceptibi lity test by minimum inhibitoryconcentration <= NRG Levofloxacin susceptibility test by minimum inhibitory concentration <= NRG Ampicillin susceptibility test by minimum inhibitory c oncentration > NRG Cefazolin susceptibility test by minimum inhibitory co ncentration > NRG Ceftriaxone susceptibility test by minimum inhibitory concentration <= NRG Ciprofloxacin susceptibility test by minimum inhibitor y concentration <= NRG Meropenem susceptibility test by minimum inhibitory co ncentration <= NRG Nitrofurantoin susceptibility test by mi nimum inhibitory concentration 32 NRG Amoxicillin and clavulanate potassium susc YUMI > NRG CULTURE, THROAT - 03/05/20 19:00 CULTURE, THROAT SEE NOTE NRG COVID-19 (QUEST) - 01/25/20 12:02 PATIENT SYMPTOMATIC? NOT GIVEN NRG SOURCE: NOT GIVEN NRG OVERALL RESULT: NOT DETECTED NOT DETE CTED SARS-CoV-2 RNA: NEGATIVE NEGATIVE YIN-SARS RNA: NEGATIVE NEGATIVE Encounters ACCT No. Visit Date/Time Discharge Status Pt. Type Provider Facility Loc./Unit Complaint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
[2020-03-04 23:46] VITALS: BP 168/104
[2020-03-04] MEDS ORDERED: LACO200T2 (23:53)
--- NOTE | 2020-03-05 00:08 | ED Fall/Injury ---
General Chief Complaint: Upper Extremity Stated Complaint: RT HAND INJURY Nursing Triage Note: right thumb/2nd finger pain s/p fall Source: patient Exam Limitations: no limitations History of Present Illness Date Seen by Provider: March 05, 2020 Time Seen by Provider: 00:01 Initial Comments Patient presents ER by private conveyance from home with chief complaint one hour prior to arrival she slipped on some water and fell as she was having the bed and somehow hurt her right thumb and index finger. She does not member she hyperextended it but she heard a popping sensation and now she has pain and swelling in her right thumb. She still has ability to move her all 5 digits. She has sensation intact. No previous surgical injury. She has not taken anything for the pain yet. Allergies and Home Medications Allergies Coded Allergies: carbamazepine (Verified Allergy, Unknown, 10/19/18) divalproex sodium (Verified Allergy, Unknown, 10/19/18) ondansetron (Verified Allergy, Unknown, 10/19/18) oxcarbazepine (Verified Allergy, Unknown, 10/19/18) prochlorperazine (Verified Allergy, Unknown, 10/19/18) topiramate (Verified Allergy, Unknown, 10/19/18) Home Medications Diazepam 5 Mg Tablet, 5 MG PO Q6H PRN for DIZZINESS Prescribed by: GERARDO LARA MD on 10/29/191838 Diphenhydramine HCl 25 Mg Capsule, 25 MG PO q6 PRN for DIZZINESS Prescribed by: GERARDO LARA MD on 10/29/191838 Patient Home Medication List Home Medication List Reviewed: Yes Review of Systems Review of Systems Constitutional: No chills, No fever Eyes: Denies Blindness, Denies Drainage Ears, Nose, Mouth, Throat: denies ear pain, denies ear discharge Respiratory: No cough, No short of breath Cardiovascular: No chest pain, No edema Gastrointestinal: No abdominal pain, No nausea : No (status post hysterectomy) All Other Systems Reviewed Negative Unless Noted: Yes Past Nnrhnst-Ofjnex-Epvaxb Hx Patient Social History Alcohol Use: Rarely Uses Recreational Drug Use: No Drug of Choice: denies Smoking Status: Current Everyday Smoker Type Used: Cigarettes, Electronic/Vapor Former Smoker, Quit: Nov 29, 2018 2nd Hand Smoke Exposure: Yes Recent Foreign Travel: No Contact w/Someone Who Travel: No Recent Infectious Disease Expo: No Recent Hopitalizations: No Physical Abuse: No Sexual Abuse: No Mistreated: No Fear: No Immunizations Up To Date Tetanus Booster (TDap): Unknown PED Vaccines UTD: Yes Date of Influenza Vaccine: Jul 28, 2019 Seasonal Allergies Seasonal Allergies: No Past Medical History Surgeries: Yes (vagal nerve stimulator, double mastectomy) Breast, Section, Gallbladder, 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, Oophorectomy, Tonsillectomy Respiratory: Yes Asthma Cardiac: Yes Hypertension 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: Yes Seizure Disorder : No 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 0oz. 99.586939pq; 39.00 BMI Method:Stated General Appearance: WD/WN, no apparent distress HEENT: PERRL/EOMI, pharynx normal Cardiovascular: normal peripheral pulses, regular rate, rhythm Respiratory: no respiratory distress, no accessory muscle use Peripheral Pulses: 2+ Radial Pulses (R), 2+ Radial Pulses (L) Extremities: other (movement in all 5 digits. Limited range of motion in the right thumb secondary to pain and swelling. Tenderness to the proximal phalanx first digit.) Neurologic/Psychiatric: no motor/sensory deficits, alert, normal mood/affect, oriented x 3 Brick Coma Score Best Eye Response: (4) Open Spontaneously Best Verbal Response: (5) Oriented Best Motor Response: (6) Obeys Commands Brick Total: 15 Progress/Results/Core Measures Results/Orders My Orders Orders - DONNA CARTER Hand, Right, 3 Views (03/05/20 00:06) Acetaminophen Tablet/Caplet (Tylenol T (03/05/20 00:15) Medications Given in ED Current Medications Medications Dose Ordered Sig/Shlomo Route Start Time Stop Time Status Last Admin Dose Admin Acetaminophen 650 mg ONCE ONCE PO 03/05/20 00:15 03/05/20 00:16 DC 03/05/20 00:29 650 MG Vital Signs/I&O 03/04/20 03/05/20 23:46 00:29 Temp 36.7 36.7 Pulse 93 Resp 18 B/P (MAP) 168/104 (125) Pulse Ox 98 O2 Delivery Room Air Blood Pressure Mean: 125 Progress Progress Note : Time: 00:10 Progress Note 650 mg Tylenol, ice pack and x-ray of the right hand. Diagnostic Imaging Diagonstic Imaging: Xray Plain Films/CT/US/NM/MRI: hand (right) Comments No acute osseous abnormality on 3 views. Reviewed: Reviewed by Me Departure Impression Primary Impression: Contusion of right hand Qualified Codes: S60.221A - Contusion of right hand, initial encounter Disposition: HOME, SELF-CARE Condition: Stable Departure-Patient Inst. Decision time for Depature: 00:46 Referrals: NO,LOCAL PHYSICIAN (PCP) Primary Care Physician HOWARD MATHEW (Family) Primary Care Physician Patient Instructions: Contusion (DC) Add. Discharge Instructions: While I can't see a fracture today I do see evidence for a large contusion and soft tissue injury. This usually will resolve over a couple weeks. Wear the splint for the first 1-2 weeks. It's okay to take it off to bathe. I strongly encourage you to follow-up with your primary care doctor in 7-10 days for reexamination. Ice for 20 minutes every 2 hours for the first 2 days. Elevate the hand above the level of your heart to reduce swelling and pain. Limit use of your hand until pain improves. Tylenol 1000 mg every 8 hours as needed for pain. Ibuprofen 800 mg every 8 hours as needed for pain. All discharge instructions reviewed with patient and/or family. Voiced understanding. Work/School Note: Work Release Form Date Seen in the Emergency Department: March 05, 2020 Return to Work: March 05, 2020 Restrictions: Need Release from Doctor Other Restrictions Listed Below: Avoid use of the right hand until 03/12/20. DONNA CARTER March 05, 2020 00:08
[2020-03-05] MEDS ORDERED: ACETAMINOPHEN 325 MG TABLET PO ONE (00:15)
--- NOTE | 2020-03-05 08:06 | Diagnostic Imaging Report ---
EXAM: HAND, RIGHT, 3 VIEWS INDICATION: Fall. Right thumb and index finger pain. COMPARISON: None. FINDINGS: No fracture or malalignment. No suspicious osteoblastic or lytic lesions. Soft tissue shadows are unremarkable. IMPRESSION: Negative right hand radiographs. Dictated by: Dictated on workstation # [id number]
== END 2020-03-05 00:55 | disposition home or self-care (01) ==
LOC: EDUNIT# 23:28 → ER 23:31
DX: S60.221A Contusion of right hand, initial encounter (principal); G40.909 Epilepsy, unspecified, not intractable, without status epilepticus; F41.9 Anxiety disorder, unspecified; F31.9 Bipolar disorder, unspecified; R40.2142 Coma scale, eyes open, spontaneous, at arrival to emergency department; R40.2242 Coma scale, best verbal response, confused conversation, at arrival to emergency department; R40.2362 Coma scale, best motor response, obeys commands, at arrival to emergency department; F17.210 Nicotine dependence, cigarettes, uncomplicated; F17.290 Nicotine dependence, other tobacco product, uncomplicated; Z85.3 Personal history of malignant neoplasm of breast; Z88.8 Allergy status to other drugs, medicaments and biological substances; W01.0XXA Fall on same level from slipping, tripping and stumbling without subsequent striking against object, initial encounter
CPT/HCPCS: 73130

== ENCOUNTER 2020-05-24 19:35 | Emergency (ER) | payer MEDICAID ==
[~2020-05-24] VITALS: Ht 157 cm; Wt 105.0 kg
[~2020-05-24 19:35] MED LIST changes: +LACO200T2
[2020-05-24] MEDS ORDERED: PROMETHAZINE INJ 25 MG/ML (PHENERGAN) AMP IVP ONE (20:00)
[2020-05-24 20:04] LABS: AMPHETAMINE SCREEN, URINE NEGATIVE (NEGATIVE); BARBITURATE SCREEN URINE NEGATIVE (NEGATIVE); BENZODIAZEPINES SCREEN URINE NEGATIVE (NEGATIVE); CANNABINOID SCREEN, URINE NEGATIVE (NEGATIVE); COCAINE SCREEN URINE NEGATIVE (NEGATIVE); METHADONE STAT NEGATIVE (NEGATIVE); METHAMPHETAMINE SCREEN URINE S NEGATIVE (NEGATIVE); OPIATE SCREEN URINE NEGATIVE (NEGATIVE); OXYCODONE STAT NEGATIVE (NEGATIVE); PROPOXYPHENE STAT NEGATIVE (NEGATIVE); TRICYCLIC ANTIDEPRESSANTS SCRE NEGATIVE (NEGATIVE)
[2020-05-24 20:11] LABS: BILIRUBIN,URINE NEGATIVE (NEGATIVE); CLARITY,URINE CLEAR; COLOR,URINE YELLOW; GLUCOSE, URINE (UA) NEGATIVE (NEGATIVE); KETONES,URINE NEGATIVE (NEGATIVE); LEUKOCYTE ESTERASE ,URINE NEGATIVE (NEGATIVE); NITRITE,URINE NEGATIVE (NEGATIVE); PROTEIN,URINE NEGATIVE (NEGATIVE)
[2020-05-24 20:18] LABS: BACTERIA,URINE TRACE /HPF; SQUAMOUS EPITHELIAL CELL,UR 0-2 /HPF; WBC,URINE RARE /HPF
[2020-05-24 21:53] LABS: BASOPHILS # (AUTO) 0.1 10^3/uL (0.0-0.1); BASOPHILS % (AUTO) 1 % (0-10); EOSINOPHILS # (AUTO) 0.4 10^3/uL (0.0-0.3); EOSINOPHILS % (AUTO) 4 % (0-10); HEMATOCRIT 36 % (35-52); HEMOGLOBIN 12.8 G/DL (11.5-16.0); LYMPHOCYTES # (AUTO) 3.1 X 10^3 (1.0-4.0); LYMPHOCYTES % (AUTO) 29 % (12-44); MEAN CORPUSCULAR HEMOGLOBIN 30 PG (25-34); MEAN CORPUSCULAR HGB CONC 36 G/DL (32-36); MEAN CORPUSCULAR VOLUME 84 FL (80-99); MEAN PLATELET VOLUME 11.2 FL (7.4-10.4); MONOCYTES # (AUTO) 0.6 X 10^3 (0.0-1.0); MONOCYTES % (AUTO) 6 % (0-12); NEUTROPHILS # (AUTO) 6.4 X 10^3 (1.8-7.8); NEUTROPHILS % (AUTO) 61 % (42-75); PLATELET COUNT 202 10^3/uL (130-400); RED CELL DISTRIBUTION WIDTH 12.2 % (10.0-14.5); WHITE BLOOD COUNT 10.6 10^3/uL (4.3-11.0)
[2020-05-24 22:03] LABS: ALBUMIN 4.5 GM/DL (3.2-4.5)
[2020-05-24 22:04] LABS: AMYLASE 40 U/L (25-125); CHLORIDE 109 MMOL/L (98-107); POTASSIUM 4.2 MMOL/L (3.6-5.0); SODIUM 141 MMOL/L (135-145)
[2020-05-24 22:05] LABS: CALCIUM 9.4 MG/DL (8.5-10.1)
[2020-05-24 22:06] LABS: GLUCOSE 86 MG/DL (70-105); TOTAL PROTEIN 7.7 GM/DL (6.4-8.2)
[2020-05-24 22:07] LABS: CARBON DIOXIDE 17 MMOL/L (21-32)
[2020-05-24 22:08] LABS: BILIRUBIN,TOTAL 0.2 MG/DL (0.1-1.0)
[2020-05-24 22:09] LABS: ALKALINE PHOSPHATASE 99 U/L (40-136)
[2020-05-24 22:10] LABS: CREATININE SERUM 0.76 MG/DL (0.60-1.30); GFR ESTIMATED > 60
[2020-05-24 22:11] LABS: BUN/CREATININE RATIO 12
[2020-05-24 22:13] LABS: ALANINE AMINOTRANSFERASE 42 U/L (0-55); LIPASE 13 U/L (8-78)
--- NOTE | 2020-05-24 22:22 | ED Abdominal Pain ---
General Chief Complaint: Abdominal/GI Problems Stated Complaint: N/V Source of Information: Patient Exam Limitations: No Limitations History of Present Illness Date Seen by Provider: May 24, 2020 Time Seen by Provider: 19:51 Initial Comments 29-year-old female who presents to emergency room with complaints of nausea and vomiting for the past 2 days. She reports that she has been seeing her PCP for this issue for the past 6 months and he has prescribed her Phenergan. She did take 12.5 mg this afternoon without improvement. She denies any focal area of pain in her abdomen and is reports that she has been nauseated. She is alert and oriented on arrival to the emergency room. Timing/Duration: 1-2 Days, Other (6 months) Associated Symptoms: Nausea/Vomiting Allergies and Home Medications Allergies Coded Allergies: carbamazepine (Verified Allergy, Unknown, 10/19/18) divalproex sodium (Verified Allergy, Unknown, 10/19/18) ondansetron (Verified Allergy, Unknown, 10/19/18) oxcarbazepine (Verified Allergy, Unknown, 10/19/18) prochlorperazine (Verified Allergy, Unknown, 10/19/18) topiramate (Verified Allergy, Unknown, 10/19/18) Home Medications Diazepam 5 Mg Tablet, 5 MG PO Q6H PRN for DIZZINESS Prescribed by: GERARDO LARA MD on 10/29/191838 Diphenhydramine HCl 25 Mg Capsule, 25 MG PO q6 PRN for DIZZINESS Prescribed by: GERARDO LARA MD on 10/29/191838 Patient Home Medication List Home Medication List Reviewed: Yes Review of Systems Review of Systems Constitutional: see HPI; No chills, No fever Gastrointestinal: See HPI, Nausea, Vomiting All Other Systems Reviewed Negative Unless Noted: Yes Past Zjwtali-Qrrouk-Vupzfa Hx Past Med/Social Hx: Reviewed Nursing Past Med/Soc Hx Patient Social History Drug of Choice: denies Type Used: Cigarettes, Electronic/Vapor Former Smoker, Quit: Nov 29, 2018 2nd Hand Smoke Exposure: Yes Recent Foreign Travel: No Contact w/Someone Who Travel: No Recent Hopitalizations: No Immunizations Up To Date Tetanus Booster (TDap): Unknown PED Vaccines UTD: Yes Date of Influenza Vaccine: Jul 28, 2019 Seasonal Allergies Seasonal Allergies: No Past Medical History Surgeries: Yes (vagal nerve stimulator, double mastectomy) Breast, Section, Gallbladder, 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, Oophorectomy, Tonsillectomy Respiratory: Yes Asthma Cardiac: Yes Hypertension 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: Yes Seizure Disorder 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 0oz. 99.432126vh; 39.00 BMI Method:Stated General Appearance: WD/WN, no apparent distress Respiratory: chest non-tender, lungs clear, normal breath sounds, no respiratory distress, no accessory muscle use Cardiovascular: normal peripheral pulses, regular rate, rhythm, no edema, no gallop, no JVD, no murmur Gastrointestinal: normal bowel sounds, non tender, soft, no organomegaly, no pulsatile mass Extremities: normal capillary refill Neurologic/Psychiatric: alert, normal mood/affect, oriented x 3 Skin: normal color, warm/dry Progress/Results/Core Measures Results/Orders Lab Results Laboratory Tests Test 05/24/20 19:30 05/24/20 19:48 05/24/20 21:45 Range/Units Urine Opiates Screen NEGATIVE NEGATIVE Urine Oxycodone Screen NEGATIVE NEGATIVE Urine Methadone Screen NEGATIVE NEGATIVE Urine Propoxyphene Screen NEGATIVE NEGATIVE Urine Barbiturates Screen NEGATIVE NEGATIVE Ur Tricyclic Antidepressants Screen NEGATIVE NEGATIVE Urine Phencyclidine Screen NEGATIVE NEGATIVE Urine Amphetamines Screen NEGATIVE NEGATIVE Urine Methamphetamines Screen NEGATIVE NEGATIVE Urine Benzodiazepines Screen NEGATIVE NEGATIVE Urine Cocaine Screen NEGATIVE NEGATIVE Urine Cannabinoids Screen NEGATIVE NEGATIVE Urine Color YELLOW Urine Clarity CLEAR Urine pH 7.0 5-9 Urine Specific [place] 1.010 L 1.016-1.022 Urine Protein NEGATIVE NEGATIVE Urine Glucose (UA) NEGATIVE NEGATIVE Urine Ketones NEGATIVE NEGATIVE Urine Nitrite NEGATIVE NEGATIVE Urine Bilirubin NEGATIVE NEGATIVE Urine Urobilinogen 0.2 < = 1.0 MG/DL Urine Leukocyte Esterase NEGATIVE NEGATIVE Urine RBC (Auto) NEGATIVE NEGATIVE Urine RBC NONE /HPF Urine WBC RARE /HPF Urine Squamous Epithelial Cells 0-2 /HPF Urine Crystals NONE /LPF Urine Bacteria TRACE /HPF Urine Casts NONE /LPF Urine Mucus NEGATIVE /LPF Urine Culture Indicated NO White Blood Count 10.6 4.3-11.0 10^3/uL Red Blood Count 4.28 L 4.35-5.85 10^6/uL Hemoglobin 12.8 11.5-16.0 G/DL Hematocrit 36 35-52 % Mean Corpuscular Volume 84 80-99 FL Mean Corpuscular Hemoglobin 30 25-34 PG Mean Corpuscular Hemoglobin Concent 36 32-36 G/DL Red Cell Distribution Width 12.2 10.0-14.5 % Platelet Count 202 130-400 10^3/uL Mean Platelet Volume 11.2 H 7.4-10.4 FL Neutrophils (%) (Auto) 61 42-75 % Lymphocytes (%) (Auto) 29 12-44 % Monocytes (%) (Auto) 6 0-12 % Eosinophils (%) (Auto) 4 0-10 % Basophils (%) (Auto) 1 0-10 % Neutrophils # (Auto) 6.4 1.8-7.8 X 10^3 Lymphocytes # (Auto) 3.1 1.0-4.0 X 10^3 Monocytes # (Auto) 0.6 0.0-1.0 X 10^3 Eosinophils # (Auto) 0.4 H 0.0-0.3 10^3/uL Basophils # (Auto) 0.1 0.0-0.1 10^3/uL Sodium Level 141 135-145 MMOL/L Potassium Level 4.2 3.6-5.0 MMOL/L Chloride Level 109 H 98-107 MMOL/L Carbon Dioxide Level 17 L 21-32 MMOL/L Anion Gap 15 H 5-14 MMOL/L Blood Urea Nitrogen 9 7-18 MG/DL Creatinine 0.76 0.60-1.30 MG/DL Estimat Glomerular Filtration Rate > 60 BUN/Creatinine Ratio 12 Glucose Level 86 70-105 MG/DL Calcium Level 9.4 8.5-10.1 MG/DL Corrected Calcium 9.0 8.5-10.1 MG/DL Total Bilirubin 0.2 0.1-1.0 MG/DL Aspartate Amino Transf (AST/SGOT) 31 5-34 U/L Alanine Aminotransferase (ALT/SGPT) 42 0-55 U/L Alkaline Phosphatase 99 40-136 U/L Total Protein 7.7 6.4-8.2 GM/DL Albumin 4.5 3.2-4.5 GM/DL Amylase Level 40 25-125 U/L Lipase 13 8-78 U/L My Orders Orders - JOEL BISHOP Ua Culture If Indicated (05/24/20 19:44) Drug Screen Stat (Urine) (05/24/20 19:44) Urine Bedside (05/24/20 19:44) Comprehensive Metabolic Panel (05/24/20 19:50) Lipase (05/24/20 19:50) Amylase (05/24/20 19:50) Ed Iv/Invasive Line Start (05/24/20 19:50) Cbc With Automated Diff (05/24/20 19:50) Promethazine Injection (Phenergan Injec (05/24/20 20:00) Progress Progress Note : Time: 22:20 Progress Note I have seen and evaluated the patient. She has not had any nausea or vomiting s maria e arrival to the emergency room. She did receive Phenergan. Nursing staff reports that the patient was a difficult IV stick but they were unable to obtain IV in her left foot and have lab draw for blood work. She agrees with plan of care, plans for discharge, and close follow-up with Howard Magaña at the [facility] clinic. Return precautions were given. Departure Impression Primary Impression: Abdominal pain Additional Impression: Nausea and vomiting Disposition: 01 HOME, SELF-CARE Condition: Stable/Unchanged Departure-Patient Inst. Decision time for Depature: 22:21 Referrals: [facility] [place] Primary Care Physician HOWARD MATHEW (Family) Primary Care Physician Patient Instructions: Nausea and Vomiting, Adult Add. Discharge Instructions: You may continue to use your Phenergan as needed at home. Follow-up with your primary care provider within 1 week for recheck. Call first thing tomorrow to schedule an appointment time. Return back to the emergency room for worsening symptoms or concerns as needed. All discharge instructions reviewed with patient and/or family. Voiced understanding. JOEL BISHOP May 24, 2020 22:22
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
[2020-05-24 22:33] VITALS: BP 129/90
--- NOTE | 2020-05-24 22:35 | NUR ---
Pt refused to sign discharge papers.
== END 2020-05-24 22:29 | disposition home or self-care (01) ==
LOC: EDUNIT# 19:35 → ER 19:37
DX: R10.9 Unspecified abdominal pain (principal); R11.2 Nausea with vomiting, unspecified; F41.9 Anxiety disorder, unspecified; Z88.8 Allergy status to other drugs, medicaments and biological substances; Z87.891 Personal history of nicotine dependence; Z85.3 Personal history of malignant neoplasm of breast
CPT/HCPCS: 36415; 80053; 80306; 81000; 82150; 83690; 85025

== ENCOUNTER 2021-07-26 15:35 | Emergency (ER) | payer MEDICAID ==
[~2021-07-26] VITALS: Ht 167 cm; Wt 100.0 kg
[~2021-07-26 15:35] MED LIST changes: -CETI10TA21 PO; +CETI10TA49 PO; -CIPR500T4 PO; +CIPR500T5 PO
[2021-07-26 16:56] LABS: BILIRUBIN,URINE NEGATIVE (NEGATIVE); CLARITY,URINE SL CLOUDY; COLOR,URINE YELLOW; GLUCOSE, URINE (UA) NEGATIVE (NEGATIVE); KETONES,URINE NEGATIVE (NEGATIVE); LEUKOCYTE ESTERASE ,URINE NEGATIVE (NEGATIVE); NITRITE,URINE NEGATIVE (NEGATIVE); PROTEIN,URINE NEGATIVE (NEGATIVE)
[2021-07-26 17:35] LABS: BACTERIA,URINE NEGATIVE /HPF; SQUAMOUS EPITHELIAL CELL,UR 0-2 /HPF
[2021-07-26 17:35] LABS: BASOPHILS # (AUTO) 0.1 10^3/uL (0.0-0.1); BASOPHILS % (AUTO) 1 % (0-10); EOSINOPHILS # (AUTO) 0.2 10^3/uL (0.0-0.3); EOSINOPHILS % (AUTO) 2 % (0-10); HEMATOCRIT 36 % (35-52); HEMOGLOBIN 12.1 g/dL (11.5-16.0); LYMPHOCYTES # (AUTO) 2.6 10^3/uL (1.0-4.0); LYMPHOCYTES % (AUTO) 30 % (12-44); MEAN CORPUSCULAR HEMOGLOBIN 30 pg (25-34); MEAN CORPUSCULAR HGB CONC 34 g/dL (32-36); MEAN CORPUSCULAR VOLUME 88 fL (80-99); MEAN PLATELET VOLUME 11.3 fL (9.0-12.2); MONOCYTES # (AUTO) 0.5 10^3/uL (0.0-1.0); MONOCYTES % (AUTO) 6 % (0-12); NEUTROPHILS # (AUTO) 5.2 10^3/uL (1.8-7.8); NEUTROPHILS % (AUTO) 61 % (42-75); PLATELET COUNT 247 10^3/uL (130-400); WHITE BLOOD COUNT 8.6 10^3/uL (4.3-11.0)
[2021-07-26 17:56] LABS: ALBUMIN 4.5 GM/DL (3.2-4.5); POTASSIUM 3.4 MMOL/L (3.6-5.0)
[2021-07-26 17:58] LABS: TOTAL PROTEIN 7.7 GM/DL (6.4-8.2)
[2021-07-26 18:00] LABS: BILIRUBIN,TOTAL 0.2 MG/DL (0.1-1.0)
[2021-07-26 18:02] LABS: CREATININE SERUM 0.75 MG/DL (0.60-1.30)
[2021-07-26 18:05] LABS: MAGNESIUM 1.8 MG/DL (1.6-2.4)
[2021-07-26 18:26] LABS: TSH (THYROID ANALYZER) 1.33 UIU/ML (0.35-4.94)
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
[2021-07-26 19:28] VITALS: BP 131/84
== END 2021-07-26 19:29 | disposition home or self-care (01) ==
LOC: EDUNIT# 15:35 → ER 15:39
DX: R19.7 Diarrhea, unspecified (principal); R10.9 Unspecified abdominal pain; R53.83 Other fatigue; K21.9 Gastro-esophageal reflux disease without esophagitis; J45.909 Unspecified asthma, uncomplicated; I10 Essential (primary) hypertension; G40.909 Epilepsy, unspecified, not intractable, without status epilepticus; E66.9 Obesity, unspecified; F41.9 Anxiety disorder, unspecified; F32.9 Major depressive disorder, single episode, unspecified; Z68.35 Body mass index [BMI] 35.0-35.9, adult; Z79.899 Other long term (current) drug therapy
CPT/HCPCS: 36415; 80053; 81000; 83690; 83735; 84443; 85025; 86141

== ENCOUNTER 2021-08-26 21:33 | Emergency (ER) | payer MEDICAID ==
[~2021-08-26] VITALS: Ht 157.5 cm; Wt 104.3 kg
[2021-08-26] MEDS ORDERED: fentaNYL INJ 100 MCG/2 ML AMP IVP STA ×2 (21:41→22:16)
[2021-08-26] MEDS ORDERED: LACTATED RINGERS 1,000 ML IV ONE (21:45)
[2021-08-26] MEDS ORDERED: TETANUS,DIPTH,PERTUSS P/F (BOOSTRIX) 0.5 ML VIAL IM ONE (21:45)
[2021-08-26 21:55] LABS: BASOPHILS # (AUTO) 0.1 10^3/uL (0.0-0.1); BASOPHILS % (AUTO) 1 % (0-10); EOSINOPHILS # (AUTO) 0.3 10^3/uL (0.0-0.3); EOSINOPHILS % (AUTO) 3 % (0-10); HEMATOCRIT 36 % (35-52); HEMOGLOBIN 12.3 g/dL (11.5-16.0); LYMPHOCYTES # (AUTO) 3.7 10^3/uL (1.0-4.0); LYMPHOCYTES % (AUTO) 37 % (12-44); MEAN CORPUSCULAR HEMOGLOBIN 29 pg (25-34); MEAN CORPUSCULAR HGB CONC 34 g/dL (32-36); MEAN CORPUSCULAR VOLUME 86 fL (80-99); MEAN PLATELET VOLUME 10.7 fL (9.0-12.2); MONOCYTES # (AUTO) 0.5 10^3/uL (0.0-1.0); MONOCYTES % (AUTO) 5 % (0-12); NEUTROPHILS # (AUTO) 5.3 10^3/uL (1.8-7.8); NEUTROPHILS % (AUTO) 53 % (42-75); PLATELET COUNT 268 10^3/uL (130-400)
[2021-08-26 22:10] LABS: ALBUMIN 4.6 GM/DL (3.2-4.5); CHLORIDE 105 MMOL/L (98-107); POTASSIUM 3.7 MMOL/L (3.6-5.0); SODIUM 141 MMOL/L (135-145)
[2021-08-26 22:11] LABS: CALCIUM 9.5 MG/DL (8.5-10.1)
[2021-08-26 22:13] LABS: GLUCOSE 103 MG/DL (70-105); TOTAL PROTEIN 7.7 GM/DL (6.4-8.2)
[2021-08-26 22:14] LABS: BILIRUBIN,TOTAL 0.2 MG/DL (0.1-1.0); CARBON DIOXIDE 20 MMOL/L (21-32)
[2021-08-26 22:16] LABS: ALKALINE PHOSPHATASE 102 U/L (40-136); CREATININE SERUM 0.82 MG/DL (0.60-1.30); GFR ESTIMATED 82
[2021-08-26 22:17] LABS: BUN/CREATININE RATIO 18
[2021-08-26 22:19] LABS: ALANINE AMINOTRANSFERASE 58 U/L (0-55)
[2021-08-26] MEDS ORDERED: HYDROcodone/APAP 5 MG/325 MG (LORTAB) TAB PO ONE (22:45)
[2021-08-26] MEDS ORDERED: morphine INJ 10 MG/ML 1ML (SYR OR VIAL) IVP ONE (22:45)
[2021-08-26] MEDS ORDERED: LORazepam INJ 2 MG/ML (ATIVAN) VIAL IVP ONE (22:45)
[2021-08-26] MEDS ORDERED: RX-MUPIROCIN (BACTROBAN) 2% OINT 22 GM TUBE TOP STA (22:46)
[2021-08-26] MEDS ORDERED: PROMETHAZINE INJ 25 MG/ML (PHENERGAN) AMP IVP ONE (23:00)
--- NOTE | 2021-08-26 23:05 | Diagnostic Imaging Report ---
EXAMINATION: Chest radiograph, portable AP view. DATE: 08/26/2021 10:57 PM INDICATION: 30-year-old female, smoke exposure. Shortness of breath. COMPARISON: November 10, 2019. FINDINGS: Lung volumes are low. Heart size and mediastinal contours are grossly unchanged. There is a left-sided assist device. There is no identified pneumothorax. There is no large pleural effusion. There is no identified focal airspace consolidation. IMPRESSION: Low lung volumes without identified acute cardiopulmonary abnormality. Dictated by: Dictated on workstation # [id number]
[2021-08-27] MEDS ORDERED: LACTATED RINGERS 1,000 ML IV ONE (00:30)
[2021-08-27 00:50] LABS: BILIRUBIN,URINE NEGATIVE (NEGATIVE); CLARITY,URINE CLEAR; COLOR,URINE YELLOW; GLUCOSE, URINE (UA) NEGATIVE (NEGATIVE); KETONES,URINE NEGATIVE (NEGATIVE); LEUKOCYTE ESTERASE ,URINE TRACE (NEGATIVE); NITRITE,URINE NEGATIVE (NEGATIVE); PH,URINE 6.5 (5-9); PROTEIN,URINE NEGATIVE (NEGATIVE)
[2021-08-27 01:02] LABS: AMPHETAMINE SCREEN, URINE POSITIVE (NEGATIVE); BENZODIAZEPINES SCREEN URINE POSITIVE (NEGATIVE); CANNABINOID SCREEN, URINE NEGATIVE (NEGATIVE); COCAINE SCREEN URINE NEGATIVE (NEGATIVE); METHAMPHETAMINE SCREEN URINE S NEGATIVE (NEGATIVE); OPIATE SCREEN URINE POSITIVE (NEGATIVE)
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
[2021-08-27 01:03] LABS: BACTERIA,URINE TRACE /HPF; BARBITURATE SCREEN URINE NEGATIVE (NEGATIVE); METHADONE STAT NEGATIVE (NEGATIVE); OXYCODONE STAT NEGATIVE (NEGATIVE); PROPOXYPHENE STAT NEGATIVE (NEGATIVE); TRICYCLIC ANTIDEPRESSANTS SCRE NEGATIVE (NEGATIVE); WBC,URINE RARE /HPF
[2021-08-27] MEDS ORDERED: HYDR-34 PO (01:32)
[2021-08-27 01:50] VITALS: BP 116/81
== END 2021-08-27 01:50 | disposition home or self-care (01) ==
LOC: EDUNIT# 21:40 → ER 21:41
DX: T20.27XA Burn of second degree of neck, initial encounter (principal); T20.212A Burn of second degree of left ear [any part, except ear drum], initial encounter; T20.211A Burn of second degree of right ear [any part, except ear drum], initial encounter; T22.212A Burn of second degree of left forearm, initial encounter; T22.211A Burn of second degree of right forearm, initial encounter; T23.202A Burn of second degree of left hand, unspecified site, initial encounter; T23.201A Burn of second degree of right hand, unspecified site, initial encounter; T26.02XA Burn of left eyelid and periocular area, initial encounter; T26.01XA Burn of right eyelid and periocular area, initial encounter; E66.9 Obesity, unspecified; J45.909 Unspecified asthma, uncomplicated; I10 Essential (primary) hypertension; G40.909 Epilepsy, unspecified, not intractable, without status epilepticus; F41.9 Anxiety disorder, unspecified; F32.9 Major depressive disorder, single episode, unspecified; G89.29 Other chronic pain; M54.9 Dorsalgia, unspecified; Z68.41 Body mass index [BMI] 40.0-44.9, adult; Z72.0 Tobacco use; Z23 Encounter for immunization; Z79.899 Other long term (current) drug therapy; X00.0XXA Exposure to flames in uncontrolled fire in building or structure, initial encounter; Y92.000 Kitchen of unspecified non-institutional (private) residence as the place of occurrence of the external cause
CPT/HCPCS: 71045; 80053; 80306; 81000; 82375; 84703; 85025; 90471; 93041; 96361; 96374; 96375; 99291; 99292; G0390; G0480; 36415; 80320; 90715